=== PATIENT | female | born 1940 | race Caucasian/White ===

== ENCOUNTER → 2017-04-28 08:34 | Outpatient (CLI) | payer MEDICARE, OTHER, SELFPAY ==
[2017-04-28 10:41] LABS: Anion Gap 8 (5-15); BUN 17 mg/dL (7-18); BUN/Creat Ratio 14.7 RATIO (10-20); Calcium,Total 9.1 mg/dL (8.5-10.1); Chloride 109 mmol/L (98-107); Cholesterol 178 mg/dL (200); Creatinine, Serum 1.16 mg/dL (0.55-1.02); EST Glomerular Filtration Rate 48 mL/min (>60); Est Glom Filt Rate - Afr Amer 58 mL/min (>60); Glucose 131 mg/dL (74-106); High Density Lipoprotein 33 mg/dL; Potassium 4.3 mmol/L (3.5-5.1); Sodium Level 142 mmol/L (136-145); Triglycerides 214 mg/dL; Very Low Density Lipoprotein 43 mg/dL (5-40)
== END ==
PROVIDERS: Family Provider Family Medicine; PCP Family Medicine; Visit Provider Family Medicine
DX: I10 Essential (primary) hypertension (principal)
CPT/HCPCS: 36415; 80048; 80061

== ENCOUNTER → 2017-11-12 13:31 | Outpatient (CLI) | payer MEDICARE, OTHER, SELFPAY ==
--- NOTE | 2017-11-12 | LES_PTH ---
PATIENT: RYAN FLEMING [facility]: [facility] U#:[id number] AGE/SX: 85/F ROOM: RE11/12/[address]: Dr. Miles Mercedes MD : 1940 BED: DIS: SPEC #: [id number] RECD: 11/12/17 14:42 STATUS: ALIVIA JASON #: [id number] SHIRA: 11/12/17 00:[address]: Miles Mercedes DEPT: SURGICAL PATHOLOGY RECD BY: Antonio Larsen Tissues: A - Skin of back, NOS B - Skin of back, NOS Procedures: Surgery Specimen Level IV HEADER OPERATION: Biopsy ? mole left upper back, biopsy ? mole right back PRE-OP DIAGNOSIS: Suspicious mole TISSUE SUBMITTED: A ? Suspicious mole left upper back, B ? Mole right upper back MICROSCOPIC DIAGNOSIS A. Suspicious mole left upper back, biopsy: Seborrheic keratosis with features of actinic keratosis. B. Mole right upper back, biopsy: Seborrheic keratosis with features of actinic keratosis. KEN:susu 11/15/17 MICROSCOPIC DESCRIPTION Slides are reviewed. GROSS DESCRIPTION A - Received is one container labeled with the patient's name and not further designated. The specimen consists of a shave biopsy of summers-white skin measuring 0.7 x 0.5 x 0.1 cm. A brownish lesion is noted in the center measuring 0.5 x 0.2 cm. The specimen is inked and submitted entirely in one cassette. It will be sectioned at the time of embedding. B - Received is one container labeled with the patient's name and not further designated. The specimen consists of a piece of summers-white skin measuring 1 x 0.7 x 0.3 cm. The skin surface is rough. The specimen is inked and submitted entirely in one cassette. It will be sectioned at the time of embedding. / KEN:susu 11/12/17 TC:5 CPT: 89623
== END ==
PROVIDERS: Family Provider Family Medicine; PCP Family Medicine; Visit Provider Family Medicine
DX: L82.1 Other seborrheic keratosis (principal)
CPT/HCPCS: 88305

== ENCOUNTER → 2018-01-24 08:42 | Outpatient (CLI) | payer MEDICARE, BC, SELFPAY ==
--- NOTE | 2018-01-24 09:00 | RAD_ITS ---
STUDY: X-RAY - LEFT KNEE REASON FOR EXAM: Female, 78 years old. Pain, no known injury TECHNIQUE: 4 view(s) of the knee. COMPARISON: None. FINDINGS: Normal visualized distal femur. Normal visualized proximal tibia and fibula. Normal proximal tibiofibular articulation. There is mild degenerative arthrosis of the medial femorotibial compartment. Normal lateral femorotibial compartment. There is mild degenerative arthrosis of the patellofemoral articulation. The soft tissue structures are unremarkable. RAD/Knee 4 or More Views IMPRESSION: Degenerative arthrosis. Electronically Signed: Tim Lui MD at 17:09 EST , Service support ,
[2018-01-24 11:09] LABS: Anion Gap 11 (5-15); BUN 17 mg/dL (7-18); BUN/Creat Ratio 15.2 RATIO (10-20); Calcium,Total 9.4 mg/dL (8.5-10.1); Chloride 107 mmol/L (98-107); Cholesterol 179 mg/dL (200); Creatinine, Serum 1.12 mg/dL (0.55-1.02); EST Glomerular Filtration Rate 50 mL/min (>60); Est Glom Filt Rate - Afr Amer 61 mL/min (>60); Glucose 109 mg/dL (74-106); High Density Lipoprotein 32 mg/dL; Potassium 4.6 mmol/L (3.5-5.1); Sodium Level 144 mmol/L (136-145); Triglycerides 219 mg/dL; Very Low Density Lipoprotein 44 mg/dL (5-40)
== END ==
PROVIDERS: Family Provider Family Medicine; PCP Family Medicine; Referring Provider Family Medicine; Visit Provider Family Medicine
DX: M25.562 Pain in left knee (principal); I10 Essential (primary) hypertension
CPT/HCPCS: 36415; 73564; 80048; 80061

== ENCOUNTER → 2018-07-25 09:24 | Outpatient (CLI) | payer MEDICARE, BC, SELFPAY ==
[2018-07-25 13:18] LABS: Anion Gap 9 (5-15); BUN 24 mg/dL (7-18); BUN/Creat Ratio 21.8 RATIO (10-20); Calcium,Total 9.3 mg/dL (8.5-10.1); Chloride 113 mmol/L (98-107); EST Glomerular Filtration Rate 51 mL/min (>60); Est Glom Filt Rate - Afr Amer 62 mL/min (>60); Glucose 114 mg/dL (74-106); Potassium 4.9 mmol/L (3.5-5.1); Sodium Level 144 mmol/L (136-145)
== END ==
PROVIDERS: Family Provider Family Medicine; PCP Family Medicine; Visit Provider Family Medicine
DX: I10 Essential (primary) hypertension (principal)
CPT/HCPCS: 36415; 80048

== ENCOUNTER → 2018-08-04 07:00 | Outpatient (CLI) | payer MEDICARE, BC, SELFPAY ==
--- NOTE | 2018-08-04 06:59 | BI_ITS ---
MAMMOGRAPHY - BILATERAL SCREENING REASON FOR EXAM: Female, 78 years old. Routine annual screening examination. PERTINENT HISTORY: Aunt with breast cancer. History of bilateral excisional breast biopsies. TECHNIQUE: Digital bilateral breast neal (3D mammographic acquisition) in the CC and MLO projections. 2-D mediolateral oblique (MLO) and craniocaudad (CC) views of both breasts were obtained. CAD: Full Field Digital Mammography with Computer Added Detection was performed. COMPARISON: Comparison is made with prior study dated October 07, 2016 and April 05, 2015. FINDINGS: Breast Composition: The breasts are heterogeneously dense, which may obscure small masses. There are no dominant masses or suspicious calcifications. No other significant abnormalities are identified. There has been no significant change since the prior study. BI/SCREENING MAMM (CAD), BILAT IMPRESSION: Stable bilateral screening mammogram. Yearly follow-up mammogram recommended. (A) ASSESSMENT CATEGORY: BIRADS Category 1: Negative. A letter regarding these results will be sent to the patient by the facility within 30 days. Approximately 10% of breast cancers are not detected by mammography. A normal mammogram should not delay biopsy of a clinically suspicious abnormality. [id number] Electronically Signed: Heath Andre, at 8:31 EDT , Service support ,
== END ==
PROVIDERS: Family Provider Family Medicine; PCP Family Medicine; Referring Provider Family Medicine; Visit Provider Family Medicine
DX: Z12.31 Encounter for screening mammogram for malignant neoplasm of breast (principal)
CPT/HCPCS: 77063; 77067

== ENCOUNTER → 2018-08-08 | Outpatient (CLI) | payer MEDICARE, BC, SELFPAY ==
--- NOTE | 2018-08-08 15:10 | LES_PTH ---
PATIENT: RYAN FLEMING LOC: [facility] U#:[id number] AGE/SX: 78/F ROOM: RE08/08/[address]: Dr. Miles Mercedes MD : 1940 BED: DIS: 08/08/2018 SPEC #: [id number] RECD: 08/08/18 17:21 STATUS: ALIVIA JASON #: [id number] SHIRA: 08/08/18 15:[address]: Miles Mercedes DEPT: SURGICAL PATHOLOGY RECD BY: Kenna Calix Tissues: Skin of back, NOS Procedures: Surgery Specimen Level IV HEADER OPERATION: Skin excision PRE-OP DIAGNOSIS: Suspicious skin lesion TISSUE SUBMITTED: Right back skin lesion MICROSCOPIC DIAGNOSIS Right back skin lesion, excisional biopsy: Benign verrucous keratosis with seborrheic keratosis-like features. SJ:susu 08/10/18 MICROSCOPIC DESCRIPTION Slides are reviewed. GROSS DESCRIPTION Received in fixative is one container labeled with the patient's name and designated right back lesion. The specimen consists of a light summers shave biopsy of skin measuring 1 x 0.5 x 0.2 cm. The specimen is inked, bisected and totally submitted in one cassette. / AM:susu 08/09/18 TC:5 CPT: 64314
== END | disposition home or self-care (01) ==
PROVIDERS: PCP Family Medicine; Visit Provider Family Medicine
DX: L82.0 Inflamed seborrheic keratosis (principal)
CPT/HCPCS: 88305

== ENCOUNTER → 2019-05-18 08:20 | Outpatient (CLI) | payer MEDICARE, BC, SELFPAY ==
--- NOTE | 2019-05-18 08:39 | RAD_ITS ---
STUDY: X-RAY - LEFT KNEE REASON FOR EXAM: Female, 79 years old. LEFT KNEE PAIN FOR YEARS JUST GETTING WORSE. NO KNOWN RECENT INJURY. TECHNIQUE: 4 view(s) of the knee. COMPARISON: January 24, 2018. FINDINGS: No acute fracture, dislocation or osseous destruction. Severe medial compartment joint space narrowing. Lateral compartment preserved. Mild/moderate patellofemoral joint space narrowing. Small quadriceps enthesophyte. Chondrocalcinosis within the menisci. Trace joint effusion. No significant swelling. RAD/Knee 4 or More Views IMPRESSION: Left knee osteoarthritis predominating medially Chondrocalcinosis Trace joint effusion Electronically Signed: Osmel Rodrigez DO at 8:20 EDT Tel , Service support ,
[2019-05-18 10:16] LABS: Anion Gap 8 (5-15); BUN 18 mg/dL (7-18); BUN/Creat Ratio 17.5 RATIO (10-20); Calcium,Total 9.3 mg/dL (8.5-10.1); Chloride 109 mmol/L (98-107); Creatinine, Serum 1.03 mg/dL (0.55-1.02); EST Glomerular Filtration Rate 55 mL/min (>60); Est Glom Filt Rate - Afr Amer 67 mL/min (>60); Glucose 124 mg/dL (74-106); Potassium 4.3 mmol/L (3.5-5.1); Sodium Level 143 mmol/L (136-145)
== END ==
PROVIDERS: PCP Family Medicine; Referring Provider Family Medicine; Visit Provider Family Medicine
DX: I10 Essential (primary) hypertension (principal); M25.562 Pain in left knee
CPT/HCPCS: 36415; 73564; 80048

== ENCOUNTER → 2019-10-25 14:08 | Outpatient (CLI) | payer MEDICARE, BC, SELFPAY ==
--- NOTE | 2019-10-25 14:10 | BI_ITS ---
MAMMOGRAPHY - BILATERAL SCREENING 3-D TOMOSYNTHESIS REASON FOR EXAM: Female, 79 years old. Routine screening PERTINENT HISTORY: FM HX MAT AUNT AGE?, LOST 15#, BILAT EXC BX''S S-, LT AXILLARY SKIN TAG MARKED. TECHNIQUE: 2-D mammograms and 3-D Tomosynthesis of the breast (s) were performed. CAD was performed. COMPARISON: 08/04/2018 FINDINGS: The breast composition is heterogeneously dense that can obscure small breast masses. Scattered benign calcifications are seen. No dense spiculated masses or suspicious microcalcifications are identified. No architectural distortion is identified. There is no skin thickening or retraction. There has been no significant change since the prior study. BI/SCREEN MAMM (CAD) W/FAMILIA BILAT IMPRESSION: No mammographic signs of malignancy. Routine yearly mammograms recommended. ASSESSMENT CATEGORY: BIRADS Category 2: Benign. A letter regarding these results will be sent to the patient by the facility within 30 days. FOLLOW UP RECOMMENDATION: Yearly follow up mammogram recommended. (A) Approximately 10% of breast cancers are not detected by mammography. A normal mammogram should not delay biopsy of a clinically suspicious abnormality. Electronically Signed: Gus Garcia MD at 17:23 EDT , Service support ,
== END ==
PROVIDERS: PCP Family Medicine; Referring Provider Family Medicine; Visit Provider Family Medicine
DX: Z12.31 Encounter for screening mammogram for malignant neoplasm of breast (principal)
CPT/HCPCS: 77063; 77067

== ENCOUNTER → 2019-11-17 08:23 | Outpatient (CLI) | payer MEDICARE, BC, SELFPAY ==
[2019-11-17 10:43] LABS: Microalbumin,Random Urine 34.9 mg/L (NO RANGE EST.)
[2019-11-17 10:47] LABS: Anion Gap 6 (5-15); BUN 20 mg/dL (7-18); Calcium,Total 9.8 mg/dL (8.5-10.1); Chloride 107 mmol/L (98-107); Cholesterol 157 mg/dL (200); Creatinine, Serum 1.11 mg/dL (0.55-1.02); EST Glomerular Filtration Rate 50 mL/min (>60); Est Glom Filt Rate - Afr Amer 61 mL/min (>60); Glucose 100 mg/dL (74-106); High Density Lipoprotein 27 mg/dL; Potassium 3.8 mmol/L (3.5-5.1); Sodium Level 141 mmol/L (136-145); Triglycerides 279 mg/dL; Very Low Density Lipoprotein 56 mg/dL (5-40)
== END ==
PROVIDERS: PCP Family Medicine; Referring Provider Family Medicine; Visit Provider Family Medicine
DX: I10 Essential (primary) hypertension (principal)
CPT/HCPCS: 36415; 80048; 80061; 82043

== ENCOUNTER → 2019-11-23 16:26 | Outpatient (CLI) | payer MEDICARE, BC, SELFPAY ==
--- NOTE | 2019-11-23 16:30 | RAD_ITS ---
STUDY: X-RAY - PELVIS AND LEFT HIP REASON FOR EXAM: Female, 79 years old. Left hip pain TECHNIQUE: The views of the pelvis and hip. COMPARISON: None. FINDINGS: There is a non-specific bowel gas pattern. Normal visualized soft tissue structures. Normal bilateral iliac wings, sacroiliac joints and visualized sacrum. Normal bilateral superior and inferior pubic rami. Questionable lucency through the left pubic tubercle. Normal bilateral ischial tuberosities. Normal visualized femoral head. Normal acetabulum. Narrowed hip joint. RAD/HIP, UNI W/ Pelvis 2-3 Views IMPRESSION: Questionable lucency through the left pubic tubercle. Electronically Signed: Arian Perez DO at 23:59 EDT Tel [phone], Service support ,
== END ==
PROVIDERS: PCP Family Medicine; Referring Provider Nurse Practitioner Adult Health; Visit Provider Nurse Practitioner Adult Health
DX: M25.552 Pain in left hip (principal)
CPT/HCPCS: 73502

== ENCOUNTER → 2019-11-24 13:05 | Outpatient (CLI) | payer MEDICARE, BC, SELFPAY ==
--- NOTE | 2019-11-24 13:10 | RAD_ITS ---
STUDY: X-RAY - PELVIS REASON FOR EXAM: Female, 79 years old. Pt had a left hip and whole pelvis xray yesterday-report mentions a questionable left pubic tubercle lucency -- -- pt has left hip and groin pain TECHNIQUE: One view of the pelvis was obtained. COMPARISON: Comparison is made with prior examination of 11/23/2019. FINDINGS: There is a non-specific bowel gas pattern. Normal visualized soft tissue structures. There is narrowing with cortical sclerosis and osteophyte formation of the sacroiliac joint consistent with degenerative osteoarthritic changes. Normal visualized bilateral superior and inferior pubic rami. Normal pubic symphysis. Normal ischial tuberosities. Normal visualized right femoral head. Normal right acetabulum. Normal right hip joint. Normal visualized left femoral head. Normal left acetabulum. Normal left hip joint. RAD/Pelvis 1 or 2 Views IMPRESSION: No acute abnormality is seen. Electronically Signed: Heath Andre, at 14:55 EDT , Service support ,
== END ==
PROVIDERS: PCP Family Medicine; Referring Provider Nurse Practitioner Adult Health; Visit Provider Nurse Practitioner Adult Health
DX: R93.7 Abnormal findings on diagnostic imaging of other parts of musculoskeletal system (principal)
CPT/HCPCS: 72170

== ENCOUNTER → 2020-05-16 09:02 | Outpatient (CLI) | payer MEDICARE, BC, SELFPAY ==
[2020-05-16 10:41] LABS: ALB/GLOB Ratio 1.2 RATIO (0.9-2.4); AST(SGOT) 15 U/L (15-37); Alanine Aminotransfer ALT/SGPT 21 U/L (13-56); Albumin, Serum 3.9 g/dL (3.2-5.0); Alkaline Phosphatase 104 U/L (45-117); Anion Gap 6 (5-15); BUN 27 mg/dL (7-18); BUN/Creat Ratio 21.8 RATIO (10-20); Calcium,Total 9.3 mg/dL (8.5-10.1); Chloride 110 mmol/L (98-107); Cholesterol 174 mg/dL (200); Creatinine, Serum 1.24 mg/dL (0.55-1.02); EST Glomerular Filtration Rate 44 mL/min (>60); Est Glom Filt Rate - Afr Amer 54 mL/min (>60); Globulin 3.3 g/dL (2.2-4.2); Glucose 107 mg/dL (74-106); High Density Lipoprotein 37 mg/dL; Potassium 4.2 mmol/L (3.5-5.1); Protein, Total 7.2 g/dL (6.4-8.2); Sodium Level 142 mmol/L (136-145); Triglycerides 204 mg/dL; Very Low Density Lipoprotein 41 mg/dL (5-40)
== END ==
PROVIDERS: PCP Family Medicine; Referring Provider Family Medicine; Visit Provider Family Medicine
DX: I10 Essential (primary) hypertension (principal)
CPT/HCPCS: 36415; 80053; 80061

== ENCOUNTER → 2020-10-22 08:46 | Outpatient (CLI) | payer MEDICARE, BC, SELFPAY ==
[2020-10-22 10:20] LABS: Absolute Lymphocyte Count 1.75 X10^3/uL (0.83-4.51); Absolute Neutrophil Count 2.9 X10^3/uL (2.0-7.7); Basophil# 0.05 X10^3/uL; Basophil% 0.9 % (0-1); Eosinophil# 0.21 X10^3/uL; Eosinophils% 3.9 % (0-5); Hematocrit 35.6 % (37-47); Hemoglobin 11.9 g/dL (12.0-15.0); Lymphocyte # 1.75 X10^3/ul (0.83-4.51); Lymphocyte % 32.2 % (19-41); Mean Corp Hgb Conc 33.4 g/dL (32-36); Mean Corpuscular Hgb 29.3 pg (27.0-32.0); Mean Corpuscular Volume 87.7 fL (81-99); Mean Platelet Vol. 9.5 fl (6.2-12.0); Monocyte# 0.52 X10^3/uL; Monocyte% 9.6 % (0-10); NRBC Flagged by Analyzer 0 % (0-5); Neutrophil # 2.89 X10^3/uL (2.7-7.7); Platelet Count 176 K/mm3 (150-450); RBC Distribution Width CV 12.9 % (11.6-14.6); RBC Distribution Width SD 40.9 fl (35.1-43.9); Red Blood Count 4.06 M/mm3 (4.2-5.4); White Blood Count 5.4 K/mm3 (4.4-11.0)
[2020-10-22 10:38] LABS: ALB/GLOB Ratio 1.2 RATIO (0.9-2.4); AST(SGOT) 19 U/L (15-37); Alanine Aminotransfer ALT/SGPT 24 U/L (13-56); Albumin, Serum 3.7 g/dL (3.2-5.0); Alkaline Phosphatase 106 U/L (45-117); Anion Gap 4 (5-15); BUN 21 mg/dL (7-18); BUN/Creat Ratio 18.9 RATIO (10-20); Chloride 111 mmol/L (98-107); Cholesterol 149 mg/dL (200); Creatinine, Serum 1.11 mg/dL (0.55-1.02); EST Glomerular Filtration Rate 50 mL/min (>60); Est Glom Filt Rate - Afr Amer 61 mL/min (>60); Globulin 3.2 g/dL (2.2-4.2); Glucose 99 mg/dL (74-106); High Density Lipoprotein 29 mg/dL; Potassium 4.2 mmol/L (3.5-5.1); Protein, Total 6.9 g/dL (6.4-8.2); Sodium Level 142 mmol/L (136-145); Triglycerides 226 mg/dL; Very Low Density Lipoprotein 45 mg/dL (5-40)
== END ==
PROVIDERS: PCP Family Medicine; Referring Provider Family Medicine; Visit Provider Family Medicine
DX: Z01.818 Encounter for other preprocedural examination (principal); I10 Essential (primary) hypertension
CPT/HCPCS: 36415; 80053; 80061; 85025

== ENCOUNTER 2021-03-18 07:57 | Outpatient (CLI) | payer MEDICARE, BC, SELFPAY ==
--- NOTE | 2021-03-18 08:30 | MRI_ITS ---
EXAM: MR HEAD WITHOUT INTRAVENOUS CONTRAST CLINICAL INDICATION: RIGHT ARM PARESTHESIA TECHNIQUE: Multiplanar and multisequence MR images of the brain were obtained without intravenous contrast. This report was created using [employer] report generation technology. COMPARISON: None. FINDINGS: BRAIN AND EXTRA-AXIAL SPACES: No diffusion restriction throughout the brain parenchyma. T2 FLAIR hyperintensity foci in the white matter of both cerebral hemispheres, confluent in the forceps major. No intra- or extra-axial hemorrhage. No evidence of acute infarct. No intracranial mass or mass effect. There is preservation of the farrell/white matter interface. Posterior fossa structures are unremarkable. Ventricles are appropriate for age. No hydrocephalus. Basal cisterns are patent. SELLA: Unremarkable. Normal sella turcica, pituitary gland, infundibular stalk, optic chiasm and hypothalamus. AUDITORY SYSTEM: Unremarkable. The internal auditory canals are patent. BONES/JOINTS: Unremarkable. No discrete lytic or blastic abnormalities. SINUSES: Unremarkable as visualized. Clear. MASTOID AIR CELLS: Unremarkable as visualized. Clear. ORBITS: Unremarkable as visualized. Both globes, extraocular muscles, optic nerves and retrobulbar fat appear unremarkable. VASCULATURE: Unremarkable as visualized. Normal flow voids in the major intracranial circulation. MRI/Brain without Contrast IMPRESSION: 1. No MRI evidence of acute or subacute ischemic infarct, intracranial mass or acute intracranial abnormality. 2. Chronic white matter ischemic changes in both cerebral hemispheres, confluent in the forceps major. Electronically Signed: Heladio Hernandez MD at 9:10 EST , Service support ,
== END 2021-03-18 23:59 | disposition short-term general hospital (02) ==
PROVIDERS: PCP Family Medicine; Referring Provider Family Medicine; Visit Provider Family Medicine
DX: R20.2 Paresthesia of skin (principal)
CPT/HCPCS: 70551

== ENCOUNTER 2021-04-02 09:37 | Outpatient (CLI) | payer MEDICARE, BC, SELFPAY ==
--- NOTE | 2021-04-02 11:14 | NEURO ---
NCS and/or EMG Patient Report Ordering Doctor: Miles Mercedes DATE OF SERVICE: 04/02/21 Tracy complains of numbness and tingling in the right hand for approximately 1 month Electrodiagnostic findings: Right median motor nerve demonstrates normal distal latency, amplitude and conduction velocity. Right ulnar motor responses within normal limits, including conduction across the elbow. Normal right median and ulnar F-wave. Prolonged right median sensory latency at the wrist. Normal ulnar and radial sensory responses. On needle EMG, all muscles tested in the right upper limb showed no evidence of denervation with normal motor unit action potentials. Electrodiagnostic impression: This is an abnormal study in the right upper limb. 1. Electrodiagnostic findings demonstrate right-sided median mononeuropathy. This is consistent with a mild right carpal tunnel syndrome 2. No electrodiagnostic evidence noted for cervical radiculopathy.
== END 2021-04-02 23:59 | disposition short-term general hospital (02) ==
LOC: PSN 09:38
PROVIDERS: PCP Family Medicine; Referring Provider Family Medicine; Visit Provider Family Medicine
DX: R20.2 Paresthesia of skin (principal)
CPT/HCPCS: 95886; 95910

== ENCOUNTER 2021-05-15 09:45 | Outpatient (CLI) | payer MEDICARE, BC, SELFPAY ==
[2021-05-15 12:18] LABS: Absolute Lymphocyte Count 1.89 X10^3/uL (0.83-4.51); Absolute Neutrophil Count 2.8 X10^3/uL (2.0-7.7); Basophil# 0.06 X10^3/uL; Basophil% 1.1 % (0-1); Eosinophil# 0.24 X10^3/uL; Eosinophils% 4.4 % (0-5); Hematocrit 39.1 % (37-47); Hemoglobin 12.7 g/dL (12.0-15.0); Lymphocyte # 1.89 X10^3/ul (0.83-4.51); Lymphocyte % 34.5 % (19-41); Mean Corp Hgb Conc 32.5 g/dL (32-36); Mean Corpuscular Hgb 28.5 pg (27.0-32.0); Mean Corpuscular Volume 87.7 fL (81-99); Mean Platelet Vol. 9.6 fl (6.2-12.0); Monocyte# 0.45 X10^3/uL; Monocyte% 8.2 % (0-10); NRBC Flagged by Analyzer 0 % (0-5); Neutrophil # 2.83 X10^3/uL (2.7-7.7); Neutrophil % 51.6 % (47-70); Platelet Count 191 K/mm3 (150-450); RBC Distribution Width CV 12.7 % (11.6-14.6); RBC Distribution Width SD 41.1 fl (35.1-43.9); Red Blood Count 4.46 M/mm3 (4.2-5.4); White Blood Count 5.5 K/mm3 (4.4-11.0)
[2021-05-15 12:48] LABS: ALB/GLOB Ratio 1.1 RATIO (0.9-2.4); AST(SGOT) 17 U/L (15-37); Alanine Aminotransfer ALT/SGPT 22 U/L (13-56); Albumin, Serum 3.9 g/dL (3.2-5.0); Alkaline Phosphatase 120 U/L (45-117); Anion Gap 2 (5-15); BUN 23 mg/dL (7-18); BUN/Creat Ratio 21.5 RATIO (10-20); Calcium,Total 9.2 mg/dL (8.5-10.1); Chloride 109 mmol/L (98-107); Cholesterol 188 mg/dL (200); Creatinine, Serum 1.07 mg/dL (0.55-1.02); EST Glomerular Filtration Rate 52 mL/min (>60); Est Glom Filt Rate - Afr Amer 63 mL/min (>60); Globulin 3.5 g/dL (2.2-4.2); Glucose 104 mg/dL (74-106); High Density Lipoprotein 33 mg/dL; Potassium 4.2 mmol/L (3.5-5.1); Protein, Total 7.4 g/dL (6.4-8.2); Sodium Level 140 mmol/L (136-145); Triglycerides 240 mg/dL; Very Low Density Lipoprotein 48 mg/dL (5-40)
== END 2021-05-15 23:59 | disposition home or self-care (01) ==
PROVIDERS: PCP Family Medicine; Referring Provider Family Medicine; Visit Provider Family Medicine
DX: Z01.818 Encounter for other preprocedural examination (principal); Z01.810 Encounter for preprocedural cardiovascular examination; I10 Essential (primary) hypertension
CPT/HCPCS: 36415; 80053; 80061; 85025

== ENCOUNTER 2021-05-19 09:33 | Outpatient (CLI) | payer MEDICARE, BC, SELFPAY ==
--- NOTE | 2021-05-19 09:37 | EKG12_ITS ---
Test Reason : PREOP Blood Pressure : / mmHG Vent. Rate : 058 BPM Atrial Rate : 058 BPM P-R Int : 182 ms QRS Dur : 082 ms QT Int : 394 ms P-R-T Axes : 036 060 088 degrees QTc Int : 386 ms Sinus bradycardia Otherwise normal ECG Confirmed by RAJESH SANCHEZ, GUERDA ([id number]), city editor ELIZABETH JAIN ([id number]) on 05/20/2021 9:17:27 AM Referred By: Atilio Greer Confirmed By:GUERDA MENA MD
== END 2021-05-19 23:59 | disposition home or self-care (01) ==
LOC: PSN 09:35
PROVIDERS: PCP Family Medicine; Referring Provider Specialist; Visit Provider Specialist
DX: Z01.810 Encounter for preprocedural cardiovascular examination (principal); Z01.818 Encounter for other preprocedural examination
CPT/HCPCS: 93005

== ENCOUNTER → 2021-10-13 | Outpatient (CLI) | payer MEDICARE, BC, SELFPAY ==
--- NOTE | 2021-10-13 12:47 | BI_ITS ---
MAMMOGRAPHY - BILATERAL SCREENING REASON FOR EXAM: Female, 81 years old. Routine annual screening examination. PERTINENT HISTORY: Aunt with breast cancer. History of prior bilateral excisional breast biopsies. TECHNIQUE: Digital bilateral breast familia (3D mammographic acquisition) in the CC and MLO projections. 2-D mediolateral oblique (MLO) and craniocaudad (CC) views of both breasts were obtained. CAD: Full Field Digital Mammography with Computer Added Detection was performed. COMPARISON: Comparison is made with prior study dated 10/25/2019 and 08/04/2018. FINDINGS: Breast Composition: The breasts are heterogeneously dense, which may obscure small masses. There are no dominant masses or suspicious calcifications. Stable benign appearing bilateral axillary lymph nodes. No other significant abnormalities are identified. There has been no significant change since the prior study. BI/SCRN MAMM (CAD)W/FAMILIA BILAT IMPRESSION: Stable bilateral screening mammogram. Yearly follow-up mammogram recommended. (A) ASSESSMENT CATEGORY: BIRADS Category 2: Benign. A letter regarding these results will be sent to the patient by the facility within 30 days. Approximately 10% of breast cancers are not detected by mammography. A normal mammogram should not delay biopsy of a clinically suspicious abnormality. [id number] Electronically Signed: Heath Andre MD at 14:57 EDT ,
== END | disposition home or self-care (01) ==
LOC: OPBI 12:45
PROVIDERS: PCP Family Medicine; Referring Provider Family Medicine; Visit Provider Family Medicine
DX: Z12.31 Encounter for screening mammogram for malignant neoplasm of breast (principal)
CPT/HCPCS: 77063; 77067

== ENCOUNTER → 2021-11-14 | Outpatient (CLI) | payer MEDICARE, BC, SELFPAY ==
[2021-11-14 12:17] LABS: Anion Gap 7 (5-15); BUN 22 mg/dL (7-18); BUN/Creat Ratio 18.2 RATIO (10-20); Calcium,Total 9.3 mg/dL (8.5-10.1); Chloride 109 mmol/L (98-107); Creatinine, Serum 1.21 mg/dL (0.55-1.02); EST Glomerular Filtration Rate 45 mL/min (>60); Est Glom Filt Rate - Afr Amer 55 mL/min (>60); Glucose 97 mg/dL (74-106); Potassium 4.2 mmol/L (3.5-5.1); Sodium Level 142 mmol/L (136-145)
== END | disposition home or self-care (01) ==
LOC: MFPLAB 10:38
PROVIDERS: PCP Family Medicine; Referring Provider Family Medicine; Visit Provider Family Medicine
DX: I10 Essential (primary) hypertension (principal)
CPT/HCPCS: 36415; 80048

== ENCOUNTER → 2022-05-14 | Outpatient (CLI) | payer MEDICARE, BC, SELFPAY ==
[2022-05-14 13:09] LABS: Anion Gap 7 (5-15); BUN 18 mg/dL (7-18); BUN/Creat Ratio 16.7 RATIO (10-20); Calcium,Total 9.2 mg/dL (8.5-10.1); Chloride 108 mmol/L (98-107); Cholesterol 203 mg/dL (200); Creatinine, Serum 1.08 mg/dL (0.55-1.02); EST Glomerular Filtration Rate 52 mL/min (>60); Est Glom Filt Rate - Afr Amer 63 mL/min (>60); Glucose 105 mg/dL (74-106); High Density Lipoprotein 34 mg/dL; Potassium 4.3 mmol/L (3.5-5.1); Sodium Level 143 mmol/L (136-145); Thyroid Stim Hormone (TSH) 2.81 uIU/mL (0.358-3.74); Triglycerides 223 mg/dL; Very Low Density Lipoprotein 45 mg/dL (5-40)
== END | disposition home or self-care (01) ==
LOC: MFPLAB 09:21
PROVIDERS: PCP Family Medicine; Referring Provider Family Medicine; Visit Provider Family Medicine
DX: R63.5 Abnormal weight gain (principal); I10 Essential (primary) hypertension
CPT/HCPCS: 36415; 80048; 80061; 84443

== ENCOUNTER → 2022-06-08 | Outpatient (CLI) | payer MEDICARE, BC, SELFPAY ==
--- NOTE | 2022-06-08 08:45 | BI_ITS ---
MAMMOGRAPHY - BILATERAL DIAGNOSTIC REASON FOR EXAM: Female, 82 years old. Right nipple pain. PERTINENT HISTORY: Aunt with breast cancer. TECHNIQUE: Digital bilateral breast neal (3D mammographic acquisition) in the CC and MLO projections. 2-D mediolateral oblique (MLO) and craniocaudad (CC) views of both breasts were obtained. CAD: Full Field Digital Mammography with Computer Added Detection was performed. COMPARISON: Comparison is made with prior study dated October 13, 2021 and October 25, 2019. FINDINGS: Breast Composition: The breasts are heterogeneously dense, which may obscure small masses. There are no dominant masses or suspicious calcifications. Stable benign-appearing bilateral axillary lymph nodes. No other significant abnormalities are identified. There has been no significant change since the prior study. BI/DIAG MAMM W/CAD, BILAT IMPRESSION: Stable bilateral diagnostic mammogram. With the patient''s history of right nipple pain, targeted ultrasound correlation is recommended. ASSESSMENT CATEGORY: BIRADS Category 0: Incomplete. Need additional imaging evaluation. A letter regarding these results will be sent to the patient by the facility within 30 days. Approximately 10% of breast cancers are not detected by mammography. A normal mammogram should not delay biopsy of a clinically suspicious abnormality. Electronically Signed: Heath Andre MD at 10:05 EDT ,
--- NOTE | 2022-06-08 09:16 | US_ITS ---
STUDY: ULTRASOUND BREAST - RIGHT REASON FOR EXAM: Female, 82 years old. Right retroareolar tenderness. TECHNIQUE: Axial and longitudinal images of the RIGHT breast were performed with a high resolution ultrasound transducer. # OF IMAGES: 22 COMPARISON: Comparison is made with prior mammogram done earlier in the day. FINDINGS: RIGHT Breast: The retroareolar region of the right breast was examined with ultrasound. There is an 8 mm x 7 mm x 3 mm cyst. US/Breast Limited Unilateral IMPRESSION: 8 mm x 7 mm x 2 mm cyst is seen in the retroareolar region of the right breast. ASSESSMENT CATEGORY: BIRADS Category 2: Benign. A letter regarding these results will be sent to the patient by the facility within 30 days. Electronically Signed: Heath Andre MD at 11:01 EDT ,
== END | disposition home or self-care (01) ==
LOC: OPBI 08:40
PROVIDERS: PCP Family Medicine; Visit Provider Family Medicine
DX: N64.4 Mastodynia (principal); Z80.3 Family history of malignant neoplasm of breast
CPT/HCPCS: 76642; 77062; 77066; G0279

== ENCOUNTER 2022-07-09 09:06 | Day surgery (SDC) | payer MEDICARE, BC, SELFPAY ==
--- NOTE | 2022-07-03 08:36 | EKG12_ITS ---
Test Reason : PRE-OP Blood Pressure : / mmHG Vent. Rate : 052 BPM Atrial Rate : 052 BPM P-R Int : 182 ms QRS Dur : 078 ms QT Int : 428 ms P-R-T Axes : 051 065 088 degrees QTc Int : 398 ms Sinus bradycardia Otherwise normal ECG Confirmed by NIKITA SANCHEZ, YENI ([id number]), senior technical editor ELIZABETH JAIN ([id number]) on 07/06/2022 11:51:58 AM Referred By: Jorge Kline Confirmed By:LIAT SHELTON MD
[2022-07-03 10:02] LABS: Hematocrit 36.9 % (37-47); Hemoglobin 11.8 g/dL (12.0-15.0); Mean Corpuscular Hgb 27.9 pg (27.0-32.0); Mean Corpuscular Volume 87.2 fL (81-99); Mean Platelet Vol. 9.5 fl (6.2-12.0); Platelet Count 195 K/mm3 (150-450); RBC Distribution Width CV 13.7 % (11.6-14.6); RBC Distribution Width SD 43.8 fl (35.1-43.9); Red Blood Count 4.23 M/mm3 (4.2-5.4); White Blood Count 6.4 K/mm3 (4.4-11.0)
[2022-07-03 10:37] LABS: Anion Gap 2 (5-15); BUN 26 mg/dL (7-18); BUN/Creat Ratio 20.5 RATIO (10-20); Chloride 111 mmol/L (98-107); Creatinine, Serum 1.27 mg/dL (0.55-1.02); EST Glomerular Filtration Rate 43 mL/min (>60); Est Glom Filt Rate - Afr Amer 52 mL/min (>60); Glucose 119 mg/dL (74-106); Potassium 4.4 mmol/L (3.5-5.1); Sodium Level 140 mmol/L (136-145)
[2022-07-09] VITALS (7 sets, daily range): BP systolic 113–172; BP diastolic 54–73; PULSE 60–96; RESP 14–18; TEMP 36.2–36.6; O2SAT 94–100; BMI 30.8
[2022-07-09] MEDS: Lactated Ringers 1,000 ML 15 ML IV (09:34)
--- NOTE | 2022-07-09 10:27 | HP.PCM_ITS ---
History and Physical Date of Admission: 07/09/22 Allergies Sulfa (Sulfonamide Antibiotics) Allergy (Intermediate, Verified 06/23/22 14:26) Itching Medications aspirin 81 mg tablet,delayed release 81 mg PO DAILY 06/23/22 [History Confirmed 06/23/22] latanoprost 0.005 % eye drops 1 drp ophthalmic (eye) DAILY 06/23/22 [History Confirmed 06/23/22] losartan 50 mg tablet 50 mg PO DAILY 06/23/22 [History Confirmed 06/23/22] mecobalamin (vitamin B12) 1,000 mcg chewable tablet (B12 Active) 1,000 mcg PO DAILY 06/23/22 [History Confirmed 06/23/22] omega-3 fatty acids 1,000 mg capsule 1,000 mg PO DAILY 06/23/22 [History Confirmed 06/23/22] PFSH Medical History?(Updated 06/23/22 @ 14:19 by Heaven Wilson) History of pulmonary embolism Surgical History?(Updated 06/23/22 @ 14:19 by Heaven Wilson) History of lumpectomy of right breast Family History?(Updated 06/23/22 @ 14:20 by Heaven Wilson) Mother Diabetes Kidney diseaseFather Heart disease HPI HPI HPI: 82-year-old female is being referred by Dr. Miles Mercedes for patient concerns regarding labile pain and imaging identifying a breast cyst.? A written copy of my surgical consult recommendations will be returned to him.? The patient has been noted to have right retroareolar breast tenderness.? As noted below on June 08, 2022 the patient had diagnostic bilateral mammograms which were BI-RADS Category 0 no findings.? She then had a right breast ultrasound demonstrating an 8 x 7 x 2 mm cyst in the retroareolar area of the right breast 12 o'clock position..? BI-RADS 2 benign.? I have personally reviewed the images and concur.? On my review on ultrasound there may also be a few dilated ducts in the retroareolar right as well. The patient is very concerned because she is having medial right breast pain.? This has been ongoing for just over a month.? No nipple discharge or bleeding.? She had a previous excisional lumpectomy on the left. A0.? Menarche age 14 first child born when she was 22.? At some point she was on estrogen therapy.? Family history notable for a maternal aunt who had breast cancer. The patient does have concerns about her right breast pain.? She points to the 2 o'clock position medial aspect of the right breast. June 08, 2022 MAMMOGRAPHY - BILATERAL DIAGNOSTIC REASON FOR EXAM: ? Female, 82 years old.? Right nipple pain. PERTINENT HISTORY:? Aunt with breast cancer. TECHNIQUE: ? Digital bilateral breast neal (3D mammographic acquisition) in the CC and MLO projections. 2-D mediolateral oblique (MLO) and craniocaudad (CC) views of both breasts were obtained.? CAD: Full Field Digital Mammography with Computer Added Detection was performed. COMPARISON:? Comparison is made with prior study dated October 13, 2021 and October 25, 2019. FINDINGS: Breast Composition:? The breasts are heterogeneously dense, which may obscure small masses. There are no dominant masses or suspicious calcifications. Stable benign-appearing bilateral axillary lymph nodes. No other significant abnormalities are identified.? There has been no significant change since the prior study. BI/DIAG MAMM W/CAD, BILAT IMPRESSION: Stable bilateral diagnostic mammogram. With the patient''s history of right nipple pain, targeted ultrasound correlation is recommended. ? ? ASSESSMENT CATEGORY: BIRADS Category 0:? Incomplete.? Need additional imaging evaluation.? A letter regarding these results will be sent to the patient by the facility within 30 days. ? Approximately 10% of breast cancers are not detected by mammography.? A normal mammogram should not delay biopsy of a clinically suspicious abnormality. ? Electronically Signed: Heath Andre MD at 10:05 EDT , ?June 08, 2022 STUDY: ? ULTRASOUND BREAST - RIGHT REASON FOR EXAM: ? Female, 82 years old.? Right retroareolar tenderness. TECHNIQUE: ? Axial and longitudinal images of the RIGHT breast were performed with a high resolution ultrasound transducer. # OF IMAGES:? 22 COMPARISON: ? Comparison is made with prior mammogram done earlier in the day. FINDINGS: RIGHT Breast: The retroareolar region of the right breast was examined with ultrasound. There is an 8 mm x 7 mm x 3 mm cyst. US/Breast Limited Unilateral IMPRESSION: 8 mm x 7 mm x 2 mm cyst is seen in the retroareolar region of the right breast. ? ASSESSMENT CATEGORY: BIRADS Category 2:? Benign.? A letter regarding these results will be sent to the patient by the facility within 30 days. ? Electronically Signed: Heath Andre MD at 11:01 EDT , ROS General General: No weight change, appetite, fatigue, colon cancer, breast cancer or w eakness HEENT HEENT: Yes eye surgery; No difficulty swallowing, eye injury, swollen glands or hoarseness Endo Endocrine: No thyroid disease, diabetes mellitus, thyroid cancer, Hair loss, heat intolerance or cold intolerance Skin Skin: No rash or changing moles Breast Breast: Yes breast pain and abnormal US; No left breast lump, right breast lump, nipple discharge, abnormal mammogram or breast enlargement Musc Musculoskeletal: Yes arthritis; No back problems, rheumatoid arthritis, gout or joint pain Cardio Cardiovascular: No murmur, pacemaker, heart disease, atrial fibrillation, high blood pressure, heart attack, heart stent, palpitations, shortness of breat with exertion or chest pain Psych Psychiatric: No depression, anxiety or hearing voices Resp Respiratory: No shortness of breath, No sleep apnea, No cough, No COPD, No asthma, No emphysema and No wheezing Gastro Gastrointestinal: No abdominal pain, No nausea or vomiting, No diarrhea, No constipation, No blood in stool, No acid reflux, No hemorrhoids, No ulcers, No gallbladder problem and No black,tarry stools Zbigniew Hematologic: No blood thinners, No blood disorders, No bleeding, No anemia and No blood clots Neuro Neurologic: No system reviewed and no additional complaints, except as documented, No as per HPI, No abnormal gait, No abnormal hearing, No abnormal movements, No abnormal speech, No behavioral changes, No burning sensations, No confusion, No convulsions, No disequilibrium, No dizziness, No localized weakness, No frequent falls, No headache(s), No lack of coordination, No loss of vision, No memory loss, Yes numbness, No other visual disturbances, No radicular pain, No restless legs, No sensory deficit, No syncope, Yes tingling, No trem or(s), No weakness and No other Exam Const General: cooperative, comfortable and no acute distress Nutritional Appearance: average body habitus Orientation: alert and awake [facility] Head: normal to inspection Eyes General: appearance normal, both eyes and all related structures Neck Neck: normal visual inspection Chest Other: Right breast: Focally tender to even light palpation medial right breast 3 o'clock position.? No nipple discharge.? No axillary clavicular adenopathy.? Ultrasound inspection reveals that the right breast cyst is at 12 o'clock position and with probe compression she this is not the area of tenderness.? Tenderness noted to be medially. Resp Effort & Inspection: normal respiratory effort Auscultation: clear to auscultation bilaterally Cardio Rate: regular rate Rhythm: regular rhythm GI Palpation: soft Musc Cervical Spine: normal cervical lordosis Skin General: no rashes or lesions noted Neuro General: patient alert, patient awake and patient oriented x3 Assessment and Plan Assessment and Plan (1) Breast pain, right: ?Status:?Acute (2) Breast cyst: ?Status:?Acute ?Plan: 82-year-old female whose primary concern is right breast pain.? The right breast pain is medial at the subareolar level.? Exquisitely tender to this area with some fibrous change.? On my ultrasound inspection there appears to be some dilated ducts in this area.? It is of note that the right breast cyst is located at the 12 o'clock position and this is not the source of the patient's concern or tenderness. The source of right breast pain and 82-year-old female with some dilated ducts does cause some concern.? It is pertinent that this is not associated with the simple cyst that is identified at 12 o'clock position and the simple cyst does not require intervention. I offered the patient consideration for a medial right breast lumpectomy through curvilinear areolar incision 3 o'clock position.? She is aware that this will not be a guided technique as there is not a focal area of interest but she appears to have a conglomerate of fibrous tissue with dilated ducts in this area though no nipple discharge. She is aware of the technique, benefit, risk, alternatives.? She is aware there is no guarantees of success.? Regarding the right breast cyst at 12 o'clock position I do not believe that that requires any intervention at this setting and is an incidental finding. The patient has ongoing concern regarding the unrelenting discomfort and I have interested in the dilated ducts on ultrasound.? We will therefore schedule at her discretion. I appreciate the opportunity of assisting with her surgical care. Copy: Dr. Miles Kline M.D., F.A.C.S I have examined the patient and the H&P has been reviewed. There are no clinical changes since date of exam Jorge Kline M.D., F.A.C.S..
--- NOTE | 2022-07-09 10:39 | DCINST_ITS ---
Discharge Instructions Procedure Breast Surgery Diet Discharge Diet: No restrictions Activity Discharge Activity: May Not Drive (for 2-3 days or while taking narcotic pain meds.) May shower in (days): 1 Lifting Restrictions: 10 pounds for 1 week. Additional Activity Instructions:: You may remove the bulky tape dressing tomorrow. He may shower tomorrow. He remove any plastic dressings in an additional couple days. Leave any Steri-Strips in place for 1 week. Dressing / Incision Call your doctor if your incision/area has: Continuous Slow Oozing and Sudden Increased Bleeding Call your doctor if you observe: Fever of 101 or Higher Suture Line Care: Avoid Pulling/Pushing and Avoid Pinching/Bending Remove Dressing in: 1 day Follow Up Care When: Please call for follow-up appointment in approximately 7 to [address] Jorge Kline. [phone] Test Results: Test results from this visit will be discussed in further detail at your follow- up appointment, if applicable. Discharge Plan Admission Attending Provider: Jorge Kline Primary Care Provider: Miles Mercedes Discharge Orders/Prescriptions Prescriptions: No Action losartan 50 mg tablet 50 mg PO DAILY aspirin 81 mg tablet,delayed release (DR/EC) 81 mg PO DAILY omega-3 fatty acids 1,000 mg capsule 1,000 mg PO DAILY latanoprost 0.005 % drops 1 drp ophthalmic (eye) DAILY vitamin E 268 mg (400 unit) Capsule 268 mg PO DAILY Other Ambulatory Orders: 12 Lead EKG (Routine) Timeframe: [id number] Location: None Selected Ordered By: Dr. Jorge Kline Referrals / Follow Up: Miles Mercedes MD [Primary Care Provider] - Disposition Disposition (needs filled in before D/C Order can be placed): Home, Self Care
[2022-07-09] MEDS: Cefazolin 2 GM in 0.9% Normal Saline 100 ML IV (10:43)
--- NOTE | 2022-07-09 11:00 | BR_PTH ---
PATIENT: RYAN FLEMING LOC: [facility] [place] U#:[id number] AGE/SX: 82/F ROOM: RE07/09/[address]: Dr. Jorge Kline MD : 1940 BED: DIS: 07/09/2022 SPEC #: [id number] RECD: 07/09/22 12:36 STATUS: ALIVIA GOMEZ #: [id number] SHIRA: 07/09/22 11:[address]: Jorge Kline DEPT: SURGICAL PATHOLOGY RECD BY: Odalys Johnson ENTERED: 07/10/22 12:27 SP TYPE: MAMOPLASTY OTHR DR: Dr. Miles Mercedes MD Tissues: Right breast, NOS Procedures: Surgery Specimen Level IV HEADER OPERATION: Excisional right breast biopsy PRE-OP DIAGNOSIS: Right breast pain and cyst TISSUE SUBMITTED: Right breast biopsy MICROSCOPIC DIAGNOSIS Right breast, excisional biopsy: Fibrocystic change with associated banal microcalcifications. Focal intraductal hyperplasia without atypia. Lobular involution. Microfibroadenoma. AM:susu 07/13/2022 MICROSCOPIC DESCRIPTION Slides are reviewed. GROSS DESCRIPTION Received in fixative is one container labeled with the patient's name and designated right breast biopsy. The specimen consists of an unoriented piece of summers-yellow fibroadipose tissue measuring 6.0 x 3.5 x 3.0 cm. Sections reveal summers-yellow adipose cut surfaces mixed with summers-white fibrous areas. No obvious mass lesion is identified. Denture Laboratory Technician sections are submitted in 12 cassettes. More than 95% of the specimen is submitted. / SJ:susu 07/10/2022 TC:5 CPT: 65223
--- NOTE | 2022-07-09 11:37 | PCM.OPRPT ---
Report of Operation Date of Procedure: 07/09/22 Pre-Operative Diagnosis: Medial right breast pain with dilated ducts Post-Operative Diagnosis: Same Surgery/Procedure Performed:: Excisional medial right breast biopsy Description of Surgical Findings:: Timeout informed consent was obtained. 82-year-old female was taken to the operating room placed on the table the right breast was sterilely prepped and draped she underwent general anesthesia Ancef 2 g were given intravenously a curvilinear incision was made in the medial aspect of the right areola sharp dissection carried down subtenons tissue along the 3 o'clock position a excisional biopsy of fibrofatty tissue and breast tissue was performed as well as a degree of retroareolar dissection. There was no palpable mass to act as a guide post. The tissue at maximum tenderness for the patient was removed. Hemostasis was attained with electrocautery. The rona-incisional area had been anesthetized with 0.25% Marcaine and throughout the procedure a total of 30 cc was used. Deep tissue was approximated with interrupted 2-0 Vicryl. More subcutaneous tissues approximated up to 3-0 Vicryl. Skin edges approximated opted for Monocryl. Steri-Strips Telfa OpSite bulky dry pressure dressing was applied. Sponge and instrument and needle counts were reported to the surgeon to be correct. Specimen right breast excisional biopsy. Drains none. Blood loss minimal. The patient was taken to the recovery room in satisfactory addition without apparent complication Jorge Kline M.D., F.A.C.S. Surgeon: Jorge Kline Type of Anesthesia: General and Local Anesthesiologist: Lux Fernandes
[2022-07-09] MEDS: Bupivacaine 0.25% 30 ML Vial (11:40)
== END 2022-07-09 13:31 | disposition home or self-care (01) ==
LOC: SDC 09:07 → AC 09:08
PROVIDERS: PCP Family Medicine; Referring Provider Surgery; Visit Provider Surgery
PROC: (CPT 19101; principal; 2022-07-09 10:45)
DX: N64.4 Mastodynia (principal); N60.01 Solitary cyst of right breast; I25.10 Atherosclerotic heart disease of native coronary artery without angina pectoris; Z80.3 Family history of malignant neoplasm of breast; N64.89 Other specified disorders of breast; R92.0 Mammographic microcalcification found on diagnostic imaging of breast; N60.21 Fibroadenosis of right breast; N60.11 Diffuse cystic mastopathy of right breast; Z86.711 Personal history of pulmonary embolism
CPT/HCPCS: 19101; 00400; 36415; 80048; 85027; 88305; 93005; J7120; J2405

== ENCOUNTER → 2022-07-16 | Outpatient (CLI) | payer MEDICARE, BC, SELFPAY | END | disposition home or self-care (01) | PROVIDERS: PCP Family Medicine; Referring Provider Family Medicine; Visit Provider Family Medicine | DX: R10.9 Unspecified abdominal pain (principal) | CPT/HCPCS: 87086; 87088 ==

== ENCOUNTER 2022-07-19 05:21 | Emergency (ER) | payer MEDICARE, BC, SELFPAY ==
[2022-07-19 05:22] VITALS: BP 206/82; PULSE 67; RESP 18; TEMP 36.4; O2SAT 97; BMI 31.2
[2022-07-19 05:24] VITALS: BP 206/82; PULSE 67; RESP 18; TEMP 36.4; O2SAT 97
[2022-07-19 05:28] VITALS: BP 195/62
--- NOTE | 2022-07-19 05:35 | CT_ITS ---
EXAM: CT ABDOMEN AND PELVIS WITH INTRAVENOUS CONTRAST CLINICAL INDICATION: RLQ abd pain TECHNIQUE: Helically acquired images were obtained of the abdomen and pelvis with intravenous contrast. This CT exam was performed using one or more of the following dose reduction techniques: automated exposure control, adjustment of the mA and/or kV according to patient size, and/or use of iterative reconstruction technique. CONTRAST: IV 100mL Isovue-300 COMPARISON: No relevant prior studies available. FINDINGS: LOWER THORAX: Unremarkable. Lung bases are clear. No cardiomegaly. No significant pericardial effusion. ABDOMEN: LIVER: Unremarkable. Homogeneous. No focal mass. GALLBLADDER AND BILE DUCTS: Unremarkable. No calcified gallstones. No gallbladder distention or wall edema. No intra- or extrahepatic biliary ductal dilation. PANCREAS: Unremarkable. No focal cystic or solid mass. No inflammation around the pancreas. SPLEEN: Unremarkable. Normal size without focal cystic or solid mass. ADRENALS: Unremarkable. No nodules. 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 No hydronephrosis. 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 No stomach or bowel distention. PELVIS: APPENDIX: The appendix is normal. BLADDER: Unremarkable. REPRODUCTIVE: Unremarkable as visualized. No mass. ABDOMEN and PELVIS: INTRAPERITONEAL SPACE: Unremarkable. No ascites or other fluid collection. No free air. BONES/JOINTS: Degenerative changes of the spine. No suspicious lytic or blastic abnormality. SOFT TISSUES: Unremarkable. No discrete abdominal or pelvic wall hernia. VASCULATURE: Unremarkable. Abdominal aorta is non-dilated. LYMPH NODES: Unremarkable. No enlarged lymph nodes. CT/Abdomen/Pelvis W IV Cont ONLY IMPRESSION: 1. No acute abnormalities identified in the abdomen/pelvis. 2. Extensive areas of chronic cortical scarring in the kidneys. This may indicate chronic sequela of infection or reflux. Electronically Signed: Pietro Cope MD at 7:17 EDT ,
--- NOTE | 2022-07-19 05:36 | EDS_ITS ---
HPI HPI - GI History of Present Illness Chief Complaint: Abd Pain Detail of Chief Complaint: Right lower quadrant abdominal pain Informant: patient Abdominal Pain/Flank Pain Onset: Days Context: Gradual Onset Timing: Continuous Quality: Aching Location: RLQ Current Severity: Mild Maximum Severity: Mild Worsened by: Nothing Relieved by: Nothing Nausea/Vomiting/Emesis GI Symptom: Negative for Nausea or Vomiting Diarrhea/Melena/Hematochezia GI Symptom: Negative for Diarrhea, Melena or Hematochezia Associated Symptoms Associated Symptoms: Negative for Dysuria, Frequency, Hematuria or Urgency Narrative Narrative: 82-year-old female history of prior pulmonary emboli. That was years ago. Complaining of right lower quadrant abdominal pain beginning on . Saw her primary care physician treated as a UTI currently she is on Cipro. Not improving. She has been on antibiotics now for 2+ days. Denies any fever or chills. No dysuria. No diarrhea or constipation. No trauma. She has never had any significant abdominal surgeries. Still has her appendix. Prior similar symptoms: No Recent Illness/Hospitalization: No PFSH PFSH Medical History Arthritis Cataract (lens) fragments in eye following cataract surgery, bilateral CPAP (continuous positive airway pressure) dependence Former smoker Glaucoma Gout High cholesterol History of pulmonary embolism Hypertension Macular degeneration Pulmonary embolism Renal agenesis Sleep apnea Wears glasses Home Medications aspirin 81 mg tablet,delayed release 81 mg PO DAILY 06/23/22 [History Last Taken 07/09/22 05:00] latanoprost 0.005 % eye drops 1 drp ophthalmic (eye) DAILY 06/23/22 [History Last Taken Unknown] losartan 50 mg tablet 75 mg PO DAILY 06/23/22 [History Last Taken 07/09/22 05:00] omega-3 fatty acids 1,000 mg capsule 1,000 mg PO DAILY 06/23/22 [History Last Taken Unknown] vitamin E 268 mg (400 unit) capsule 268 mg PO DAILY 07/02/22 [History Last Taken Unknown] hydrocodone-acetaminophen 5-325mg 5mg-325mg 1 tab PO Q8H PRN pain 2 days #5 tabs 07/09/22 [Rx Last Taken Unknown] Allergy/AdvReac Type Severity Reaction Status Date / Time Sulfa (Sulfonamide Allergy Intermediate Itching Verified 07/09/22 09:29 Antibiotics) Family History Mother Diabetes Kidney disease Father Heart disease Surgical History History of carpal tunnel release History of lumpectomy of right breast Social History Smoking Status: Former smoker ROS ROS ED ROS Narrative Right lower quadrant abdominal pain. Review of Systems ROS Unobtainable: Denies due to encephalopathy Constitutional Constitutional ED: Denies chills or fever(s) ENT ENT ED: Denies ear pain Cardiovascular Cardiovascular: Denies chest pain Respiratory/Chest Respiratory/Chest: Denies cough Gastrointestinal Gastrointestinal: Reports abdominal pain; Denies constipation, diarrhea, melena, nausea, vomiting or other Genitourinary Genitourinary ED: Denies dysuria or hematuria Musculoskeletal Musculoskeletal: Denies arthralgias Integumentary Denies abscess Neurologic Neurologic: Denies headache(s) Psychiatric Psychiatric: Denies anxiety Endocrine Endocrinology: Denies polydipsia Hematologic/Lymphatic Hematologic/Lymphatic: Denies easy bleeding Allergic/Immunologic Allergic/Immunologic ED: Denies mouth swelling or tongue swelling EXAM Physical Exam Narrative Exam Narrative: 82-year-old female. Vital signs stable afebrile. She does not look septic nor toxic nor in distress. Significant other at bedside. H EENT exam unremarkable. Lungs are clear. Heart regular rhythm no murmur. Abdomen soft nondistended normal bowel sounds. She is tender in the right lower quadrant. There is no specific peritoneal signs. There is no Rocha sign in the right upper quadrant. Left-sided right is nontender. No distention. No pulsatile mass. Back nontender. Moving all 4 extremities. Neurologically she is awake and alert with no focal motor deficits. Const Vital Signs: 07/19/22 05:22 07/19/22 05:24 07/19/22 05:28 Temperature 97.6 F L 97.6 F L Temperature Source Oral Oral Pulse Rate 67 67 Respiratory Rate 18 18 Blood Pressure 206/82 H 206/82 H 195/62 H Blood Pressure Mean 123 123 106 Pulse Ox 97 97 Oxygen Delivery Method Room Air Room Air Positive well nourished and well developed; Negative for cachectic, contractures or unkempt General Appearance ED: well developed and NAD; Negative for unkempt, cachectic, contractures or pallor Nutritional Appearance: Negative for cachectic HEENT Reports moist mucous membranes normocephalic and atraumatic; Negative for trauma Eyes PERRL and EOMs intact bilaterally General Eye ED: Negative for pale conjunctiva or scleral icterus Neck no lymphadenopathy, supple and no JVD General: Negative for tenderness Carotids: Negative for other Resp normal respiratory effort and clear to auscultation bilaterally Effort and Inspection: Negative for respiratory distress Auscultation: Negative for rales or rhonchi Cardio regular rate, regular rhythm, S1 normal heart sound, S2 normal heart sound and no murmurs Rate: Negative for bradycardia or tachycardic Rhythm: Negative for abnormal rhythm GI non-distended and no masses; Negative for non-tender Inspection: Negative for abdominal distention Auscultation: normoactive bowel sounds Palpation: soft and tender; Negative for guarding, rigid, hepatomegaly, splenomegaly, hernia, mass or pulsatile mass Back/Spine no CVA tenderness General Back: Negative for CVA tenderness Cervical Spine: Negative for cervical spine tenderness Thoracic Spine / Upper Back: Negative for thoracic spinal tenderness Lumbar Spine / Lower Back: Negative for lumbar spinal tenderness Coccyx: Negative for other Extremity full ROM General Extremety ED: Negative for edema or tenderness General Extremity: Negative for edema Neuro CN's II-XII intact bilaterally and moves all extremities Sensorium / Orientation: alert, oriented to person, oriented to place and oriented to time; Negative for orientation impaired, confused, lethargic or stuporous Motor Exam: strength 5/5 throughout Psych mental status grossly normal and thought process normal Appearance: Negative for unkempt Attitude: No agitated Mood & Affect: Negative for depressed, anxious or tearful Skin no wounds General Skin Exam: Negative for jaundice or pallor Lesions: no lesions Rashes: no rashes Trauma: Negative for abrasion Nails: Negative for discolored MDM MDM MDM Narrative Medical decision making narrative: 82-year-old female right lower quadrant abdominal pain for 2 to 3 days. On Cipro for possible UTI. Symptoms worsening. CAT scan and labs are pending. She will be treated with morphine for pain and Zofran for nausea. Repeat exam patient is doing well. novelty twister tender in the right lower quadrant but no peritoneal signs. Labs are unremarkable as was her CAT scan. She will be discharged home. Follow-up with primary care physician. I do not have a specific cause for the pain. CAT scan saw her appendix and it was read as normal. She will be treated as abdominal pain of uncertain etiology. History & Record Review Discussion w/independent historian: Patient Lab Data Attestation: I reviewed the patient's lab results. Lab results narrative: CBC normal. White count 7. H&H 12 and 38. Platelets 184. CMP shows gap of 7 BUN and creatinine 26 and 1.34. Glucose 134. Liver enzymes are basically normal. UA is negative. No significant change from prior labs. Labs: Laboratory Results - last 24 hr 07/19/22 07/19/22 07/19/22 05:40 05:40 06:35 WBC 7.0 RBC 4.44 Hgb 12.4 Hct 38.6 MCV 86.9 MCH 27.9 MCHC 32.1 RDW Std Deviation 42.6 RDW Coeff of Pedro 13.5 Plt Count 184 MPV 9.1 Immature Gran % (Auto) 0.400 Neut % (Auto) 60.1 Lymph % (Auto) 26.6 [place] % (Auto) 8.6 Eos % (Auto) 3.3 Baso % (Auto) 1.0 Absolute Neuts (auto) 4.2 Absolute Lymphs (auto) 1.85 Nucleated RBC % 0 Sodium 142 Potassium 4.0 Chloride 112 H Carbon Dioxide 23.0 Anion Gap 7 BUN 26 H Creatinine 1.34 H Estim Creat Clear Calc 24.85 Est GFR (MDRD) Af Amer 49 L Est GFR (MDRD) Non-Af 40 L BUN/Creatinine Ratio 19.4 Glucose 134 H Calcium 9.1 Total Bilirubin 0.40 AST 16 ALT 21 Alkaline Phosphatase 134 H Total Protein 7.0 Albumin 3.5 Globulin 3.5 Albumin/Globulin Ratio 1.0 Urine Color Yellow Urine Clarity Clear Urine pH 6.5 Ur Specific [place] 1.005 Urine Protein 15 H Urine Glucose (UA) Normal Urine Ketones Negative Urine Occult Blood Negative Urine Nitrite Negative Urine Bilirubin Negative Urine Urobilinogen Normal Ur Leukocyte Esterase 25 H Urine RBC 0 SEEN Urine WBC 0 SEEN Ur Squamous Epith Cells 0 SEEN Ur Renal Epithelial Cell 0-5 SEEN Urine Bacteria 0 SEEN Urine Mucus 0 SEEN Radiography Diagnostic Testing: Clinical Impression(s) from Imaging Studies Abdomen/Pelvis CT 07/19/22 05:35 IMPRESSION: 1. No acute abnormalities identified in the abdomen/pelvis. 2. Extensive areas of chronic cortical scarring in the kidneys. This may indicate chronic sequela of infection or reflux. Electronically Signed: Pietro Cope MD at 7:17 EDT , Discharge Plan Triage Chief Complaint: Abd Pain ED Provider: Mingo Conner Dx/Rx/DC Orders Clinical Impression: Abdominal pain Instructions: Abdominal Pain Prescriptions: No Action losartan 50 mg tablet 75 mg PO DAILY aspirin 81 mg tablet,delayed release (DR/EC) 81 mg PO DAILY omega-3 fatty acids 1,000 mg capsule 1,000 mg PO DAILY latanoprost 0.005 % drops 1 drp ophthalmic (eye) DAILY vitamin E 268 mg (400 unit) Capsule 268 mg PO DAILY hydrocodone-acetaminophen 5-325 mg tablet 1 tab PO Q8H PRN (Reason: pain) 2 Days Qty: 5 0RF Primary Care Provider: Miles Mercedes Referrals: Miles Mercedes MD [Primary Care Provider] - 3-5 Days if not improving Activity Restrictions/Additional Instructions: Your lab and CAT scan are unremarkable. Tylenol for pain. Follow-up with your primary care physician. Disposition Disposition: Home, Self Care
[2022-07-19] MEDS: Ondansetron 4 MG/2 ML Vial IV (05:41)
[2022-07-19] MEDS: Morphine 4 MG/ML Syringe IV (05:42)
[2022-07-19 05:50] LABS: Absolute Lymphocyte Count 1.85 X10^3/uL (0.83-4.51); Absolute Neutrophil Count 4.2 X10^3/uL (2.0-7.7); Basophil# 0.07 X10^3/uL; Eosinophil# 0.23 X10^3/uL; Eosinophils% 3.3 % (0-5); Hematocrit 38.6 % (37-47); Hemoglobin 12.4 g/dL (12.0-15.0); Lymphocyte # 1.85 X10^3/ul (0.83-4.51); Lymphocyte % 26.6 % (19-41); Mean Corp Hgb Conc 32.1 g/dL (32-36); Mean Corpuscular Hgb 27.9 pg (27.0-32.0); Mean Corpuscular Volume 86.9 fL (81-99); Mean Platelet Vol. 9.1 fl (6.2-12.0); Monocyte% 8.6 % (0-10); NRBC Flagged by Analyzer 0 % (0-5); Neutrophil # 4.17 X10^3/uL (2.7-7.7); Neutrophil % 60.1 % (47-70); Platelet Count 184 K/mm3 (150-450); RBC Distribution Width CV 13.5 % (11.6-14.6); RBC Distribution Width SD 42.6 fl (35.1-43.9); Red Blood Count 4.44 M/mm3 (4.2-5.4)
[2022-07-19 06:12] LABS: AST(SGOT) 16 U/L (15-37); Alanine Aminotransfer ALT/SGPT 21 U/L (13-56); Albumin, Serum 3.5 g/dL (3.2-5.0); Alkaline Phosphatase 134 U/L (45-117); Anion Gap 7 (5-15); BUN 26 mg/dL (7-18); BUN/Creat Ratio 19.4 RATIO (10-20); Calcium,Total 9.1 mg/dL (8.5-10.1); Chloride 112 mmol/L (98-107); Creatinine, Serum 1.34 mg/dL (0.55-1.02); EST Glomerular Filtration Rate 40 mL/min (>60); Est Glom Filt Rate - Afr Amer 49 mL/min (>60); Estimated Creatinine Clearance 24.85 ml/min; Globulin 3.5 g/dL (2.2-4.2); Glucose 134 mg/dL (74-106); Sodium Level 142 mmol/L (136-145)
[2022-07-19 06:41] LABS: Bacteria 0 SEEN /hpf (None Seen); Mucous, Urine 0 SEEN /hpf (<or=2+); Red Blood Cells-Urine 0 SEEN /hpf (0-5); Squamous Epithelial Cells - UA 0 SEEN /hpf (5-10); White Blood Cells 0 SEEN /hpf (0-5)
[2022-07-19 06:42] LABS: Color, Urine Yellow (Yellow); Glucose, Dipstick Normal (Normal); Ketone-Dipstick Negative (Negative); Leukocyte Esterase-Dipstick 25 /ul (Negative); Nitrite-Dipstick Negative (Negative); Occult Blood-Urine Negative /ul (Negative); Protein-Dipstick 15 mg/dl (Negative); Specific Gravity, Urine 1.005 (1.002-1.030); Urine Bilirubin Dipstick Negative (Negative); Urine Clarity Clear (Clear); Urine Urobilinogen Normal (Normal); Urine pH 6.5 (5.0 - 8.0)
[2022-07-19 06:54] LABS: Renal Epithelial Cells 0-5 SEEN /hpf (0-5)
[2022-07-19 08:09] VITALS: BP 179/68; PULSE 58; RESP 16; O2SAT 99
== END 2022-07-19 08:10 | disposition home or self-care (01) ==
PROVIDERS: Emergency Provider Emergency Medicine; PCP Family Medicine; Visit Provider Emergency Medicine
DX: R10.9 Unspecified abdominal pain (principal); I10 Essential (primary) hypertension; Z87.891 Personal history of nicotine dependence; E78.00 Pure hypercholesterolemia, unspecified; G47.30 Sleep apnea, unspecified; Z99.89 Dependence on other enabling machines and devices; Z86.711 Personal history of pulmonary embolism
CPT/HCPCS: 74177; 80053; 81001; 85025; 99282; Q9967; A4216; J2405

== ENCOUNTER → 2022-11-12 | Outpatient (CLI) | payer MEDICARE, BC, SELFPAY ==
[2022-11-12 12:41] LABS: Anion Gap 6 (5-15); BUN 30 mg/dL (7-18); BUN/Creat Ratio 24.6 RATIO (10-20); Calcium,Total 9.1 mg/dL (8.5-10.1); Chloride 110 mmol/L (98-107); Creatinine, Serum 1.22 mg/dL (0.55-1.02); EST Glomerular Filtration Rate 45 mL/min (>60); Est Glom Filt Rate - Afr Amer 54 mL/min (>60); Glucose 111 mg/dL (74-106); Potassium 4.7 mmol/L (3.5-5.1); Sodium Level 141 mmol/L (136-145)
== END | disposition home or self-care (01) ==
LOC: MFPLAB 09:43
PROVIDERS: PCP Family Medicine; Visit Provider Family Medicine
DX: I10 Essential (primary) hypertension (principal)
CPT/HCPCS: 36415; 80048

== ENCOUNTER → 2022-11-25 | Outpatient (CLI) | payer MEDICARE, BC, SELFPAY ==
--- NOTE | 2022-11-25 12:32 | CT_ITS ---
STUDY: CT ABDOMEN AND PELVIS WITH CONTRAST REASON FOR EXAM: Female, 82 years old. 4 day history of right lower quadrant pain. RADIATION DOSAGE (If Supplied By Facility): CTDIvol = ( 14.34 ) mGy, DLP = ( 731.53 ) mGycm TECHNIQUE: Transaxial images were obtained from the dome of the diaphragm to the symphysis pubis without oral contrast. Oral and amp; IV Gastrografin and amp; 100mL Isovue-300 was administered. Sagittal and coronal images were reconstructed. Individualized dose optimization techniques were used for this CT. COMPARISON: Comparison is made with prior study dated July 19, 2022. FINDINGS: Stable mild increased markings at the lung bases suggestive of mild linear scarring and/or atelectasis The visualized portions of the heart are within normal limits. There is decreased attenuation of the liver consistent with steatosis. Normal gallbladder and extrahepatic biliary system. Normal spleen. Normal pancreas. Normal bilateral adrenal glands. Stable atrophy of the right kidney. Once again, there are bilateral cortical scars suggestive of chronic pyelonephritis. Stable 1.6 cm cyst in the posterior aspect of the left kidney. Normal left kidney. Normal visualized stomach. Normal small intestine. Normal colon. The appendix is visualized and appears normal. There is scattered atherosclerotic calcification of the abdominal aorta, without a demonstrated aneurysm. Normal inferior vena cava. Normal retroperitoneum. Normal urinary bladder. Normal abdominal wall. There are degenerative changes of the visualized lumbar spine. CT/Abdomen/Pelvis WITH Contrast IMPRESSION: Stable appearance of both kidneys with areas of scarring. Fatty infiltration of the liver. Electronically Signed: Heath Andre MD at 15:42 EDT ,
== END | disposition home or self-care (01) ==
LOC: CT 12:27
PROVIDERS: PCP Family Medicine; Referring Provider Family Medicine; Visit Provider Family Medicine
DX: R10.9 Unspecified abdominal pain (principal)
CPT/HCPCS: 74177; Q9967

== ENCOUNTER → 2022-11-25 | Outpatient (CLI) | payer MEDICARE, BC, SELFPAY ==
[2022-11-25 15:25] LABS: Absolute Lymphocyte Count 2.23 X10^3/uL (0.83-4.51); Basophil# 0.07 X10^3/uL; Basophil% 1.1 % (0-1); Eosinophil# 0.21 X10^3/uL; Eosinophils% 3.4 % (0-5); Hematocrit 39.6 % (37-47); Hemoglobin 12.3 g/dL (12.0-15.0); Lymphocyte # 2.23 X10^3/ul (0.83-4.51); Lymphocyte % 36.5 % (19-41); Mean Corp Hgb Conc 31.1 g/dL (32-36); Mean Corpuscular Hgb 28.2 pg (27.0-32.0); Mean Corpuscular Volume 90.8 fL (81-99); Mean Platelet Vol. 9.8 fl (6.2-12.0); Monocyte# 0.57 X10^3/uL; Monocyte% 9.3 % (0-10); NRBC Flagged by Analyzer 0 % (0-5); Neutrophil % 49.2 % (47-70); Platelet Count 186 K/mm3 (150-450); RBC Distribution Width SD 46.5 fl (35.1-43.9); Red Blood Count 4.36 M/mm3 (4.2-5.4); White Blood Count 6.1 K/mm3 (4.4-11.0)
[2022-11-25 15:41] LABS: ALB/GLOB Ratio 0.9 RATIO (0.9-2.4); AST(SGOT) 17 U/L (15-37); Alanine Aminotransfer ALT/SGPT 32 U/L (13-56); Albumin, Serum 3.6 g/dL (3.2-5.0); Alkaline Phosphatase 127 U/L (45-117); Anion Gap 3 (5-15); BUN 19 mg/dL (7-18); BUN/Creat Ratio 15.8 RATIO (10-20); Calcium,Total 9.5 mg/dL (8.5-10.1); Chloride 110 mmol/L (98-107); EST Glomerular Filtration Rate 46 mL/min (>60); Est Glom Filt Rate - Afr Amer 55 mL/min (>60); Globulin 3.8 g/dL (2.2-4.2); Glucose 122 mg/dL (74-106); Lipase 40 U/L (13-75); Potassium 4.4 mmol/L (3.5-5.1); Protein, Total 7.4 g/dL (6.4-8.2); Sodium Level 141 mmol/L (136-145)
== END | disposition home or self-care (01) ==
LOC: MFPLAB 12:02
PROVIDERS: PCP Family Medicine; Visit Provider Family Medicine
DX: R10.9 Unspecified abdominal pain (principal)
CPT/HCPCS: 36415; 80053; 83690; 85025

== ENCOUNTER → 2023-05-19 | Outpatient (CLI) | payer MEDICARE, SELFPAY ==
--- OUTSIDE RECORDS SUMMARY | 2023-05-19 10:04 | XMS RPT_ITS | CCD ---
Author Name Unknown Address [address] [place] [address] Organization [facility] Care Team Providers Care Forensic Document Examiner Name Role Phone Miles Celis MD Primary Care Provider MILES CELIS Primary Care Unavailable JENNY DOTY Referring Unavailable JENNY DOTY Attending Unavailable MILES CELIS Primary Care Unavailable JENNY DOTY Referring Unavailable JENNY DOTY Attending Unavailable Allergies Allergy Classification Reported Allergen(s) Allergy Type Date of Onset Reaction(s) Facility (6 sources) Sulfonamides (Antibiotic); Translations: [SULFA (SULFONAMIDE ANTIBIOTICS)] Drug Allergy Rash, Swelling [facility] Medications Current Medications Medication Drug Class(es) Dates Sig (Normalized) Sig (Original) benoxinate hydrochloride 4 mg/ml / fluorescein sodium 2.5 mg/ml ophthalmic solution (1 source) Diagnostic Dye Start: 10-31-2021 End: 11-01-2021 fluorescein-benoxin ate 0.25-0.4 % 1 Drop (FLURESS) phenylephrine hydrochloride 25 mg/ml ophthalmic solution (2 sources) alpha-1 Adrenergic Agonist Start: 09-02-2022 End: 09-03-2022 PHENYLephrine 2.5 % 1 Drop (AK-DILATE, MINNA-SYNEPHRINE) Completed/Discontinued Medications Medication Drug Class(es) Dates Sig (Normalized) Sig (Original) aspirin 81 mg delayed release oral tablet (5 sources) Platelet Aggregation Inhibitor, Nonsteroidal Anti-inflammatory Drug take 1 tablet by mouth once daily aspirin, enteric coated (ASPIRIN, ENTERIC COATED) 81 mg EC tablet Take 81 mg by mouth once daily. 0 Active Problems Active Problems Problem Classification Problem Date Documented Da te Episodic/Chronic Cataract (11 sources) Pseudophakia; Translations: [Presence of intraocular lens] Onset: 10-01-2020 Chronic Essential hypertension (9 sources) Essential hypertension; Translations: [Essential (primary) hypertension] Onset: 10-16-2020 Chronic Glaucoma (17 sources) Open-angle glaucoma of right eye; Translations: [Primary open-angle glaucoma, right eye, mild stage] Onset: 10-28-2020 Chronic Inflammation; infection of eye (except that caused by tuberculosis or sexually transmitteddisease) (5 sources) Bilateral punctate keratitis of eyes; Translations: [Punctate keratitis, bilateral] Onset: 10-01-2020 10-01-2020 Chronic Other eye disorders (2 sources) Optic cupping; Translations: [Glaucomatous optic atrophy, 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 Retinal detachments; defects; vascular occlusion; and retinopathy (9 sources) Myopic macular degeneration of bilateral eyes; Translations: [Unspecified macular degeneration] Onset: 10-16-2020 Chronic Past or Other Problems Problem Classification Problem Date Documented Da te Episodic/Chronic Pulmonary heart disease (5 sources) H/O: pulmonary embolus; Translations: [Personal history of pulmonary embolism] Onset: 10-01-2020 10-01-2020 Episodic Results Test Name Value Interpretation Reference Range Facil ity Encounters Encounter Date Encounter Type Care Provider Facility Start: 03-30-2023 End: 03-30-2023 ambulatory [facility] Facility:[place] Start: 09-02-2022 End: 09-02-2022 ambulatory [facility] Facility:[place] Start: 09-02-2022 End: 09-02-2022 Patient encounter procedure Jenny Doty MD Work Phone: Ophthalmology Procedures Date Procedure Procedure Detail Performing Clinician Start: 09-02-2022 Fundus photography w/interpretation & report Jenny Doty MD Work Phone: Start: 09-02-2022 Visual field xm uni/ bi w/interp extended exam Jenny Doty MD Work Phone: Start: 03-04-2022 End: 03-04-2022 Fundus photography w/interpretation & report Jenny Doty MD Work Phone: Start: 03-04-2022 Visual field xm uni/ bi w/interp extended exam Jenny Doty MD Work Phone: Start: 06-17-2021 End: 06-17-2021 Visual field xm uni/bi w/interp extended exam Jenny Doty MD Work Phone: Start: 11-30-2020 H/O: surgery S/P eye surgery Artemio Doty MD Work Phone: Plan of Treatment Date Care Activity Detail Author Start: 07-09-2022 COVID-19 VACCINE (5 - Booster for Moderna series) COVID-19 VACCINE (5 - Booster for Moderna series) [facility] Start: 03-08-2022 ADVANCE DIRECTIVE DISCUSSION ADVANCE DIRECTIVE DISCUSSION [facility] Start: 03-08-2022 DEPRESSION ASSESSMENT DEPRESSION ASS ESSMENT [facility] Start: 11-06-2021 Influenza vaccination INFLUENZA (#1) [facility] Start: 06-10-2021 COVID-19 VACCINE (3 - Booster for Moderna series) COVID-19 VACCINE (3 - Booster for Moderna series) [facility] Start: 05-10-2021 COVID-19 VACCINE (4 - Booster for Moderna series) COVID-19 VACCINE (4 - Booster for Moderna series) [facility] Start: 03-08-2021 ADVANCE DIRECTIVE DISCUSSION ADVANCE DIRECTIVE DISCUSSION [facility] Start: 03-07-2021 COVID-19 VACCINE (4 - Booster for Moderna series) COVID-19 VACCINE (4 - Booster for Moderna series) [facility] Start: 2006 BONE DENSITY BONE DENSITY [facility] Start: 2006 PNEUMOCOCCAL: 65+ (1 - PCV) PNEUMOCOCCAL: 65+ (1 - PCV) [facility] Start: 2006 PNEUMOVAX AGE 65 AND OVER WITH 5YR LOOKBACK (#1) PNEUMOVAX AGE 65 AND OVER WITH 5YR LOOKBACK (#1) [facility] Start: 1991 SHINGRIX VACCINE (1 of 2) YIN GRIX VACCINE (1 of 2) [facility] Start: 1986 DIABETES SCREEN DIABETES SCREEN [facility] Start: 01-05-1960 Urine microalbumin profile DTAP,TDAP ,TD (1 - Tdap) [facility] Start: 1959 ANNUAL PCP TEAM GROUND MIXER RICCO DISEASE VISIT ANNUAL PCP TEAM CHRONIC DISEASE VISIT [facility] Start: 1959 BP CONTROLLED (<130/80) BP CONTROLLE D (<130/80) [facility] Start: 1953 Adult depression [facility] c Payers Date Payer Category Payer Unknown CELE BCBS EMPI RE PLAN HB ONLY [id number] 2020-Present [address] [place] [address] PPO [id number] 2020 Unknown ANTHEM BCBS EMPI RE PLAN HB ONLY [id number] 2020-Present [address] [place] [address] PPO [id number] 2020 Unknown [id number] 2005 Medicare MEDICARE MEDICAR E A AND B [id number] 2005-Present [phone] [place] [address] Medicare [id number] 2005 Medicare MEDICARE MEDICAR E A AND B [id number] 2005-Present [phone] [place] [address] Medicare [id number] 2005 Medicare [id number] Social History Date Type Detail Facility Start: 10-01-2020 End: 09-02-2022 Tobacco smoking status NHIS Never smoked tobacco [facility] Start: 10-01-2020 End: 09-02-2022 Tobacco use and exposure Smokeless tobacco non-user [facility] Start: 1940 Sex Assigned At Female [facility] Start: 06-07-2021 End: 10-31-2021 Exposure to SARS-CoV-2 (event) Not sure [facility] Medical Equipment Procedure Code Equipment Code Equipment Origin al Text Equipment Identifier Dates Lens Acrysof Iq +16 Diopter 0 D Biconvex Acrylic 13mm Iol 1 Piece Foldable - [id number] Start: 11-22-2020 Lens Acrysof Iq +18 Diopter Natural 0 D Biconvex Acrylic Methacrylate - [id number] Start: 12-11-2020 Stnt 8mm Ntnl Hy drus Microstnt - [id number] Start: 12-11-2020 Clinical Notes 12-12-2020 to 03-30-2023 Patient InstructionsMoemmanuel Doty MD - 09/02/2022 3:18 PM EDTPatient InstructionsJenny Doty MD - 03/04/2022 1:19 PM ESTPatient InstructionsJenny Doty MD - 10/31/2021 2:08 PM EDT Note Date & Type Note Facility 03-30-2023 Note HNO ID: [id number] Author: JENNY DOTY MD Service: ? Author Type: Physician Type: Progress Notes Filed: 03/30/2023 15:59 Note Text: ASSESSMENT/PLAN: 1. Primary open angle glaucoma (POAG) of both eyes, mild stage - ICD9: 365.11, 365.71, ICD10: H40.1131 (primary diagnosis) The nature of glaucoma was discussed, with emphasis on the non-reversible damage to the optic nerve. Treatment options and the importance of regular examinations and testing were covered in detail, as well as the consequences of non-compliance. The patient was given the opportunity to ask questions. Continue: Systane Complete solution instill 1 drop 3 times daily Both Eyes. -Monitor for any changes in vision 2. Nonexudative age-related macular degeneration, bilateral, early dry stage - ICD9: 362.51, ICD10: H35.3131 Please monitor each eye daily with Amsler Grid. AREDS 2 Vitamins are available over the counter at any drug store. Patient was given both written and verbal information on flashes and floaters. Patient was instructed to call the office ([phone]) immediately upon noticing flashes of light, increase in floaters, or changes in vision. -Monitor for any changes in vision. 3. Myopic macular degeneration of both eyes - ICD9: 362.50, ICD10: H35.30 -Monitor 4. Pseudophakia - ICD9: V43.1, ICD10: Z96.1 -Intraocular lens in good position, both eyes 5. Essential hypertension - ICD9: 401.9, ICD10: I10 6. History of pulmonary embolism - ICD9: V12.55, ICD10: Z86.711 Continue to monitor with primary care physician. I have confirmed and edited as necessary the relevant ophthalmic history, review of systems, surgical history, and ophthalmological examination findings as obtained by the ophthalmic technical staff. I have seen and examined Tracy Fleming. I have discussed the examination findings, diagnosis, and treatment options with Tracy Fleming and/or her family. I have also reviewed and agree with the assessment and plan as stated above and agree with all its relevant components. I gave the patient the opportunity to ask questions about the findings, diagnosis, and treatment options. Jenny Doty MD [facility] 09-02-2022 Note HNO ID: [id number] Author: Jenny Doty MD Service: ? Author Type: Physician Type: Progress Notes Filed: 09/02/2022 3:20 PM Note Text: ASSESSMENT/PLAN: 1. Nonexudative age-related macular degeneration, bilateral, early dry stage - ICD9: 362.51, ICD10: H35.3131 (primary diagnosis) Please monitor each eye daily with Amsler Grid. AREDS 2 Vitamins are available over the counter at any drug store. 2. Primary open angle glaucoma (POAG) of both eyes, mild stage - ICD9: 365.11, 365.71, ICD10: H40.1131 3. Optic cupping of both eyes - ICD9: 377.14, ICD10: H47.233 Canaloplasty/Trabeculotomy with the Omni Surgical System Right Eye (11/22/2020) Status Post Canaloplasty / Trabeculotoly with the Omni Surgical System Left Eye (12/11/2020) The nature of glaucoma was discussed, with emphasis on the non-reversible damage to the optic nerve. Treatment options and the importance of regular examinations and testing were covered in detail, as well as the consequences of non-compliance. The patient was given the opportunity to ask questions. 4. Essential hypertension - ICD9: 401.9, ICD10: I10 -continue care with PCP I have confirmed and edited as necessary the relevant ophthalmic history, review of systems, surgical history, and ophthalmological examination findings as obtained by the ophthalmic technical staff. I have seen and examined Tracy Fleming. I have discussed the examination findings, diagnosis, and treatment options with Tracy Fleming and/or her family. I have also reviewed and agree with the assessment and plan as stated above and agree with all its relevant components. I gave the patient the opportunity to ask questions about the findings, diagnosis, and treatment options.' Jenny Doty MD [facility] 09-02-2022 Instructions Jenny Doty MD - 09/02/2022 3:20 PM EDT Please monitor each eye daily with Amsler Grid. AREDS 2 Vitamins are available over the counter at any drug store. The nature of glaucoma was discussed, with emphasis on the non-reversible damage to the optic nerve. Treatment options and the importance of regular examinations and testing were covered in detail, as well as the consequences of non-compliance. The patient was given the opportunity to ask questions. Continue; Systane Complete Artificial Tears - Use 1 Drop into both eyes three times a day. If you have any questions please contact our office at [phone]. After office hours or on the weekend, please call Dr. Doty on his cell phone at [phone]. documented in this encounter [facility] 09-02-2022 History of Presen t illness Narrative ASSESSMENT/PLAN: 1. Nonexudative age-related macular degeneration, bilateral, early dry stage - ICD9: 362.51, ICD10: H35.3131 (primary diagnosis) Please monitor each eye daily with Amsler Grid. AREDS 2 Vitamins are available over the counter at any drug store. 2. Primary open angle glaucoma (POAG) of both eyes, mild stage - ICD9: 365.11, 365.71, ICD10: H40.1131 3. Optic cupping of both eyes - ICD9: 377.14, ICD10: H47.233 Canaloplasty/Trabeculotomy with the Omni Surgical System Right Eye (11/22/2020) Status Post Canaloplasty / Trabeculotoly with the Omni Surgical System Left Eye (12/11/2020) The nature of glaucoma was discussed, with emphasis on the non-reversible damage to the optic nerve. Treatment options and the importance of regular examinations and testing were covered in detail, as well as the consequences of non-compliance. The patient was given the opportunity to ask questions. 4. Essential hypertension - ICD9: 401.9, ICD10: I10 -continue care with PCP I have confirmed and edited as necessary the relevant ophthalmic history, review of systems, surgical history, and ophthalmological examination findings as obtained by the ophthalmic technical staff. I have seen and examined Tracy Fleming. I have discussed the examination findings, diagnosis, and treatment options with Tracy Fleming and/or her family. I have also reviewed and agree with the assessment and plan as stated above and agree with all its relevant components. I gave the patient the opportunity to ask questions about the findings, diagnosis, and treatment options.' Jenny Doty MD documented in this encounter [facility] 03-04-2022 Instructions Jenny Doty MD - 03/04/2022 1:20 PM EST Continue: Systane Complete solution instill 1 drop 3 times daily Both Eyes. If you have any questions please contact our office at [phone]. After office hours or on the weekend, please call Dr. Doty on his cell phone at [phone]. documented in this encounter [facility] 03-04-2022 History of Presen t illness Narrative ASSESSMENT/PLAN: 1. Primary open angle glaucoma (POAG) of both eyes, mild stage - ICD9: 365.11, 365.71, ICD10: H40.1131 (primary diagnosis) Canaloplasty/Trabeculotomy with the Omni Surgical System Right Eye (11/22/2020) Status Post Canaloplasty / Trabeculotoly with the Omni Surgical System Left Eye (12/11/2020) Continue care with Dr. Valera as scheduled in April/2022 Follow up in 6 months 2. Nonexudative age-related macular degeneration, bilateral, early dry stage - ICD9: 362.51, ICD10: H35.3131 Stable Monitor with Amsler grid 3. Pseudophakia - ICD9: V43.1, ICD10: Z96.1 Lens position well centered 4. Essential hypertension - ICD9: 401.9, ICD10: I10 Continue care with primary care physician Jenny Doty MD I have confirmed and edited as necessary the relevant ophthalmic history, review of systems, surgical history, and ophthalmological examination findings as obtained by the ophthalmic technical staff. I have seen and examined Tracy Fleming. I have discussed the examination findings, diagnosis, and treatment options with Tracy Fleming and/or her family. I have also reviewed and agree with the assessment and plan as stated above and agree with all its relevant components. I gave the patient the opportunity to ask questions about the findings, diagnosis, and treatment options. I have confirmed and edited as necessary the relevant ophthalmic history, review of systems, surgical history, and ophthalmological examination findings as obtained by the ophthalmic technical staff. I have seen and examined Tracy Fleming. I have discussed the examination findings, diagnosis, and treatment options with Tracy Fleming and/or her family. I have also reviewed and agree with the assessment and plan as stated above and agree with all its relevant components. I gave the patient the opportunity to ask questions about the findings, diagnosis, and treatment options. Jenny Doty MD documented in this encounter [facility] 10-31-2021 Instructions Jenny Doty MD - 10/31/2021 2:14 PM EDT Continue: Current Ophthalmic Meds latanoprost (XALATAN) 0.005 % ophthalmic solution Use 1 Drop in both eyes daily at bedtime. Systane Complete Artificial Tears - Use 1 Drop into both eyes three times a day. If you have any questions please contact our office at [phone]. After office hours or on the weekend, please call Dr. Doty on his cell phone at [phone]. documented in this encounter [facility] 10-31-2021 History of Presen t illness Narrative ASSESSMENT/PLAN: 1. Primary open angle glaucoma (POAG) of both eyes, mild stage - ICD9: 365.11, 365.71, ICD10: H40.1131 (primary diagnosis) - The nature of glaucoma was discussed, with emphasis on the non-reversible damage to the optic nerve. Treatment options and the importance of regular examinations and testing were covered in detail, as well as the consequences of non-compliance. The patient was given the opportunity to ask questions. Continue: Current Ophthalmic Meds latanoprost (XALATAN) 0.005 % ophthalmic solution Use 1 Drop in both eyes daily at bedtime. Systane Complete Artificial Tears - Use 1 Drop into both eyes three times a day. Status Post Canaloplasty/Trabeculotomy with the Omni Surgical System Right Eye (11/22/2020) Status Post Canaloplasty / Trabeculotoly with the Omni Surgical System Left Eye (12/11/2020) Patient to see Dr. Valera in 3-4 weeks for Intraocular pressure check Return to clinic in 4-5 months for Dilated fundus exam / Visual field 24-2 and Fundus photos 2. Myopic macular degeneration of both eyes - ICD9: 362.50, ICD10: H35.30 - Monitor with Amsler Grid 3. Pseudophakia of both eyes - ICD9: V43.1, ICD10: Z96.1 - Intraocular lens in good position, Both eyes 4. Essential hypertension - ICD9: 401.9, ICD10: I10 - Manage care with primary care physician I have confirmed and edited as necessary the relevant ophthalmic history, review of systems, surgical history, and ophthalmological examination findings as obtained by the ophthalmic technical staff. I have seen and examined Tracy Fleming. I have discussed the examination findings, diagnosis, and treatment options with Tracy Fleming and/or her family. I have also reviewed and agree with the assessment and plan as stated above and agree with all its relevant components. I gave the patient the opportunity to ask questions about the findings, diagnosis, and treatment options. Jenny Doty MD documented in this encounter [facility] 09-16-2021 Miscellaneous Notes Patient has been identified by name and date of : Yes No medications selected for refill. RX INSTRUCTIONS: Patient aware RX will be sent to pharmacy. No need to notify patient. Heaven Cain documented in this encounter [facility] 06-17-2021 Instructions Jenny Doty MD - 06/17/2021 2:40 PM EDT Current Ophthalmic Meds latanoprost (XALATAN) 0.005 % ophthalmic solution Use 1 Drop in both eyes daily at bedtime. Patient to see Dr. Manan Valera for Intraocular pressure check and visual field Return for Intraocular pressure check, 24-2 field and fundus photos. If you have any questions please contact our office at [phone]. After office hours or on the weekend, please call Dr. Doty on his cell phone at [phone]. documented in this encounter [facility] 06-17-2021 History of Presen t illness Narrative ASSESSMENT/PLAN: 1. Primary open angle glaucoma (POAG) of right eye, mild stage - ICD9: 365.11, 365.71, ICD10: H40.1111 (primary diagnosis) 2. Primary open angle glaucoma (POAG) of left eye, mild stage - ICD9: 365.11, 365.71, ICD10: H40.1121 The nature of glaucoma was discussed, with emphasis on the non-reversible damage to the optic nerve. Treatment options and the importance of regular examinations and testing were covered in detail, as well as the consequences of non-compliance. The patient was given the opportunity to ask questions. Selected laser trabeculoplasty right eye 10/16/2020 Selected laser trabeculoplasty left eye 10/28/2020 Status Post Cataract Surgery with Intraocular Lens Implant and Canaloplasty/Trabeculotomy with the Omni Surgical System Right Eye (11/22/2020) Status Post Cataract Surgery with Intraocular Lens Implant and Goniotomy Left Eye (12/11/2020) Current Ophthalmic Meds latanoprost (XALATAN) 0.005 % ophthalmic solution Use 1 Drop in both eyes daily at bedtime. Patient to see Dr. Manan Valera for Intraocular pressure check 3. Myopic macular degeneration of both eyes - ICD9: 362.50, ICD10: H35.30 -monitor. 4. Pseudophakia - ICD9: V43.1, ICD10: Z96.1 -Intraocular lens well centered both eyes 5. Essential hypertension - ICD9: 401.9, ICD10: I10 Continue care with primary care physician Jenny Doty MD I have confirmed and edited as necessary the relevant ophthalmic history, review of systems, surgical history, and ophthalmological examination findings as obtained by the ophthalmic technical staff. I have seen and examined Tracy Fleming. I have discussed the examination findings, diagnosis, and treatment options with Tracy Fleming and/or her family. I have also reviewed and agree with the assessment and plan as stated above and agree with all its relevant components. I gave the patient the opportunity to ask questions about the findings, diagnosis, and treatment options. documented in this encounter [facility] documented as of this encounter (statuses as of 06/17/2021) [facility]10-[facility]21 History of Past illness Narrative* Problem Noted Date Resolved Date Status post cataract extract ion and insertion of intraocular lens, left 12/12/2020 06/17/2021 Status post cataract extract ion and insertion of intraocular lens, right 12/12/2020 06/17/2021 Combined forms of age-related cataract of right eye 10/01/2020 11/22/2020 Combined forms of age-related cataract of left e ye 10/01/2020 12/11/2020 documented as of this encounter (statuses as of 09/16/2021) [facility] History of Past illness Narrative* Problem Noted Date Resolved Date Status post cataract extract ion and insertion of intraocular lens, left 12/12/2020 06/17/2021 Status post cataract extract ion and insertion of intraocular lens, right 12/12/2020 06/17/2021 Combined forms of age-related cataract of right eye 10/01/2020 11/22/2020 Combined forms of age-related cataract of left e ye 10/01/2020 12/11/2020 documented as of this encounter (statuses as of 10/31/2021) [facility] History of Past illness Narrative* Problem Noted Date Resolved Date Status post cataract extract ion and insertion of intraocular lens, left 12/12/2020 06/17/2021 Status post cataract extract ion and insertion of intraocular lens, right 12/12/2020 06/17/2021 Combined forms of age-related cataract of right eye 10/01/2020 11/22/2020 Combined forms of age-related cataract of left e ye 10/01/2020 12/11/2020 documented as of this encounter (statuses as of 03/10/2022) [facility] History of Past illness Narrative* Problem Noted Date Resolved Date Status post cataract extract ion and insertion of intraocular lens, left 12/12/2020 06/17/2021 Status post cataract extract ion and insertion of intraocular lens, right 12/12/2020 06/17/2021 Combined forms of age-related cataract of right eye 10/01/2020 11/22/2020 Combined forms of age-related cataract of left e ye 10/01/2020 12/11/2020 documented as of this encounter (statuses as of 09/03/2022) [facility] Primary open angle glaucoma (POAG) of right eye, mild stage- Primary Primary open angle glaucoma (POAG) of left eye, mild stage Myopic macular degeneration of both eyes Pseudophakia Lens replaced by other means Essential hypertension Unspecified essential [facility] Primary open angle glaucoma (POAG) of both eyes, mild stage- Primary Myopic macular degeneration of both eyes Pseudophakia of both eyes Lens replaced by other means Essential hypertension Unspecified essential hypertension [facility] Diagnosis Primary open angle glaucoma (POAG) of both eyes, mild stage- Primary Nonexudative age-related macular degeneration, bilateral, early dry stage Essential hypertension Unspecified essential hypertension Pseudophakia Lens replaced by other means Optic cupping of both eyes [facility] Diagnosis Nonexudative age-related macular degeneration, bilateral, early dry stage- Primary Primary open angle glaucoma (POAG) of both eyes, mild stage Optic cupping of both eyes Essential hypertension Unspecified essential hypertension documented in this encounter [facility] Advance Directives No Advanced Directives Records FoundDocuments on File Type Date Recorded 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 In the event of a Fluress shortage, administer Udall-Fluor 1 drop into both eyes as directed for applanation tonometry Given 10/31/2021 2:09 PM EDT 1 Drop proparacaine 0.5 % 1 Drop (ALCAINE) 1 Drop, BOTH EYES, DIRECTED, Starting on Wed10/31/21 at 1430, Until 11/01/21 at 0229, Administer for pneumo tonometry, tonopen tonometry, or pachymetry. In the event of a proparacaine shortage, administer tetracaine 0.5% ophthalmic drops 1 drop in the left eye as directed for pneumo tonometry, tonopen tonometry, or pachymetry Given 10/31/2021 2:09 PM EDT 1 Drop Inactive Administered Medications - up to 3 most recent administrations Medication Order MAR Action Action Date Dose Rate Site PHENYLephrine 2.5 % 1 Drop (AK-DILATE, MINNA-SYNEPHRINE) 1 Drop, BOTH EYES, DIRECTED, Starting on 03/04/22 at 1400, Until [place] 03/05/22 at 0159, Administer for dilation PROTECT FROM LIGHT Given 03/04/2022 2:00 PM EST 1 Drop proparacaine 0.5 % 1 Drop (ALCAINE) 1 Drop, BOTH EYES, DIRECTED, Starting on Wed03/04/22 at 1400, Until [place] 03/05/22 at 0159, Administer for pneumo tonometry, tonopen tonometry, or pachymetry. In the event of a proparacaine shortage, administer tetracaine 0.5% ophthalmic drops 1 drop in the left eye as directed for pneumo tonometry, tonopen tonometry, or pachymetry Given 03/04/2022 2:00 PM EST 1 Drop tropicamide 1 % 1 Drop (MYDRIACYL) 1 Drop, BOTH EYES, DIRECTED, Starting on Wed03/04/22 at 1400, Until [place] 03/05/22 at 0159, Administer for dilation Given 03/04/2022 2:00 PM EST 1 Drop Active Administered Medications - up to 3 most recent administrations Medication Order MAR Action Action Date Dose Rate Site PHENYLephrine 2.5 % 1 Drop (AK-DILATE, MINNA-SYNEPHRINE) 1 Drop, BOTH EYES, DIRECTED, Starting on Wed09/02/22 at 1400, Until [place] 09/03/22 at 0159, Administer for dilation PROTECT FROM LIGHT Given 09/02/2022 2:16 PM EDT 1 Drop proparacaine 0.5 % 1 Drop (ALCAINE) 1 Drop, BOTH EYES, DIRECTED, Starting on Wed09/02/22 at 1400, Until [place] 09/03/22 at 0159, Administer for pneumo tonometry, tonopen tonometry, or pachymetry. In the event of a proparacaine shortage, administer tetracaine 0.5% ophthalmic drops 1 drop in the left eye as directed for pneumo tonometry, tonopen tonometry, or pachymetry Given 09/02/2022 2:16 PM EDT 1 Drop tropicamide 1 % 1 Drop (MYDRIACYL) 1 Drop, BOTH EYES, DIRECTED, Starting on Wed09/02/22 at 1400, Until [place] 09/03/22 at 0159, Administer for dilation Given 09/02/2022 2:16 PM EDT 1 Drop Summary Purpose Family History No Family History Records Found Additional Source Comments Source Comments (unrecognize d section and content) In the event this informatio n is protected by the Federal Confidentiality of Alcohol and Drug Abuse Patient Records regulations: The Federal rules restrict any use of the information to criminally investigate or prosecute any alcohol or drug abuse patient.[facility] event this information is protected by the Federal Confidentiality of Alcohol and Drug Abuse Patient Records regulations: The Federal rules restrict any use of the information to criminally investigate or prosecute any alcohol or drug abuse patient.[facility] the event this information is protected by the Federal Confidentiality of Alcohol and Drug Abuse Patient Records regulations: The Federal rules restrict any use of the information to criminally investigate or prosecute any alcohol or drug abuse patient.[facility] the event this information is protected by the Federal Confidentiality of Alcohol and Drug Abuse Patient Records regulations: The Federal rules restrict any use of the information to criminally investigate or prosecute any alcohol or drug abuse patient.[facility] the event this information is protected by the Federal Confidentiality of Alcohol and Drug Abuse Patient Records regulations: The Federal rules restrict any use of the information to criminally investigate or prosecute any alcohol or drug abuse patient.[facility] Reason for Visit (unrecogniz ed section and content) Reason Comments Refill Request Reason Comments POAG Bilateral, Mild Stag e Myopic Macular Degeneration Bilateral Reason Comments Primary Open Angle Glaucoma Follow Up Blurred Vision Left Eye Reason Comments Primary Open Angle Glaucoma Follow Up Tahir th eyes mild stage Care Teams (unrecognized sec tion and content) Forensic Document Examiner Relationship Specialty Start Date End Date Miles Celis MD [address] [facility] [address] [place] [address] PCP - General Family Practice 08/30/20 Forensic Document Examiner Relationship Specialty Start Date End Date Miles Celis MD [address] [facility] [address] [place] [address] PCP - General Family Practice 08/30/20 Forensic Document Examiner Relationship Specialty Start Date End Date Miles Celis MD [address] [facility] [address] [place] [address] PCP - General Family Medicine 08/30/20 Forensic Document Examiner Relationship Specialty Start Date End Date Miles Celis MD [address] [facility] [address] [place] [address] PCP - General Family Medicine 08/30/20 INFORMATION SOURCE (unrecogn ized section and content) FOR RECORDS PERTAINING TO PATIENTS WHO ARE OR HAVE BEEN ENROLLED IN A CHEMICAL DEPENDENCY/SUBSTANCEABUSE PROGRAM, SOME INFORMATION MAY BE OMITTED. This clinical summary was aggregated from multiple sources. Caution should be exercised in using it in the provision of clinical care. This summary normalizes information from multiple sources, and as a consequence, information in this document may materially change the coding, format and clinical context of patient data. In addition, data may be omitted in some cases. CLINICAL DECISIONS SHOULD BE BASED ON THE PRIMARY CLINICAL RECORDS. [facility] [employer] [facility]. provides no warranty or guarantee of the accuracy or completeness of information in this document.
[2023-05-19 10:42] LABS: Anion Gap 9 (5-15); BUN 28 mg/dL (7-18); Calcium,Total 9.5 mg/dL (8.5-10.1); Chloride 108 mmol/L (98-107); Cholesterol 206 mg/dL (200); Creatinine, Serum 1.27 mg/dL (0.55-1.02); EST Glomerular Filtration Rate 43 mL/min (>60); Est Glom Filt Rate - Afr Amer 52 mL/min (>60); Glucose 105 mg/dL (74-106); High Density Lipoprotein 38 mg/dL; Potassium 4.3 mmol/L (3.5-5.1); Sodium Level 143 mmol/L (136-145); Triglycerides 194 mg/dL; Very Low Density Lipoprotein 39 mg/dL (5-40)
== END | disposition home or self-care (01) ==
LOC: MFPLAB 09:07
PROVIDERS: PCP Family Medicine; Visit Provider Family Medicine
DX: I10 Essential (primary) hypertension (principal)
CPT/HCPCS: 36415; 80048; 80061

== ENCOUNTER → 2023-11-18 | Outpatient (CLI) | payer MEDICARE, OTHER, SELFPAY ==
[2023-11-18 10:39] LABS: Hemoglobin A1c 5.9 % (3.8-5.6)
[2023-11-18 12:37] LABS: AST(SGOT) 22 U/L (15-37); Alanine Aminotransfer ALT/SGPT 22 U/L (13-56); Albumin, Serum 3.5 g/dL (3.2-5.0); Alkaline Phosphatase 101 U/L (45-117); Anion Gap 5 (5-15); BUN 34 mg/dL (7-18); BUN/Creat Ratio 24.6 RATIO (10-20); Calcium,Total 10.1 mg/dL (8.5-10.1); Chloride 112 mmol/L (98-107); Cholesterol 216 mg/dL (200); Creatinine, Serum 1.38 mg/dL (0.55-1.02); EST Glomerular Filtration Rate 39 mL/min (>60); Est Glom Filt Rate - Afr Amer 47 mL/min (>60); Globulin 3.6 g/dL (2.2-4.2); Glucose 109 mg/dL (74-106); High Density Lipoprotein 33 mg/dL; Potassium 4.6 mmol/L (3.5-5.1); Protein, Total 7.1 g/dL (6.4-8.2); Sodium Level 142 mmol/L (136-145); Triglycerides 222 mg/dL; Very Low Density Lipoprotein 44 mg/dL (5-40)
== END | disposition home or self-care (01) ==
LOC: MFPLAB 09:17
PROVIDERS: PCP Family Medicine; Visit Provider Family Medicine
DX: I10 Essential (primary) hypertension (principal); R73.9 Hyperglycemia, unspecified
CPT/HCPCS: 36415; 80053; 80061; 83036

== ENCOUNTER 2024-03-14 18:39 | Inpatient (IN) | payer MEDICARE, BC, SELFPAY ==
[2024-03-14] VITALS (16 sets, daily range): BP systolic 120–141; BP diastolic 47–99; PULSE 80–102; RESP 16–29; TEMP 36.4–37; O2SAT 93–97; BMI 28.2
--- NOTE | 2024-03-14 19:58 | EDS_ITS ---
HPI History of Present Illness Chief Complaint: Cold Sx Detail of Chief Complaint: Feel terrible, nausea vomiting, weakness and cough Informant: patient Onset/Context/Timing Onset: Yesterday Context: Sudden Onset Timing: Continuous Quality: Respiratory and GI Location: Exposed to COVID with complaints of mild arthralgias Current Severity: Moderate Maximum Severity: Moderate Worsened by: Has not had anything to drink since this morning Relieved by: Nothing Associated Symptoms Associated Symptoms: Per HPI narrative Narrative Narrative: Patient is a 84-year-old female with history of upper respiratory infection, hypertension who presents with not feeling well. She complains of mild headache. Denies double vision blurred vision loss of vision. Eyes ringers decreased hearing. She reports mild congestion. She denies sore throat. She has slight cough at best. The cough is nonproductive. Plus minus shortness of breath. She denies abdominal pain. She does endorse nausea and vomiting. She denies diarrhea. She denies dysuria, frequency, urgency or hematuria. She reports decreased urine output. She endorses thirst, dry mouth and orthostatic symptoms. She informing that her is admitted with COVID infection. Prior similar symptoms: No Recent [facility]: [facility] Medical History Cataract (lens) fragments in eye following cataract surgery, bilateral Macular degeneration Glaucoma Wears glasses Gout Arthritis Renal agenesis Pulmonary embolism High cholesterol CPAP (continuous positive airway pressure) dependence Former smoker Sleep apnea Hypertension History of pulmonary embolism Home Medications ?Medication ?Instructions ?Recorded ?Last Taken ?Type losartan 50 mg tablet 75 mg PO DAILY 06/23/22 07/09/22 05:00 History vitamin E 268 mg (400 unit) capsule 268 mg PO DAILY 07/02/22 Unknown History vitamins A,C,W-rpmz-nwarxz 4,296 1 cap PO BID 03/14/24 Unknown History [id number] mg-90 mg capsule ([employer] [employer]) Allergy/AdvReac Type Severity Reaction Status Date / Time Sulfa (Sulfonamide Allergy Intermediate Itching Verified 03/14/24 18:43 Antibiotics) Family History Mother Diabetes Kidney disease Father Heart disease Surgical History History of carpal tunnel release History of lumpectomy of right breast Social History Smoking Status: Former smoker ROS ROS ED Constitutional Constitutional ED: Reports chills, fever(s) and subjective; Denies sweats or weight loss Eyes Eyes: Denies blurry vision, change in vision or diplopia ENT ENT ED: Denies ear pain, rhinorrhea or sore throat Cardiovascular Cardiovascular: Denies chest pain, orthopnea, palpitations, paroxysmal nocturnal dyspnea or racing heartbeat Respiratory/Chest Respiratory/Chest: Reports cough and dyspnea; Denies dyspnea on exertion, orthopnea, paroxysmal nocturnal dyspnea or sputum Gastrointestinal Gastrointestinal: Reports nausea and vomiting; Denies abdominal pain or diarrhea Genitourinary Genitourinary ED: Reports other Details: Decreased urine output ; Denies dysuria, hematuria or urinary frequency Musculoskeletal Musculoskeletal: Reports back pain and myalgias; Denies arthralgias or neck pain Integumentary Reports rash Neurologic Neurologic: Reports headache(s) and weakness; Denies paresthesias Endocrine Endocrinology: Denies cold intolerance or heat intolerance Hematologic/Lymphatic Hematologic/Lymphatic: Reports systems reviewed and no addt'l complaints, except as documented EXAM Physical Exam Const Vital Signs: 03/14/24 18:43 03/14/24 18:46 03/14/24 20:11 Temperature 97.5 F L 97.5 F L Temperature Source Oral Oral Pulse Rate 85 85 80 Respiratory Rate 20 H 20 H 23 H Respiratory Effort Respiratory Pattern Blood Pressure 141/47 H 141/47 H Blood Pressure Mean 78 78 Pulse Ox 97 97 94 Oxygen Delivery Method Room Air Room Air 03/14/24 20:12 03/14/24 20:15 03/14/24 20:30 Temperature 98.4 F Temperature Source Oral Pulse Rate 81 80 Respiratory Rate 28 H 16 Respiratory Effort Normal Non-Labored Respiratory Pattern Normal Blood Pressure 133/53 H 126/54 H Blood Pressure Mean 75 74 Pulse Ox 97 Oxygen Delivery Method 03/14/24 21:33 03/14/24 21:56 Temperature 98.6 F Temperature Source Pulse Rate 87 88 Respiratory Rate 20 H 21 H Respiratory Effort Respiratory Pattern Blood Pressure 125/76 H 120/54 L Blood Pressure Mean 92 76 Pulse Ox 95 95 Oxygen Delivery Method Room Air Positive well nourished and well developed Constitutional Narrative: Patient appears ill. She is not febrile or hypoxic. General Appearance ED: well developed; Negative for pallor HEENT Reports dry mucous membranes HEENT Narrative: Ears normal. Nares patent. Posterior pharynx is normal. Mouth ED: Yes dry mucous membranes Mouth: dry mucous membranes Eyes PERRL and EOMs intact bilaterally Eyes Narrative: Patient has periorbital redness due to rubbing of her eyes. General Eye ED: Negative for pale conjunctiva or scleral icterus Neck no lymphadenopathy, supple and no JVD Resp normal respiratory effort and clear to auscultation bilaterally Cardio regular rate, regular rhythm, S1 normal heart sound, S2 normal heart sound and no murmurs GI normal to inspection, nondistended, normoactive bowel sounds, non-tender and non-distended; Negative for hepatosplenomegaly or no masses Palpation: soft Back/Spine no CVA tenderness Extremity normal to inspection General Extremety ED: Negative for tenderness Neuro oriented x3 and CN's II-XII intact bilaterally Sensorium / Orientation: alert Psych mental status grossly normal Skin no rashes or lesions noted, no wounds and No skin turgor normal General Skin Exam: Negative for elasticity normal, jaundice or pallor MDM MDM MDM Narrative Medical decision making narrative: Patient with systemic viral symptoms. With her having both respiratory and GI and the fact that her was diagnosed yesterday with COVID-19 suspect patient has COVID-19 infection versus other viral illnesses. Will obtain chest x-ray to evaluate for pneumonia. BMP to assess renal function since she reports thirst, dry mouth and decreased urine output and unable to eat or drink anything since having karly jazzmine this morning. This was to assess also her electrolytes as well as glucose anion gap. 1 L of normal saline was ordered for her dehydration and Zofran for nausea and vomiting. History & Record Review Additional record(s) reviewed:: Prior outpatient record (Urgent care visit December 2022 for upper respiratory infection was reviewed. Seen by Dr. Jorge Kline July 09, 2022 for mastodynia.), Prior ED visit (July 19, 2022 for abdominal pain.) and Prior labs Lab Data Attestation: I reviewed the patient's lab results. Lab results narrative: White count is elevated at 13.2 thousand with slight shift. Patient has mild anemia with normal indices. Glucose elevated 132 with a normal CO2 anion gap. BUN and creatinine are significantly elevated from baseline at 61 and 3.83. This indicates acute kidney injury. Liver enzymes are normal. Labs: Laboratory Results - last 24 hr 03/14/24 20:10 WBC 13.2 H RBC 4.10 L Hgb 11.8 L Hct 34.9 L MCV 85.1 MCH 28.8 MCHC 33.8 RDW Std Deviation 42.6 RDW Coeff of Pedro 13.7 Plt Count 145 L MPV 10.3 Immature Gran % (Auto) 0.800 Neut % (Auto) 82.7 H Lymph % (Auto) 5.8 L [place] % (Auto) 9.9 Eos % (Auto) 0.2 Baso % (Auto) 0.6 Absolute Neuts (auto) 10.9 H Absolute Lymphs (auto) 0.77 L Nucleated RBC % 0 Sodium 132 L Potassium 4.0 Chloride 100 Carbon Dioxide 21.0 Anion Gap 11 BUN 61 H Creatinine 3.83 H Est GFR (MDRD) Af Amer 15 L Est GFR (MDRD) Non-Af 12 L BUN/Creatinine Ratio 15.9 Glucose 132 H Lactic Acid 1.3 Calcium 9.3 Total Bilirubin 0.80 AST 35 ALT 24 Alkaline Phosphatase 111 Total Protein 7.4 Albumin 3.2 Globulin 4.2 Albumin/Globulin Ratio 0.8 L Radiography Chest X-Ray - ED: 2 View and Read by ED Physician (2 view chest x-ray is normal cardiac silhouette and size. Lung parenchyma is normal. Hilum is normal. [place] structures also mild degenerative changes. There is no acute process noted per my interpretation.) Diagnostic Testing: Clinical Impression(s) from Imaging Studies Chest X-Ray 03/14/24 20:22 IMPRESSION: No acute radiographic abnormalities. Electronically Signed: Hans Devlin MD at 21:03 EST , Management Discussion w/another healthcare provider: Hospitalist (Spoke with Dr. Heladio Reardon who accepted patient full admit to [facility] Treatment and Re-Evaluation :: Patient has acute JUDD due to nausea vomiting unable to eat or drink anything. Hospitalist has been paged for admission. Will discuss case with Dr. Reardon. Patient's illness is due to COVID-19 infection. Discharge Plan Dx/Rx/DC Orders Clinical Impression: COVID-19, Acute kidney injury, Intractable nausea and vomiting, Elevated blood pressure reading with diagnosis of hypertension Disposition Disposition: Acute Care Hospital [facility]
[2024-03-14 20:19] LABS: Absolute Lymphocyte Count 0.77 X10^3/uL (0.83-4.51); Absolute Neutrophil Count 10.9 X10^3/uL (2.0-7.7); Basophil# 0.08 X10^3/uL; Basophil% 0.6 % (0-1); Eosinophil# 0.02 X10^3/uL; Eosinophils% 0.2 % (0-5); Hematocrit 34.9 % (37-47); Hemoglobin 11.8 g/dL (12.0-15.0); Lymphocyte # 0.77 X10^3/ul (0.83-4.51); Lymphocyte % 5.8 % (19-41); Mean Corp Hgb Conc 33.8 g/dL (32-36); Mean Corpuscular Hgb 28.8 pg (27.0-32.0); Mean Corpuscular Volume 85.1 fL (81-99); Mean Platelet Vol. 10.3 fl (6.2-12.0); Monocyte% 9.9 % (0-10); NRBC Flagged by Analyzer 0 % (0-5); Neutrophil % 82.7 % (47-70); Platelet Count 145 K/mm3 (150-450); RBC Distribution Width CV 13.7 % (11.6-14.6); RBC Distribution Width SD 42.6 fl (35.1-43.9); White Blood Count 13.2 K/mm3 (4.4-11.0)
[2024-03-14] MEDS: 0.9% Normal Saline (1000mL) 1,000 ML 1000 ML IV (20:19)
[2024-03-14] MEDS: Ondansetron 4 MG/2 ML Vial IV (20:19)
--- NOTE | 2024-03-14 20:22 | RAD_ITS ---
INDICATION: Dyspnea, exposed to COVID EXAMINATION/TECHNIQUE: X-RAY - XR Chest 2 Views COMPARISON: None. FINDINGS: The lungs are clear. Tortuous and calcified thoracic aorta. The heart is not enlarged. No pleural effusion or pneumothorax. Degenerative changes of the thoracic spine. RAD/Chest PA and Lateral IMPRESSION: No acute radiographic abnormalities. Electronically Signed: Hans Devlin MD at 21:03 EST ,
[2024-03-14 20:41] LABS: ALB/GLOB Ratio 0.8 RATIO (0.9-2.4); AST(SGOT) 35 U/L (15-37); Alanine Aminotransfer ALT/SGPT 24 U/L (13-56); Albumin, Serum 3.2 g/dL (3.2-5.0); Alkaline Phosphatase 111 U/L (45-117); Anion Gap 11 (5-15); BUN 61 mg/dL (7-18); BUN/Creat Ratio 15.9 RATIO (10-20); Calcium,Total 9.3 mg/dL (8.5-10.1); Chloride 100 mmol/L (98-107); Creatinine, Serum 3.83 mg/dL (0.55-1.02); EST Glomerular Filtration Rate 12 mL/min (>60); Est Glom Filt Rate - Afr Amer 15 mL/min (>60); Globulin 4.2 g/dL (2.2-4.2); Glucose 132 mg/dL (74-106); Protein, Total 7.4 g/dL (6.4-8.2); Sodium Level 132 mmol/L (136-145)
[2024-03-14 20:44] LABS: Lactic Acid 1.3 mmol/L (0.4-1.9)
--- NOTE | 2024-03-14 22:04 | PCM.HP.STD ---
HPI - General General Date of Admission: 03/14/24 Date of Service: 03/14/24 Chief Complaint: Worsening weakness with URI symptoms and nausea with vomiting HPI Narrative RYAN FLEMING, is a 84 F who presented to [facility] ED on 03/14/2024 with worsening weakness with URI symptoms and nausea with vomiting. Patient's was admitted yesterday with COVID and failure to thrive. Patient tested positive for COVID in the ED today. She began having URI symptoms and nausea with vomiting about 3 to 4 days ago. She has not been able to keep much down over the past few days now and has been getting weaker. She lives at home alone with her . On arrival to the ED she was breathing comfortably on room air and hemodynamically stable. Labs notable for WBC count 13, platelets 145, sodium 132, creatinine 3.83 (baseline around 1.3), BUN 61. Chest x-ray was unremarkable. CT abdomen pelvis without contrast showed nonspecific perinephric fat stranding on the right but was otherwise unremarkable. Patient does note poor urine output over the past few days. Given her JUDD with dehydration and intractable nausea/vomiting with weakness, hospitalist was contacted for admission. I saw the patient at bedside in the ED. Patient had a vomitus bag in hand and reports continued nausea despite being given dose of IV Zofran. Notes that the nausea comes in waves and she has not had any vomiting since arrival to the ED. She does report subjective fevers and chills over the past few days. Also reports nonproductive cough with congestion. Notes she has been taking her home medications as normal. No other acute concerns at this time. [facility] Medical History Cataract (lens) fragments in eye following cataract surgery, bilateral Macular degeneration Glaucoma Wears glasses Gout Arthritis Renal agenesis Pulmonary embolism High cholesterol CPAP (continuous positive airway pressure) dependence Former smoker Sleep apnea Hypertension History of pulmonary embolism Home Medications ?Medication ?Instructions ?Recorded ?Last Taken ?Type losartan 50 mg tablet 50 mg PO DAILY Blood pressure 06/23/22 03/14/24 History vitamin E 268 mg (400 unit) capsule 268 mg PO DAILY Supplement 07/02/22 03/14/24 History vitamins A,C,W-bbzf-yvhvtd 4,296 1 cap PO BID Healthy eyes 03/14/24 03/14/24 History mcg-226 mg-90 mg capsule (Healthy Eyes SuperVision) Allergy/AdvReac Type Severity Reaction Status Date / Time Sulfa (Sulfonamide Allergy Intermediate Itching Verified 03/15/24 00:11 Antibiotics) Family History Mother Diabetes Kidney disease Father Heart disease Surgical History History of carpal tunnel release History of lumpectomy of right breast Social History Smoking Status: Former smoker ROS Constitutional Constitutional: Reports chills, fatigue, fever(s) and weakness Eyes Eyes: Denies change in vision Cardiovascular Cardiovascular: Denies chest pain, edema, lightheadedness or palpitations Respiratory/Chest Respiratory/Chest: Reports cough and shortness of breath with exertion; Denies productive cough, shortness of breath at rest or wheezing Gastrointestinal Gastrointestinal: Denies abdominal pain Genitourinary Genitourinary: Denies dysuria Musculoskeletal Musculoskeletal: Denies arthralgias or myalgias Neurologic Neurologic: Denies dizziness, focal weakness or headache(s) Vital Signs Vital Signs Vital Signs: 03/14/24 18:43 03/14/24 18:46 03/14/24 20:11 Temperature 97.5 F L 97.5 F L Temperature Source Oral Oral Pulse Rate 85 85 80 Respiratory Rate 20 H 20 H 23 H Respiratory Effort Respiratory Pattern Blood Pressure 141/47 H 141/47 H Blood Pressure Mean 78 78 Pulse Ox 97 97 94 Oxygen Delivery Method Room Air Room Air 03/14/24 20:12 03/14/24 20:15 03/14/24 20:30 Temperature 98.4 F Temperature Source Oral Pulse Rate 81 80 Respiratory Rate 28 H 16 Respiratory Effort Normal Non-Labored Respiratory Pattern Normal Blood Pressure 133/53 H 126/54 H Blood Pressure Mean 75 74 Pulse Ox 97 Oxygen Delivery Method 03/14/24 21:33 03/14/24 21:56 Temperature 98.6 F Temperature Source Pulse Rate 87 88 Respiratory Rate 20 H 21 H Respiratory Effort Respiratory Pattern Blood Pressure 125/76 H 120/54 L Blood Pressure Mean 92 76 Pulse Ox 95 95 Oxygen Delivery Method Room Air Weight Weight: 72.2 kg Body Mass Index (BMI) 30.0 Physical Exam Const alert, oriented x3, no apparent distress and average body habitus Constitutional Narrative: Elderly female, fatigued appearing, mildly uncomfortable due to ongoing nausea but otherwise sitting up in bed and answering questions appropriately. General Appearance: cooperative HEENT normocephalic, head/scalp atraumatic, hearing grossly normal bilaterally and nasal mucous membranes and turbinates normal HEENT Narrative: Dry mucous membranes. Eyes PERRL, EOMs intact bilaterally and conjunctivae normal Neck full ROM Chest inspection of chest normal Resp normal respiratory effort, normal air movement, no use of accessory muscles and clear to auscultation bilaterally Cardio regular rate, regular rhythm, no murmurs and peripheral pulses 2+ throughout GI normal to inspection, nondistended, normoactive bowel sounds, soft to palpation, non-tender and non-distended Back/Spine normal ROM Extremity normal to inspection, full ROM and no pedal edema Skin no rashes or lesions noted Neuro moves all extremities and no focal motor deficits Psych mental status grossly normal Results Lab / Micro Data 03/15/24 03:59 03/14/24 20:10 Labs: Laboratory Results - last 24 hr 03/14/24 20:10: WBC 13.2 H, RBC 4.10 L, Hgb 11.8 L, Hct 34.9 L, MCV 85.1, MCH 28.8, MCHC 33.8, RDW Std Deviation 42.6, RDW Coeff of Pedro 13.7, Plt Count 145 L, MPV 10.3, Immature Gran % (Auto) 0.800, Neut % (Auto) 82.7 H, Lymph % (Auto) 5.8 L, [place] % (Auto) 9.9, Eos % (Auto) 0.2, Baso % (Auto) 0.6, Absolute Neuts (auto) 10.9 H, Absolute Lymphs (auto) 0.77 L, Nucleated RBC % 0, Sodium 132 L, Potassium 4.0, Chloride 100, Carbon Dioxide 21.0, Anion Gap 11, BUN 61 H, Creatinine 3.83 H, Est GFR (MDRD) Af Amer 15 L, Est GFR (MDRD) Non-Af 12 L, BUN/Creatinine Ratio 15.9, Glucose 132 H, Lactic Acid 1.3, Calcium 9.3, Total Bilirubin 0.80, AST 35, ALT 24, Alkaline Phosphatase 111, Total Protein 7.4, Albumin 3.2, Globulin 4.2, Albumin/Globulin Ratio 0.8 L Micro: Microbiology 03/14/24 20:04 Mucosa - Nose SARS-CoV-2, Influenza & RSV (PCR) - Final SARS-CoV-2 (COVID 19) Imaging Radiology Impression Chest X-Ray 03/14/24 20:22 IMPRESSION: No acute radiographic abnormalities. Electronically Signed: Hans Devlin MD at 21:03 EST , Assessment & Plan Assessment/Plan (1) Acute kidney injury: (2) COVID-19: (3) Intractable nausea and vomiting: (4) Weakness: PLAN: Plan Patient is an 84-year-old female who presented [facility] ED on 03/14/2024 with worsening weakness, URI symptoms and nausea with vomiting. 1. JUDD on CKD stage III with dehydration ? Admit under inpatient status to [facility]. Creatinine 3.83, BUN 61 on admit. Baseline creatinine around 1.3. Suspect prerenal JUDD secondary to dehydration from nausea/vomiting and poor p.o. intake. CT abdomen pelvis showed no hydronephrosis but did show right-sided perinephric fat stranding concerning for possible infection as noted below. Given 1 L IV fluids in the ED, follow-up a.m. BMP and monitor urine output. 2. Acute debility ? PT/OT/case management consulted. Patient lives at home with her and is primary drawing tracer for her , though they also have aides coming in to help with her currently. Acute weakness presumed secondary to COVID-19 infection with possible pyelonephritis. Appreciate therapy recommendations. 3. COVID-19 positive ? COVID-19 positive in the ED. Chest x-ray unremarkable patient stable on room air. Will hold on treating with steroids or remdesivir at this time. Symptomatic management. 4. Concern for pyelonephritis ? CT abdomen pelvis on admit showed right-sided perinephric fat stranding. Patient unable to produce UA to this point given poor urine output with JUDD, will obtain when able. Will empirically treat with IV ceftriaxone for now. 5. Intractable nausea with vomiting ? Suspected secondary to COVID-19 infection with possible pyelonephritis as noted above. CT abdomen pelvis with no concerning findings. Treat symptomatically. 6. Mild acute on chronic anemia ? Hemoglobin 11.8 on admit, dropped to 9.6 with IV fluid resuscitation. Baseline hemoglobin appears to be around 11-12. No active signs of bleeding. Suspect in part due to anemia of renal disease. Iron studies with ferritin ordered for further evaluation. 7. Hypertension ? Holding home losartan in setting of JUDD. DVT prophylaxis: Heparin subcu CODE STATUS: DNR CCA, DNI Expected disposition: TBD Total clinical time spent by myself addressing the patient's medical issues, reviewing all the data, and collaborating with patient's care team: 55 minutes. Charges/Coding Visit Charges Inpatient E&M: 32813 Init Hosp L2
--- NOTE | 2024-03-14 23:09 | CT_ITS ---
INDICATION: N/V w/ abd pain and severe JUDD EXAMINATION: CT Abdomen And Pelvis W/O Contrast Injection TECHNIQUE: Helically acquired images were obtained of the abdomen and pelvis without the use of IV contrast. A radiation dose optimization technique was used for this scan. Oral contrast: None. COMPARISON: 11/25/2022 FINDINGS: Evaluation of the solid organs and vascular structures is limited without intravenous contrast. Visualized lung bases: Unremarkable Liver: Diffusely hypodense consistent with fatty liver. Gallbladder: Unremarkable Spleen: Unremarkable Pancreas: Unremarkable Adrenal Glands: Unremarkable Kidneys: Bilateral atrophy with scarring. Perinephric fat stranding on the right. Vasculature: Mild scattered aortoiliac atherosclerotic calcifications. GI Tract: Hiatal hernia. Scattered colonic diverticula. Lymphadenopathy: None Peritoneum: No ascites. Bladder: Unremarkable Reproductive organs: Unremarkable Bones/Soft tissues: Mild scattered degenerative changes of the visualized spine. Grade 1 retrolisthesis L2 on L3. CT/Abdomen/Pelvis without Cont IMPRESSION: Nonspecific perinephric fat stranding on the right. Hiatal hernia. Fatty liver. Electronically Signed: Hans Devlin MD at 0:01 EST ,
[2024-03-15] VITALS (11 sets, daily range): BP systolic 107–146; BP diastolic 37–77; PULSE 76–95; RESP 18–39; TEMP 36.7–38.9; O2SAT 85–97
[2024-03-15] MEDS: Acetaminophen 325 MG Tablet 650 MG PO ×2 (00:25→20:21)
[2024-03-15] MEDS: Cefazolin 1 GM/50 ML BAG IV (01:25)
[2024-03-15] MEDS: 0.9% Saline Lock 10 ML Syringe IV (01:25)
[2024-03-15 04:44] LABS: Hematocrit 28.9 % (37-47); Hemoglobin 9.6 g/dL (12.0-15.0); Mean Corp Hgb Conc 33.2 g/dL (32-36); Mean Corpuscular Hgb 28.7 pg (27.0-32.0); Mean Corpuscular Volume 86.3 fL (81-99); Mean Platelet Vol. 10.4 fl (6.2-12.0); Platelet Count 127 K/mm3 (150-450); RBC Distribution Width CV 13.7 % (11.6-14.6); RBC Distribution Width SD 43.6 fl (35.1-43.9); Red Blood Count 3.35 M/mm3 (4.2-5.4); White Blood Count 11.2 K/mm3 (4.4-11.0)
[2024-03-15 05:02] LABS: Anion Gap 10 (5-15); BUN 64 mg/dL (7-18); BUN/Creat Ratio 18.2 RATIO (10-20); Calcium,Total 8.4 mg/dL (8.5-10.1); Chloride 107 mmol/L (98-107); Creatinine, Serum 3.51 mg/dL (0.55-1.02); EST Glomerular Filtration Rate 13 mL/min (>60); Est Glom Filt Rate - Afr Amer 16 mL/min (>60); Estimated Creatinine Clearance 10.69 ml/min; Glucose 96 mg/dL (74-106); Potassium 4.2 mmol/L (3.5-5.1); Sodium Level 135 mmol/L (136-145)
[2024-03-15 05:31] LABS: Procalcitonin > 50.00 ng/mL (0.00-0.09)
[2024-03-15] MEDS: Heparin Injection (Vial) 5,000 UNIT/ML VIAL 5000 UNIT SC (06:30)
--- NOTE | 2024-03-15 07:47 | PN.HOSP_ITS ---
Reason for Visit Reason for Visit: Diagnoses Acute kidney failure, unspecified (03/14/24) Nausea with vomiting, unspecified (03/14/24) Weakness (03/14/24) COVID-19 (03/14/24) Subjective Subjective Patient is an 84-year-old lady who presented with intractable nausea and vomiting with upper respiratory tract symptoms chest x-ray obtained was unremarkable CT of the abdomen and pelvis did reveal nonspecific right perinephric stranding. Patient was found to have acute kidney injury. Patient also tested positive for COVID-19. Admitted to regular nursing floor for further management Objective Data Objective Data Vital Signs: Vital Signs Temp Pulse Resp BP Pulse Ox O2 Del Method 99.3 F H 81 18 107/44 L 95 Room Air 03/15/24 05:11 03/15/24 05:11 03/15/24 05:11 03/15/24 05:11 03/15/24 05:11 03/15/24 05:11 Oxygen Delivery Method Room Air Weight: 67.7 kg Body Mass Index (BMI) 28.2 Intake & Output: Intake and Output for Last 24 Hours 03/13/24 03/14/24 03/15/24 23:59 23:59 23:59 Intake Total 1000 / 1000 50 / 50 Output Total 0 / 0 Balance 1000 / 1000 50 / 50 Lab / Micro Data 03/15/24 03:59 03/15/24 03:59 Labs: Laboratory Results - last 24 hr 03/14/24 20:10: WBC 13.2 H, RBC 4.10 L, Hgb 11.8 L, Hct 34.9 L, MCV 85.1, MCH 28.8, MCHC 33.8, RDW Std Deviation 42.6, RDW Coeff of Pedro 13.7, Plt Count 145 L, MPV 10.3, Immature Gran % (Auto) 0.800, Neut % (Auto) 82.7 H, Lymph % (Auto) 5.8 L, [place] % (Auto) 9.9, Eos % (Auto) 0.2, Baso % (Auto) 0.6, Absolute Neuts (auto) 10.9 H, Absolute Lymphs (auto) 0.77 L, Nucleated RBC % 0, Sodium 132 L, Potassium 4.0, Chloride 100, Carbon Dioxide 21.0, Anion Gap 11, BUN 61 H, C reatinine 3.83 H, Est GFR (MDRD) Af Amer 15 L, Est GFR (MDRD) Non-Af 12 L, BUN/Creatinine Ratio 15.9, Glucose 132 H, Lactic Acid 1.3, Calcium 9.3, Total Bilirubin 0.80, AST 35, ALT 24, Alkaline Phosphatase 111, Total Protein 7.4, Albumin 3.2, Globulin 4.2, Albumin/Globulin Ratio 0.8 L 03/15/24 03:59: WBC 11.2 H, RBC 3.35 L, Hgb 9.6 L, Hct 28.9 L, MCV 86.3, MCH 28.7, MCHC 33.2, RDW Std Deviation 43.6, RDW Coeff of Pedro 13.7, Plt Count 127 L, MPV 10.4, Sodium 135 L, Potassium 4.2, Chloride 107, Carbon Dioxide 18.0 L, Anion Gap 10, BUN 64 H, Creatinine 3.51 H, Estim Creat Clear Calc 10.69, Est GFR (MDRD) Af Amer 16 L, Est GFR (MDRD) Non-Af 13 L, BUN/Creatinine Ratio 18.2, Glucose 96, Calcium 8.4 L, Procalcitonin > 50.00 H Micro: Microbiology 03/14/24 20:04 Mucosa - Nose SARS-CoV-2, Influenza & RSV (PCR) - Final SARS-CoV-2 (COVID 19) Radiography Diagnostic Testing: Radiology Impression Chest X-Ray 03/14/24 20:22 IMPRESSION: No acute radiographic abnormalities. Electronically Signed: Hans Devlin MD at 21:03 EST , Abdomen/Pelvis CT 03/14/24 23:09 IMPRESSION: Nonspecific perinephric fat stranding on the right. Hiatal hernia. Fatty liver. Electronically Signed: Hans Devlin MD at 0:01 EST , Physical Exam Narrative GENERAL: cooperative HEENT: Atraumatic; normocephalic EYES; Anicteric, Normal Conjunctiva NECK; supple, normal thyroid, RESPIRATORY: Diminished to auscultation CARDIOVASCULAR: Regular S1 S2, GI: soft, normoactive bowel sounds, : No Renal angle tenderness; EXTREMITIES: No edema, no clubbing, MUSCULOSKELETAL: no muscle wasting NEURO: Awake; no lateralizing signs. SKIN: No Rash PSYCH; Flat affect Assessment & Plan Assessment/Plan (1) Acute kidney injury: (2) COVID-19: (3) Intractable nausea and vomiting: (4) Weakness: PLAN: Plan Patient is an 84-year-old lady who presented with intractable nausea and vomiting with upper respiratory tract symptoms chest x-ray obtained was unremarkable CT of the abdomen and pelvis did reveal nonspecific right perinephric stranding. Patient was found to have acute kidney injury. Patient also tested positive for COVID-19. Admitted to regular nursing floor for further management 1. Acute kidney injury ? Superimposed on chronic kidney disease stage III. Baseline creatinine 1.3, creatinine on admission was 3.83 started on IV hydration with subsequent monitoring of electrolytes ordered. CT of the abdomen and pelvis obtained demonstrated no hydronephrosis but nonspecific right sided perinephric stranding. Ordered urinalysis to rule out UTI patient started on ceftriaxone pending results of urinalysis 2. Acute COVID-19 infection ? Plan is to continue with symptom management patient is currently not a candidate for Decadron or remdesivir 3. Anemia ? Secondary to chronic disorder monitoring H&H and transfuse if patient becomes symptomatic or hemoglobin falls below 7 4. Essential hypertension ? Patient is on losartan held given worsening kidney function 5. Physical deconditioning ? Requested for PT OT eval and older adult social work specialist to assist with discharge planning 6. DVT prophylaxis ? Subcu heparin Time spent in the patient's overall evaluation,decision-making process, review of diagnostic data, adjustment of management, discussion with other providers, nursing nursing and ancillary staff involved in patient's care documentation, 50 minutes Charges/Coding Visit Charges Inpatient E&M: 13175 [facility] Hosp L3
[2024-03-15 09:16] LABS: Ferritin 260 ng/mL (8-252); Iron 29 ug/dL (50-170); Iron Binding Capacity,Total 357 ug/dL (250-450); PERCENT IRON SATURATION 8.1 % (15.0-55.0)
[2024-03-15] MEDS: Ceftriaxone 1 GM/50 ML BAG IV (11:13)
--- NOTE | 2024-03-15 14:55 | CHAPLAIN ---
Type of Pastoral Visit _x__ Initial Visit ___ Follow-up Visit ___ On-call Visit ___ General Patient Visit ___ Spiritual Assessment ___ Family Conference ___ Bereavement ___ Rapid Response ___ Code Blue _x__ Other (describe below) Pastoral Care Referral From _x__ Patient _x__ Family ___ Nurse ___ Physician ___ Bobbin Painter ___ Subcontract Administrator ___ Other (describe below) Sacrament/Intervention ___ Active listening ___ Anointing ___ Gnosticist ___ Bereavement ___ Communion ___ Zandra exploration ___ ___ Life review _x__ Prayer ___ Reconciliation ___ Sacrament of Sick ___ Supportive presence ___ Wedding _x__ Other (describe below) Pastoral Comments phone call was made into this Covid isolation room; daughter answers the phone and is given offer of spiritual care and support; daughter puts the patient on the phone who admits that she is lousy and has some difficulty speaking; this is a brief call with assurances of good care, opportunity to express support and offer a prayer as she desires; pt welcomes a prayer over the phone; no other needs indicated at this time
--- NOTE | 2024-03-15 15:25 | CASEMGMT ---
RN CAIN FIELD CAPTAIN CAIN?to room to meet with patient for initial transition planning/care coordination assessment. RN CAIN?introduced self and role at [facility]. Pt voices understanding and consents to assessment?at this time. Pt resting in bed in no distress at this time. Daughter, Annette, @ bedside. Pt is A/O at this time and answers all questions appropriately. Care providers, pharmacy, and demographics verified/updated at this time. Strata:?1 PCP: Dr Mercedes Preferred Pharmacy: [facility] Insurance: [facility], [facility] Prescription Benefit: none Living Will/HPOA: Pt's has dementia. She thinks her son, Rubens, is listed as 1st alternative and her daughter, Annette, as 2nd, but she is not certain. Annette states she will try to find the document this evening and if so, will bring it in to the hospital tomorrow to be placed on pt's chart. LNOK: , Luis Alberto (has dementia and is currently also in the hospital). Son, Rubens. Daughter, Annette. Pt's is Rubens's and Annette's step-dad. Living Arrangements: Lives w/her in 2-story home w/basement (where laundry is), ramp entrance into the home. FFSU. Pt is independent and is primary caregiver of her . Transportation:Pt states drives self and states no transportation concerns at this time. DME: States has a pulse ox. No home O2. Currently on RA. States if would need O2 @ discharge, prefers [employer]. There is a shower chair in the home she can use, if needed. Pt denies need for walker or other DME at this time. HHC/SNF: No hx Discussed discharge plan. Pt denies need of SNF and wishes to return home and states has no concerns with going home at time of discharge. She would like [facility] and declines wanting list of other HHC options. Her daughter, Annette, is planning on staying w/pt 24/ for at least a week and pt's sister also comes to her home often and can assist, if needed. Call placed to Alisson @ [facility] and referral made. She was made aware to f/u with [employer]OR[employer] CUSTODIAN CAIN, Ila, re: response. CM?to follow for home oxygen needs and any further discharge planning/needs. Pt voices no further concerns/needs at this time. Advised pt to ask for CM?if any further questions/concerns/needs arise. Voices understanding. PLAN: Home w/HHC and family support. Follow for possible home O2. Pt does not have Rx benefits. Follow for cost of meds @ dc. Basia ALMEIDA RN CM
[2024-03-16] VITALS (11 sets, daily range): BP systolic 103–164; BP diastolic 44–89; PULSE 74–96; RESP 20–32; TEMP 36.8–38.5; O2SAT 93–99
[2024-03-16 03:29] LABS: Mucous, Urine 0 SEEN /hpf (<or=2+); Squamous Epithelial Cells - UA 0 SEEN /hpf (5-10)
[2024-03-16 03:34] LABS: Color, Urine Yellow (Yellow); Glucose, Dipstick Normal (Normal); Ketone-Dipstick 15 mg/dl (Negative); Leukocyte Esterase-Dipstick 500 /ul (Negative); Nitrite-Dipstick Negative (Negative); Occult Blood-Urine 250 /ul (Negative); Protein-Dipstick 100 mg/dl (Negative); Specific Gravity, Urine 1.015 (1.002-1.030); Urine Bilirubin Dipstick Negative (Negative); Urine Clarity Sl. Cloudy (Clear); Urine Urobilinogen Normal (Normal)
[2024-03-16 05:10] LABS: Bacteria 3+ /hpf (None Seen); Red Blood Cells-Urine 0-5 SEEN /hpf (0-5); White Blood Cells >100 SEEN /hpf (0-5)
[2024-03-16] MEDS: Acetaminophen 325 MG Tablet 650 MG PO ×3 (05:23→21:31)
[2024-03-16 07:25] LABS: Absolute Lymphocyte Count 0.45 X10^3/uL (0.83-4.51); Basophil# 0.04 X10^3/uL; Basophil% 0.4 % (0-1); Eosinophil# 0.12 X10^3/uL; Eosinophils% 1.3 % (0-5); Hemoglobin 9.6 g/dL (12.0-15.0); Lymphocyte # 0.45 X10^3/ul (0.83-4.51); Lymphocyte % 4.7 % (19-41); Mean Corp Hgb Conc 33.1 g/dL (32-36); Mean Corpuscular Hgb 28.7 pg (27.0-32.0); Mean Corpuscular Volume 86.8 fL (81-99); Mean Platelet Vol. 10.6 fl (6.2-12.0); Monocyte# 0.88 X10^3/uL; Monocyte% 9.2 % (0-10); NRBC Flagged by Analyzer 0 % (0-5); Neutrophil # 7.95 X10^3/uL (2.7-7.7); Neutrophil % 83.6 % (47-70); POSITIVE DIFFERENTIAL YES; Platelet Count 129 K/mm3 (150-450); RBC Distribution Width SD 44.4 fl (35.1-43.9); Red Blood Count 3.34 M/mm3 (4.2-5.4); White Blood Count 9.5 K/mm3 (4.4-11.0)
[2024-03-16 07:53] LABS: Anion Gap 10 (5-15); BUN 70 mg/dL (7-18); Calcium,Total 8.5 mg/dL (8.5-10.1); Chloride 106 mmol/L (98-107); Creatinine, Serum 3.18 mg/dL (0.55-1.02); EST Glomerular Filtration Rate 15 mL/min (>60); Est Glom Filt Rate - Afr Amer 18 mL/min (>60); Glucose 108 mg/dL (74-106); Magnesium 2.2 mg/dL (1.6-2.6); Phosphorus 2.6 mg/dL (2.5-4.9); Sodium Level 134 mmol/L (136-145)
[2024-03-16] MEDS: Ceftriaxone 1 GM/50 ML BAG IV (08:20)
[2024-03-16] MEDS: 0.9% Saline Lock 10 ML Syringe IV ×2 (08:20→20:55)
--- NOTE | 2024-03-16 08:31 | PN.HOSP_ITS ---
Reason for Visit Reason for Visit: Diagnoses Acute kidney failure, unspecified (03/14/24) Nausea with vomiting, unspecified (03/14/24) Weakness (03/14/24) COVID-19 (03/14/24) Subjective Subjective Patient seen remains profoundly weak however currently not on oxygen we will continue with current treatment Objective Data Objective Data Vital Signs: Vital Signs Temp Pulse Resp BP Pulse Ox O2 Del Method 98.2 F 77 30 H 116/48 L 97 Room Air 03/16/24 08:18 03/16/24 08:18 03/16/24 08:18 03/16/24 08:18 03/16/24 08:18 03/16/24 08:18 Oxygen Delivery Method Room Air Weight: 67.7 kg Body Mass Index (BMI) 28.2 Intake & Output: Intake and Output for Last 24 Hours 03/14/24 03/15/24 03/16/24 23:59 23:59 23:59 Intake Total 1000 / 1000 700 / 700 Output Total 200 / 400 450 / 450 Balance 1000 / 1000 500 / 300 -450 / -450 Lab / Micro Data 03/16/24 06:05 03/16/24 06:05 Labs: Laboratory Results - last 24 hr 03/15/24 03:59: Iron 29 L, TIBC 357, Iron Saturation 8.1 L, Ferritin 260 H 03/16/24 03:20: Urine Color Yellow, Urine Clarity Sl. Cloudy, Urine pH 6.0, Ur Specific [place] 1.015, Urine Protein 100 H, Urine Glucose (UA) Normal, Urine Ketones 15 H, Urine Occult Blood 250 H, Urine Nitrite Negative, Urine Bilirubin Negative, Urine Urobilinogen Normal, Ur Leukocyte Esterase 500 H, Urine RBC 0-5 SEEN, Urine WBC >100 SEEN, Ur Squamous Epith Cells 0 SEEN, Urine Bacteria 3+, Urine Mucus 0 SEEN 03/16/24 06:05: WBC 9.5, RBC 3.34 L, Hgb 9.6 L, Hct 29.0 L, MCV 86.8, MCH 28.7, MCHC 33.1, RDW Std Deviation 44.4 H, RDW Coeff of Pedro 14.0, Plt Count 129 L, MPV 10.6, Immature Gran % (Auto) 0.800, Neut % (Auto) 83.6 H, Lymph % (Auto) 4.7 L, [place] % (Auto) 9.2, Eos % (Auto) 1.3, Baso % (Auto) 0.4, Absolute Neuts (auto) 8.0 H, Absolute Lymphs (auto) 0.45 L, Nucleated RBC % 0, Sodium 134 L, Potassium 4.0, Chloride 106, Carbon Dioxide 18.0 L, Anion Gap 10, BUN 70 H, Creatinine 3.18 H, Estim Creat Clear Calc 11.80, Est GFR (MDRD) Af Amer 18 L, Est GFR (MDRD) Non-Af 15 L, BUN/Creatinine Ratio 22.0 H, Glucose 108 H, Calcium 8.5, Phosphorus 2.6, Magnesium 2.2 Micro: Microbiology 03/14/24 20:04 Mucosa - Nose SARS-CoV-2, Influenza & RSV (PCR) - Final SARS-CoV-2 (COVID 19) Physical Exam Narrative GENERAL: cooperative but frail looking HEENT: Atraumatic; normocephalic EYES; Anicteric, Normal Conjunctiva NECK; supple, normal thyroid, RESPIRATORY: Diminished to auscultation CARDIOVASCULAR: Regular S1 S2, GI: soft, normoactive bowel sounds, : No Renal angle tenderness; EXTREMITIES: No edema, no clubbing, MUSCULOSKELETAL: no muscle wasting NEURO: Awake; no lateralizing signs. SKIN: No Rash PSYCH; Flat affect Assessment & Plan Assessment/Plan (1) Acute kidney injury: (2) COVID-19: (3) Intractable nausea and vomiting: (4) Weakness: PLAN: Plan Patient is an 84-year-old lady who presented with intractable nausea and vomiting with upper respiratory tract symptoms chest x-ray obtained was unremarkable CT of the abdomen and pelvis did reveal nonspecific right perinephric stranding. Patient was found to have acute kidney injury. Patient also tested positive for COVID-19. Admitted to regular nursing floor for further management 1. Acute kidney injury ? Superimposed on chronic kidney disease stage III. Baseline creatinine 1.3, creatinine on admission was 3.83 started on IV hydration with subsequent monitoring of electrolytes ordered. CT of the abdomen and pelvis obtained demonstrated no hydronephrosis but nonspecific right sided perinephric stranding. Ordered urinalysis to rule out UTI patient started on ceftriaxone pending results of urinalysis ? 03/16/2024; slight improvement in patient kidney function we will continue monitoring with repeat BMP in a 2. Acute COVID-19 infection ? Plan is to continue with symptom management patient is currently not a candidate for Decadron or remdesivir 3. Acute cystitis ? Started on ceftriaxone pending culture result 4. Anemia ? Secondary to chronic disorder monitoring H&H and transfuse if patient becomes symptomatic or hemoglobin falls below 7 ? 03/16/2024; hemoglobin did remain stable at 9.6, currently no indication for blood transfusion repeat H&H ordered in a.m. 5. Essential hypertension ? Patient is on losartan held given worsening kidney function 6. Physical deconditioning ? Requested for PT OT eval and web content & social media manager to assist with discharge planning 7. DVT prophylaxis ? Subcu heparin 8. Physical deconditioning ? Requested for PT OT eval and web content & social media manager to assist with discharge planning Time spent in the patient's overall evaluation,decision-making process, review of diagnostic data, adjustment of management, discussion with other providers, nursing nursing and ancillary staff involved in patient's care documentation, 50 minutes Charges/Coding Visit Charges Inpatient E&M: 61762 Subs Hosp L3
[2024-03-16] MEDS: Ondansetron 4 MG/2 ML Vial IV ×2 (13:39→21:36)
--- NOTE | 2024-03-16 14:25 | RAD_ITS ---
EXAM: XR CHEST, 1 VIEW CLINICAL INDICATION: possible aspiration TECHNIQUE: Frontal view of the chest. COMPARISON: 03/14/2024. FINDINGS: LUNGS AND PLEURAL SPACES: Unremarkable. No consolidation or edema. No pneumothorax. No effusion. HEART: Unremarkable. Cardiac silhouette not enlarged. MEDIASTINUM: Central airways and mediastinal contour are unremarkable. BONES/JOINTS: Unremarkable. No acute fracture. SOFT TISSUES: Unremarkable. RAD/Chest 1 View (Portable) IMPRESSION: No radiographic evidence of acute cardiopulmonary disease and unchanged. Electronically Signed: Heladio Hernandez MD at 15:29 EST ,
[2024-03-16] MEDS: Heparin Injection (Vial) 5,000 UNIT/ML VIAL 5000 UNIT SC ×2 (15:10→20:54)
[2024-03-17 02:20] VITALS: BP 141/118; PULSE 77; RESP 24; TEMP 36.9; O2SAT 96
[2024-03-17 06:45] VITALS: BP 163/56; PULSE 91; RESP 24; TEMP 37.7; O2SAT 96
[2024-03-17 07:50] VITALS: O2SAT 96
--- NOTE | 2024-03-17 07:55 | PN.HOSP_ITS ---
Reason for Visit Reason for Visit: Diagnoses Acute kidney failure, unspecified (03/14/24) Nausea with vomiting, unspecified (03/14/24) Weakness (03/14/24) COVID-19 (03/14/24) Subjective Subjective Patient seen overall clinical condition continues to improve do expect discharge in 1 to 2 days Objective Data Objective Data Vital Signs: Vital Signs Temp Pulse Resp BP Pulse Ox O2 Del Method 99.8 F H 91 24 H 163/56 H 96 Room Air 03/17/24 06:45 03/17/24 06:45 03/17/24 06:45 03/17/24 06:45 03/17/24 06:45 03/17/24 06:45 Oxygen Delivery Method Room Air Weight: 67.7 kg Body Mass Index (BMI) 28.2 Intake & Output: Intake and Output for Last 24 Hours 03/15/24 03/16/24 03/17/24 23:59 23:59 23:59 Intake Total 700 / 700 750 / 750 480 / 480 Output Total 200 / 400 750 / 750 300 / 300 Balance 500 / 300 0 / 0 180 / 180 Lab / Micro Data 03/17/24 07:56 03/17/24 07:56 Micro: Microbiology 03/14/24 20:04 Mucosa - Nose SARS-CoV-2, Influenza & RSV (PCR) - Final SARS-CoV-2 (COVID 19) Radiography Diagnostic Testing: Radiology Impression Chest X-Ray 03/16/24 14:25 IMPRESSION: No radiographic evidence of acute cardiopulmonary disease and unchanged. Electronically Signed: Heladio Hernandez MD at 15:29 EST , Physical Exam Narrative GENERAL: cooperative but frail looking HEENT: Atraumatic; normocephalic EYES; Anicteric, Normal Conjunctiva NECK; supple, normal thyroid, RESPIRATORY: Diminished to auscultation CARDIOVASCULAR: Regular S1 S2, GI: soft, normoactive bowel sounds, : No Renal angle tenderness; EXTREMITIES: No edema, no clubbing, MUSCULOSKELETAL: no muscle wasting NEURO: Awake; no lateralizing signs. SKIN: No Rash PSYCH; Flat affect Assessment & Plan Assessment/Plan (1) Acute kidney injury: (2) COVID-19: (3) Intractable nausea and vomiting: (4) Weakness: PLAN: Plan Patient is an 84-year-old lady who presented with intractable nausea and vomiting with upper respiratory tract symptoms chest x-ray obtained was unremarkable CT of the abdomen and pelvis did reveal nonspecific right perinephric stranding. Patient was found to have acute kidney injury. Patient also tested positive for COVID-19. Admitted to regular nursing floor for further management 1. Acute kidney injury ? Superimposed on chronic kidney disease stage III. Baseline creatinine 1.3, creatinine on admission was 3.83 started on IV hydration with subsequent monitoring of electrolytes ordered. CT of the abdomen and pelvis obtained demonstrated no hydronephrosis but nonspecific right sided perinephric stranding. Ordered urinalysis to rule out UTI patient started on ceftriaxone pending results of urinalysis ? 03/16/2024; slight improvement in patient kidney function we will continue monitoring with repeat BMP in am ? 03/17/2024; patient creatinine down to 2.7 2. Acute COVID-19 infection ? Plan is to continue with symptom management patient is currently not a candidate for Decadron or remdesivir 3. Acute cystitis ? Started on ceftriaxone pending culture result 4. Anemia ? Secondary to chronic disorder monitoring H&H and transfuse if patient becomes symptomatic or hemoglobin falls below 7 ? 03/16/2024; hemoglobin did remain stable at 9.6, currently no indication for blood transfusion repeat H&H ordered in a.m. 5. Essential hypertension ? Patient is on losartan held given worsening kidney function 6. Physical deconditioning ? Requested for PT OT eval and social media director to assist with discharge planning 7. DVT prophylaxis ? Subcu heparin 8. Physical deconditioning ? Requested for PT OT eval and social media director to assist with discharge planning Time spent in the patient's overall evaluation,decision-making process, review of diagnostic data, adjustment of management, discussion with other providers, nursing nursing and ancillary staff involved in patient's care documentation, 38 minutes Charges/Coding Visit Charges Inpatient E&M: 63738 Subs Hosp L2
[2024-03-17 08:36] LABS: Absolute Lymphocyte Count 0.58 X10^3/uL (0.83-4.51); Absolute Neutrophil Count 6.5 X10^3/uL (2.0-7.7); Basophil# 0.03 X10^3/uL; Basophil% 0.4 % (0-1); Eosinophil# 0.02 X10^3/uL; Eosinophils% 0.2 % (0-5); Hematocrit 29.4 % (37-47); Hemoglobin 9.6 g/dL (12.0-15.0); Lymphocyte # 0.58 X10^3/ul (0.83-4.51); Lymphocyte % 7.1 % (19-41); Mean Corp Hgb Conc 32.7 g/dL (32-36); Mean Corpuscular Hgb 27.9 pg (27.0-32.0); Mean Corpuscular Volume 85.5 fL (81-99); Mean Platelet Vol. 10.9 fl (6.2-12.0); Monocyte# 0.89 X10^3/uL; Monocyte% 10.9 % (0-10); NRBC Flagged by Analyzer 0 % (0-5); Neutrophil # 6.52 X10^3/uL (2.7-7.7); Neutrophil % 79.4 % (47-70); POSITIVE DIFFERENTIAL YES; Platelet Count 134 K/mm3 (150-450); RBC Distribution Width CV 14.3 % (11.6-14.6); Red Blood Count 3.44 M/mm3 (4.2-5.4); White Blood Count 8.2 K/mm3 (4.4-11.0)
[2024-03-17 09:04] LABS: Anion Gap 10 (5-15); BUN 75 mg/dL (7-18); BUN/Creat Ratio 27.7 RATIO (10-20); Calcium,Total 8.9 mg/dL (8.5-10.1); Chloride 106 mmol/L (98-107); Creatinine, Serum 2.71 mg/dL (0.55-1.02); EST Glomerular Filtration Rate 18 mL/min (>60); Est Glom Filt Rate - Afr Amer 22 mL/min (>60); Estimated Creatinine Clearance 13.85 ml/min; Glucose 103 mg/dL (74-106); Potassium 3.8 mmol/L (3.5-5.1); Sodium Level 133 mmol/L (136-145)
--- NOTE | 2024-03-17 10:00 | CASEMGMT ---
RN CM updated that patient will discharge over the weekend. RN CM updated [facility], start of care planned for Wednesday. RN CM updated patient. Patient had no further questions or concerns. Green sheet placed on chart.
[2024-03-17] MEDS: Heparin Injection (Vial) 5,000 UNIT/ML VIAL 5000 UNIT SC (10:21)
[2024-03-17] MEDS: Acetaminophen 325 MG Tablet 650 MG PO (10:21)
[2024-03-17] MEDS: 0.9% Saline Lock 10 ML Syringe IV (10:26)
[2024-03-17] MEDS: Ceftriaxone 1 GM/50 ML BAG IV (10:27)
[2024-03-17 10:32] VITALS: BP 134/56; PULSE 76; RESP 24; TEMP 36.7; O2SAT 94
[2024-03-17 10:45] VITALS: RESP 24
[2024-03-17 15:00] VITALS: BP 116/51; PULSE 61; RESP 22; TEMP 36.4; O2SAT 97
[2024-03-18] VITALS (7 sets, daily range): BP systolic 137–145; BP diastolic 53–73; PULSE 64–88; RESP 18–22; TEMP 36.6–38.3; O2SAT 93–98
[2024-03-18] MEDS: Heparin Injection (Vial) 5,000 UNIT/ML VIAL 5000 UNIT SC ×3 (00:08→22:11)
[2024-03-18] MEDS: 0.9% Saline Lock 10 ML Syringe IV ×3 (00:08→13:10)
[2024-03-18] MEDS: Acetaminophen 325 MG Tablet 650 MG PO (00:18)
[2024-03-18 06:29] LABS: Absolute Lymphocyte Count 0.91 X10^3/uL (0.83-4.51); Absolute Neutrophil Count 6.6 X10^3/uL (2.0-7.7); Basophil# 0.03 X10^3/uL; Basophil% 0.3 % (0-1); Eosinophil# 0.06 X10^3/uL; Eosinophils% 0.7 % (0-5); Hematocrit 28.6 % (37-47); Hemoglobin 9.5 g/dL (12.0-15.0); Lymphocyte # 0.91 X10^3/ul (0.83-4.51); Lymphocyte % 10.2 % (19-41); Mean Corp Hgb Conc 33.2 g/dL (32-36); Mean Corpuscular Hgb 28.4 pg (27.0-32.0); Mean Corpuscular Volume 85.4 fL (81-99); Mean Platelet Vol. 10.8 fl (6.2-12.0); Monocyte# 0.93 X10^3/uL; Monocyte% 10.5 % (0-10); NRBC Flagged by Analyzer 0 % (0-5); Neutrophil # 6.59 X10^3/uL (2.7-7.7); Neutrophil % 74.1 % (47-70); Platelet Count 135 K/mm3 (150-450); RBC Distribution Width CV 14.3 % (11.6-14.6); RBC Distribution Width SD 44.9 fl (35.1-43.9); Red Blood Count 3.35 M/mm3 (4.2-5.4); White Blood Count 8.9 K/mm3 (4.4-11.0)
[2024-03-18 07:06] LABS: Anion Gap 6 (5-15); BUN 75 mg/dL (7-18); BUN/Creat Ratio 31.1 RATIO (10-20); Chloride 107 mmol/L (98-107); Creatinine, Serum 2.41 mg/dL (0.55-1.02); EST Glomerular Filtration Rate 20 mL/min (>60); Est Glom Filt Rate - Afr Amer 25 mL/min (>60); Estimated Creatinine Clearance 15.57 ml/min; Glucose 107 mg/dL (74-106); Potassium 3.9 mmol/L (3.5-5.1); Sodium Level 134 mmol/L (136-145)
[2024-03-18] MEDS: Ceftriaxone 1 GM/50 ML BAG IV (09:36)
--- NOTE | 2024-03-18 10:28 | PCM.PN.HOSP ---
Reason for Visit Reason for Visit: Diagnoses Acute kidney failure, unspecified (03/14/24) Nausea with vomiting, unspecified (03/14/24) Weakness (03/14/24) COVID-19 (03/14/24) Subjective Subjective Patient seen overall clinical condition continues to improve. Urine cultures came back positive for ESBL Objective Data Objective Data Vital Signs: Vital Signs Temp Pulse Resp BP Pulse Ox O2 Del Method 98.5 F 73 20 H 145/56 H 93 Room Air 03/18/24 08:07 03/18/24 08:07 03/18/24 08:07 03/18/24 08:07 03/18/24 08:07 03/18/24 09:52 Oxygen Delivery Method Room Air Weight: 67.7 kg Body Mass Index (BMI) 28.2 Intake & Output: Intake and Output for Last 24 Hours 03/16/24 03/17/24 03/18/24 23:59 23:59 23:59 Intake Total 750 / 750 1010 / 1010 240 / 240 Output Total 750 / 750 450 / 450 0 / 0 Balance 0 / 0 560 / 560 240 / 240 Lab / Micro Data 03/18/24 05:37 03/18/24 05:37 Labs: Laboratory Results - last 24 hr 03/18/24 05:37: WBC 8.9, RBC 3.35 L, Hgb 9.5 L, Hct 28.6 L, MCV 85.4, MCH 28.4, MCHC 33.2, RDW Std Deviation 44.9 H, RDW Coeff of Pedro 14.3, Plt Count 135 L, MPV 10.8, Immature Gran % (Auto) 4.200 H, Neut % (Auto) 74.1 H, Lymph % (Auto) 10.2 L, [place] % (Auto) 10.5 H, Eos % (Auto) 0.7, Baso % (Auto) 0.3, Absolute Neuts (auto) 6.6, Absolute Lymphs (auto) 0.91, Nucleated RBC % 0, Sodium 134 L, Potassium 3.9, Chloride 107, Carbon Dioxide 21.0, Anion Gap 6, BUN 75 H, Creatinine 2.41 H, Estim Creat Clear Calc 15.57, Est GFR (MDRD) Af Amer 25 L, Est GFR (MDRD) Non-Af 20 L, BUN/Creatinine Ratio 31.1 H, Glucose 107 H, Calcium 9.0 Micro: Microbiology 03/16/24 03:20 Urine, Clean Catch Urine Culture - Preliminary ESBL Escherichia coli 03/14/24 20:04 Mucosa - Nose SARS-CoV-2, Influenza & RSV (PCR) - Final SARS-CoV-2 (COVID 19) Physical Exam Narrative GENERAL: cooperative but frail looking HEENT: Atraumatic; normocephalic EYES; Anicteric, Normal Conjunctiva NECK; supple, normal thyroid, RESPIRATORY: Diminished to auscultation CARDIOVASCULAR: Regular S1 S2, GI: soft, normoactive bowel sounds, : No Renal angle tenderness; EXTREMITIES: No edema, no clubbing, MUSCULOSKELETAL: no muscle wasting NEURO: Awake; no lateralizing signs. SKIN: No Rash PSYCH; Flat affect Assessment & Plan Assessment/Plan (1) Acute kidney injury: (2) COVID-19: (3) Intractable nausea and vomiting: (4) Weakness: PLAN: Plan Patient is an 84-year-old lady who presented with intractable nausea and vomiting with upper respiratory tract symptoms chest x-ray obtained was unremarkable CT of the abdomen and pelvis did reveal nonspecific right perinephric stranding. Patient was found to have acute kidney injury. Patient also tested positive for COVID-19. Admitted to regular nursing floor for further management 1. Acute kidney injury ? Superimposed on chronic kidney disease stage III. Baseline creatinine 1.3, creatinine on admission was 3.83 started on IV hydration with subsequent monitoring of electrolytes ordered. CT of the abdomen and pelvis obtained demonstrated no hydronephrosis but nonspecific right sided perinephric stranding. Ordered urinalysis to rule out UTI patient started on ceftriaxone pending results of urinalysis ? 03/16/2024; slight improvement in patient kidney function we will continue monitoring with repeat BMP in am ? 03/17/2024; patient creatinine down to 2.7 ? 03/18/2024; creatinine down to 2.4. 2. Acute COVID-19 infection ? Plan is to continue with symptom management patient is currently not a candidate for Decadron or remdesivir 3. Acute cystitis ? Started on ceftriaxone pending culture result ? Urine cultures came back positive for ESBL E. coli, patient started on meropenem 4. Anemia ? Secondary to chronic disorder monitoring H&H and transfuse if patient becomes symptomatic or hemoglobin falls below 7 ? 03/16/2024; hemoglobin did remain stable at 9.6, currently no indication for blood transfusion repeat H&H ordered in a.m. 5. Essential hypertension ? Patient is on losartan held given worsening kidney function 6. Physical deconditioning ? Requested for PT OT eval and social professionals to assist with discharge planning 7. DVT prophylaxis ? Subcu heparin 8. Physical deconditioning ? Requested for PT OT eval and social professionals to assist with discharge planning Time spent in the patient's overall evaluation,decision-making process, review of diagnostic data, adjustment of management, discussion with other providers, nursing nursing and ancillary staff involved in patient's care documentation, 38 minutes Charges/Coding Visit Charges Inpatient E&M: 17664 Subs Hosp L2
[2024-03-18] MEDS: Meropenem 500 MG in 0.9% Normal Saline (50mL MB+) 50 ML 100 MG IV ×2 (11:43→22:12)
[2024-03-19 03:00] VITALS: BP 156/52; PULSE 77; RESP 18; TEMP 36.4; O2SAT 93
--- NOTE | 2024-03-19 07:25 | PCM.PN.HOSP ---
Reason for Visit Reason for Visit: Diagnoses Acute kidney failure, unspecified (03/14/24) Nausea with vomiting, unspecified (03/14/24) Weakness (03/14/24) COVID-19 (03/14/24) Subjective Subjective Patient seen kidney function continues to improve. Patient be assessed for discharge Objective Data Objective Data Vital Signs: Vital Signs Temp Pulse Resp BP Pulse Ox O2 Del Method 97.5 F L 77 18 156/52 H 93 Room Air 03/19/24 03:00 03/19/24 03:00 03/19/24 03:00 03/19/24 03:00 03/19/24 03:00 03/19/24 03:00 Oxygen Delivery Method Room Air Weight: 67.7 kg Body Mass Index (BMI) 28.2 Intake & Output: Intake and Output for Last 24 Hours 03/17/24 03/18/24 03/19/24 23:59 23:59 23:59 Intake Total 1010 / 1010 890 / 1190 300 / 300 Output Total 450 / 450 0 / 100 125 / 125 Balance 560 / 560 890 / 1090 175 / 175 Lab / Micro Data 03/19/24 08:25 03/19/24 08:25 Micro: Microbiology 03/16/24 03:20 Urine, Clean Catch Urine Culture - Preliminary ESBL Escherichia coli 03/14/24 20:04 Mucosa - Nose SARS-CoV-2, Influenza & RSV (PCR) - Final SARS-CoV-2 (COVID 19) Physical Exam Narrative GENERAL: cooperative but frail looking HEENT: Atraumatic; normocephalic EYES; Anicteric, Normal Conjunctiva NECK; supple, normal thyroid, RESPIRATORY: Diminished to auscultation CARDIOVASCULAR: Regular S1 S2, GI: soft, normoactive bowel sounds, : No Renal angle tenderness; EXTREMITIES: No edema, no clubbing, MUSCULOSKELETAL: no muscle wasting NEURO: Awake; no lateralizing signs. SKIN: No Rash PSYCH; Flat affect Assessment & Plan Assessment/Plan (1) Acute kidney injury: (2) COVID-19: (3) Intractable nausea and vomiting: (4) Weakness: PLAN: Plan Patient is an 84-year-old lady who presented with intractable nausea and vomiting with upper respiratory tract symptoms chest x-ray obtained was unremarkable CT of the abdomen and pelvis did reveal nonspecific right perinephric stranding. Patient was found to have acute kidney injury. Patient also tested positive for COVID-19. Admitted to regular nursing floor for further management 1. Acute kidney injury ? Superimposed on chronic kidney disease stage III. Baseline creatinine 1.3, creatinine on admission was 3.83 started on IV hydration with subsequent monitoring of electrolytes ordered. CT of the abdomen and pelvis obtained demonstrated no hydronephrosis but nonspecific right sided perinephric stranding. Ordered urinalysis to rule out UTI patient started on ceftriaxone pending results of urinalysis ? 03/16/2024; slight improvement in patient kidney function we will continue monitoring with repeat BMP in am ? 03/17/2024; patient creatinine down to 2.7 ? 03/18/2024; creatinine down to 2.4. ? 03/19/2024 kidney function down to 2.4 patient to be assessed for discharge 2. Acute COVID-19 infection ? Plan is to continue with symptom management patient is currently not a candidate for Decadron or remdesivir 3. Acute cystitis ? Started on ceftriaxone pending culture result ? Urine cultures came back positive for ESBL E. coli, patient started on meropenem 4. Anemia ? Secondary to chronic disorder monitoring H&H and transfuse if patient becomes symptomatic or hemoglobin falls below 7 ? 03/16/2024; hemoglobin did remain stable at 9.6, currently no indication for blood transfusion repeat H&H ordered in a.m. 5. Essential hypertension ? Patient is on losartan held given worsening kidney function 6. Physical deconditioning ? Requested for PT OT eval and social and political studies professor to assist with discharge planning 7. DVT prophylaxis ? Subcu heparin 8. Physical deconditioning ? Requested for PT OT eval and social and political studies professor to assist with discharge planning Time spent in the patient's overall evaluation,decision-making process, review of diagnostic data, adjustment of management, discussion with other providers, nursing nursing and ancillary staff involved in patient's care documentation, 38 minutes
[2024-03-19 08:32] LABS: Absolute Lymphocyte Count 1.14 X10^3/uL (0.83-4.51); Absolute Neutrophil Count 9.1 X10^3/uL (2.0-7.7); Basophil# 0.06 X10^3/uL; Basophil% 0.5 % (0-1); Eosinophil# 0.06 X10^3/uL; Eosinophils% 0.5 % (0-5); Hematocrit 29.4 % (37-47); Lymphocyte # 1.14 X10^3/ul (0.83-4.51); Lymphocyte % 9.6 % (19-41); Mean Corpuscular Hgb 28.7 pg (27.0-32.0); Mean Corpuscular Volume 84.5 fL (81-99); Mean Platelet Vol. 10.4 fl (6.2-12.0); Monocyte# 0.89 X10^3/uL; Monocyte% 7.5 % (0-10); NRBC Flagged by Analyzer 0 % (0-5); Neutrophil # 9.12 X10^3/uL (2.7-7.7); Platelet Count 163 K/mm3 (150-450); RBC Distribution Width CV 14.3 % (11.6-14.6); RBC Distribution Width SD 44.3 fl (35.1-43.9); Red Blood Count 3.48 M/mm3 (4.2-5.4); White Blood Count 11.9 K/mm3 (4.4-11.0)
[2024-03-19 08:40] VITALS: O2SAT 95; O2SAT 97
[2024-03-19 08:52] LABS: Anion Gap 7 (5-15); BUN 64 mg/dL (7-18); Calcium,Total 8.7 mg/dL (8.5-10.1); Chloride 108 mmol/L (98-107); EST Glomerular Filtration Rate 25 mL/min (>60); Est Glom Filt Rate - Afr Amer 31 mL/min (>60); Estimated Creatinine Clearance 18.76 ml/min; Glucose 105 mg/dL (74-106); Magnesium 2.2 mg/dL (1.6-2.6); Potassium 4.2 mmol/L (3.5-5.1); Sodium Level 135 mmol/L (136-145)
[2024-03-19 08:57] LABS: Phosphorus 2.7 mg/dL (2.5-4.9)
[2024-03-19 09:00] VITALS: BP 163/62; PULSE 72; RESP 20; TEMP 36.1; O2SAT 93
[2024-03-19] MEDS: Heparin Injection (Vial) 5,000 UNIT/ML VIAL 5000 UNIT SC (09:18)
--- NOTE | 2024-03-19 09:25 | DS.PCM_ITS ---
Providers Date of Admission: 03/14/24 Date of Discharge: 03/19/24 Primary Care Physician: Dr. Miles Mercedes MD Reason For Visit: COVID PNEUMONIA W/GABRIEL ON CKD3 Diagnosis Discharge Diagnosis (1) Acute kidney injury: Status: Acute Code(s): N17.9 - Acute kidney failure, unspecified (2) COVID-19: Status: Acute Code(s): U07.1 - COVID-19 (3) Intractable nausea and vomiting: Status: Acute Code(s): R11.2 - Nausea with vomiting, unspecified (4) Weakness: Status: Acute Code(s): R53.1 - Weakness Plan Patient is an 84-year-old lady who presented with intractable nausea and vomiting with upper respiratory tract symptoms chest x-ray obtained was unremarkable CT of the abdomen and pelvis did reveal nonspecific right perinephric stranding. Patient was found to have acute kidney injury. Patient also tested positive for COVID-19. Admitted to regular nursing floor for further management 1. Acute kidney injury ? Superimposed on chronic kidney disease stage III. Baseline creatinine 1.3, creatinine on admission was 3.83 started on IV hydration with subsequent monitoring of electrolytes ordered. CT of the abdomen and pelvis obtained demonstrated no hydronephrosis but nonspecific right sided perinephric stranding. Ordered urinalysis to rule out UTI patient started on ceftriaxone pending results of urinalysis ? 03/16/2024; slight improvement in patient kidney function we will continue monitoring with repeat BMP in am ? 03/17/2024; patient creatinine down to 2.7 ? 03/18/2024; creatinine down to 2.4. ? 03/19/2024 kidney function down to 2.4 patient to be assessed for discharge 2. Acute COVID-19 infection ? Plan is to continue with symptom management patient is currently not a candidate for Decadron or remdesivir 3. Acute cystitis ? Started on ceftriaxone pending culture result ? Urine cultures came back positive for ESBL E. coli, patient started on meropenem ? 03/19/2024; antibiotics discontinued since patient colony count was not 4. Anemia ? Secondary to chronic disorder monitoring H&H and transfuse if patient becomes symptomatic or hemoglobin falls below 7 ? 03/16/2024; hemoglobin did remain stable at 9.6, currently no indication for blood transfusion repeat H&H ordered in a.m. 5. Essential hypertension ? Patient is on losartan held given worsening kidney function ? 03/19/2024; losartan discontinued on discharge prescription written for amlodipine 6. Physical deconditioning ? Requested for PT OT eval and social work supervisor to assist with discharge planning 7. DVT prophylaxis ? Subcu heparin 8. Physical deconditioning ? Requested for PT OT eval and social work supervisor to assist with discharge planning Time spent in the patient's overall evaluation,decision-making process, review of diagnostic data, adjustment of management, discussion with other providers, nursing nursing and ancillary staff involved in patient's care documentation, 38 minutes Medications at Discharge Home Medications vitamin E 268 mg (400 unit) capsule 268 mg PO DAILY Supplement 07/02/22 vitamins A,C,M-jmmq-nnpvnq 4,296 mcg-226 mg-90 mg capsule (Healthy Eyes SuperVision) 1 cap PO BID Healthy eyes 03/14/24 acetaminophen 325 mg tablet 650 mg (2 x 325 mg) PO Q6H PRN PRN Pain 1-10 Or Fever>100.7 #0 tabs 03/19/24 amlodipine 10 mg tablet 10 mg PO DAILY #60 tabs 03/19/24 Physical Exam Narrative GENERAL: cooperative but frail looking HEENT: Atraumatic; normocephalic EYES; Anicteric, Normal Conjunctiva NECK; supple, normal thyroid, RESPIRATORY: Diminished to auscultation CARDIOVASCULAR: Regular S1 S2, GI: soft, normoactive bowel sounds, : No Renal angle tenderness; EXTREMITIES: No edema, no clubbing, MUSCULOSKELETAL: no muscle wasting NEURO: Awake; no lateralizing signs. SKIN: No Rash PSYCH; Flat affect Weight / BMI Weight Weight: 67.7 kg Body Mass Index (BMI) 28.2 ABG / Lab / Microbiology Data 03/19/24 08:25 03/19/24 08:25 Laboratory: Laboratory Results - last 24 hr 03/19/24 08:09: Phosphorus 2.7 03/19/24 08:25: WBC 11.9 H, RBC 3.48 L, Hgb 10.0 L, Hct 29.4 L, MCV 84.5, MCH 28.7, MCHC 34.0, RDW Std Deviation 44.3 H, RDW Coeff of Pedro 14.3, Plt Count 163, MPV 10.4, Immature Gran % (Auto) 4.900 H, Neut % (Auto) 77.0 H, Lymph % (Auto) 9.6 L, [place] % (Auto) 7.5, Eos % (Auto) 0.5, Baso % (Auto) 0.5, Absolute Neuts (auto) 9.1 H, Absolute Lymphs (auto) 1.14, Nucleated RBC % 0, Sodium 135 L, Potassium 4.2, Chloride 108 H, Carbon Dioxide 20.0 L, Anion Gap 7, BUN 64 H, C reatinine 2.00 H, Estim Creat Clear Calc 18.76, Est GFR (MDRD) Af Amer 31 L, Est GFR (MDRD) Non-Af 25 L, BUN/Creatinine Ratio 32.0 H, Glucose 105, Calcium 8.7, Magnesium 2.2 Microbiology: Microbiology 03/16/24 03:20 Urine, Clean Catch Urine Culture - Preliminary ESBL Escherichia coli 03/14/24 20:04 Mucosa - Nose SARS-CoV-2, Influenza & RSV (PCR) - Final SARS-CoV-2 (COVID 19) D/C Instructions Discharge Diet: No restrictions Discharge Activity: Return to Normal Activity Call your doctor if you observe: Fever of 101 or Higher, Shortness of breath, Fainting spells and Chest pain DC O2, CPAP, BIPAP Needs Home O2 Discharge instructions: No Meaningful Use Info Meaningful Use Meaningful Use Diagnoses (Choose all that apply): None applicable Ischemic Stroke Statin Dosing Therapy Reference: STATIN DOSE THERAPY REFERENCE: * Patients > 75 years receive moderate or high dose statin therapy. * Patients 75 years or YOUNGER should receive HIGH intensity statin dose unless contraindicated. You will be required to document reason for non-treatment if statin daily dose does not meet guidelines. HIGH DOSE STATIN THERAPY DAILY Atorvastatin > than or = to 40 mg Rosuvastatin > than or = to 20 mg Amlodipine + Atorvastatin > than or = to 2.5/40 mg Ezetimibe + Simvastatin 10/80 mg Simvastatin 80mg Discharge Plan Admission Admit Date/Time: 03/14/24 22:11 Attending Provider: Donald Spaulding Primary Care Provider: Miles Mercedes Consulting Providers: Jos Reardon Instructions Patient Instructions: Coronavirus Disease 2019 (COVID-19): Caring for Yourself or Others Discharge Orders/Prescriptions Prescriptions: New acetaminophen 325 mg Tablet 650 mg PO Q6H PRN PRN (Reason: Pain 1-10 Or Fever>100.7) Qty: 0 0RF amlodipine 10 mg tablet 10 mg PO DAILY Qty: 60 0RF Continued vitamin E 268 mg (400 unit) Capsule 268 mg PO DAILY Healthy Eyes SuperVision 4,296 mcg-226 mg-90 mg capsule 1 cap PO BID Discontinued losartan 50 mg tablet 50 mg PO DAILY Referrals / Follow Up: Miles Mercedes MD [Primary Care Provider] - Within 1 Week Disposition Disposition (needs filled in before D/C Order can be placed): Home, Self Care Charges/Coding Visit Charges Inpatient E&M: 59694 Disch Hosp >30min
[2024-03-19] MEDS: Meropenem 500 MG in 0.9% Normal Saline (50mL MB+) 50 ML 100 MG IV (09:39)
== END 2024-03-19 13:00 | disposition home or self-care (01) | DRG 871 ==
LOC: ED 22:02 → PCU 03-15 07:08
PROVIDERS: Admitting Provider Hospitalist; Emergency Provider Emergency Medicine; PCP Family Medicine; Visit Provider Internal Medicine
DX: A41.51 Sepsis due to Escherichia coli [E. coli] (principal); U07.1 COVID-19; N17.9 Acute kidney failure, unspecified; N39.0 Urinary tract infection, site not specified; D63.1 Anemia in chronic kidney disease; Z66 Do not resuscitate; N18.30 Chronic kidney disease, stage 3 unspecified; I12.9 Hypertensive chronic kidney disease with stage 1 through stage 4 chronic kidney disease, or unspecified chronic kidney disease; E86.0 Dehydration; E78.00 Pure hypercholesterolemia, unspecified; Z87.891 Personal history of nicotine dependence; R53.1 Weakness; Z99.89 Dependence on other enabling machines and devices; Z86.711 Personal history of pulmonary embolism
CPT/HCPCS: 36415; 71045; 71046; 74176; 80048; 80053; 81001; 82728; 83540; 83550; 83605; 83735; 84100; 84145; 85025; 85027; 87086; 87088; 87186; 87631; 97110; 97116; 97162; 97166; 97530; 97535; 99285; J2185; A4216; J2405

== ENCOUNTER → 2024-04-05 | Outpatient (CLI) | payer MEDICARE, BC, SELFPAY ==
[2024-04-05 10:18] LABS: Absolute Lymphocyte Count 1.32 X10^3/uL (0.83-4.51); Absolute Neutrophil Count 3.4 X10^3/uL (2.0-7.7); Basophil# 0.04 X10^3/uL; Basophil% 0.7 % (0-1); Eosinophils% 5.1 % (0-5); Hematocrit 28.2 % (37-47); Hemoglobin 9.1 g/dL (12.0-15.0); Lymphocyte # 1.32 X10^3/ul (0.83-4.51); Lymphocyte % 22.3 % (19-41); Mean Corp Hgb Conc 32.3 g/dL (32-36); Mean Corpuscular Volume 86.8 fL (81-99); Mean Platelet Vol. 9.1 fl (6.2-12.0); Monocyte# 0.77 X10^3/uL; NRBC Flagged by Analyzer 0 % (0-5); Neutrophil # 3.44 X10^3/uL (2.7-7.7); Neutrophil % 58.2 % (47-70); Platelet Count 294 K/mm3 (150-450); RBC Distribution Width CV 13.6 % (11.6-14.6); RBC Distribution Width SD 42.7 fl (35.1-43.9); Red Blood Count 3.25 M/mm3 (4.2-5.4); White Blood Count 5.9 K/mm3 (4.4-11.0)
[2024-04-05 10:37] LABS: Anion Gap 9 (5-15); BUN 33 mg/dL (7-18); BUN/Creat Ratio 19.3 RATIO (10-20); Calcium,Total 9.4 mg/dL (8.5-10.1); Chloride 106 mmol/L (98-107); Creatinine, Serum 1.71 mg/dL (0.55-1.02); EST Glomerular Filtration Rate 30 mL/min (>60); Est Glom Filt Rate - Afr Amer 37 mL/min (>60); Glucose 110 mg/dL (74-106); Potassium 4.5 mmol/L (3.5-5.1); Sodium Level 137 mmol/L (136-145)
== END | disposition home or self-care (01) ==
LOC: MFPLAB 08:35
PROVIDERS: PCP Family Medicine; Referring Provider Family Medicine; Visit Provider Family Medicine
DX: D64.9 Anemia, unspecified (principal); N19 Unspecified kidney failure
CPT/HCPCS: 36415; 80048; 85025

== ENCOUNTER → 2024-04-19 | Outpatient (CLI) | payer MEDICARE, BC, SELFPAY ==
[2024-04-19 18:02] LABS: Absolute Lymphocyte Count 1.44 X10^3/uL (0.83-4.51); Absolute Neutrophil Count 3.9 X10^3/uL (2.0-7.7); Basophil# 0.06 X10^3/uL; Basophil% 0.9 % (0-1); Eosinophil# 0.18 X10^3/uL; Eosinophils% 2.8 % (0-5); Hematocrit 27.5 % (37-47); Hemoglobin 8.7 g/dL (12.0-15.0); Lymphocyte # 1.44 X10^3/ul (0.83-4.51); Lymphocyte % 22.4 % (19-41); Mean Corp Hgb Conc 31.6 g/dL (32-36); Mean Corpuscular Hgb 27.3 pg (27.0-32.0); Mean Corpuscular Volume 86.2 fL (81-99); Mean Platelet Vol. 8.8 fl (6.2-12.0); Monocyte# 0.84 X10^3/uL; Monocyte% 13.1 % (0-10); NRBC Flagged by Analyzer 0 % (0-5); Neutrophil # 3.87 X10^3/uL (2.7-7.7); Neutrophil % 60.3 % (47-70); Platelet Count 280 K/mm3 (150-450); RBC Distribution Width CV 13.9 % (11.6-14.6); RBC Distribution Width SD 43.5 fl (35.1-43.9); Red Blood Count 3.19 M/mm3 (4.2-5.4); White Blood Count 6.4 K/mm3 (4.4-11.0)
[2024-04-19 18:30] LABS: Anion Gap 9 (5-15); BUN 40 mg/dL (7-18); BUN/Creat Ratio 14.8 RATIO (10-20); Calcium,Total 9.2 mg/dL (8.5-10.1); Chloride 104 mmol/L (98-107); EST Glomerular Filtration Rate 18 mL/min (>60); Est Glom Filt Rate - Afr Amer 22 mL/min (>60); Glucose 139 mg/dL (74-106); Potassium 4.5 mmol/L (3.5-5.1); Sodium Level 135 mmol/L (136-145)
== END | disposition home or self-care (01) ==
LOC: MTLAB 13:56
PROVIDERS: PCP Family Medicine; Referring Provider Family Medicine; Visit Provider Family Medicine
DX: D64.9 Anemia, unspecified (principal); N19 Unspecified kidney failure; F32.A Depression, unspecified
CPT/HCPCS: 36415; 80048; 84443; 85025

== ENCOUNTER 2024-04-28 22:34 | Inpatient (IN) | payer MEDICARE, BC, SELFPAY ==
[2024-04-28 22:35] VITALS: BP 120/43; PULSE 56; RESP 18; TEMP 36.6; O2SAT 91
[2024-04-28 22:39] VITALS: BP 157/52; PULSE 60; RESP 25; TEMP 36.6; O2SAT 93; BMI 30.8
--- NOTE | 2024-04-28 22:45 | EKG12_ITS ---
Test Reason : DYSRHYTHMIA Blood Pressure : */* mmHG Vent. Rate : 51 BPM Atrial Rate : * BPM P-R Int : * ms QRS Dur : 70 ms QT Int : 418 ms P-R-T Axes : * 95 91 degrees QTcB Int : 385 ms Junctional rhythm Rightward axis Abnormal ECG Confirmed by Devon Nino ([id number]), editor farm journal TAYLER HARRINGTON ([id number]) on 05/01/2024 9:57:07 AM Referred By: Confirmed By: Devon Nino
[2024-04-28 22:54] LABS: Absolute Neutrophil Count 6.2 X10^3/uL (2.0-7.7); Basophil# 0.05 X10^3/uL; Basophil% 0.6 % (0-1); Eosinophil# 0.37 X10^3/uL; Eosinophils% 4.2 % (0-5); Hemoglobin 7.8 g/dL (12.0-15.0); Lymphocyte % 12.5 % (19-41); Mean Corp Hgb Conc 32.5 g/dL (32-36); Mean Corpuscular Hgb 27.2 pg (27.0-32.0); Mean Corpuscular Volume 83.6 fL (81-99); Mean Platelet Vol. 9.3 fl (6.2-12.0); Monocyte# 1.01 X10^3/uL; Monocyte% 11.5 % (0-10); NRBC Flagged by Analyzer 0 % (0-5); Neutrophil # 6.23 X10^3/uL (2.7-7.7); Neutrophil % 70.6 % (47-70); Platelet Count 326 K/mm3 (150-450); RBC Distribution Width SD 42.8 fl (35.1-43.9); Red Blood Count 2.87 M/mm3 (4.2-5.4); White Blood Count 8.8 K/mm3 (4.4-11.0)
[2024-04-28 22:56] VITALS: O2SAT 92
--- NOTE | 2024-04-28 22:57 | EDS_ITS ---
HPI History of Present Illness Chief Complaint: Shortness of Breath Detail of Chief Complaint: Shortness of breath that started couple days ago ago and got worse tonight. Informant: patient and EMS (Pulse ox on room air was 88%. Patient is presently on 6 L of oxygen at 92 to 93%) Onset/Context/Timing Onset: Today (Worse today) and Days Context: sudden Timing: Continuous and Waxes and wanes Quality: Positive for Dyspnea on exertion; Negative for Orthopnea, PND or Wheezing Current Severity: Moderate Maximum Severity: Severe Worsened by: Exertion Relieved by: Nothing Associated Symptoms cough; Negative for rhinorrhea, post nasal drip, ear pain, fever, sore throat, subjective, chills or sweats Chest Pain: Positive for Pleuritic Narrative Narrative: Patient is an 84-year-old woman. She has history of pulmonary embolus remote past, recently admitted for COVID-pneumonia on March 14 and discharged March 19. Patient presents because of suddenly worsening shortness of breath today. She denies fever or chills. She states she has had congestion since diagnosed with COVID. She does complain of pain with breathing. She denies wheezing. She denies orthopnea. She was unaware that she had swelling of her ankles. PE Risk Factors: Positive for Prior DVT or PE and Recent immobilization; Negative for Cancer, OCP + Smoking + > 35, Recent surgery or Recent travel Prior similar symptoms: Yes Recent Illness/Hospitalization: Yes (COVID-pneumonia) [facility] Medical History Cataract (lens) fragments in eye following cataract surgery, bilateral Macular degeneration Glaucoma Wears glasses Gout Arthritis Renal agenesis Pulmonary embolism High cholesterol CPAP (continuous positive airway pressure) dependence Former smoker Sleep apnea Hypertension History of pulmonary embolism Home Medications ?Medication ?Instructions ?Recorded ?Last Taken ?Type vitamin E 268 mg (400 unit) capsule 268 mg PO DAILY Palma pplement 07/02/22 03/14/24 History vitamins A,C,E-xkro-dxxetc 4,296 1 cap PO BID Healthy eyes 03/14/24 03/14/24 History mcg-226 mg-90 mg capsule (Healthy Eyes SuperVision) acetaminophen 325 mg tablet 650 mg (2 x 325 mg) PO Q6H PRN PRN 03/19/24 Unknown Rx Pain 1-10 Or Fever>100.7 #0 tabs amlodipine 10 mg tablet 10 mg PO DAILY #60 tabs 03/08 05/02 Unknown Rx Allergy/AdvReac Type Severity Reaction Status Date / Time Sulfa (Sulfonamide Allergy Intermediate Itching Verified 03/15/24 00:11 Antibiotics) Family History Mother Diabetes Kidney disease Father Heart disease Surgical History History of carpal tunnel release History of lumpectomy of right breast Social History (Updated 04/28/24 @ 23:[address] Radha Elkins MD) household members: spouse Smoking Status: Former smoker alcohol intake: never substance use type: does not use ROS ROS ED Constitutional Constitutional ED: Denies chills, fever(s) or sweats Eyes Eyes: Denies blurry vision or change in vision ENT ENT ED: Denies ear pain, rhinorrhea or sore throat Cardiovascular Cardiovascular: Reports chest pain; Denies orthopnea, palpitations, paroxysmal nocturnal dyspnea or racing heartbeat Respiratory/Chest Respiratory/Chest: Reports cough, dyspnea and dyspnea on exertion; Denies orthopnea, paroxysmal nocturnal dyspnea or sputum Gastrointestinal Gastrointestinal: Denies abdominal pain, nausea or vomiting Genitourinary Genitourinary ED: Denies dysuria, hematuria or urinary frequency Musculoskeletal Musculoskeletal: Denies arthralgias or myalgias Integumentary Denies rash Neurologic Neurologic: Reports weakness; Denies headache(s) EXAM Physical Exam Const Vital Signs: 04/28/24 22:35 04/28/24 22:39 04/28/24 22:56 Temperature 97.9 F 97.9 F Temperature Source Oral Oral Pulse Rate 56 L 60 Respiratory Rate 18 25 H Respiratory Effort Short of Breath Respiratory Pattern Tachypnea Blood Pressure 120/43 L 157/52 H Blood Pressure Mean 68 87 Pulse Ox 91 93 Oxygen Delivery Method Nasal Cannula Nasal Cannula Nasal Cannula Oxygen Flow Rate (L/min) 6 6 Positive well nourished and well developed General Appearance ED: well developed and pallor; Negative for NAD HEENT Reports moist mucous membranes atraumatic; Negative for trauma Eyes PERRL and EOMs intact bilaterally General Eye ED: Yes pale conjunctiva; Negative for scleral icterus Neck no lymphadenopathy, supple, no meningeal signs and no JVD Resp No normal respiratory effort and clear to auscultation bilaterally Cardio regular rhythm, S1 normal heart sound, S2 normal heart sound and no murmurs Rate: bradycardia GI non-tender, non-distended and no masses Auscultation: normoactive bowel sounds Back/Spine no CVA tenderness; Negative for normal to inspection Back/Spine Narrative: Mild edema. Extremity General Extremety ED: Yes edema General Extremity: edema Neuro oriented x3 and CN's II-XII intact bilaterally [place] Coma Scale: document GCS findings Spontaneous Obeys Commands Oriented 15 Sensorium / Orientation: alert Speech: speech normal Psych mental status grossly normal Skin no wounds and skin turgor normal General Skin Exam: pallor MDM MDM MDM Narrative Medical decision making narrative: With recent hospitalization clear lungs need to obtain D-dimer to evaluate for PE. Differential diagnosis is pneumonia, pneumothorax, pulmonary embolus, clinically she appears dry. She also looks anemic. Prior records were reviewed. Discharge summary that was authored by Dr. Donald cavanaugh was reviewed. She was admitted March 14 and discharged March 19. She was admitted for COVID-pneumonia with hypoxia. History & Record Review Additional record(s) reviewed:: Prior inpatient record, Prior ED visit and Prior labs Lab Data Attestation: I reviewed the patient's lab results. Lab results narrative: White count is 8.8. H&H is 7.8 and 24.0. Indices are normal. D-dimer is elevated 1.81. CO2 is 16 with an anion gap of 13. Glucose is 168. BUN and creatinine are 66 and 4.5. Patient has had a steadily decline in her H&H. Patient's creatinine at the beginning of March was 2.71 with a low of 1.71 on April 05. Today it is 4.5 which is significant increase. In light of this I will not be able to do a CTA. Labs: Laboratory Results - last 24 hr 04/28/24 22:21 WBC 8.8 RBC 2.87 L Hgb 7.8 L Hct 24.0 L MCV 83.6 MCH 27.2 MCHC 32.5 RDW Std Deviation 42.8 RDW Coeff of Pedro 14.0 Plt Count 326 MPV 9.3 Immature Gran % (Auto) 0.600 Neut % (Auto) 70.6 H Lymph % (Auto) 12.5 L [place] % (Auto) 11.5 H Eos % (Auto) 4.2 Baso % (Auto) 0.6 Absolute Neuts (auto) 6.2 Absolute Lymphs (auto) 1.10 Nucleated RBC % 0 D-Dimer Quant (PE/DVT) 1.81 H* Sodium 132 L Potassium 5.3 H Chloride 104 Carbon Dioxide 16.0 L Anion Gap 13 BUN 66 H Creatinine 4.50 H Estim Creat Clear Calc 8.72 Est GFR (MDRD) Af Amer 12 L Est GFR (MDRD) Non-Af 10 L BUN/Creatinine Ratio 14.7 Glucose 168 H Calcium 9.2 Total Bilirubin 0.40 Direct Bilirubin 0.15 AST 25 ALT 24 Alkaline Phosphatase 126 H Troponin I High Sens 16 Total Protein 7.7 Albumin 2.8 L Globulin 4.9 H Radiography Chest X-Ray - ED: 1 View and Read by ED Physician (Patient has bilateral interstitial pneumonia. This is much worse than x-ray obtained on March 16.) EKG Initial EKG: Attestation: I personally reviewed and interpreted this EKG as follows: Interpretation: Sinus Bradycardia (Rate is 51. Patient has a junctional rhythm. QRS duration 70 ms. QT duration 418 ms. Sherwood is to the right.) Management Discussion w/another healthcare provider: Hospitalist (Hospitalist was paged for admission for hypoxia, acute kidney injury, junctional bradycardia bilateral interstitial infiltrates) Critical Care Time Critical Care Time: Yes Critical care time (excluding procedures): 30-74 minutes (32), Including time spent:, Discussing w/Patient &/or Family/Mis Specialist, Discussing w/Consultants, Arranging Admission or Transfer and - (After lengthy discussion with hospitalist will anticoagulate with heparin because PE cannot be ruled out. She also requested rapid antigen for influenza and RSV.) Discharge Plan Dx/Rx/DC Orders Clinical Impression: Acute hypoxemic respiratory failure, Bilateral pulmonary infiltrates, Acute kidney injury, Acute on chronic anemia, AV junctional rhythm, Bradycardia, Elevated d-dimer, Acidosis, metabolic Disposition Disposition: [facility] No Action vitamin E 268 mg (400 unit) Capsule 268 mg PO DAILY Healthy Eyes SuperVision 4,296 mcg-226 mg-90 mg capsule 1 cap PO BID acetaminophen 325 mg Tablet 650 mg PO Q6H PRN PRN (Reason: Pain 1-10 Or Fever>100.7) Qty: 0 0RF amlodipine 10 mg tablet 10 mg PO DAILY Qty: 60 0RF Primary Care Provider: Miles Mercedes Referrals: Miles Mercedes MD [Primary Care Provider] - Print Language: Persian Disposition Disposition: Acute Care Hospital [facility]
--- NOTE | 2024-04-28 23:10 | RAD_ITS ---
PROCEDURE: Chest radiographs REASON FOR EXAM: Hypoxia TECHNIQUE: Two views of the chest COMPARISON: 03/14/2024 FINDINGS: Cardiomediastinal silhouette is within normal limits. Mild patchy bibasilar airspace opacities. Suspected trace bilateral pleural effusions. No sizable pneumothorax. RAD/Chest PA and Lateral IMPRESSION: Bibasilar pulmonary infiltrates and trace bilateral pleural effusions. Reading Location: [facility]
[2024-04-28 23:13] LABS: D-Dimer Quantitative (DVT/PE) 1.81 FEU/ug/m (0.27-0.49)
[2024-04-28 23:14] LABS: AST(SGOT) 25 U/L (15-37); Alanine Aminotransfer ALT/SGPT 24 U/L (13-56); Albumin, Serum 2.8 g/dL (3.2-5.0); Alkaline Phosphatase 126 U/L (45-117); Anion Gap 13 (5-15); BUN 66 mg/dL (7-18); BUN/Creat Ratio 14.7 RATIO (10-20); Bilirubin, Direct 0.15 mg/dL (0.00-0.30); Calcium,Total 9.2 mg/dL (8.5-10.1); Chloride 104 mmol/L (98-107); EST Glomerular Filtration Rate 10 mL/min (>60); Est Glom Filt Rate - Afr Amer 12 mL/min (>60); Estimated Creatinine Clearance 8.72 ml/min; Globulin 4.9 g/dL (2.2-4.2); Glucose 168 mg/dL (74-106); Potassium 5.3 mmol/L (3.5-5.1); Protein, Total 7.7 g/dL (6.4-8.2); Sodium Level 132 mmol/L (136-145); Troponin-I HS 16 pg/mL (3.0-54.0)
--- NOTE | 2024-04-28 23:29 | PCM.HP.STD ---
HPI - General General Date of Admission: 04/28/24 Date of Service: 04/28/24 Chief Complaint: Dyspnea, chest pain HPI Narrative The patient is an 84-year-old female with past medical history hypertension, chronic normocytic anemia, CKD stage III unclear subtype noted on previous charting, GINO on CPAP, former tobacco use, history of VTE (DVT, PE), macular degeneration, recent discharge 03/19/2024 following evaluation and treatment of COVID-pneumonia with acute kidney injury on CKD stage III with intractable nausea and emesis who now re-presents to the [facility] ED on 04/28/2024 with dyspnea which worsened 2 to 3 days previous but more severe on the evening of ED day of presentation noting to have a continuous component but waxing and waning in severity however she notes worse with exertion with persistent cough but no recent history of congestion/rhinorrhea/fever/sore throat however she does report associated pleuritic chest discomfort worse with coughing with recent COVID related pneumonia diagnosis 03/14/24 eventually discharged 03/19/2024 prompting eventual ED evaluation be cautious. Workup in the ED included T97.9, heart rate 56, BP 03/31/1941, respiratory rate 18, 91% on 6 L noted to have been 88% on room air per EMS eventually requiring placement on BiPAP in the ED, CBC with WC 8.8, hemoglobin 7.8, MCV 83.6, platelets 326 without marked shift, D-dimer 1.81, CMP with sodium 132, potassium 5.3, lactate 16, anion gap 13, BUN/creatinine 66/4.50, GFR 10, glucose 168, hepatic profile not marked appearing aside from alk phos 126, lactic acid pending upon requested evaluation of patient, chest x-ray with BL interstitial infiltrates but formal read pending, EKG with junctional rhythm with bradycardia. Heparin drip/bolus, NS 1L x 1 in addition to following CT abdomen and pelvis administration of IV vancomycin and Zosyn. In the ED upon evaluation patient with reported poor appetite in the evenings x 3 days with bouts of emesis and upon Hospitalist evaluation notable epigastric and RUQ abdominal pain with ED physician re-evaluation with CT A/P without contrast obtained to be cautious. CT abdomen and pelvis with bilateral pleural effusions as well as a mild pericardial effusion, hepatomegaly, colonic diverticulosis with no evidence of diverticulitis. [facility] Medical History Cataract (lens) fragments in eye following cataract surgery, bilateral Macular degeneration Glaucoma Wears glasses Gout Arthritis Renal agenesis Pulmonary embolism High cholesterol CPAP (continuous positive airway pressure) dependence Former smoker Sleep apnea Hypertension History of pulmonary embolism Home Medications ?Medication ?Instructions ?Recorded ?Last Taken ?Type vitamin E 268 mg (400 unit) capsule 268 mg PO DAILY Supplement 07/02/22 03/14/24 History vitamins A,C,F-vqob-ruinkf 4,296 1 cap PO BID Healthy eyes 03/14/24 03/14/24 History mcg-226 mg-90 mg capsule (Healthy Eyes SuperVision) acetaminophen 325 mg tablet 650 mg (2 x 325 mg) PO Q6H PRN PRN 03/19/24 Unknown Rx Pain 1-10 Or Fever>100.7 #0 tabs amlodipine 10 mg tablet 10 mg PO DAILY HEART #60 tabs 03/19/24 Unknown Rx fluoxetine 20 mg tablet 20 mg PO DAILY DEPRESSION 04/28/24 Unknown History losartan 100 mg tablet 100 mg PO DAILY CHOLESTEROL 04/28/24 Unknown History Allergy/AdvReac Type Severity Reaction Status Date / Time Sulfa (Sulfonamide Allergy Intermediate Itching Verified 03/15/24 00:11 Antibiotics) Family History Mother Diabetes Kidney disease Father Heart disease Surgical History History of carpal tunnel release History of lumpectomy of right breast Social History household members: spouse Smoking Status: Former smoker alcohol intake: never substance use type: does not use ROS ROS Narrative Admission Review of Systems: CONSTITUTIONAL: No weight loss, fever, chills, + weakness or fatigue. HEENT: + Sore throat. Eyes: No visual loss, blurred vision, double vision or yellow sclerae. Ears, Nose, Throat: No hearing loss, sneezing, congestion, runny nose. SKIN: No rash or itching, lesions, wounds. CARDIOVASCULAR: + Chest pain, pleuritic, distal lower extremity edema which patient reports is chronic. No palpitations, edema, orthopnea, syncopal events. RESPIRATORY: + Dyspnea, worse with exertion. No marked cough, productive sputum, wheezing, hemoptysis. GASTROINTESTINAL: + Poor appetite/anorexia, nausea, vomiting. No diarrhea, abdominal pain, melena, BRBPR. GENITOURINARY: No dysuria, frequency, urgency or retention. NEUROLOGICAL: No headache, dizziness, syncope, paralysis, ataxia, numbness or tingling in the extremities, focal weakness, change in bowel or bladder control, seizure. MUSCULOSKELETAL: + muscle, back pain, joint pain or stiffness. HEMATOLOGIC: + Chronic anemia, easy bleeding/bruising LYMPHATICS: No enlarged nodes. No history of splenectomy. PSYCHIATRIC: No history of depression or anxiety. ENDOCRINOLOGIC: No reports of sweating, cold or heat intolerance. No polyuria or polydipsia. ALLERGIES: No history of asthma, hives, eczema or rhinitis. Vital Signs Vital Signs Vital Signs: 04/28/24 22:35 04/28/24 22:39 04/28/24 22:56 Temperature 97.9 F 97.9 F Temperature Source Oral Oral Pulse Rate 56 L 60 Respiratory Rate 18 25 H Respiratory Effort Short of Breath Respiratory Pattern Tachypnea Blood Pressure 120/43 L 157/52 H Blood Pressure Mean 68 87 Pulse Ox 91 93 Oxygen Delivery Method Nasal Cannula Nasal Cannula Nasal Cannula Oxygen Flow Rate (L/min) 6 6 Weight Weight: 163 lb 2.273 oz Body Mass Index (BMI) 30.8 Physical Exam Narrative Physical Examination: General: Awake, alert, oriented to self, place and recent events, significantly fatigued and ill-appearing, increased respiratory rate with some accessory muscle usage, evidence of distress and fatigue, seated upright in the ED bed. Skin: Normal color, normal turgor, no icterus, no cyanosis except occasional stage ecchymoses, abrasions. HEENT: AT/NC, EOMI, PERRLA, dry MM, no carotid bruits or JVD noted. Lungs: Significantly diminished, greater bases, increased respiratory rate with some accessory muscle usage, mild distress noted, despite CT findings no appreciated rales, ronchi or wheezing. Heart: Bradycardic with regular rhythm; no gallop, rub audible. Abdomen: Soft, severe right upper quadrant and epigastric pain with palpation with significant rebound tenderness, hyperactive bowel sound, difficult to discern distention HSM given pain with evaluation. Extremities: No cyanosis, no clubbing, pedal to mid seay 1+ pitting edema which patient reports is chronic. Neurological: Patient awake, alert, oriented as noted, cognitive function intact although patient is very fatigued; pupils equally reactive to light and accommodation, cranial nerves grossly normal, moving all 4 extremities, no focal deficits, strength severely globally decreased secondary to acute presentation. Psychiatric: Affect appears flat, fatigued, ill-appearing, evidence of some respiratory distress component, no acute evidence of depressive or anxiety feelings. Results Lab / Micro Data 04/28/24 22:21 04/28/24 22:21 Labs: Laboratory Results - last 24 hr 04/28/24 22:21: WBC 8.8, RBC 2.87 L, Hgb 7.8 L, Hct 24.0 L, MCV 83.6, MCH 27.2, MCHC 32.5, RDW Std Deviation 42.8, RDW Coeff of Pedro 14.0, Plt Count 326, MPV 9.3, Immature Gran % (Auto) 0.600, Neut % (Auto) 70.6 H, Lymph % (Auto) 12.5 L, [place] % (Auto) 11.5 H, Eos % (Auto) 4.2, Baso % (Auto) 0.6, Absolute Neuts (auto) 6.2, Absolute Lymphs (auto) 1.10, Nucleated RBC % 0, D-Dimer Quant (PE/DVT) 1.81 H*, Sodium 132 L, Potassium 5.3 H, Chloride 104, Carbon Dioxide 16.0 L, Anion Gap 13, BUN 66 H, Creatinine 4.50 H, Estim Creat Clear Calc 8.72, Est GFR (MDRD) Af Amer 12 L, Est GFR (MDRD) Non-Af 10 L, BUN/Creatinine Ratio 14.7, Glucose 168 H, Calcium 9.2, Total Bilirubin 0.40, Direct Bilirubin 0.15, AST 25, ALT 24, Alkaline Phosphatase 126 H, Troponin I High Sens 16, Total Protein 7.7, Albumin 2.8 L, Globulin 4.9 H Assessment & Plan Assessment/Plan (1) Acute hypoxemic respiratory failure: PLAN: Plan The patient is an 84-year-old female with past medical history hypertension, chronic normocytic anemia, CKD stage III unclear subtype noted on previous charting, GINO on CPAP, former tobacco use, history of VTE (DVT, PE), macular degeneration, recent discharge 03/19/2024 following evaluation and treatment of COVID-pneumonia with acute kidney injury on CKD stage III with intractable nausea and emesis who now re-presents to the [facility] ED on 04/28/2024 with dyspnea which worsened 2 to 3 days previous but more severe on the evening of ED day of presentation noting to have a continuous component but waxing and waning in severity however she notes worse with exertion with persistent cough but no recent history of congestion/rhinorrhea/fever/sore throat however she does report associated pleuritic chest discomfort worse with coughing with recent COVID related pneumonia diagnosis 03/14/24 eventually discharged 03/19/2024 prompting eventual ED evaluation be cautious. #1. Acute hypoxic respiratory failure secondary to bilateral pleural effusions and possible underlying bilateral pneumonia, gram-negative/gram-positive organism potential given recent prolonged admission complicated by recent COVID pneumonia illness in addition to incidentally noted elevated D-dimer with inability to obtain CTPA thus certainly could also have a pulmonary embolism contributing also but uncertain in addition to incidentally noted mild pericardial effusion: Given patient deterioration the ED eventually on BiPAP will admit to the ICU, consult stunt double per protocol, will continue broad-spectrum antibiotic therapy with IV Zosyn and IV vancomycin with MRSA screen requested, continue ATC duonebs, PRN albuterol, maintain HOB, IS parameters w/ pending sputum cultures, full respiratory and urine antigens, unfortunately given pleural effusions with also concurrent acute kidney injury difficult situation thus we will plan to continue very judicious hydration for renal function but may require thoracentesis, echocardiogram requested to further evaluate pericardial effusion, will continue heparin drip with at least initially requested bilateral lower extremity duplex ultrasound but may require if negative follow-up VQ scan to rule out, BNP requested. #2. Acute kidney injury on CKD stage IV per recent GFR trending, notably worsened renal function following COVID illness which persisted with nonanion gap acidosis suspected related: Unclear etiology for acute kidney injury but has had GI losses, admission BUN/Cr 66/4.50, GFR 10, prior baseline creatinine noted to be most recently 04/19/2024 creatinine 2.70 as patient's renal function has remained elevated since COVID admission, will very judiciously hydrate hydrate given concerns for possible overload concurrently and effusions as noted, hold nephrotoxic medications and repeat chemistry in AM. Will obtain FeNa and renal ultrasound assessment in addition to urinalysis. If worsening low threshold to involve nephrology #3. Acute on chronic normocytic anemia: Admission hemoglobin 7.8, previous baseline primarily 8-9 since March 2024, will obtain iron panel, ferritin, guaiac to be cautious especially given current anticoagulation. #4. Significant bradycardia with junctional rhythm: Possibly electrolyte disturbance related and secondary to acute illness, acute kidney injury, will maintain on telemetry monitoring, magnesium and phosphorus levels requested, initial troponin in the ED normal 16, continue to monitor. May need to consider cardiology involvement if not clinically improving or further arrhythmia. #5. Hyperkalemia, mild: Admission potassium 5.3, judiciously hydrating, will repeat CMP to ensure not worsening. #6. History of previous VTE: Patient with history of previous DVT, PE, as noted at this time unable to obtain CTA given renal function, will request as noted bilateral lower extremity duplex ultrasound but may require follow-up VQ scan, placed on heparin temporarily as noted. #7. Hypertension: Initially in ED patient with lower blood pressure/normal range, will hold hypertensive regimen, add back once appropriate, as needed IV hydralazine in the interim in case elevates. #8. GINO: Given worsened status in the ED patient has been placed on BiPAP which will be continued. #9. Former tobacco use: Encourage continued tobacco cessation. #10. DVT prophylaxis: Continued on heparin drip. #11. CODE status: Patient YAKOV is her daughter who is present and living will is currently in place. Discussed CODE status at length including difference between FULL code, DNR-CCA and DNR-CC status. Following discussions about the differences in these status, requested DNR-CCA, no intubation status. Advanced Care Planning Face to Face Time: 16 minutes. Charges/Coding Visit Charges Inpatient E&M: 76978 Init Hosp L3 Procedures Hospitalists Procedures: 45851 Advncd Care Plan 30 Min
[2024-04-28 23:34] VITALS: BP 150/46; PULSE 76; RESP 27; O2SAT 92
--- NOTE | 2024-04-28 23:38 | ED.RN ---
Critical Lactic Acid 2.0. Dr. Azevedo notified
[2024-04-28 23:39] VITALS: BP 150/46; PULSE 75; RESP 25; TEMP 36.5; O2SAT 92
[2024-04-28] MEDS: HEPARIN/D5w 25,000 UNITS 25,000 UNITS/250 ML IV.SOLN. 11 UNITS CONT INF (23:49)
[2024-04-28] MEDS: Heparin Injection (Vial) 5,000 UNIT/ML VIAL 5000 UNIT IV (23:49)
[2024-04-28 23:56] VITALS: BP 150/46; PULSE 46; RESP 26; TEMP 36.4; O2SAT 91
[2024-04-29] VITALS (46 sets, daily range): BP systolic 100–145; BP diastolic 33–109; PULSE 36–72; RESP 12–29; TEMP 36.3–36.8; O2SAT 88–100; BMI 29.4
[2024-04-29 00:14] LABS: Partial Thromboplast Time 25.7 Seconds (24.1-36.2)
[2024-04-29 00:40] LABS: International Normalized Ratio 1.5; Prothrombin Time (Protime)PT. 18.2 SECONDS (11.7-14.9)
[2024-04-29] MEDS: Ondansetron 4 MG/2 ML Vial IV (01:00)
[2024-04-29 01:04] LABS: Allen Test Positive; Base Excess -8 mmol/L (-2 to +2); Blood Gas Specimen Type ART; Comment 12/6 12 40%; Mode Not entered; O2 Delivery Device BiPAP; PO2 73 mmHG (75-100); SITE L Radial; SO2 95 % (95-99); Total Carbon Dioxide 17 mmol/L; pH 7.43 (7.35-7.45)
[2024-04-29] MEDS: Piperacil/Tazobactam 4.5 GM in 0.9% Normal Saline (100mL MB+) 100 ML IV (01:14)
--- NOTE | 2024-04-29 01:28 | ED.RN ---
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
--- NOTE | 2024-04-29 01:31 | PN.HOSP_ITS ---
Hospitalist Note Called back to the ED as patient noted intention to change her CODE STATUS. During the previous admission in early March and this admission initially she had mentioned DNR CCA, no intubation status. Return to the ED and discussed with her and her daughter CODE STATUS at length again including difference between FULL code, DNR-CCA and DNR-CC status. Following discussions about the differences in these status at this time she is deciding to transition to full CODE STATUS. She does seem reticent and is anxious often looking to her izabela jones for input on this. Discussed with her given the transition to BiPAP that this is scary and if she prefers to be full code we can change her for now but if at a later date she wants to change it again she just needs to let us know.
--- NOTE | 2024-04-29 02:11 | ECHOD_ITS ---
Reason For Study Reason For Study: Pericardial Effusion / Heart Failure Procedure This was a 2D Doppler, Color Flow transthoracic echocardiogram. Exam performed portable in ICU/CCU. Left Ventricle Normal left ventricle. The estimated ejection fraction is 55-60 %. Right Ventricle Mildly dilated right ventricle. Mild segmental dysfunction of right ventricle. Mitral Valve The mitral valve is structurally normal. No prolapse or stenosis seen. Mild (1+) mitral valve insufficiency. Tricuspid Valve Normal tricuspid valve. Mild tricuspid valve insufficiency. Aortic Valve Trisinus/trileaflet aortic valve. Trivial aortic valve insufficiency. Pulmonic Valve The pulmonic valve is not well visualized. Pericardium/Pleural No pericardial effusion. MMode/2D Measurements & Calculations LVIDd: 4.4 cm IVSd: 1.00 cm Ao root diam: 2.9 cm LVIDs: 2.4 cm LVPWd: 0.92 cm RVDd: 4.0 cm FS: 44.8 % LAV(MOD-bp): 48.4 ml SV(MOD-sp4): 40.9 ml LVAd ap4: 22.6 cm2 LAV(MOD-bp) Indexed: 28.5 ml/m2 LVLd ap4: 6.9 cm SI(MOD-sp4): 24.1 ml/m2 LAV(MOD-sp2): 49.6 ml EDV(MOD-sp4): 61.8 ml LAV(MOD-sp4): 43.8 ml EDV(sp4-el): 62.8 ml LVAs ap4: 11.4 cm2 LVLs ap4: 5.3 cm ESV(MOD-sp4): 20.9 ml ESV(sp4-el): 20.7 ml EF(MOD-sp4): 66.2 % EF(sp4-el): 67.0 % SV(sp4-el): 42.1 ml LA dimension(2D): 4.2 cm LA A4 area: 17.1 cm2 TAPSE: 1.7 cm RA A4 area: 14.0 cm2 Time Measurements MV dec time: 0.20 sec Doppler Measurements & Calculations MV E max pravin: 129.8 cm/sec Lat Peak E' Pravin: 7.2 cm/sec Med Peak E' Pravin: 5.7 cm/sec MV A max pravin: 87.5 cm/sec E/E' lat: 18.0 E/E' med: 22.8 MV E/A: 1.5 MV V2 max: 169.1 cm/sec MV P1/2t max pravin: 170.8 cm/sec Ao V2 max: 249.1 cm/sec MV max P.4 mmHg MV P1/2t: 78.6 msec Ao max P.8 mmHg MV V2 mean: 74.2 cm/sec Ao V2 mean: 170.9 cm/sec MV mean P.9 mmHg MV dec slope: 636.5 cm/sec2 Ao mean P.5 mmHg MV V2 VTI: 50.8 cm MVA(P1/2t): 2.8 cm2 Ao V2 VTI: 55.2 cm AV (velocity ratio): 0.59 AI max pravin: 315.8 cm/sec LV V1 max: 136.4 cm/sec MR max pravin: 539.4 cm/sec AI max P.9 mmHg LV V1 max P.4 mmHg MR max P.4 mmHg AI dec slope: 148.5 cm/sec2 LV V1 mean P.7 mmHg MR mean pravin: 397.5 cm/sec AI P1/2t: 622.9 msec LV V1 mean: 101.6 cm/sec MR mean P.2 mmHg LV V1 VTI: 32.6 cm MR VTI: 167.5 cm PA V2 max: 115.8 cm/sec TR max pravin: 280.4 cm/sec TR max P.4 mmHg ECHO/Echo Complete Interpretation Summary The estimated ejection fraction is 55-60 %. Normal LV systolic function Mild RV dilatation No previous study to compare Ordering Physician: Radha Elkins Performed By: Homer Sarmiento RCS
[2024-04-29] MEDS: HEPARIN/D5w 25,000 UNITS 25,000 UNITS/250 ML IV.SOLN. 11 UNITS CONT INF (02:26)
[2024-04-29] MEDS: Vancomycin HCl 1,750 MG in 0.9% Normal Saline (500mL Bag) 500 ML 250 MG IV (02:28)
[2024-04-29] MEDS: 0.9% Normal Saline (1000mL) 1,000 ML 75 ML IV (02:35)
[2024-04-29 02:38] LABS: Ferritin 607 ng/mL (8-252); Iron 26 ug/dL (50-170); Iron Binding Capacity,Total 193 ug/dL (250-450); Magnesium 2.5 mg/dL (1.6-2.6); PERCENT IRON SATURATION 13.5 % (15.0-55.0); Phosphorus 5.3 mg/dL (2.5-4.9)
[2024-04-29 03:02] LABS: Reflex Lactate? Y
--- NOTE | 2024-04-29 03:10 | PCM.RX.CS ---
Consult Antibiotic Management Pharmacy has been consulted to manage selected antibiotic: Vancomycin Type of Intervention Type of Consult: New start Labs Labs: Sodium 132 mmol/L (136-145) L 04/28/24 22:21 Potassium 5.3 mmol/L (3.5-5.1) H 04/28/24 22:21 Chloride 104 mmol/L (98-107) 04/28/24 22:21 Carbon Dioxide 16.0 mmol/L (21.0-32.0) L 04/28/24 22:21 Anion Gap 13 (5-15) 04/28/24 22:21 BUN 66 mg/dL (7-18) H 04/28/24 22:21 Creatinine 4.50 mg/dL (0.55-1.02) H 04/28/24 22:21 Est GFR (MDRD) Af Amer 12 mL/min (>60) L 04/28/24 22:21 Est GFR (MDRD) Non-Af 10 mL/min (>60) L 04/28/24 22:21 BUN/Creatinine Ratio 14.7 RATIO (10-20) 04/28/24 22:21 Glucose 168 mg/dL (74-106) H 04/28/24 22:21 Microbiology Microbiology: Microbiology 04/28/24 23:50 Mucosa - Nose SARS-CoV-2, Influenza & RSV (PCR) - Final Dosing Weight Weight used for dosin.6 kg Estimated Creatinine Clearance Estimated Creatinine Clearance: 8.72 Goal Trough Goal Trough: 15-20 mcg/mL Pharmacy Plan for Drug Dosing Pharmacy Plan for Drug Dosing: Pharmacy Service will continue to monitor and adjust dosing as required. ER DOSE 1750MG GIVEN 04/29 @ 8. CrCl < 20 AND NOT ON HD, DRAW RANDOM LEVEL 05/01 @ 0600 Follow-Up Labs Follow-Up Labs: Trough: Vancomycin Date/Time Labs Ordered Labs to be done on [date and time ordered]: 05/01 @ 0600
[2024-04-29 03:58] LABS: Absolute Lymphocyte Count 1.14 X10^3/uL (0.83-4.51); Absolute Neutrophil Count 5.2 X10^3/uL (2.0-7.7); Basophil# 0.04 X10^3/uL; Basophil% 0.6 % (0-1); Eosinophil# 0.08 X10^3/uL; Eosinophils% 1.1 % (0-5); Hematocrit 21.7 % (37-47); Hemoglobin 6.9 g/dL (12.0-15.0); Lymphocyte # 1.14 X10^3/ul (0.83-4.51); Lymphocyte % 15.9 % (19-41); Mean Corp Hgb Conc 31.8 g/dL (32-36); Mean Corpuscular Hgb 27.1 pg (27.0-32.0); Mean Corpuscular Volume 85.1 fL (81-99); Mean Platelet Vol. 9.2 fl (6.2-12.0); Monocyte# 0.72 X10^3/uL; NRBC Flagged by Analyzer 0 % (0-5); Neutrophil # 5.16 X10^3/uL (2.7-7.7); Neutrophil % 71.8 % (47-70); Platelet Count 265 K/mm3 (150-450); RBC Distribution Width CV 14.1 % (11.6-14.6); RBC Distribution Width SD 43.8 fl (35.1-43.9); Red Blood Count 2.55 M/mm3 (4.2-5.4); White Blood Count 7.2 K/mm3 (4.4-11.0)
[2024-04-29 04:19] LABS: Lactic Acid 1.3 mmol/L (0.4-1.9)
[2024-04-29 04:23] LABS: ALB/GLOB Ratio 0.6 RATIO (0.9-2.4); AST(SGOT) 23 U/L (15-37); Alanine Aminotransfer ALT/SGPT 23 U/L (13-56); Albumin, Serum 2.4 g/dL (3.2-5.0); Alkaline Phosphatase 103 U/L (45-117); Anion Gap 10 (5-15); BUN 69 mg/dL (7-18); BUN/Creat Ratio 14.9 RATIO (10-20); Calcium,Total 8.7 mg/dL (8.5-10.1); Chloride 106 mmol/L (98-107); Creatinine, Serum 4.63 mg/dL (0.55-1.02); EST Glomerular Filtration Rate 10 mL/min (>60); Est Glom Filt Rate - Afr Amer 12 mL/min (>60); Estimated Creatinine Clearance 8.27 ml/min; Globulin 4.3 g/dL (2.2-4.2); Glucose 188 mg/dL (74-106); Protein, Total 6.7 g/dL (6.4-8.2); Sodium Level 133 mmol/L (136-145)
[2024-04-29 04:27] LABS: BNP,B-Type NATRIURETIC PEPTIDE 413.4 pg/mL (0-100)
--- NOTE | 2024-04-29 04:34 | PCM.HOSP.N ---
Hospitalist Note Repeat labs with hemoglobin decreased to 6.9, will discontinue heparin drip at this time given this drop, iron panel, ferritin, guaiac requested already. Will administer 1 unit PRBC with repeat hemoglobin 1 hour following completion. In addition, patient potassium 6.0 not noted to be hemolyzed, will administer hyperkalemic protocol and repeat potassium in approximately 2 hours from administration. Given patient current renal function similar to previous, will change fluids to bicarb pending nephrology evaluation.
[2024-04-29 04:42] LABS: Procalcitonin 0.26 ng/mL (0.00-0.09)
[2024-04-29] MEDS: 0.9% Saline Lock 10 ML Syringe IV ×7 (05:04→22:11)
[2024-04-29] MEDS: Insulin Lispro 5 UNIT in Syringe 0 ML 6 UNIT IV (05:27)
[2024-04-29] MEDS: Calcium Gluconate 1 GM/10 ML Vial 0.5 GM IVP (05:28)
[2024-04-29] MEDS: Sodium Bicarbonate 100 MEQ in Dextrose 5%-Water (1000mL Bag) 1,000 ML 75 MEQ IV (05:29)
[2024-04-29] MEDS: Dextrose 10%-Water 250 ML 999 ML IV (05:29)
[2024-04-29] MEDS: Albuterol *CONC* 2.5mg/0.5mL VIAL.NEB. 10 MG INHALATION (05:32)
--- NOTE | 2024-04-29 05:55 | US_ITS ---
PROCEDURE: KIDNEY AND BLADDER REASON FOR EXAM: Acute kidney infection. Chronic kidney disease. TECHNIQUE: Real-time grayscale and color flow imaging was performed along with routine image documentation. COMPARISON: CT abdomen and pelvis dated 03/14/2024 FINDINGS: Normal renal sizes, parenchymal thicknesses, and echotextures. No hydronephrosis. No masses or calcifications. RIGHT Kidney Size: 8.4 x 4.0 x 4.0 cm. Volume: 71 mL Cortical Thickness : 1.6 cm. (>6mm is normal) LEFT Kidney Size: 8.9 x 4.0 x 4.6 cm. Volume: 84 mL Cortical Thickness: 0.9 cm. (>6 mm is normal) BLADDER: Prevoid volume: N/A Postvoid volume: N/A Bladder contour. Unremarkable. URETERAL JETS: Right: Nonvisualized. Left: Nonvisualized. US/Kidney and Bladder IMPRESSION: Unremarkable renal ultrasound of the kidneys. Bladder was not distended therefore limited evaluation. Reading Location: [facility]
[2024-04-29] MEDS: Sodium Polystyrene Sulfonate 15 GM/60 ML UDC PO (05:58)
--- NOTE | 2024-04-29 09:35 | VDLE_ITS ---
Reason For Study Reason For Study: Elevsted D-dimer RIGHT LEFT GSV is normal. GSV is normal. CFV is compressible, spontaneous, competent and CFV is compressible, spontaneous, competent, and demonstrates pulsatile venous flow. demonstrates pulsatile venous flow. FV is compressible, spontaneous, competent and FV is compressible, spontaneous, competent and demonstrates pulsatile venous flow. demonstrates pulsatile venous flow. POP V is compressible, spontaneous, competent and POP V is compressible, spontaneous, competent and demonstrates pulsatile venous flow. demonstrates pulsatile venous flow. T/P Trunk is compressible. T/P Trunk is compressible. PTV is compressible. PTV is compressible. RT PerV is compressible. LT PerV is compressible. Procedure This is a venous duplex using B-mode, color flow and spectral Doppler. Exam performed portable in patient room. A preliminary report was called and/or faxed to [facility]. VL/Venous Duplex US - Zach Extrem Interpretation Summary Deep veins of the lower extremities are bilaterally patent and compressible seg mentally. There is no evidence of deep vein thrombosis on either side. Valvular competence appears intact within the p roximal deep venous systems bilaterally. The great saphenous veins appear bilaterally patent and compressible segmentall y. Pulsatile flow is noted in the deep venous system bilaterally, which may be indicative of elevated central venous p ressure (i.e. congestive heart failure, pulmonary hypertension, etc.). Clinical correlation is advised. Ordering Physician: Ida Valdivia Referring Physician: Miles Mercedes Performed By: Ila Maldonado RVT
[2024-04-29] MEDS: Piperacil/Tazobactam 3.375 GM in 0.9% Normal Saline (50mL MB+) 50 ML IV ×2 (10:42→22:10)
[2024-04-29] MEDS: Lactated Ringers 1,000 ML 75 ML IV (10:43)
[2024-04-29 10:49] LABS: Absolute Neutrophil Count 3.7 X10^3/uL (2.0-7.7); Basophil# 0.05 X10^3/uL; Basophil% 0.8 % (0-1); Eosinophil# 0.06 X10^3/uL; Lymphocyte % 20.4 % (19-41); Mean Corpuscular Hgb 27.1 pg (27.0-32.0); Mean Corpuscular Volume 84.7 fL (81-99); Monocyte# 0.84 X10^3/uL; Monocyte% 14.3 % (0-10); NRBC Flagged by Analyzer 0 % (0-5); Neutrophil # 3.71 X10^3/uL (2.7-7.7); Platelet Count 247 K/mm3 (150-450); RBC Distribution Width CV 14.4 % (11.6-14.6); RBC Distribution Width SD 44.5 fl (35.1-43.9); Red Blood Count 2.95 M/mm3 (4.2-5.4); White Blood Count 5.9 K/mm3 (4.4-11.0)
[2024-04-29] MEDS: Ipratropium/Albuterol Sulfate 3 ML AMPUL.NEB INHALATION ×3 (10:51→19:21)
--- NOTE | 2024-04-29 10:51 | PN.HOSP_ITS ---
Reason for Visit Reason for Visit: Diagnoses Acute respiratory failure with hypoxia (04/29/24) Subjective Subjective Saw patient at bedside this morning, daughter present. Patient was moderately fatigued appearing but otherwise laying back comfortably in bed and in no acute distress. She was making appropriate eye contact and answering questions appropriately for me. She denied any acute pain or discomfort at rest. Stated that over the past several days she has had significant shortness of breath with limited activity. Per daughter, patient passed out yesterday with only limited activity. Patient has been trying to stay as active as she can after COVID diagnosis in early March and has had home health care coming out to the house frequently. Denies any other new concerns this morning. Objective Data Objective Data Vital Signs: Vital Signs Temp Pulse Resp BP Pulse Ox O2 Del Method O2 Flow Rate 97.7 F L 64 23 H 106/49 L 95 Nasal Cannula 4 04/29/24 09:00 04/29/24 09:30 04/29/24 09:30 04/29/24 09:30 04/29/24 09:30 04/29/24 09:30 04/29/24 09:30 FiO2 50 04/29/24 08:00 Oxygen Flow Rate (L/min) 4 Oxygen Delivery Method Nasal Cannula Weight: 70.6 kg Body Mass Index (BMI) 29.4 Intake & Output: Intake and Output for Last 24 Hours 04/27/24 04/28/24 04/29/24 23:59 23:59 23:59 Intake Total 0 / 0 1600.58 / 1600.58 Output Total 0 / 0 Balance 0 / 0 1600.58 / 1600.58 Lab / Micro Data 04/29/24 10:30 04/29/24 10:30 Labs: Laboratory Results - last 24 hr 04/28/24 22:21: WBC 8.8, RBC 2.87 L, Hgb 7.8 L, Hct 24.0 L, MCV 83.6, MCH 27.2, MCHC 32.5, RDW Std Deviation 42.8, RDW Coeff of Pedro 14.0, Plt Count 326, MPV 9.3, Immature Gran % (Auto) 0.600, Neut % (Auto) 70.6 H, Lymph % (Auto) 12.5 L, [place] % (Auto) 11.5 H, Eos % (Auto) 4.2, Baso % (Auto) 0.6, Absolute Neuts (auto) 6.2, Absolute Lymphs (auto) 1.10, Nucleated RBC % 0, D-Dimer Quant (PE/DVT) 1.81 H*, Sodium 132 L, Potassium 5.3 H, Chloride 104, Carbon Dioxide 16.0 L, Anion Gap 13, BUN 66 H, Creatinine 4.50 H, Estim Creat Clear Calc 8.72, Est GFR (MDRD) Af Amer 12 L, Est GFR (MDRD) Non-Af 10 L, BUN/Creatinine Ratio 14.7, Glucose 168 H, Calcium 9.2, Total Bilirubin 0.40, Direct Bilirubin 0.15, AST 25, ALT 24, A lkaline Phosphatase 126 H, Troponin I High Sens 16, Total Protein 7.7, Albumin 2.8 L, Globulin 4.9 H 04/28/24 22:25: Lactic Acid 2.0 04/28/24 22:27: Phosphorus 5.3 H, Magnesium 2.5, Iron 26 L, TIBC 193 L, Iron Saturation 13.5 L, Ferritin 607 H 04/29/24 00:25: PT 18.2 H, INR 1.5, APTT 25.7 04/29/24 03:40: WBC 7.2, RBC 2.55 L, Hgb 6.9 L, Hct 21.7 L, MCV 85.1, MCH 27.1, MCHC 31.8 L, RDW Std Deviation 43.8, RDW Coeff of Pedro 14.1, Plt Count 265, MPV 9.2, Immature Gran % (Auto) 0.600, Neut % (Auto) 71.8 H, Lymph % (Auto) 15.9 L, [place] % (Auto) 10.0, Eos % (Auto) 1.1, Baso % (Auto) 0.6, Absolute Neuts (auto) 5.2, Absolute Lymphs (auto) 1.14, Nucleated RBC % 0, Sodium 133 L, Potassium 6.0 H*, Chloride 106, Carbon Dioxide 17.0 L, Anion Gap 10, BUN 69 H, Creatinine 4.63 H, Estim Creat Clear Calc 8.27, Est GFR (MDRD) Af Amer 12 L, Est GFR (MDRD) Non- Af 10 L, BUN/Creatinine Ratio 14.9, Glucose 188 H, Lactic Acid 1.3, Calcium 8.7, Total Bilirubin 0.50, AST 23, ALT 23, Alkaline Phosphatase 103, B-Natriuretic Peptide 413.4 H, Total Protein 6.7, Albumin 2.4 L, Globulin 4.3 H, A lbumin/Globulin Ratio 0.6 L, Procalcitonin 0.26 H 04/29/24 04:55: Blood Type O POSITIVE, Antibody Screen NEGATIVE, Crossmatch See Detail 04/29/24 10:30: WBC 5.9, RBC 2.95 L, Hgb 8.0 L, Hct 25.0 L, MCV 84.7, MCH 27.1, MCHC 32.0, RDW Std Deviation 44.5 H, RDW Coeff of Pedro 14.4, Plt Count 247, MPV 9.0, Immature Gran % (Auto) 0.500, Neut % (Auto) 63.0, Lymph % (Auto) 20.4, [place] % (Auto) 14.3 H, Eos % (Auto) 1.0, Baso % (Auto) 0.8, Absolute Neuts (auto) 3.7, Absolute Lymphs (auto) 1.20, Nucleated RBC % 0 Micro: Microbiology 04/29/24 04:20 Mucosa - Nasopharyngeal Respiratory Panel (PCR) - Final 04/29/24 04:20 Nasal Secretion MRSA (PCR) - Final 04/28/24 23:50 Mucosa - Nose SARS-CoV-2, Influenza & RSV (PCR) - Final ABG Data ABG results: ABG 04/29/24 01:00 Specimen Type ART Sample Site L Radial pH 7.43 Bicarbonate Actual 16.0 L Total CO2 17 Base Excess -8 L O2 Saturation 95 O2 % 40.0 ABG pCO2 24.0 L ABG pO2 73 L Mikey Test Positive O2 Delivery Device BiPAP Vent Mode Not entered Clinical Comments 02/10 12 40% Radiography Diagnostic Testing: Radiology Impression Chest X-Ray 04/28/24 23:10 IMPRESSION: Bibasilar pulmonary infiltrates and trace bilateral pleural effusions. Reading Location: [facility] Abdomen/Pelvis CT 04/29/24 23:56 IMPRESSION: 1. Bilateral pleural effusions 2. Hepatomegaly 3. Colonic diverticulosis with no evidence of diverticulitis 4. Mild pericardial effusion One or more dose reduction techniques were used (e.g., Automated exposure control, adjustment of the mA and/or kV according to patient size, use of iterative reconstruction technique). Reading Location: [facility] Physical Exam Const alert, oriented x3 and average body habitus Constitutional Narrative: Elderly female, moderately fatigued appearing, somewhat chronically ill- appearing, otherwise laying back comfortably in bed, answering questions appropriately, in no acute distress. General Appearance: cooperative and comfortable HEENT normocephalic, head/scalp atraumatic, hearing grossly normal bilaterally and nasal mucous membranes and turbinates normal Eyes PERRL, EOMs intact bilaterally and conjunctivae normal Neck full ROM Chest inspection of chest normal Resp normal respiratory effort and no use of accessory muscles Resp Narrative: Breathing comfortably on 4 L nasal cannula at rest. Moderately decreased breath sounds with crackles noted in bilateral lung bases, otherwise good air movement in upper lung zones with no wheezing noted. Cardio regular rate, regular rhythm, no murmurs and peripheral pulses 2+ throughout GI normal to inspection, nondistended, normoactive bowel sounds, soft to palpation, non-tender and non-distended Back/Spine normal ROM Extremity Extremity Narrative: +1 chronic lower extremity pitting edema noted. Skin no rashes or lesions noted Neuro moves all extremities and no focal motor deficits Speech: speech normal Psych mental status grossly normal Psych Narrative: Flat affect. Assessment & Plan Assessment/Plan (1) Acute hypoxemic respiratory failure: (2) Acute kidney injury: (3) Acute on chronic anemia: PLAN: Plan Patient is an 84-year-old female who presented [facility] ED on 04/28/2024 with worsening shortness of breath with exertion. 1. Acute hypoxic respiratory failure suspected secondary to PE with small bilateral pleural effusions ? Automated Teller Manager following. Not on home oxygen. Presented with significant hypoxia requiring BiPAP on admit to maintain appropriate oxygen saturations. Chest x-ray showed bibasilar pulmonary infiltrates with trace bilateral pleural effusions. CT abdomen pelvis showed small bilateral pleural effusions at lung bases. D-dimer elevated. Initial ABG on BiPAP with pH 7.43, pO2 73, pCO2 24. Respiratory status improved with BiPAP, weaned to 4 L nasal cannula on 04/29. Echo on 04/29 showed EF 55 to 60%, mildly dilated RV, mild segmental dysfunction of RV. Lower extremity duplex ultrasound was negative for DVT. Respiratory failure could be secondary to volume overload from JUDD with atelectasis but cannot rule out PE. VQ scan ordered. Discussed with cardiology and exterior designer and will empirically start on heparin drip for now. Wean supplemental oxygen as able. 2. 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 Nephrology consulted. Creatinine 4.50 on admit, most recent baseline creatinine appears to be around 1.7-2.0. Initial potassium 5.3, bicarb 16, BUN 66. No overt obstructive pathology noted on CT abdomen pelvis. Renal/bladder ultrasound completed, read pending. Given 2 L of IV fluids on admit but creatinine has remained steady at 4.5-4.7. Bicarbonate improved with bicarb drip, discontinued on 04/29. Suspect prerenal JUDD with likely progression to some degree of ATN at this time. Monitor daily BMP and urine output. Garcia catheter in place for accurate I's and O's. Appreciate nephrology recommendations. 3. Acute on chronic normocytic anemia ? Hemoglobin 7.8 on admit, dropped to 6.9 on hospital day 2 with IV fluid resuscitation. Most recent hemoglobin 8.7 on 04/19. No overt signs of blood loss. Given 1 unit of blood on 04/29 with repeat hemoglobin 8.0. Iron studies consistent with anemia of chronic disease. Suspect patient has some degree of anemia of renal disease as well. Given that patient is on heparin drip, will repeat CBC tonight and again tomorrow morning. 4. Significant bradycardia with junctional rhythm ? Cardiology following. Was noted on admission but per cardiology on 04/29, telemetry since arrival to the ICU shows normal sinus rhythm with no ectopy noted. Continue cardiac monitoring for now. 5. Hyperkalemia, improving ? Potassium peaked at 6.0 on 04/29. Presume secondary to JUDD. Improved with medical treatment, most recent potassium 5.0. Continue to monitor BMP daily. 6. Concern for acute pyelonephritis ? CT abdomen pelvis on admit showed lobulated contour of kidneys with nonspecific perinephric fat stranding right greater than left. UA showed 500 leukocyte esterase, negative nitrites, 0 bacteria. Treating empirically with IV Zosyn for now, follow-up urine culture. 7. Acute on chronic debility ? PT/OT/case management following. Patient hospitalized here in early March for weakness secondary to COVID infection. Has been following with home health care since then. Suspect patient will need either SNF or home with resumption of home health care on discharge. Appreciate therapy recommendations. 8. Hypertension ? Holding home losartan and amlodipine. 9. Depression ? Continue home fluoxetine. 10. Recent COVID infection ? Had COVID infection in early March with significant weakness secondary to that. 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 DVT prophylaxis: Not indicated, on heparin drip CODE STATUS: Full code, verified Expected disposition: TBD Total clinical time spent by myself addressing the patient's medical issues, reviewing all the data, and collaborating with patient's care team: 50 minutes. Charges/Coding Visit Charges Inpatient E&M: 26738 [facility] Hosp L3
--- NOTE | 2024-04-29 10:57 | CASEMGMT ---
Addendum entered by Mitzy Alejandra 04/29/24 11:03: OPAL BARLOW discussed possible O2 needs at DC, provided verbal list of DME providers. Pt chose [facility] as DME provider of choice. Original Note: OPAL BARLOW Assessment: Face to Face with pt for initial transition planning/care coordination assessment. OPAL BARLOW introduced self and role at [facility], pt voices understanding and consents to assessment. Pt is A&O x4 and answers all questions appropriately at this time. Pt lying in bed, difficulty waking up. Able to answer questions appropriately. Care providers, pharmacy, and demographics verified/updated. Strata: 2 Admitting Dx: Hypoxia, PE, JUDD on CKD. PCP: Daren Specialists: Denies Preferred Pharmacy: [facility] Insurance: [facility] [employer] Prescription Benefit: yes LNOK: Son, Rubens; Daughter, Annette Living Arrangements: Pt lives alone in an apartment with ramp to enter. Pt daughter has been staying with her. ADLs: Pt I at baseline. Transportation: Pt drives self and denies concerns with transportation. DME: W/C, walker, grab bars, power chair, shower bench. HHC/SNF: Previously had [facility] Pt states no concerns with going home at time of dc. Pt states no further concerns/needs. CM to follow. Advised pt to ask CM if any further question/concerns/needs arise, voices understanding. Pt Goal: TBD Plan: TBD, follow therapy. Tl JOSEPH CM
[2024-04-29 11:11] LABS: BNP,B-Type NATRIURETIC PEPTIDE 712.1 pg/mL (0-100)
[2024-04-29 11:13] LABS: Anion Gap 8 (5-15); BUN 70 mg/dL (7-18); BUN/Creat Ratio 14.7 RATIO (10-20); Calcium,Total 8.6 mg/dL (8.5-10.1); Chloride 104 mmol/L (98-107); Creatinine, Serum 4.76 mg/dL (0.55-1.02); EST Glomerular Filtration Rate 9 mL/min (>60); Est Glom Filt Rate - Afr Amer 11 mL/min (>60); Estimated Creatinine Clearance 8.05 ml/min; Glucose 144 mg/dL (74-106); Sodium Level 133 mmol/L (136-145)
[2024-04-29 12:06] LABS: Bacteria 0 SEEN /hpf (None Seen); Mucous, Urine 0 SEEN /hpf (<or=2+); Squamous Epithelial Cells - UA 0 SEEN /hpf (5-10)
[2024-04-29 12:12] LABS: Color, Urine Yellow (Yellow); Glucose, Dipstick Normal (Normal); Ketone-Dipstick Negative (Negative); Leukocyte Esterase-Dipstick 500 /ul (Negative); Nitrite-Dipstick Negative (Negative); Occult Blood-Urine 150 /ul (Negative); Protein-Dipstick 100 mg/dl (Negative); Urine Bilirubin Dipstick Negative (Negative); Urine Urobilinogen Normal (Normal)
[2024-04-29 12:19] LABS: Urine Sodium 48 mmol/L (Not Establ.)
[2024-04-29 12:23] LABS: White Blood Cells >100 SEEN /hpf (0-5)
[2024-04-29 12:24] LABS: Urine Clarity Turbid (Clear)
[2024-04-29] MEDS: Furosemide 100 MG/10 ML Vial 60 MG IV (12:55)
[2024-04-29 13:11] LABS: Partial Thromboplast Time 21.2 Seconds (24.1-36.2)
--- NOTE | 2024-04-29 14:19 | PCMCONS.TICU ---
HPI Consult Data Date of Consult: 04/29/24 HPI Narrative Reason for Consultation: Hypoxemic and hypercapnic respiratory failure HPI Narrative: RYAN FLEMING, is a 84 F who presents with acute on chronic SOB complaints after diagnosis of COVID in March. She states she has had persistent SOB since then but in the last week has really noticed severe and profound exhaustion and SOB. She denies productive cough, chest pain or hemoptysis. However, upon triage in ED, she was noted to be hypoxemic and was placed on NIPPV for rescue. She has since been weaned off and is on 4LNC and comfortable. She does state her breathing is better. Notably, she has a history of renal agenesis and unilateral kidney. No stones, no UTI symptoms, but she has been admittedly not drinking enough fluids lately and has not made much urine. In ICU/ED placement of Lazcano resulted in ivan pus. UA showing strongly (+) LE. CT Ab/pelv suggestive of perinephric fat stranding c/w pyelo. Not on pressors, but did already receive 2L IVF bolus in ED. Imaging also showed incidental bilateral pleural effusion. [facility] Medical History Cataract (lens) fragments in eye following cataract surgery, bilateral Macular degeneration Glaucoma Wears glasses Gout Arthritis Renal agenesis Pulmonary embolism High cholesterol CPAP (continuous positive airway pressure) dependence Former smoker Sleep apnea Hypertension History of pulmonary embolism Home Medications ?Medication ?Instructions ?Recorded ?Last Taken ?Type vitamin E 268 mg (400 unit) capsule 268 mg PO DAILY Supplement 07/02/22 03/14/24 History vitamins A,C,I-nkqb-nhpkkq 4,296 1 cap PO BID Healthy eyes 03/14/24 03/14/24 History mcg-226 mg-90 mg capsule (Healthy Eyes SuperVision) acetaminophen 325 mg tablet 650 mg (2 x 325 mg) PO Q6H PRN PRN 03/19/24 Unknown Rx Pain 1-10 Or Fever>100.7 #0 tabs amlodipine 10 mg tablet 10 mg PO DAILY HEART #60 tabs 03/19/24 Unknown Rx fluoxetine 20 mg tablet 20 mg PO DAILY DEPRESSION 04/28/24 Unknown History losartan 100 mg tablet 100 mg PO DAILY CHOLESTEROL 04/28/24 Unknown History Allergy/AdvReac Type Severity Reaction Status Date / Time Sulfa (Sulfonamide Allergy Intermediate Itching Verified 03/15/24 00:11 Antibiotics) Family History Mother Diabetes Kidney disease Father Heart disease Surgical History History of carpal tunnel release History of lumpectomy of right breast Social History household members: spouse Smoking Status: Former smoker alcohol intake: never substance use type: does not use ROS Constitutional Constitutional: Reports fatigue; Denies body ache(s), chills, fever(s), headache(s), malaise, night sweats or weakness Eyes Eyes: Denies blurry vision, change in vision or loss of vision ENT HEENT: Denies dizziness, dysphagia, epistaxis, headache(s), hoarseness, loss taste/smell, nasal congestion, nasal discharge or sore throat Cardiovascular Cardiovascular: Denies chest pain, claudication, dizziness, dyspnea, edema, irregular heart rhythm or lightheadedness Respiratory/Chest Respiratory/Chest: Reports dyspnea and shortness of breath with exertion; Denies chest tightness, cough, hemoptysis, pain on inspiration or wheezing Gastrointestinal Gastrointestinal: Denies abdominal pain, diarrhea, dyspepsia, dysphagia, heartburn, hematochezia, melena, nausea or vomiting Genitourinary Genitourinary: Denies difficulty urinating, dysuria, flank pain, hematuria, polyuria or urinary frequency Musculoskeletal Musculoskeletal: Denies arthralgias, back pain or joint pain Integumentary Integumentary: Denies lesions, rash, skin ulcer or wounds Neurologic Neurologic: Denies abnormal gait, abnormal speech, confusion, focal weakness, loss of vision, seizure-like activity or syncope Psychiatric Psychiatric: Denies anxiety, depression, hallucinations, homicidal ideation, panic attacks or suicidal thoughts Endocrine Endocrinology: Denies fatigue, polydipsia or polyuria Hematologic/Lymphatic Hematologic/Lymphatic: Denies easy bleeding or easy bruising Allergic/Immunologic Allergic/Immunologic: Denies systems reviewed and no addt'l complaints, except as documented, as per HPI, none, GI upset w/certain foods, itchy eyes, lip swelling, seasonal rhinorrhea, rhinitis, throat swelling, tongue swelling, hives, urticaria, eczemia, wheezing, asthma or other Objective Data Objective Data Vital Signs: Vital Signs Last response Temperature 36.6 C 04/29/24 13:00 Temperature Source Core 04/29/24 13:00 Pulse Rate 72 04/29/24 14:15 Respiratory Rate 20 H 04/29/24 14:15 Respiratory Effort Normal 04/29/24 12:00 Respiratory Depth Shallow 04/29/24 12:00 Respiratory Pattern Tachypnea 04/29/24 14:15 Blood Pressure 123/48 H 04/29/24 13:00 Blood Pressure Mean 73 04/29/24 13:00 Blood Pressure Source Monitor 04/29/24 13:00 Blood Pressure Position Semi-Fowlers 04/29/24 13:00 Blood Pressure Location Right Arm 04/29/24 13:00 Pulse Ox 97 04/29/24 14:12 Oxygen Delivery Method Bi-pap 04/29/24 13:00 Oxygen Flow Rate (L/min) 4 04/29/24 11:00 Fraction of Inspired Oxygen (FIO2) 30 04/29/24 14:12 I&O: I&O Last 24 Hours 04/28/24 04/29/24 04/29/24 23:59 11:59 23:59 Intake Total 0 / 0 1600.58 / 1771.83 171.25 / 1771.83 Output Total 0 / 110 110 / 110 Balance 0 / 0 1600.58 / 1661.83 61.25 / 1661.83 I&O: Total Stay 04/28/24 22:34 thru 04/29/24 13:00 Intake Total 1771.83 Output Total 110 Balance 1661.83 Current Meds Ordered / Administered: Current meds ordered / Administered Generic Name Dose Route Start Last Admin Trade Name Freq PRN Reason Stop Dose Admin Acetaminophen 650 mg 04/29/24 02:11 Acetaminophen 325 Mg Tablet PO Q4H PRN PRN Fever, pain 1-10/10 Al Hydroxide/Mg Hydroxide 30 ml 04/29/24 02:11 Mag Hydrox/Al Hydrox/Simeth 30 Ml Udc PO Q6H PRN PRN Gastric Burning Albuterol Sulfate 2.5 mg 04/29/24 02:11 Albuterol 2.5 Mg/3 Ml Vial.Neb. INHALATION Q2H PRN PRN Dyspnea, wheezing Albuterol/Ipratropium 3 ml 04/29/24 02:11 04/29/24 14:15 Ipratropium/Albuterol Sulfate 3 Ml Ampul.Neb INHALATION 3 ml Q4HWA.RT MEGHAN Administration Calamine/Phenol 1 applic 04/29/24 10:00 04/29/24 12:56 Menthol/Lanolin/Calamine/Znox 113 Gm Tube TOPICAL Not Given 4X/DAY [facility] Protocol Fluoxetine HCl 20 mg 04/29/24 10:00 Fluoxetine 20 Mg Capsule PO DAILY [facility] Guaifenesin 10 ml 04/29/24 02:11 Guaifenesin 10 Ml Udc (200mg/10ml) PO Q4H PRN PRN COUGH Heparin Sodium (Porcine) 0 unit 04/29/24 11:25 Heparin Injection (Vial) 5,000 Unit/Ml Vial IV UD PRN dose adjustment Protocol Hydralazine HCl 10 mg 04/29/24 02:11 Hydralazine 20 Mg/Ml Vial IV Q4H PRN PRN SBP > 160 Protocol Piperacillin Sod/Tazobactam 50 mls @ 12.5 mls/hr 04/29/24 10:00 04/29/24 10:42 Sod 3.375 gm/ Sodium Chloride IV 12.5 mls/hr Q12 MEGHAN Administration Vancomycin IV-PHARMACY TO DOSE 500 mls @ 250 mls/hr 04/29/24 02:11 1 each/ Sodium Chloride IV X1 PRN Rx to Dose Protocol Heparin Sodium/Dextrose 25,000 units in 250 mls @ 10 mls/hr 04/29/24 11:35 CONT INF .Q25H [facility] Protocol As Directed Lactated Ringer's 500 mls @ 250 mls/hr 04/29/24 13:47 IV 04/29/24 15:46 .Q2H [facility] Protocol Melatonin 3 mg 04/29/24 02:11 Melatonin 3 Mg Tablet PO QHS PRN PRN INSOMNIA Ondansetron HCl 4 mg 04/29/24 02:11 Ondansetron 4 Mg/2 Ml Vial IV Q8H PRN PRN NAUSEA/VOMITING Prochlorperazine Edisylate 5 mg 04/29/24 02:11 Prochlorperazine 10 Mg/2 Ml Vial IV Q4H PRN PRN Breakthrough Nausea/Vomiting Senna/Docusate Sodium 2 tablet 04/29/24 02:11 Senna/Docusate Sodium 1 Tablet PO BID PRN PRN Constipation Sodium Chloride 10 - 40 ml 04/29/24 02:54 04/29/24 12:55 0.9% Saline Lock 10 Ml Syringe IV 10 ml UD PRN Administration SALINE FLUSH Vancomycin Protocol 1 lab 05/01/24 04:00 Vancomycin Trough/Random Due 05/01/24 08:00 DAILY MEGHAN Imaging reviewed independently and personally--> moderate bilateral pleural effusion Physical Exam Const alert, oriented x3 and no apparent distress General Appearance: cooperative, ill appearing and frail HEENT normocephalic Eyes PERRL and EOMs intact bilaterally Neck full ROM and no JVD Chest inspection of chest normal Resp normal respiratory effort and no use of accessory muscles Auscultation: diminished lung sounds bilateral lower Cardio Cardio Narrative: TRICIA loudest over tricuspid area GI normal to inspection, nondistended, normoactive bowel sounds Auscultation: normoactive bowel sounds Extremity no clubbing, cyanosis or edema Skin no rashes or lesions noted Neuro oriented x3, CN's II-XII intact bilaterally, moves all extremities and no focal motor deficits Psych cooperative Lab / Micro Data 04/29/24 10:30 04/29/24 10:30 Labs: Laboratory Results - last 24 hr 04/28/24 22:21: WBC 8.8, RBC 2.87 L, Hgb 7.8 L, Hct 24.0 L, MCV 83.6, MCH 27.2, MCHC 32.5, RDW Std Deviation 42.8, RDW Coeff of Pedro 14.0, Plt Count 326, MPV 9.3, Immature Gran % (Auto) 0.600, Neut % (Auto) 70.6 H, Lymph % (Auto) 12.5 L, [place] % (Auto) 11.5 H, Eos % (Auto) 4.2, Baso % (Auto) 0.6, Absolute Neuts (auto) 6.2, Absolute Lymphs (auto) 1.10, Nucleated RBC % 0, D-Dimer Quant (PE/DVT) 1.81 H*, Sodium 132 L, Potassium 5.3 H, Chloride 104, Carbon Dioxide 16.0 L, Anion Gap 13, BUN 66 H, Creatinine 4.50 H, Estim Creat Clear Calc 8.72, Est GFR (MDRD) Af Amer 12 L, Est GFR (MDRD) Non-Af 10 L, BUN/Creatinine Ratio 14.7, Glucose 168 H, Calcium 9.2, Total Bilirubin 0.40, Direct Bilirubin 0.15, AST 25, ALT 24, Alkaline Phosphatase 126 H, Troponin I High Sens 16, Total Protein 7.7, Albumin 2.8 L, Globulin 4.9 H 04/28/24 22:25: Lactic Acid 2.0 04/28/24 22:27: Phosphorus 5.3 H, Magnesium 2.5, Iron 26 L, TIBC 193 L, Iron Saturation 13.5 L, Ferritin 607 H 04/29/24 00:25: PT 18.2 H, INR 1.5, APTT 25.7 04/29/24 03:40: WBC 7.2, RBC 2.55 L, Hgb 6.9 L, Hct 21.7 L, MCV 85.1, MCH 27.1, MCHC 31.8 L, RDW Std Deviation 43.8, RDW Coeff of Pedro 14.1, Plt Count 265, MPV 9.2, Immature Gran % (Auto) 0.600, Neut % (Auto) 71.8 H, Lymph % (Auto) 15.9 L, [place] % (Auto) 10.0, Eos % (Auto) 1.1, Baso % (Auto) 0.6, Absolute Neuts (auto) 5.2, Absolute Lymphs (auto) 1.14, Nucleated RBC % 0, Sodium 133 L, Potassium 6.0 H*, Chloride 106, Carbon Dioxide 17.0 L, Anion Gap 10, BUN 69 H, Creatinine 4.63 H, Estim Creat Clear Calc 8.27, Est GFR (MDRD) Af Amer 12 L, Est GFR (MDRD) Non-Af 10 L, BUN/Creatinine Ratio 14.9, Glucose 188 H, Lactic Acid 1.3, Calcium 8.7, Total Bilirubin 0.50, AST 23, ALT 23, Alkaline Phosphatase 103, B-Natriuretic Peptide 413.4 H, Total Protein 6.7, Albumin 2.4 L, Globulin 4.3 H, Albumin/Globulin Ratio 0.6 L, Procalcitonin 0.26 H 04/29/24 04:55: Blood Type O POSITIVE, Antibody Screen NEGATIVE, Crossmatch See Detail 04/29/24 10:30: WBC 5.9, RBC 2.95 L, Hgb 8.0 L, Hct 25.0 L, MCV 84.7, MCH 27.1, MCHC 32.0, RDW Std Deviation 44.5 H, RDW Coeff of Pedro 14.4, Plt Count 247, MPV 9.0, Immature Gran % (Auto) 0.500, Neut % (Auto) 63.0, Lymph % (Auto) 20.4, [place] % (Auto) 14.3 H, Eos % (Auto) 1.0, Baso % (Auto) 0.8, Absolute Neuts (auto) 3.7, Absolute Lymphs (auto) 1.20, Nucleated RBC % 0, Sodium 133 L, Potassium 5.0, Chloride 104, Carbon Dioxide 21.0, Anion Gap 8, BUN 70 H, Creatinine 4.76 H, Estim Creat Clear Calc 8.05, Est GFR (MDRD) Af Amer 11 L, Est GFR (MDRD) Non-Af 9 L, BUN/Creatinine Ratio 14.7, Glucose 144 H, Calcium 8.6, B-Natriuretic Peptide 712.1 H 04/29/24 11:40: Urine Color Yellow, Urine Clarity Turbid, Urine pH 6.0, Ur Specific Mims 1.020, Urine Protein 100 H, Urine Glucose (UA) Normal, Urine Ketones Negative, Urine Occult Blood 150 H, Urine Nitrite Negative, Urine Bilirubin Negative, Urine Urobilinogen Normal, Ur Leukocyte Esterase 500 H, Urine RBC Not Reportable, Urine WBC >100 SEEN, Ur Squamous Epith Cells 0 SEEN, Urine Bacteria 0 SEEN, Urine Mucus 0 SEEN, Ur Random Sodium 48, Urine Creatinine 103.00 04/29/24 12:45: APTT 21.2 L Micro: Microbiology 04/29/24 11:40 Urine, Clean Catch Legionella Antigen - Final 04/29/24 11:40 Urine, Clean Catch Streptococcus pneumoniae Antigen (M - Final 04/29/24 04:20 Mucosa - Nasopharyngeal Respiratory Panel (PCR) - Final 04/29/24 04:20 Nasal Secretion MRSA (PCR) - Final 04/28/24 23:50 Mucosa - Nose SARS-CoV-2, Influenza & RSV (PCR) - Final ABG Data ABG results: ABG 04/29/24 01:00 Specimen Type ART Sample Site L Radial pH 7.43 Bicarbonate Actual 16.0 L Total CO2 17 Base Excess -8 L O2 Saturation 95 O2 % 40.0 ABG pCO2 24.0 L ABG pO2 73 L Mikey Test Positive O2 Delivery Device BiPAP Vent Mode Not entered Clinical Comments 02/10 12 40% Imaging Radiology Impression Chest X-Ray 04/28/24 23:10 IMPRESSION: Bibasilar pulmonary infiltrates and trace bilateral pleural effusions. Reading Location: [facility] Echocardiogram 04/29/24 02:11 Interpretation Summary The estimated ejection fraction is 55-60 %. Normal LV systolic function Mild RV dilatation No previous study to compare Ordering Physician: Radha Elkins Performed By: Homer Sarmiento RCS Abdomen/Pelvis CT 04/29/24 23:56 IMPRESSION: 1. Bilateral pleural effusions 2. Hepatomegaly 3. Colonic diverticulosis with no evidence of diverticulitis 4. Mild pericardial effusion One or more dose reduction techniques were used (e.g., Automated exposure control, adjustment of the mA and/or kV according to patient size, use of iterative reconstruction technique). Reading Location: [facility] Reviewed personally - moderate b/l pleural effusions, simple Assessment and Plan . Assessment and plan: ICU Problem List: acute hypoxemic respiratory failure atelectasis bilateral pleural effusion sepsis without organ failure JUDD and oliguria, pseudoobstructive hypovolemia Dimer elevation (possible false positive) Plan: 500mL additional fluid challenge for UOP, but I expect post obstructive diuresis now that Lazcano in place Zosyn ok, but cefepime may be better 1st line for UTI/pyelo heparin drip d/w Hospitalist, low pretest for PE/VTE seems to be an JUDD with anasarca and effusion and thoracentesis and BIPAP 12/8cwp should be enough to maintain alveolar ventilation and oxygenation while asleep inctenive beatriz and chest PT Jaydon Wakefield MD [facility] Critical Care Time: 60 minutes The entirety of this encounter was done via Telemedicine
--- NOTE | 2024-04-29 14:40 | CON.PCM.CA_ITS ---
<Statement entered by Candelario Roldan MD - 04/29/24 15:30> Pt seen & evaluated w/[facility]. I personally interviewed & exam the pt. I was involved in all aspects of pt's orders, interpretation of results & treatment Assessment & Plan Assessment/Plan (1) Acute hypoxemic respiratory failure: (2) Acute kidney injury: (3) Acute on chronic anemia: (4) AV junctional rhythm: (5) Elevated d-dimer: PLAN: Cardiac care plan recommendation 84-year-old female with multiple medical comorbidities Including history of hypertension, chronic normocytic anemia Patient had CKD stage III GINO/former smoker has been on CPAP. patient recently discharged from the hospital here at [facility] in March 19, 2024 following recent evaluation and treatment for COVID-pneumonia with acute kidney injury on CKD. No known prior cardiac history patient noted to have a junctional rhythm with bradycardia on this admission through the ER. I reviewed the laboratory monitor in ICU which showed normal sinus rhythm and patient has been stable hemodynamically. monitor electrolytes including potassium, magnesium. Review of the echocardiogram showed LV function is preserved with normal ejection fraction Mild MR with mild TR No pericardial effusion noted on the echo Mild RV dilatation with mild RV systolic dysfunction Patient has elevated D-dimer. And chronic normocytic anemia From cardiac standpoint recommendation will be conservative treatment. I will defer to the medical team for management of current problems. Once completed her treatment with recommend to follow-up with the cardiology team As an outpatient to evaluate further with the possible Lexiscan sestamibi to assess for myocardial ischemia and event monitor. Candelario Roldan MD,[facility] slag motor operator HPI Consult Data Date of Consult: 04/29/24 HPI Narrative Reason for Consultation: Patient had significant bradycardia with junctional rhythm HPI Narrative: RYAN FLEMING, is a 84 F who presents [facility] Medical History Cataract (lens) fragments in eye following cataract surgery, bilateral Macular degeneration Glaucoma Wears glasses Gout Arthritis Renal agenesis Pulmonary embolism High cholesterol CPAP (continuous positive airway pressure) dependence Former smoker Sleep apnea Hypertension History of pulmonary embolism Home Medications ?Medication ?Instructions ?Recorded ?Last Taken ?Type vitamin E 268 mg (400 unit) capsule 268 mg PO DAILY [place] pplement 07/02/22 03/14/24 History vitamins A,C,P-qlqy-oimzxv 4,296 1 cap PO BID Healthy eyes 03/14/24 03/14/24 History mcg-226 mg-90 mg capsule (Healthy Eyes SuperVision) acetaminophen 325 mg tablet 650 mg (2 x 325 mg) PO Q6H PRN PRN 03/19/24 Unknown Rx Pain 1-10 Or Fever>100.7 #0 tabs amlodipine 10 mg tablet 10 mg PO DAILY HEART #60 ta bs 03/19/24 Unknown Rx fluoxetine 20 mg tablet 20 mg PO DAILY DEPRESSION Unknown History losartan 100 mg tablet 100 mg PO DAILY CHOLESTEROL 04/28/24 Unknown History Allergy/AdvReac Type Severity Reaction Status Date / Time Sulfa (Sulfonamide Allergy Intermediate Itching Verified 03/15/24 00:11 Antibiotics) Family History Mother Diabetes Kidney disease Father Heart disease Surgical History History of carpal tunnel release History of lumpectomy of right breast Social History household members: spouse Smoking Status: Former smoker alcohol intake: never substance use type: does not use Physical Exam Cardio Cardio Narrative: Patient seen and evaluated in the ICU and discussed with the nursing staff Review of the laboratory monitor showed normal sinus. No further episode of junctional rhythm or bradycardia noted Cardiovascular evaluation S1-S2 is regular, no gallop, no pericardial rub Chest examination diminished air entry bilateral no inspiratory rales noted Risk Stratification Risk Stratification Applicable: No Objective Data Vital Signs: Vital Signs Temp Pulse Resp BP Pulse Ox O2 Del Method O2 Flow Rate 97.8 F 72 20 H 123/48 H 97 Bi-pap 4 04/29/24 13:00 04/29/24 14:15 04/29/24 14:15 04/29/24 13:00 04/29/24 14:12 04/29/24 13:00 04/29/24 11:00 FiO2 30 04/29/24 14:12 Oxygen Flow Rate (L/min) 4 Oxygen Delivery Method Bi-pap Weight: 155 lb 10.342 oz Body Mass Index (BMI) 29.4 Intake & Output: Intake and Output for Last 24 Hours 04/27/24 04/28/24 04/29/24 23:59 23:59 23:59 Intake Total 0 / 0 1771.83 / 1771.83 Output Total 110 / 110 Balance 0 / 0 1661.83 / 1661.83 Lab / Micro Data 04/29/24 10:30 04/29/24 10:30 Labs: Laboratory Results - last 24 hr 04/28/24 22:21: WBC 8.8, RBC 2.87 L, Hgb 7.8 L, Hct 24.0 L, MCV 83.6, MCH 27.2, MCHC 32.5, RDW Std Deviation 42.8, RDW Coeff of Pedro 14.0, Plt Count 326, MPV 9.3, Immature Gran % (Auto) 0.600, Neut % (Auto) 70.6 H, Lymph % (Auto) 12.5 L, [place] % (Auto) 11.5 H, Eos % (Auto) 4.2, Baso % (Auto) 0.6, Absolute Neuts (auto) 6.2, Absolute Lymphs (auto) 1.10, Nucleated RBC % 0, D-Dimer Quant (PE/DVT) 1.81 H*, Sodium 132 L, Potassium 5.3 H, Chloride 104, Carbon Dioxide 16.0 L, Anion Gap 13, BUN 66 H, Creatinine 4.50 H, Estim Creat Clear Calc 8.72, Est GFR (MDRD) Af Amer 12 L, Est GFR (MDRD) Non-Af 10 L, BUN/Creatinine Ratio 14.7, Glucose 168 H, Calcium 9.2, Total Bilirubin 0.40, Direct Bilirubin 0.15, AST 25, ALT 24, A lkaline Phosphatase 126 H, Troponin I High Sens 16, Total Protein 7.7, Albumin 2.8 L, Globulin 4.9 H 04/28/24 22:25: Lactic Acid 2.0 04/28/24 22:27: Phosphorus 5.3 H, Magnesium 2.5, Iron 26 L, TIBC 193 L, Iron Saturation 13.5 L, Ferritin 607 H 04/29/24 00:25: PT 18.2 H, INR 1.5, APTT 25.7 04/29/24 03:40: WBC 7.2, RBC 2.55 L, Hgb 6.9 L, Hct 21.7 L, MCV 85.1, MCH 27.1, MCHC 31.8 L, RDW Std Deviation 43.8, RDW Coeff of Pedro 14.1, Plt Count 265, MPV 9.2, Immature Gran % (Auto) 0.600, Neut % (Auto) 71.8 H, Lymph % (Auto) 15.9 L, [place] % (Auto) 10.0, Eos % (Auto) 1.1, Baso % (Auto) 0.6, Absolute Neuts (auto) 5.2, Absolute Lymphs (auto) 1.14, Nucleated RBC % 0, Sodium 133 L, Potassium 6.0 H*, Chloride 106, Carbon Dioxide 17.0 L, Anion Gap 10, BUN 69 H, Creatinine 4.63 H, Estim Creat Clear Calc 8.27, Est GFR (MDRD) Af Amer 12 L, Est GFR (MDRD) Non- Af 10 L, BUN/Creatinine Ratio 14.9, Glucose 188 H, Lactic Acid 1.3, Calcium 8.7, Total Bilirubin 0.50, AST 23, ALT 23, Alkaline Phosphatase 103, B-Natriuretic Peptide 413.4 H, Total Protein 6.7, Albumin 2.4 L, Globulin 4.3 H, A lbumin/Globulin Ratio 0.6 L, Procalcitonin 0.26 H 04/29/24 04:55: Blood Type O POSITIVE, Antibody Screen NEGATIVE, Crossmatch See Detail 04/29/24 10:30: WBC 5.9, RBC 2.95 L, Hgb 8.0 L, Hct 25.0 L, MCV 84.7, MCH 27.1, MCHC 32.0, RDW Std Deviation 44.5 H, RDW Coeff of Pedro 14.4, Plt Count 247, MPV 9.0, Immature Gran % (Auto) 0.500, Neut % (Auto) 63.0, Lymph % (Auto) 20.4, [place] % (Auto) 14.3 H, Eos % (Auto) 1.0, Baso % (Auto) 0.8, Absolute Neuts (auto) 3.7, Absolute Lymphs (auto) 1.20, Nucleated RBC % 0, Sodium 133 L, Potassium 5.0, Chloride 104, Carbon Dioxide 21.0, Anion Gap 8, BUN 70 H, Creatinine 4.76 H, Estim Creat Clear Calc 8.05, Est GFR (MDRD) Af Amer 11 L, Est GFR (MDRD) Non-Af 9 L, BUN/Creatinine Ratio 14.7, Glucose 144 H, Calcium 8.6, B-Natriuretic Peptide 712.1 H 04/29/24 11:40: Urine Color Yellow, Urine Clarity Turbid, Urine pH 6.0, Ur Specific [place] 1.020, Urine Protein 100 H, Urine Glucose (UA) Normal, Urine Ketones Negative, Urine Occult Blood 150 H, Urine Nitrite Negative, Urine Bilirubin Negative, Urine Urobilinogen Normal, Ur Leukocyte Esterase 500 H, Urine RBC Not Reportable, Urine WBC >100 SEEN, Ur Squamous Epith Cells 0 SEEN, Urine Bacteria 0 SEEN, Urine Mucus 0 SEEN, Ur Random Sodium 48, Urine Creatinine 103.00 04/29/24 12:45: APTT 21.2 L Micro: Microbiology 04/29/24 11:40 Urine, Clean Catch Legionella Antigen - Final 04/29/24 11:40 Urine, Clean Catch Streptococcus pneumoniae Antigen (M - Final 04/29/24 04:20 Mucosa - Nasopharyngeal Respiratory Panel (PCR) - Final 04/29/24 04:20 Nasal Secretion MRSA (PCR) - Final 04/28/24 23:50 Mucosa - Nose SARS-CoV-2, Influenza & RSV (PCR) - Final ABG Data ABG results: ABG 04/29/24 01:00 Specimen Type ART Sample Site L Radial pH 7.43 Bicarbonate Actual 16.0 L Total CO2 17 Base Excess -8 L O2 Saturation 95 O2 % 40.0 ABG pCO2 24.0 L ABG pO2 73 L Mikey Test Positive O2 Delivery Device BiPAP Vent Mode Not entered Clinical Comments 02/10 12 40% Cardiology Labs/Tests 04/28/24 22:21: WBC 8.8, RBC 2.87 L, Hgb 7.8 L, Hct 24.0 L, MCV 83.6, MCH 27.2, MCHC 32.5, Plt Count 326, MPV 9.3, Immature Gran % (Auto) 0.600, Neut % (Auto) 70.6 H, Lymph % (Auto) 12.5 L, [place] % (Auto) 11.5 H, Eos % (Auto) 4.2, Baso % (Auto) 0.6, Absolute Neuts (auto) 6.2, Nucleated RBC % 0, D-Dimer Quant (PE/DVT) 1.81 H*, Sodium 132 L, Potassium 5.3 H, Chloride 104, Carbon Dioxide 16.0 L, Anion Gap 13, BUN 66 H, Creatinine 4.50 H, Est GFR (MDRD) Af Amer 12 L, Est GFR (MDRD) Non-Af 10 L, BUN/Creatinine Ratio 14.7, Glucose 168 H, Calcium 9.2, Total Bilirubin 0.40, Direct Bilirubin 0.15 04/28/24 22:25: Lactic Acid 2.0 04/28/24 22:27: Phosphorus 5.3 H, Magnesium 2.5, Iron 26 L, TIBC 193 L, Iron Saturation 13.5 L, Ferritin 607 H 04/29/24 00:25: PT 18.2 H, INR 1.5, APTT 25.7 04/29/24 01:00: pH 7.43, Bicarbonate Actual 16.0 L, Base Excess -8 L, O2 Saturation 95, ABG pCO2 24.0 L, ABG pO2 73 L, Mikey Test Positive 04/29/24 03:40: WBC 7.2, RBC 2.55 L, Hgb 6.9 L, Hct 21.7 L, MCV 85.1, MCH 27.1, MCHC 31.8 L, Plt Count 265, MPV 9.2, Immature Gran % (Auto) 0.600, Neut % (Auto) 71.8 H, Lymph % (Auto) 15.9 L, [place] % (Auto) 10.0, Eos % (Auto) 1.1, Baso % (Auto) 0.6, Absolute Neuts (auto) 5.2, Nucleated RBC % 0, Sodium 133 L, P otassium 6.0 H*, Chloride 106, Carbon Dioxide 17.0 L, Anion Gap 10, BUN 69 H, C reatinine 4.63 H, Est GFR (MDRD) Af Amer 12 L, Est GFR (MDRD) Non-Af 10 L, BUN/Creatinine Ratio 14.9, Glucose 188 H, Lactic Acid 1.3, Calcium 8.7, Total Bilirubin 0.50, B-Natriuretic Peptide 413.4 H 04/29/24 10:30: WBC 5.9, RBC 2.95 L, Hgb 8.0 L, Hct 25.0 L, MCV 84.7, MCH 27.1, MCHC 32.0, Plt Count 247, MPV 9.0, Immature Gran % (Auto) 0.500, Neut % (Auto) 63.0, Lymph % (Auto) 20.4, [place] % (Auto) 14.3 H, Eos % (Auto) 1.0, Baso % (Auto) 0.8, Absolute Neuts (auto) 3.7, Nucleated RBC % 0, Sodium 133 L, Potassium 5.0, Chloride 104, Carbon Dioxide 21.0, Anion Gap 8, BUN 70 H, Creatinine 4.76 H, Est GFR (MDRD) Af Amer 11 L, Est GFR (MDRD) Non-Af 9 L, BUN/Creatinine Ratio 14.7, G lucose 144 H, Calcium 8.6, B-Natriuretic Peptide 712.1 H 04/29/24 11:40: Urine Color Yellow, Urine Clarity Turbid, Urine pH 6.0, Ur Specific [place] 1.020, Urine Protein 100 H, Urine Glucose (UA) Normal, Urine Ketones Negative, Urine Occult Blood 150 H, Urine Nitrite Negative, Urine Bilirubin Negative, Urine Urobilinogen Normal, Ur Leukocyte Esterase 500 H, Urine RBC Not Reportable, Urine WBC >100 SEEN 04/29/24 12:45: APTT 21.2 L Rhythm: EKG: ECHO: Stress Test: Cardiac Cath: PCI: CT Surgery: Holter monitor: EPS: PPM: CXR: Chest CT Scan: Radiography Diagnostic Testing: Radiology Impression Chest X-Ray 04/28/24 23:10 IMPRESSION: Bibasilar pulmonary infiltrates and trace bilateral pleural effusions. Reading Location: [facility] Echocardiogram 04/29/24 02:11 Interpretation Summary The estimated ejection fraction is 55-60 %. Normal LV systolic function Mild RV dilatation No previous study to compare Ordering Physician: Radha Elkins Performed By: Homer Sarmiento RCS Abdomen/Pelvis CT 04/29/24 23:56 IMPRESSION: 1. Bilateral pleural effusions 2. Hepatomegaly 3. Colonic diverticulosis with no evidence of diverticulitis 4. Mild pericardial effusion One or more dose reduction techniques were used (e.g., Automated exposure control, adjustment of the mA and/or kV according to patient size, use of iterative reconstruction technique). Reading Location: [facility]
[2024-04-29 14:51] LABS: International Normalized Ratio 1.2; Prothrombin Time (Protime)PT. 15.2 SECONDS (11.7-14.9)
[2024-04-29] MEDS: Lactated Ringers 500 ML 250 ML IV (15:05)
[2024-04-29] MEDS: Heparin Injection (Vial) 5,000 UNIT/ML VIAL 4500 UNIT IV (15:41)
[2024-04-29] MEDS: HEPARIN/D5w 25,000 UNITS 25,000 UNITS/250 ML IV.SOLN. 10 UNITS CONT INF (15:44)
[2024-04-29 18:02] LABS: Hematocrit 23.8 % (37-47); Hemoglobin 7.7 g/dL (12.0-15.0); Mean Corp Hgb Conc 32.4 g/dL (32-36); Mean Corpuscular Hgb 27.1 pg (27.0-32.0); Mean Corpuscular Volume 83.8 fL (81-99); Mean Platelet Vol. 9.1 fl (6.2-12.0); Platelet Count 228 K/mm3 (150-450); RBC Distribution Width CV 14.6 % (11.6-14.6); RBC Distribution Width SD 44.4 fl (35.1-43.9); Red Blood Count 2.84 M/mm3 (4.2-5.4)
[2024-04-29 18:18] LABS: Anion Gap 10 (5-15); BUN 68 mg/dL (7-18); BUN/Creat Ratio 14.1 RATIO (10-20); Calcium,Total 8.8 mg/dL (8.5-10.1); Chloride 105 mmol/L (98-107); Creatinine, Serum 4.81 mg/dL (0.55-1.02); EST Glomerular Filtration Rate 9 mL/min (>60); Est Glom Filt Rate - Afr Amer 11 mL/min (>60); Estimated Creatinine Clearance 7.96 ml/min; Glucose 111 mg/dL (74-106); Potassium 4.4 mmol/L (3.5-5.1); Sodium Level 136 mmol/L (136-145)
[2024-04-29] MEDS: guaiFENesin 10 ML UDC (200MG/10ML) PO (18:28)
[2024-04-29] MEDS: Acetaminophen 325 MG Tablet 650 MG PO (18:28)
[2024-04-29 22:37] LABS: Partial Thromboplast Time 181.5 Seconds (24.1-36.2)
--- NOTE | 2024-04-29 23:56 | CT_ITS ---
PROCEDURE: ABDOMEN/PELVIS WITHOUT CONT REASON FOR EXAM: Right upper quadrant abdominal pain and epigastric pain TECHNIQUE: Abdomen and pelvis CT without intravenous contrast. COMPARISON: 03/14/2024 FINDINGS: Lung bases: Bilateral pleural effusions. Mild pericardial effusion Liver: Enlarged Gallbladder: Unremarkable. Spleen: Unremarkable. Pancreas: Diffuse fatty atrophy. Adrenals: Unremarkable. Kidneys: Lobulated contour with nonspecific perinephric fat stranding, [id number]-left Bladder: Unremarkable. Reproductive Organs: Unremarkable. Bowel: Colonic diverticulosis without diverticulitis. Appendix: Normal. Lymph nodes: No suspicious lymph node enlargement. Vasculature: Mild diffuse atherosclerotic calcifications are noted. Peritoneum / Retroperitoneum: No ascites. No free air. Bones: Unremarkable. CT/Abdomen/Pelvis without Cont IMPRESSION: 1. Bilateral pleural effusions 2. Hepatomegaly 3. Colonic diverticulosis with no evidence of diverticulitis 4. Mild pericardial effusion One or more dose reduction techniques were used (e.g., Automated exposure contr ol, adjustment of the mA and/or kV according to patient size, use of iterative reconstruction technique). Reading Location: [facility]
[2024-04-30] VITALS (26 sets, daily range): BP systolic 107–136; BP diastolic 44–59; PULSE 62–73; RESP 12–26; TEMP 36.3–36.9; O2SAT 93–99; BMI 30.8
[2024-04-30 05:48] LABS: Hematocrit 23.3 % (37-47); Hemoglobin 7.5 g/dL (12.0-15.0); Mean Corp Hgb Conc 32.2 g/dL (32-36); Mean Corpuscular Hgb 27.2 pg (27.0-32.0); Mean Corpuscular Volume 84.4 fL (81-99); Platelet Count 232 K/mm3 (150-450); RBC Distribution Width CV 14.8 % (11.6-14.6); RBC Distribution Width SD 45.5 fl (35.1-43.9); Red Blood Count 2.76 M/mm3 (4.2-5.4); White Blood Count 5.6 K/mm3 (4.4-11.0)
[2024-04-30] MEDS: guaiFENesin 10 ML UDC (200MG/10ML) PO ×3 (06:06→21:21)
[2024-04-30] MEDS: 0.9% Saline Lock 10 ML Syringe IV ×4 (06:06→17:21)
[2024-04-30 06:07] LABS: Albumin, Serum 2.2 g/dL (3.2-5.0); BUN 66 mg/dL (7-18); BUN/Creat Ratio 13.3 RATIO (10-20); Calcium,Total 8.8 mg/dL (8.5-10.1); Chloride 105 mmol/L (98-107); Creatinine, Serum 4.96 mg/dL (0.55-1.02); EST Glomerular Filtration Rate 9 mL/min (>60); Est Glom Filt Rate - Afr Amer 11 mL/min (>60); Estimated Creatinine Clearance 7.91 ml/min; Glucose 83 mg/dL (74-106); Phosphorus 7.5 mg/dL (2.5-4.9); Potassium 4.8 mmol/L (3.5-5.1); Sodium Level 136 mmol/L (136-145)
[2024-04-30] MEDS: Ipratropium/Albuterol Sulfate 3 ML AMPUL.NEB INHALATION ×4 (06:57→18:50)
[2024-04-30] MEDS: Furosemide 100 MG/10 ML Vial IV (07:54)
[2024-04-30] MEDS: FLUoxetine 20 MG Capsule PO (08:13)
[2024-04-30] MEDS: Pantoprazole Sodium 40 MG in 0.9% Normal Saline (100mL MB+) 100 ML 330 MG IV (08:14)
[2024-04-30 08:30] LABS: International Normalized Ratio 1.2; Prothrombin Time (Protime)PT. 15.8 SECONDS (11.7-14.9)
[2024-04-30 08:31] LABS: Partial Thromboplast Time 54.3 Seconds (24.1-36.2)
[2024-04-30] MEDS: Piperacil/Tazobactam 3.375 GM in 0.9% Normal Saline (50mL MB+) 50 ML IV ×2 (09:40→21:11)
--- NOTE | 2024-04-30 09:41 | PN.HOSP_ITS ---
Reason for Visit Reason for Visit: Diagnoses Anemia, unspecified (04/28/24) Other specified cardiac arrhythmias (04/28/24) Acute respiratory failure with hypoxia (04/28/24) Acute kidney failure, unspecified (04/28/24) Other specified abnormal findings of blood chemistry (04/28/24) Subjective Subjective Saw patient at bedside this morning. Patient appeared similar to yesterday, was fatigued appearing but otherwise laying back comfortably in bed and in no acute distress. She is breathing comfortably on 4 L nasal cannula at rest. She did report feeling mildly short of breath this morning at rest and felt like it was difficult for her to take deep breaths. She otherwise felt similar to yesterday. Denied any fevers or chills. Denied any abdominal pain or discomfort. No other new concerns this morning. Objective Data Objective Data Vital Signs: Vital Signs Temp Pulse Resp BP Pulse Ox O2 Del Method O2 Flow Rate 97.9 F 64 23 H 131/53 H 93 Nasal Cannula 4 04/30/24 07:00 04/30/24 07:00 04/30/24 07:00 04/30/24 07:00 04/30/24 06:57 04/30/24 08:00 04/30/24 08:00 FiO2 30 04/30/24 04:00 Oxygen Flow Rate (L/min) 4 Oxygen Delivery Method Nasal Cannula Weight: 74 kg Body Mass Index (BMI) 30.8 Intake & Output: Intake and Output for Last 24 Hours 04/28/24 04/29/24 04/30/24 23:59 23:59 23:59 Intake Total 0 / 0 2697.08 / 2747.08 270.40 / 270.40 Output Total 710 / 710 275 / 275 Balance 0 / 0 1987.08 / 2037.08 -4.60 / -4.60 Lab / Micro Data 04/30/24 05:20 04/30/24 05:20 Labs: Laboratory Results - last 24 hr 04/29/24 10:30: WBC 5.9, RBC 2.95 L, Hgb 8.0 L, Hct 25.0 L, MCV 84.7, MCH 27.1, MCHC 32.0, RDW Std Deviation 44.5 H, RDW Coeff of Pedro 14.4, Plt Count 247, MPV 9.0, Immature Gran % (Auto) 0.500, Neut % (Auto) 63.0, Lymph % (Auto) 20.4, Hartley % (Auto) 14.3 H, Eos % (Auto) 1.0, Baso % (Auto) 0.8, Absolute Neuts (auto) 3.7, Absolute Lymphs (auto) 1.20, Nucleated RBC % 0, Sodium 133 L, Potassium 5.0, Chloride 104, Carbon Dioxide 21.0, Anion Gap 8, BUN 70 H, Creatinine 4.76 H, Estim Creat Clear Calc 8.05, Est GFR (MDRD) Af Amer 11 L, Est GFR (MDRD) Non-Af 9 L, BUN/Creatinine Ratio 14.7, Glucose 144 H, Calcium 8.6, B-Natriuretic Peptide 712.1 H 04/29/24 11:40: Urine Color Yellow, Urine Clarity Turbid, Urine pH 6.0, Ur Specific [place] 1.020, Urine Protein 100 H, Urine Glucose (UA) Normal, Urine Ketones Negative, Urine Occult Blood 150 H, Urine Nitrite Negative, Urine Bilirubin Negative, Urine Urobilinogen Normal, Ur Leukocyte Esterase 500 H, Urine RBC Not Reportable, Urine WBC >100 SEEN, Ur Squamous Epith Cells 0 SEEN, Urine Bacteria 0 SEEN, Urine Mucus 0 SEEN, Ur Random Sodium 48, Urine Creatinine 103.00 04/29/24 12:45: PT 15.2 H, INR 1.2, APTT 21.2 L 04/29/24 17:45: WBC 6.0, RBC 2.84 L, Hgb 7.7 L, Hct 23.8 L, MCV 83.8, MCH 27.1, MCHC 32.4, RDW Std Deviation 44.4 H, RDW Coeff of Pedro 14.6, Plt Count 228, MPV 9.1, Sodium 136, Potassium 4.4, Chloride 105, Carbon Dioxide 21.0, Anion Gap 10, BUN 68 H, Creatinine 4.81 H, Estim Creat Clear Calc 7.96, Est GFR (MDRD) Af Amer 11 L, Est GFR (MDRD) Non-Af 9 L, BUN/Creatinine Ratio 14.1, Glucose 111 H, Calcium 8.8 04/29/24 22:10: APTT 181.5 H* 04/30/24 05:20: WBC 5.6, RBC 2.76 L, Hgb 7.5 L, Hct 23.3 L, MCV 84.4, MCH 27.2, MCHC 32.2, RDW Std Deviation 45.5 H, RDW Coeff of Pedro 14.8 H, Plt Count 232, MPV 9.0, Sodium 136, Potassium 4.8, Chloride 105, Carbon Dioxide 19.0 L, BUN 66 H, C reatinine 4.96 H, Estim Creat Clear Calc 7.91, Est GFR (MDRD) Af Amer 11 L, Est GFR (MDRD) Non-Af 9 L, BUN/Creatinine Ratio 13.3, Glucose 83, Calcium 8.8, P hosphorus 7.5 H, Albumin 2.2 L 04/30/24 08:00: PT 15.8 H, INR 1.2, APTT 54.3 H Micro: Microbiology 04/29/24 11:40 Urine, Clean Catch Urine Culture - Preliminary Presumptive E. coli 04/29/24 11:40 Urine, Clean Catch Legionella Antigen - Final 04/29/24 11:40 Urine, Clean Catch Streptococcus pneumoniae Antigen (M - Final 04/29/24 04:20 Mucosa - Nasopharyngeal Respiratory Panel (PCR) - Final 04/29/24 04:20 Nasal Secretion MRSA (PCR) - Final 04/28/24 23:50 Mucosa - Nose SARS-CoV-2, Influenza & RSV (PCR) - Final Radiography Diagnostic Testing: Radiology Impression Echocardiogram 04/29/24 02:11 Interpretation Summary The estimated ejection fraction is 55-60 %. Normal LV systolic function Mild RV dilatation No previous study to compare Ordering Physician: Radha Elkins Performed By: Homer Sarmiento RCS Renal Ultrasound 04/29/24 05:55 IMPRESSION: Unremarkable renal ultrasound of the kidneys. Bladder was not distended therefore limited evaluation. [facility] Venous Doppler Study 04/29/24 09:35 Interpretation Summary Deep veins of the lower extremities are bilaterally patent and compressible segmentally. There is no evidence of deep vein thrombosis on either side. Valvular competence appears intact within the proximal deep venous systems bilaterally. The great saphenous veins appear bilaterally patent and compressible segmentally. Pulsatile flow is noted in the deep venous system bilaterally, which may be indicative of elevated central venous pressure (i.e. congestive heart failure, pulmonary hypertension, etc.). Clinical correlation is advised. Ordering Physician: Ida Valdivia Referring Physician: Miles Mercedes Performed By: Ila Maldonado RVT Physical Exam Const alert, oriented x3 and average body habitus Constitutional Narrative: Elderly female, moderately fatigued appearing, somewhat chronically ill- appearing, otherwise laying back comfortably in bed, answering questions appropriately, in no acute distress. Stable. General Appearance: cooperative and comfortable HEENT normocephalic, head/scalp atraumatic, hearing grossly normal bilaterally and nasal mucous membranes and turbinates normal Eyes PERRL, EOMs intact bilaterally and conjunctivae normal Neck full ROM Chest inspection of chest normal Resp normal respiratory effort and no use of accessory muscles Resp Narrative: Breathing comfortably on 4 L nasal cannula at rest. Moderately decreased breath sounds with crackles noted in bilateral lung bases, otherwise good air movement in upper lung zones with no wheezing noted. Stable. Cardio regular rate, regular rhythm, no murmurs and peripheral pulses 2+ throughout GI normal to inspection, nondistended, normoactive bowel sounds, soft to palpation, non-tender and non-distended Back/Spine normal ROM Extremity Extremity Narrative: +1 chronic lower extremity pitting edema noted. Skin no rashes or lesions noted Neuro moves all extremities and no focal motor deficits Speech: speech normal Psych mental status grossly normal Psych Narrative: Flat affect. Assessment & Plan Assessment/Plan (1) Acute hypoxemic respiratory failure: (2) Acute kidney injury: (3) Acute on chronic anemia: PLAN: Plan Patient is an 84-year-old female who presented [facility] ED on 04/28/2024 with worsening shortness of breath with exertion. 1. Acute hypoxic respiratory failure suspected secondary to PE with small bilateral pleural effusions ? [facility] following. Not on home oxygen. Presented with significant hypoxia requiring BiPAP on admit to maintain appropriate oxygen saturations. Chest x-ray showed bibasilar pulmonary infiltrates with trace bilateral pleural effusions. CT abdomen pelvis showed small bilateral pleural effusions at lung bases. D-dimer elevated. Initial ABG on BiPAP with pH 7.43, pO2 73, pCO2 24. Respiratory status improved with BiPAP, weaned to 4 L nasal cannula on 04/29. Echo on 04/29 showed EF 55 to 60%, mildly dilated RV, mild segmental dysfunction of RV. Lower extremity duplex ultrasound was negative for DVT. Respiratory failure could be secondary to volume overload from JUDD with atelectasis but cannot rule out PE. VQ scan ordered and will be done tomorrow. Discussed with cardiology and front end drupal developer and will empirically continue heparin drip for now. Treating with IV Lasix to aid with volume removal as noted below. Wean supplemental oxygen as able. 2. 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 Nephrology following. Creatinine 4.50 on admit, most recent baseline creatinine appears to be around 1.7-2.0. Initial potassium 5.3, bicarb 16, BUN 66. No overt obstructive pathology noted on CT abdomen pelvis. Renal/bladder ultrasound unremarkable. Received 2.5 L of IV fluids total through 04/29 without improvement in creatinine. Creatinine remaining fairly stable to slightly worsening in the 4.5-4.9 range. Suspect prerenal JUDD with likely progression to some degree of ATN at this time. Per nephrology, given high doses of IV Lasix and chlorthalidone on 04/30 and will closely follow urine output. If good urine output and some improvement in creatinine tomorrow may be able to continue with IV diuresis. If not, will need to discuss temporary dialysis. Patient currently okay for temporary dialysis but likely would not want long-term dialysis; discussions ongoing with patient and family. 3. Acute on chronic normocytic anemia ? Hemoglobin 7.8 on admit, dropped to 6.9 on hospital day 2 with IV fluid resuscitation. Given 1 unit of blood on 04/29 with repeat hemoglobin 8.0. Iron studies consistent with anemia of chronic disease. Suspect patient has some degree of anemia of renal disease as well. Hemoglobin very slowly downtrending, most recent hemoglobin 7.5 on 04/30 will continue heparin drip for now but if hemoglobin worsens significantly, will plan to hold and can transfuse for hemoglobin less than 7. 4. Significant bradycardia with junctional rhythm ? Cardiology following. Was noted on admission but per cardiology on 04/29, telemetry since arrival to the ICU shows normal sinus rhythm with no ectopy noted. Continue cardiac monitoring for now. 5. Hyperkalemia, improving ? Potassium peaked at 6.0 on 04/29. Presume secondary to UJDD. Improved with medical treatment, most recent potassium 4.8. Continue to monitor BMP daily. 6. Concern for acute pyelonephritis ? CT abdomen pelvis on admit showed lobulated contour of kidneys with nonspecific perinephric fat stranding right greater than left. UA showed 500 leukocyte esterase, negative nitrites, 0 bacteria. Treating empirically with IV Zosyn for now, follow-up urine culture. 7. Acute on chronic debility ? PT/OT/case management following. Patient hospitalized here in early March for weakness secondary to COVID infection. Has been following with home health care since then. Suspect patient will need either SNF or home with resumption of home health care on discharge. Appreciate therapy recommendations. 8. Hypertension ? Holding home losartan and amlodipine. 9. Depression ? Continue home fluoxetine. 10. Recent COVID infection ? Had COVID infection in early March with significant weakness secondary to that. 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 DVT prophylaxis: Not indicated, on heparin drip CODE STATUS: Full code, verified Expected disposition: TBD Total clinical time spent by myself addressing the patient's medical issues, reviewing all the data, and collaborating with patient's care team: 35 minutes. Charges/Coding Visit Charges Inpatient E&M: 54233 Subs Hosp L2
--- NOTE | 2024-04-30 12:54 | PCM.PN.TICU ---
Objective Data Objective Data Vital Signs: Vital Signs Last response Temperature 36.8 C 04/30/24 12:00 Temperature Source Core 04/30/24 12:00 Pulse Rate 73 04/30/24 12:00 Pulse Strength Weak (1+) 04/29/24 22:00 Respiratory Rate 22 H 04/30/24 12:00 Respiratory Effort Normal 04/30/24 12:00 Respiratory Depth Normal 04/30/24 12:00 Respiratory Pattern Tachypnea 04/30/24 12:00 Blood Pressure 135/47 H 04/30/24 12:00 Blood Pressure Mean 76 04/30/24 12:00 Blood Pressure Source Monitor 04/30/24 12:00 Blood Pressure Position Sitting 04/30/24 12:00 Blood Pressure Location Right Arm 04/30/24 12:00 Pulse Ox 98 04/30/24 12:00 Oxygen Delivery Method Nasal Cannula 04/30/24 12:00 Oxygen Flow Rate (L/min) 4 04/30/24 12:00 Fraction of Inspired Oxygen (FIO2) 30 04/30/24 04:00 I&O: I&O Last 24 Hours 04/29/24 04/30/24 04/30/24 23:59 11:59 23:59 Intake Total 1096.50 / 2747.08 590.40 / 590.40 Output Total 710 / 710 675 / 675 Balance 386.50 / 2037.08 -84.60 / -84.60 I&O: Total Stay 04/28/24 22:34 thru 04/30/24 11:40 Intake Total 3287.48 Output Total 1385 Balance 1902.48 Current Meds Ordered / Administered: Current meds ordered / Administered Generic Name Dose Route Start Last Admin Trade Name Freq PRN Reason Stop Dose Admin Acetaminophen 650 mg 04/29/24 02:11 04/29/24 18:28 Acetaminophen 325 Mg Tablet PO 650 mg Q4H PRN PRN Administration Fever, pain 1-10/10 Al Hydroxide/Mg Hydroxide 30 ml 04/29/24 02:11 Mag Hydrox/Al Hydrox/Simeth 30 Ml Udc PO Q6H PRN PRN Gastric Burning Albuterol Sulfate 2.5 mg 04/29/24 02:11 Albuterol 2.5 Mg/3 Ml Vial.Neb. INHALATION Q2H PRN PRN Dyspnea, wheezing Albuterol/Ipratropium 3 ml 04/29/24 02:11 04/30/24 10:43 Ipratropium/Albuterol Sulfate 3 Ml Ampul.Neb INHALATION 3 ml Q4HWA.RT MEGHAN Administration Calamine/Phenol 1 applic 04/29/24 10:00 04/30/24 08:14 Menthol/Lanolin/Calamine/Znox 113 Gm Tube TOPICAL Not Given 4X/DAY MEGHAN Protocol Fluoxetine HCl 20 mg 04/29/24 10:00 04/30/24 08:13 Fluoxetine 20 Mg Capsule PO 20 mg DAILY MEGHAN Administration Guaifenesin 10 ml 04/29/24 02:11 04/30/24 06:06 Guaifenesin 10 Ml Udc (200mg/10ml) PO 10 ml Q4H PRN PRN Administration COUGH Heparin Sodium (Porcine) 0 unit 04/29/24 11:25 Heparin Injection (Vial) 5,000 Unit/Ml Vial IV UD PRN dose adjustment Protocol Hydralazine HCl 10 mg 04/29/24 02:11 Hydralazine 20 Mg/Ml Vial IV Q4H PRN PRN SBP > 160 Protocol Piperacillin Sod/Tazobactam 50 mls @ 12.5 mls/hr 04/29/24 10:00 04/30/24 09:40 Sod 3.375 gm/ Sodium Chloride IV 12.5 mls/hr Q12 MEGHAN Administration Vancomycin IV-PHARMACY TO DOSE 500 mls @ 250 mls/hr 04/29/24 02:11 1 each/ Sodium Chloride IV X1 PRN Rx to Dose Protocol Heparin Sodium/Dextrose 25,000 units in 250 mls @ 10 mls/hr 04/29/24 11:35 04/30/24 09:02 CONT INF 800 units/hr .Q25H MEGHAN 8 mls/hr Titration Protocol As Directed Pantoprazole Sodium 40 mg/ 110 mls @ 330 mls/hr 04/30/24 10:00 04/30/24 08:14 Sodium Chloride IV 330 mls/hr Q24 MEGHAN Administration Melatonin 3 mg 04/29/24 02:11 Melatonin 3 Mg Tablet PO QHS PRN PRN INSOMNIA Ondansetron HCl 4 mg 04/29/24 02:11 Ondansetron 4 Mg/2 Ml Vial IV Q8H PRN PRN NAUSEA/VOMITING Oxycodone HCl 5 mg 04/29/24 18:10 Oxycodone 5 Mg Tablet PO Q4H PRN PRN Pain Score 6-10 or Pre PT/OT Prochlorperazine Edisylate 5 mg 04/29/24 02:11 Prochlorperazine 10 Mg/2 Ml Vial IV Q4H PRN PRN Breakthrough Nausea/Vomiting Senna/Docusate Sodium 2 tablet 04/29/24 02:11 Senna/Docusate Sodium 1 Tablet PO BID PRN PRN Constipation Sodium Chloride 10 - 40 ml 04/29/24 02:54 04/30/24 09:45 0.9% Saline Lock 10 Ml Syringe IV 10 ml UD PRN Administration SALINE FLUSH Vancomycin Protocol 1 lab 05/01/24 04:00 Vancomycin Trough/Random Due [facility] 05/01/24 08:00 DAILY [facility] Lab / Micro Data 04/30/24 05:20 04/30/24 05:20 Labs: Laboratory Results - last 24 hr 04/29/24 12:45: PT 15.2 H, INR 1.2, APTT 21.2 L 04/29/24 17:45: WBC 6.0, RBC 2.84 L, Hgb 7.7 L, Hct 23.8 L, MCV 83.8, MCH 27.1, MCHC 32.4, RDW Std Deviation 44.4 H, RDW Coeff of Pedro 14.6, Plt Count 228, MPV 9.1, Sodium 136, Potassium 4.4, Chloride 105, Carbon Dioxide 21.0, Anion Gap 10, BUN 68 H, Creatinine 4.81 H, Estim Creat Clear Calc 7.96, Est GFR (MDRD) Af Amer 11 L, Est GFR (MDRD) Non-Af 9 L, BUN/Creatinine Ratio 14.1, Glucose 111 H, Calcium 8.8 04/29/24 22:10: APTT 181.5 H* 04/30/24 05:20: WBC 5.6, RBC 2.76 L, Hgb 7.5 L, Hct 23.3 L, MCV 84.4, MCH 27.2, MCHC 32.2, RDW Std Deviation 45.5 H, RDW Coeff of Pedro 14.8 H, Plt Count 232, MPV 9.0, Sodium 136, Potassium 4.8, Chloride 105, Carbon Dioxide 19.0 L, BUN 66 H, Creatinine 4.96 H, Estim Creat Clear Calc 7.91, Est GFR (MDRD) Af Amer 11 L, Est GFR (MDRD) Non-Af 9 L, BUN/Creatinine Ratio 13.3, Glucose 83, Calcium 8.8, Phosphorus 7.5 H, Albumin 2.2 L 04/30/24 08:00: PT 15.8 H, INR 1.2, APTT 54.3 H Micro: Microbiology 04/29/24 11:40 Urine, Clean Catch Urine Culture - Preliminary Presumptive E. coli 04/29/24 11:40 Urine, Clean Catch Legionella Antigen - Final 04/29/24 11:40 Urine, Clean Catch Streptococcus pneumoniae Antigen (M - Final 04/29/24 04:20 Mucosa - Nasopharyngeal Respiratory Panel (PCR) - Final Imaging Radiology Impression Echocardiogram 04/29/24 02:11 Interpretation Summary The estimated ejection fraction is 55-60 %. Normal LV systolic function Mild RV dilatation No previous study to compare Ordering Physician: Radha Elkins Performed By: Homre Sarmiento RCS Renal Ultrasound 04/29/24 05:55 IMPRESSION: Unremarkable renal ultrasound of the kidneys. Bladder was not distended therefore limited evaluation. Reading Location: [facility] Venous Doppler Study 04/29/24 09:35 Interpretation Summary Deep veins of the lower extremities are bilaterally patent and compressible segmentally. There is no evidence of deep vein thrombosis on either side. Valvular competence appears intact within the proximal deep venous systems bilaterally. The great saphenous veins appear bilaterally patent and compressible segmentally. Pulsatile flow is noted in the deep venous system bilaterally, which may be indicative of elevated central venous pressure (i.e. congestive heart failure, pulmonary hypertension, etc.). Clinical correlation is advised. Ordering Physician: Ida Valdivia Referring Physician: Miles Mercedes Performed By: Ila Maldonado RVT Assessment and Plan . Assessment and plan: ICU Problem List: acute hypoxemic respiratory failure atelectasis bilateral pleural effusion sepsis without organ failure JUDD and oliguria, pseudoobstructive hypovolemia Dimer elevation (possible false positive) Plan: defer to Nephrology regarding elytes, fluid I/O and HD decision zosyn coverage of E Coli can downgrade from ICU with good chest PT and incentive spirometry Elective thoracentesis by IR may help libterate from O2 Signing off Jaydon Wakefield MD [facility] Access TeleCare Critical Care Time: 55 minutes The entirety of this encounter was done via Telemedicine Physical Exam Const alert, oriented x3 and average body habitus Constitutional Narrative: Elderly female, moderately fatigued appearing, somewhat chronically ill-appearing, otherwise laying back comfortably in bed, answering questions appropriately, in no acute distress. Stable. General Appearance: cooperative and comfortable HEENT normocephalic, head/scalp atraumatic, hearing grossly normal bilaterally and nasal mucous membranes and turbinates normal Eyes PERRL, EOMs intact bilaterally and conjunctivae normal Neck full ROM Chest inspection of chest normal Resp normal respiratory effort and no use of accessory muscles Resp Narrative: Breathing comfortably on 4 L nasal cannula at rest. Moderately decreased breath sounds with crackles noted in bilateral lung bases, otherwise good air movement in upper lung zones with no wheezing noted. Stable. Cardio regular rate, regular rhythm, no murmurs and peripheral pulses 2+ throughout GI normal to inspection, nondistended, normoactive bowel sounds, soft to palpation, non-tender and non-distended Back/Spine normal ROM Extremity Extremity Narrative: +1 chronic lower extremity pitting edema noted. Skin no rashes or lesions noted Neuro moves all extremities and no focal motor deficits Speech: speech normal Psych mental status grossly normal Psych Narrative: Flat affect. Subjective Subjective CC: renal failure HPI: Renal agenesis with CKD 3, p/w SIRS and sepsis and JUDD with anuria 04/30 - anuric still, E Coli (+) culture; 4LNC; Renal indices static
[2024-04-30] MEDS: Acetaminophen 325 MG Tablet 650 MG PO (13:54)
[2024-04-30 14:12] LABS: Albumin, Serum 2.4 g/dL (3.2-5.0); BUN 73 mg/dL (7-18); BUN/Creat Ratio 13.9 RATIO (10-20); Calcium,Total 8.7 mg/dL (8.5-10.1); Chloride 103 mmol/L (98-107); Creatinine, Serum 5.27 mg/dL (0.55-1.02); EST Glomerular Filtration Rate 8 mL/min (>60); Est Glom Filt Rate - Afr Amer 10 mL/min (>60); Estimated Creatinine Clearance 7.44 ml/min; Glucose 194 mg/dL (74-106); Phosphorus 6.6 mg/dL (2.5-4.9); Potassium 4.5 mmol/L (3.5-5.1); Sodium Level 134 mmol/L (136-145)
[2024-04-30 14:37] LABS: Partial Thromboplast Time 65.2 Seconds (24.1-36.2)
[2024-04-30 21:43] LABS: Partial Thromboplast Time 65.6 Seconds (24.1-36.2)
[2024-04-30] MEDS: HEPARIN/D5w 25,000 UNITS 25,000 UNITS/250 ML IV.SOLN. 8 UNITS CONT INF (22:52)
[2024-05-01] VITALS (20 sets, daily range): BP systolic 121–216; BP diastolic 47–73; PULSE 67–87; RESP 15–26; TEMP 36.5–36.8; O2SAT 93–98; BMI 30.7; BMI 29.6
[2024-05-01 06:00] LABS: Mean Corpuscular Hgb 27.1 pg (27.0-32.0); Mean Corpuscular Volume 84.7 fL (81-99); Mean Platelet Vol. 9.2 fl (6.2-12.0); Platelet Count 265 K/mm3 (150-450); RBC Distribution Width CV 14.6 % (11.6-14.6); Red Blood Count 2.95 M/mm3 (4.2-5.4); White Blood Count 7.8 K/mm3 (4.4-11.0)
[2024-05-01 06:10] LABS: Albumin, Serum 2.3 g/dL (3.2-5.0); BUN 72 mg/dL (7-18); BUN/Creat Ratio 13.3 RATIO (10-20); Chloride 101 mmol/L (98-107); Creatinine, Serum 5.43 mg/dL (0.55-1.02); EST Glomerular Filtration Rate 8 mL/min (>60); Est Glom Filt Rate - Afr Amer 10 mL/min (>60); Estimated Creatinine Clearance 7.22 ml/min; Glucose 95 mg/dL (74-106); Phosphorus 7.9 mg/dL (2.5-4.9); Potassium 4.9 mmol/L (3.5-5.1); Sodium Level 132 mmol/L (136-145)
[2024-05-01 06:19] LABS: Partial Thromboplast Time 132.7 Seconds (24.1-36.2)
[2024-05-01 06:38] LABS: Vancomycin, Random Level 17.8 ug/mL (0.0-15.0)
--- NOTE | 2024-05-01 06:50 | PCM.RX.CS ---
Consult Antibiotic Management Pharmacy has been consulted to manage selected antibiotic: Vancomycin Type of Intervention Type of Consult: Follow-up Suspected Infection Suspected Infection: Pneumonia and Other (PYELO) Prior Doses of Antibiotics Prior Doses of Antibiotics Received/Current Regimen: Vancomycin 1750 mg IV x 1 given 04/29/24 @ 0228 Labs Labs: Sodium 132 mmol/L (136-145) L 05/01/24 05:40 Potassium 4.9 mmol/L (3.5-5.1) 05/01/24 05:40 Chloride 101 mmol/L (98-107) 05/01/24 05:40 Carbon Dioxide 18.0 mmol/L (21.0-32.0) L 05/01/24 05:40 Anion Gap 10 (5-15) 04/29/24 17:45 BUN 72 mg/dL (7-18) H 05/01/24 05:40 Creatinine 5.43 mg/dL (0.55-1.02) H 05/01/24 05:40 Est GFR (MDRD) Af Amer 10 mL/min (>60) L 05/01/24 05:40 Est GFR (MDRD) Non-Af 8 mL/min (>60) L 05/01/24 05:40 BUN/Creatinine Ratio 13.3 RATIO (10-20) 05/01/24 05:40 Glucose 95 mg/dL (74-106) 05/01/24 05:40 Random Vancomycin 17.8 ug/mL (0.0-15.0) H 05/01/24 05:40 Microbiology Microbiology: Microbiology 04/29/24 11:40 Urine, Clean Catch Urine Culture - Preliminary Presumptive E. coli 04/29/24 11:40 Urine, Clean Catch Legionella Antigen - Final 04/29/24 11:40 Urine, Clean Catch Streptococcus pneumoniae Antigen (M - Final 04/29/24 04:20 Mucosa - Nasopharyngeal Respiratory Panel (PCR) - Final 04/29/24 04:20 Nasal Secretion MRSA (PCR) - Final 04/28/24 23:50 Mucosa - Nose SARS-CoV-2, Influenza & RSV (PCR) - Final Dosing Weight Weight used for dosin.9 kg Estimated Creatinine Clearance Estimated Creatinine Clearance: ~ 7 Goal Trough Goal Trough: 15-20 mcg/mL Pharmacy Plan for Drug Dosing Pharmacy Plan for Drug Dosing: Vancomycin random this AM = 0540, give 500 mg IV x 1, random in 2 days. Pharmacy Service will continue to monitor and adjust dosing as required. Follow-Up Labs Follow-Up Labs: Trough: Vancomycin Date/Time Labs Ordered Labs to be done on [date and time ordered]: 05/03/24 @ 0600
[2024-05-01] MEDS: Ipratropium/Albuterol Sulfate 3 ML AMPUL.NEB INHALATION ×4 (06:59→23:17)
[2024-05-01] MEDS: Vancomycin IV 500 MG/100 ML BAG 100 MG IV (08:07)
--- NOTE | 2024-05-01 09:53 | PCM.PN.HOSP ---
Subjective Subjective Doing well, no issues overnight Objective Data Objective Data Vital Signs: Vital Signs Temp Pulse Resp BP Pulse Ox O2 Del Method O2 Flow Rate 98.2 F 74 19 H 143/48 H 93 Nasal Cannula 3 05/01/24 08:00 05/01/24 08:00 05/01/24 08:00 05/01/24 08:00 05/01/24 08:00 05/01/24 08:00 05/01/24 08:00 FiO2 30 04/30/24 22:37 Oxygen Flow Rate (L/min) 3 Oxygen Delivery Method Nasal Cannula Weight: 162 lb 14.746 oz Body Mass Index (BMI) 30.7 Intake & Output: Intake and Output for Last 24 Hours 04/30/24 05/01/24 05/02/24 03:59 03:59 03:59 Intake Total 2716.10 / 2716.10 961.00 / 961.00 161.07 / 161.07 Output Total 710 / 760 1525 / 1525 300 / 300 Balance 2005. / 195.10 -564.00 / -564.00 -138.93 / -138.93 Lab / Micro Data 05/01/24 05:40 05/01/24 05:40 Labs: Laboratory Results - last 24 hr 04/30/24 13:50: Sodium 134 L, Potassium 4.5, Chloride 103, Carbon Dioxide 19.0 L, BUN 73 H, Creatinine 5.27 H, Estim Creat Clear Calc 7.44, Est GFR (MDRD) Af Amer 10 L, Est GFR (MDRD) Non-Af 8 L, BUN/Creatinine Ratio 13.9, Glucose 194 H, Calcium 8.7, Phosphorus 6.6 H, Albumin 2.4 L 04/30/24 14:00: APTT 65.2 H 04/30/24 21:15: APTT 65.6 H 05/01/24 05:40: WBC 7.8, RBC 2.95 L, Hgb 8.0 L, Hct 25.0 L, MCV 84.7, MCH 27.1, MCHC 32.0, RDW Std Deviation 45.0 H, RDW Coeff of Pedro 14.6, Plt Count 265, MPV 9.2, APTT 132.7 H*, Sodium 132 L, Potassium 4.9, Chloride 101, Carbon Dioxide 18.0 L, BUN 72 H, Creatinine 5.43 H, Estim Creat Clear Calc 7.22, Est GFR (MDRD) Af Amer 10 L, Est GFR (MDRD) Non-Af 8 L, BUN/Creatinine Ratio 13.3, Glucose 95, Calcium 9.0, Phosphorus 7.9 H, Albumin 2.3 L, Random Vancomycin 17.8 H Micro: Microbiology 04/29/24 11:40 Urine, Clean Catch Urine Culture - Preliminary ESBL Escherichia coli 04/29/24 01:04 Blood Culture (Wb) - Line Draw Blood Culture - Preliminary No growth in 48 hours. 04/29/24 01:00 Blood Culture (Wb) - Line Draw Blood Culture - Preliminary No growth in 48 hours. 04/29/24 11:40 Urine, Clean Catch Legionella Antigen - Final 04/29/24 11:40 Urine, Clean Catch Streptococcus pneumoniae Antigen (M - Final 04/29/24 04:20 Mucosa - Nasopharyngeal Respiratory Panel (PCR) - Final 04/29/24 04:20 Nasal Secretion MRSA (PCR) - Final 04/28/24 23:50 Mucosa - Nose SARS-CoV-2, Influenza & RSV (PCR) - Final Physical Exam Narrative General: Alert, Oriented x3, Cooperative, No apparent distress HEENT: Atraumatic, PERRLA, EOMI, Normocephalic Oral: Moist Mucosa Neck: Supple, No JVD Lungs: Diminished, Normal air movement, No rhonchi, No wheeze, No rales Cardiovascular: Regular rate, Regular Rhythm, Normal S1, Normal S2, No murmurs Abdomen: Soft, Non Tender, Non-Distended, No Hepato-splenomegaly Extremities: Edema, Capillary Refill Less than 3 Seconds Skin: No rashes, No breakdown Musculoskeletal: No Tenderness to Palpation of Joints or Extremities Neurological: No focal neurological deficits, moves all extremities Psych/Mental Status: Normal Affect, Appropriate Assessment & Plan Assessment/Plan (1) Acute hypoxemic respiratory failure: (2) Acute kidney injury: (3) Acute on chronic anemia: PLAN: Plan 1. Acute hypoxic respiratory failure suspected secondary to PE with small bilateral pleural effusions ? Early Intervention School Psychologist following. Not on home oxygen. Presented with significant hypoxia requiring BiPAP on admit to maintain appropriate oxygen saturations. Chest x-ray showed bibasilar pulmonary infiltrates with trace bilateral pleural effusions. CT abdomen pelvis showed small bilateral pleural effusions at lung bases. D-dimer elevated. Initial ABG on BiPAP with pH 7.43, pO2 73, pCO2 24. Respiratory status improved with BiPAP, weaned to 4 L nasal cannula on 04/29. Echo on 04/29 showed EF 55 to 60%, mildly dilated RV, mild segmental dysfunction of RV. Lower extremity duplex ultrasound was negative for DVT. Respiratory failure could be secondary to volume overload from JUDD with atelectasis but cannot rule out PE. VQ scan ordered and will be done tomorrow. Discussed with cardiology and health editor and will empirically continue heparin drip for now. Treating with IV Lasix to aid with volume removal as noted below. Wean supplemental oxygen as able. 05/01/2024: Canceled VQ scan as her chest x-ray was abnormal therefore you could not trust the VQ scan. Continue with the heparin drip 2. 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 Nephrology following. Creatinine 4.50 on admit, most recent baseline creatinine appears to be around 1.7-2.0. Initial potassium 5.3, bicarb 16, BUN 66. No overt obstructive pathology noted on CT abdomen pelvis. Renal/bladder ultrasound unremarkable. Received 2.5 L of IV fluids total through 04/29 without improvement in creatinine. Creatinine remaining fairly stable to slightly worsening in the 4.5-4.9 range. Suspect prerenal JUDD with likely progression to some degree of ATN at this time. Per nephrology, given high doses of IV Lasix and chlorthalidone on 04/30 and will closely follow urine output. If good urine output and some improvement in creatinine tomorrow may be able to continue with IV diuresis. If not, will need to discuss temporary dialysis. Patient currently okay for temporary dialysis but likely would not want long-term dialysis; discussions ongoing with patient and family. 05/01/2024: Creatinine continues to rise, may need temporary dialysis if that is the case and can also pursue a CTA of the chest to definitively determine PE status 3. Acute on chronic normocytic anemia ? Hemoglobin 7.8 on admit, dropped to 6.9 on hospital day 2 with IV fluid resuscitation. Given 1 unit of blood on 04/29 with repeat hemoglobin 8.0. Iron studies consistent with anemia of chronic disease. Suspect patient has some degree of anemia of renal disease as well. Hemoglobin very slowly downtrending, most recent hemoglobin 7.5 on 04/30 will continue heparin drip for now but if hemoglobin worsens significantly, will plan to hold and can transfuse for hemoglobin less than 7. 4. Significant bradycardia with junctional rhythm ? Cardiology following. Was noted on admission but per cardiology on 04/29, telemetry since arrival to the ICU shows normal sinus rhythm with no ectopy noted. Continue cardiac monitoring for now. 5. Hyperkalemia, improving ? Potassium peaked at 6.0 on 04/29. Presume secondary to JUDD. Improved with medical treatment, most recent potassium 4.8. Continue to monitor BMP daily. 6. Concern for acute pyelonephritis ? CT abdomen pelvis on admit showed lobulated contour of kidneys with nonspecific perinephric fat stranding right greater than left. UA showed 500 leukocyte esterase, negative nitrites, 0 bacteria. Treating empirically with IV Zosyn for now, follow-up urine culture. 7. Acute on chronic debility ? PT/OT/case management following. Patient hospitalized here in early March for weakness secondary to COVID infection. Has been following with home health care since then. Suspect patient will need either SNF or home with resumption of home health care on discharge. Appreciate therapy recommendations. 8. Hypertension ? Holding home losartan and amlodipine. 9. Depression ? Continue home fluoxetine. 10. Recent COVID infection ? Had COVID infection in early March with significant weakness secondary to that. 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 DVT: Heparin drip Charges/Coding Visit Charges Inpatient E&M: 68785 Subs Hosp L2
[2024-05-01] MEDS: Piperacil/Tazobactam 3.375 GM in 0.9% Normal Saline (50mL MB+) 50 ML IV (10:07)
[2024-05-01] MEDS: FLUoxetine 20 MG Capsule PO (10:20)
[2024-05-01] MEDS: Pantoprazole Sodium 40 MG Tablet PO (10:20)
--- NOTE | 2024-05-01 11:22 | RAD_ITS ---
EXAM: XR Chest, 1 View CLINICAL INDICATION: TECHNIQUE: Frontal view of the chest. COMPARISON: No relevant prior studies available. FINDINGS: LUNGS AND PLEURAL SPACES: See below. HEART: Cardiomegaly with pulmonary congestion and edema. Superimposed pneumonia cannot be excluded. MEDIASTINUM: Unremarkable. Normal mediastinal contour. BONES/JOINTS: Unremarkable. No acute fracture. TUBES, LINES AND DEVICES: Right internal jugular central venous catheter tip in the superior vena cava. RAD/Chest 1 View (Portable) IMPRESSION: Cardiomegaly with pulmonary congestion and edema. Superimposed pneumonia cannot be excluded. Reading Location: [facility]
[2024-05-01] MEDS: fentaNYL 100 MCG/2 ML Ampul 50 MCG IV (11:25)
--- NOTE | 2024-05-01 12:03 | CT_ITS ---
EXAM: CT Angiography Chest Without and With Intravenous Contrast CLINICAL INDICATION: TECHNIQUE: Axial computed tomographic angiography images of the chest without and with intravenous contrast. This CT exam was performed using one or more of the following dose reduction techniques: automated exposure control, adjustment of the mA and/or kV according to patient size, and/or use of iterative reconstruction technique. MIP reconstructed images were created and reviewed. COMPARISON: No relevant prior studies available. FINDINGS: LIMITATIONS: Suboptimal opacification of the pulmonary arteries. PULMONARY ARTERIES: No pulmonary embolism is identified. Some of the distal pulmonary arteries cannot be evaluated due to suboptimal opacification. AORTA: No acute findings. No thoracic aortic aneurysm. LUNGS AND PLEURAL SPACES: Bilateral pleural effusions with compressive atelectasis and scattered ground-glass attenuation of both lungs, likely multifocal pneumonia. No mass. HEART: Unremarkable. No cardiomegaly. No significant pericardial effusion. No evidence of RV dysfunction. BONES/JOINTS: No acute fracture. No dislocation. SOFT TISSUES: Unremarkable. LYMPH NODES: Unremarkable. No enlarged lymph nodes. CT/CTA Chest W/WO Contrast IMPRESSION: 1. No pulmonary embolism is identified. Some of the distal pulmonary arteries cannot be evaluated due to suboptimal opacification. 2. Bilateral pleural effusions with compressive atelectasis and scattered grou nd-glass attenuation of both lungs, likely multifocal pneumonia. Reading Location: [facility]
--- NOTE | 2024-05-01 12:48 | CHAPLAIN ---
Type of Pastoral Visit _x__ Initial Visit ___ Follow-up Visit ___ On-call Visit ___ General Patient Visit ___ Spiritual Assessment ___ Family Conference ___ Bereavement ___ Rapid Response ___ Code Blue ___ Other (describe below) Pastoral Care Referral From ___ Patient ___ Family _x__ Nurse ___ Physician ___ Material Handler 1St Shift ___ Pipeliner ___ Other (describe below) Sacrament/Intervention _x__ Active listening ___ Anointing ___ Gnosticism ___ Bereavement ___ Communion ___ Zandra exploration ___ ___ Life review _x__ Prayer ___ Reconciliation ___ Sacrament of Sick _x__ Supportive presence ___ Wedding ___ Other (describe below) Pastoral Comments RN recommended a visit from this flyer repairer to this patient; pt welcomes the visit and states that this flyer repairer had seen her in his previous admissions; pt acknowledges that her health has declined since she had been caring for her but that now he is in ECF; pt can now focus more on herself; daughter from out of state is coming for a brief stay to help; pt had procedure done this morning and has some discouragement over how her health status is but is grateful for great care at this hospital and that her zandra gives her good resource for coping; pt welcomes prayer and presence
--- NOTE | 2024-05-01 12:55 | PCM.CONS.R ---
Assessment & Plan Assessment/Plan (1) Acute kidney injury: PLAN: Prior to last admission in March, baseline creatinine seems to be around 1.2. Sustained acute renal failure, recovered renal function with a discharge creatinine of 1.7 in March. This admission she came with a creatinine of 3.8, worsening since admission. CT abdomen with bilateral perinephric stranding. Urine analysis with leukocytes. Urine culture showing ESBL. Discussed with primary. She will be started on meropenem. Chest x-ray bilateral edema, effusions. Not much response to diuretics. Of note, BNP is about 400/700. Echocardiogram with good ejection fraction. Will need dialysis in view of acute renal failure, volume overload, oliguria. She is agreeable for temporary dialysis. dw primary and ICU HPI Consult Data Date of Consult: 05/01/24 HPI Narrative Reason for Consultation: JUDD HPI Narrative: RYAN FLEMING, is a 84 F who presents To the hospital with shortness of breath. Nephrology on consultation in view of acute renal failure. She was admitted here in March with shortness of breath, was diagnosed with COVID-pneumonia. Sustained acute renal failure during that admission with a peak creatinine of 2.6 or so. Discharge creatinine was around 1.7. Baseline creatinine seems to be around 1.2. Presented with worsening shortness of breath for the last several days. Was on BiPAP initially, currently weaned down to nasal cannula. Diagnosed with worsening renal failure with no response to diuretics since yesterday. Currently she is alert, awake. Denies any hemoptysis, hematuria. Denies any urinary complaints prior to coming in. She has been oliguric despite receiving Lasix. [facility] Medical History Cataract (lens) fragments in eye following cataract surgery, bilateral Macular degeneration Glaucoma Wears glasses Gout Arthritis Renal agenesis Pulmonary embolism High cholesterol CPAP (continuous positive airway pressure) dependence Former smoker Sleep apnea Hypertension History of pulmonary embolism Home Medications ?Medication ?Instructions ?Recorded ?Last Taken ?Type vitamin E 268 mg (400 unit) capsule 268 mg PO DAILY Supplement 07/02/22 03/14/24 History vitamins A,C,H-qorp-dnegqo 4,296 1 cap PO BID Healthy eyes 03/14/24 03/14/24 History mcg-226 mg-90 mg capsule (Healthy Eyes SuperVision) acetaminophen 325 mg tablet 650 mg (2 x 325 mg) PO Q6H PRN PRN 03/19/24 Unknown Rx Pain 1-10 Or Fever>100.7 #0 tabs amlodipine 10 mg tablet 10 mg PO DAILY HEART #60 tabs 03/19/24 Unknown Rx fluoxetine 20 mg tablet 20 mg PO DAILY DEPRESSION 04/28/24 Unknown History losartan 100 mg tablet 100 mg PO DAILY CHOLESTEROL 04/28/24 Unknown History Allergy/AdvReac Type Severity Reaction Status Date / Time Sulfa (Sulfonamide Allergy Intermediate Itching Verified 03/15/24 00:11 Antibiotics) Family History Mother Diabetes Kidney disease Father Heart disease Surgical History History of carpal tunnel release History of lumpectomy of right breast Social History household members: spouse Smoking Status: Former smoker alcohol intake: never substance use type: does not use ROS ROS Narrative Negative except above Physical Exam Narrative Alert awake oriented x 3 no obvious distress no pallor no icterus no JVD s1s2 no murmurs lungs rales abdomen soft no organomegaly no edema no cyanosis daly + Lab / Micro Data 05/01/24 05:40 05/01/24 05:40 Labs: Laboratory Results - last 24 hr 04/30/24 13:50: Sodium 134 L, Potassium 4.5, Chloride 103, Carbon Dioxide 19.0 L, BUN 73 H, Creatinine 5.27 H, Estim Creat Clear Calc 7.44, Est GFR (MDRD) Af Amer 10 L, Est GFR (MDRD) Non-Af 8 L, BUN/Creatinine Ratio 13.9, Glucose 194 H, Calcium 8.7, Phosphorus 6.6 H, Albumin 2.4 L 04/30/24 14:00: APTT 65.2 H 04/30/24 21:15: APTT 65.6 H 05/01/24 05:40: WBC 7.8, RBC 2.95 L, Hgb 8.0 L, Hct 25.0 L, MCV 84.7, MCH 27.1, MCHC 32.0, RDW Std Deviation 45.0 H, RDW Coeff of Pedro 14.6, Plt Count 265, MPV 9.2, APTT 132.7 H*, Sodium 132 L, Potassium 4.9, Chloride 101, Carbon Dioxide 18.0 L, BUN 72 H, Creatinine 5.43 H, Estim Creat Clear Calc 7.22, Est GFR (MDRD) Af Amer 10 L, Est GFR (MDRD) Non-Af 8 L, BUN/Creatinine Ratio 13.3, Glucose 95, Calcium 9.0, Phosphorus 7.9 H, Albumin 2.3 L, Random Vancomycin 17.8 H Micro: Microbiology 04/29/24 11:40 Urine, Clean Catch Urine Culture - Preliminary ESBL Escherichia coli 04/29/24 01:04 Blood Culture (Wb) - Line Draw Blood Culture - Preliminary No growth in 48 hours. 04/29/24 01:00 Blood Culture (Wb) - Line Draw Blood Culture - Preliminary No growth in 48 hours. Imaging Radiology Impression Chest X-Ray 05/01/24 11:22 IMPRESSION: Cardiomegaly with pulmonary congestion and edema. Superimposed pneumonia cannot be excluded. Reading Location: [facility] Chest CTA 05/01/24 12:03 IMPRESSION: 1. No pulmonary embolism is identified. Some of the distal pulmonary arteries cannot be evaluated due to suboptimal opacification. 2. Bilateral pleural effusions with compressive atelectasis and scattered ground-glass attenuation of both lungs, likely multifocal pneumonia. Reading Location: [facility]
--- NOTE | 2024-05-01 13:02 | PCM.PN.BLA ---
Progress Note This is a procedure note for right IJ dialysis catheter. Patient has consented after risks and benefits were explained. Preprocedure, right IJ visualized under ultrasound guidance. It was somewhat dilated despite being up by 45 degrees. Procedure field prepared with chlorhexidine. Sterile drapes applied. Local anesthesia was obtained with 1% lidocaine. Under ultrasound guidance, right IJ cannulated. Wire threaded over, wire position inside right IJ confirmed by ultrasound. Tract was dilated with serial dilators, hemostasis obtained. It 16 cm, 12 [place] dual-lumen dialysis catheter placed without any resistance. Wire was withdrawn intact. Sutures applied. No immediate postprocedure complications. Postprocedure x-ray with catheter in appropriate position. Will plan for dialysis today.
[2024-05-01] MEDS: oxyCODONE 5 MG Tablet PO (13:25)
[2024-05-01] MEDS: PureFlow B 2K Dialysis Soln 1 BAG 6 BAG PF (14:12)
[2024-05-01] MEDS: 0.9% Normal Saline 1,000 ML IV.SOLN. 1000 ML OPERA.SITE (14:12)
[2024-05-01] MEDS: 0.9% Saline Lock 10 ML Syringe IV ×2 (14:13→16:14)
--- NOTE | 2024-05-01 14:57 | CASEMGMT ---
Social Work- SW notified pt would like TCU referral; SW completed referral to TCU admissions. JOCELYN remains available to follow. KRISTI Sutton
[2024-05-01] MEDS: Heparin 10,000 UNITS/10 ML Vial IV (16:14)
--- NOTE | 2024-05-01 21:32 | CPS ---
PATIENT REFUSED PAP THERAPY FOR NIGHT TIME USE.
[2024-05-02] VITALS (25 sets, daily range): BP systolic 110–203; BP diastolic 44–81; PULSE 76–95; RESP 16–32; TEMP 36.4–37.5; O2SAT 94–98; BMI 25.8; BMI 25.0
[2024-05-02] MEDS: Ipratropium/Albuterol Sulfate 3 ML AMPUL.NEB INHALATION ×5 (02:40→19:50)
[2024-05-02 03:13] LABS: Absolute Neutrophil Count 5.1 X10^3/uL (2.0-7.7); Basophil# 0.05 X10^3/uL; Basophil% 0.6 % (0-1); Eosinophil# 0.49 X10^3/uL; Eosinophils% 6.2 % (0-5); Hematocrit 25.8 % (37-47); Hemoglobin 8.3 g/dL (12.0-15.0); Lymphocyte % 16.6 % (19-41); Mean Corp Hgb Conc 32.2 g/dL (32-36); Mean Platelet Vol. 9.3 fl (6.2-12.0); Monocyte# 0.89 X10^3/uL; Monocyte% 11.3 % (0-10); NRBC Flagged by Analyzer 0 % (0-5); Neutrophil # 5.09 X10^3/uL (2.7-7.7); Neutrophil % 64.9 % (47-70); Platelet Count 275 K/mm3 (150-450); RBC Distribution Width CV 14.6 % (11.6-14.6); RBC Distribution Width SD 44.5 fl (35.1-43.9); Red Blood Count 3.07 M/mm3 (4.2-5.4); White Blood Count 7.9 K/mm3 (4.4-11.0)
[2024-05-02 03:26] LABS: Anion Gap 11 (5-15); BUN 41 mg/dL (7-18); BUN/Creat Ratio 11.3 RATIO (10-20); Calcium,Total 9.1 mg/dL (8.5-10.1); Chloride 100 mmol/L (98-107); Creatinine, Serum 3.64 mg/dL (0.55-1.02); EST Glomerular Filtration Rate 13 mL/min (>60); Est Glom Filt Rate - Afr Amer 15 mL/min (>60); Estimated Creatinine Clearance 9.89 ml/min; Glucose 85 mg/dL (74-106); Potassium 4.6 mmol/L (3.5-5.1); Sodium Level 133 mmol/L (136-145)
[2024-05-02] MEDS: Meropenem 1 GM in 0.9% Normal Saline (100mL MB+) 100 ML IV (08:55)
[2024-05-02] MEDS: FLUoxetine 20 MG Capsule PO (08:55)
[2024-05-02] MEDS: Pantoprazole Sodium 40 MG Tablet PO (08:55)
--- NOTE | 2024-05-02 10:01 | CASEMGMT ---
Social Work SW did create in [facility] a list of halfway facilities in network w/pt's insurance, in pt's preferred geographic area and complete w/quality and resource use data, should it be needed. A referral was made to TCU yesterday, however if pt needs dialysis at discharge, TCU will not be an option. SW will continue to follow. LIS Carballo
--- NOTE | 2024-05-02 11:50 | PCM.PN.HOSP ---
Subjective Subjective Doing well, no issues overnight. Breathing will be better today after dialysis yesterday Objective Data Objective Data Vital Signs: Vital Signs Temp Pulse Resp BP Pulse Ox O2 Del Method O2 Flow Rate 98.1 F 80 32 H 152/49 H 95 Nasal Cannula 2 05/02/24 08:50 05/02/24 08:50 05/02/24 08:50 05/02/24 08:50 05/02/24 08:50 05/02/24 10:00 05/02/24 10:00 FiO2 30 04/30/24 22:37 Oxygen Flow Rate (L/min) 2 Oxygen Delivery Method Nasal Cannula Weight: 136 lb 10.986 oz Body Mass Index (BMI) 25.8 Intake & Output: Intake and Output for Last 24 Hours 05/01/24 05/02/24 05/03/24 03:59 03:59 03:59 Intake Total 961.00 / 961.00 226.74 / 226.74 Output Total 1525 / 1525 4050 / 4050 200 / 200 Balance -564.00 / -564.00 -3823.26 / -3823.26 -200 / -200 Lab / Micro Data 05/02/24 03:00 05/02/24 03:00 Labs: Laboratory Results - last 24 hr 05/02/24 03:00: WBC 7.9, RBC 3.07 L, Hgb 8.3 L, Hct 25.8 L, MCV 84.0, MCH 27.0, MCHC 32.2, RDW Std Deviation 44.5 H, RDW Coeff of Pedro 14.6, Plt Count 275, MPV 9.3, Immature Gran % (Auto) 0.400, Neut % (Auto) 64.9, Lymph % (Auto) 16.6 L, [place] % (Auto) 11.3 H, Eos % (Auto) 6.2 H, Baso % (Auto) 0.6, Absolute Neuts (auto) 5.1, Absolute Lymphs (auto) 1.30, Nucleated RBC % 0, Sodium 133 L, Potassium 4.6, Chloride 100, Carbon Dioxide 22.0, Anion Gap 11, BUN 41 H, Creatinine 3.64 H, Estim Creat Clear Calc 9.89, Est GFR (MDRD) Af Amer 15 L, Est GFR (MDRD) Non-Af 13 L, BUN/Creatinine Ratio 11.3, Glucose 85, Calcium 9.1 Micro: Microbiology 04/29/24 11:40 Urine, Clean Catch Urine Culture - Final ESBL Escherichia coli 05/02/24 03:00 Stool Stool Occult Blood (JESSICA) - Final 04/29/24 01:04 Blood Culture (Wb) - Line Draw Blood Culture - Preliminary No growth in 48 hours. 04/29/24 01:00 Blood Culture (Wb) - Line Draw Blood Culture - Preliminary No growth in 48 hours. 04/29/24 11:40 Urine, Clean Catch Legionella Antigen - Final 04/29/24 11:40 Urine, Clean Catch Streptococcus pneumoniae Antigen (M - Final 04/29/24 04:20 Mucosa - Nasopharyngeal Respiratory Panel (PCR) - Final 04/29/24 04:20 Nasal Secretion MRSA (PCR) - Final 04/28/24 23:50 Mucosa - Nose SARS-CoV-2, Influenza & RSV (PCR) - Final Radiography Diagnostic Testing: Radiology Impression Chest X-Ray 05/01/24 11:22 IMPRESSION: Cardiomegaly with pulmonary congestion and edema. Superimposed pneumonia cannot be excluded. Reading Location: [facility], [facility] Chest CTA 05/01/24 12:03 IMPRESSION: 1. No pulmonary embolism is identified. Some of the distal pulmonary arteries cannot be evaluated due to suboptimal opacification. 2. Bilateral pleural effusions with compressive atelectasis and scattered ground-glass attenuation of both lungs, likely multifocal pneumonia. Reading Location: [facility], [facility] Physical Exam Narrative General: Alert, Oriented x3, Cooperative, No apparent distress HEENT: Atraumatic, PERRLA, EOMI, Normocephalic Oral: Moist Mucosa Neck: Supple, No JVD Lungs: Diminished, Normal air movement, No rhonchi, No wheeze, No rales Cardiovascular: Regular rate, Regular Rhythm, Normal S1, Normal S2, No murmurs Abdomen: Soft, Non Tender, Non-Distended, No Hepato-splenomegaly Extremities: Edema, Capillary Refill Less than 3 Seconds Skin: No rashes, No breakdown Musculoskeletal: No Tenderness to Palpation of Joints or Extremities Neurological: No focal neurological deficits, moves all extremities Psych/Mental Status: Normal Affect, Appropriate Assessment & Plan Assessment/Plan (1) Acute hypoxemic respiratory failure: (2) Acute kidney injury: (3) Acute on chronic anemia: PLAN: Plan 1. Acute hypoxic respiratory failure suspected secondary to PE with small bilateral pleural effusions ? Crude Unit Operator following. Not on home oxygen. Presented with significant hypoxia requiring BiPAP on admit to maintain appropriate oxygen saturations. Chest x-ray showed bibasilar pulmonary infiltrates with trace bilateral pleural effusions. CT abdomen pelvis showed small bilateral pleural effusions at lung bases. D-dimer elevated. Initial ABG on BiPAP with pH 7.43, pO2 73, pCO2 24. Respiratory status improved with BiPAP, weaned to 4 L nasal cannula on 04/29. Echo on 04/29 showed EF 55 to 60%, mildly dilated RV, mild segmental dysfunction of RV. Lower extremity duplex ultrasound was negative for DVT. Respiratory failure could be secondary to volume overload from JUDD with atelectasis but cannot rule out PE. VQ scan ordered and will be done tomorrow. 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 Treating with IV Lasix to aid with volume removal as noted below. Wean supplemental oxygen as able. 05/01/2024: Canceled VQ scan as her chest x-ray was abnormal therefore you could not trust the VQ scan. Continue with the heparin drip 05/02/2024: CTA of the chest was negative for PE, heparin drip was discontinued. Her respiratory failure is due to volume overload continue with dialysis 2. 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 Nephrology following. Creatinine 4.50 on admit, most recent baseline creatinine appears to be around 1.7-2.0. Initial potassium 5.3, bicarb 16, BUN 66. No overt obstructive pathology noted on CT abdomen pelvis. Renal/bladder ultrasound unremarkable. Received 2.5 L of IV fluids total through 04/29 without improvement in creatinine. Creatinine remaining fairly stable to slightly worsening in the 4.5-4.9 range. Suspect prerenal JUDD with likely progression to some degree of ATN at this time. Per nephrology, given high doses of IV Lasix and chlorthalidone on 04/30 and will closely follow urine output. If good urine output and some improvement in creatinine tomorrow may be able to continue with IV diuresis. If not, will need to discuss temporary dialysis. Patient currently okay for temporary dialysis but likely would not want long-term dialysis; discussions ongoing with patient and family. 05/01/2024: Creatinine continues to rise, may need temporary dialysis if that is the case and can also pursue a CTA of the chest to definitively determine PE status 05/02/2024: Renal functions improving with dialysis 3. Acute on chronic normocytic anemia ? Hemoglobin 7.8 on admit, dropped to 6.9 on hospital day 2 with IV fluid resuscitation. Given 1 unit of blood on 04/29 with repeat hemoglobin 8.0. Iron studies consistent with anemia of chronic disease. Suspect patient has some degree of anemia of renal disease as well. Hemoglobin very slowly downtrending, most recent hemoglobin 7.5 on 04/30 will continue heparin drip for now but if hemoglobin worsens significantly, will plan to hold and can transfuse for hemoglobin less than 7. 4. Significant bradycardia with junctional rhythm ? Cardiology following. Was noted on admission but per cardiology on 04/29, telemetry since arrival to the ICU shows normal sinus rhythm with no ectopy noted. Continue cardiac monitoring for now. 5. Hyperkalemia, improving ? Potassium peaked at 6.0 on 04/29. Presume secondary to JUDD. Improved with medical treatment, most recent potassium 4.8. Continue to monitor BMP daily. 6. Concern for acute pyelonephritis ? CT abdomen pelvis on admit showed lobulated contour of kidneys with nonspecific perinephric fat stranding right greater than left. UA showed 500 leukocyte esterase, negative nitrites, 0 bacteria. Treating empirically with IV Zosyn for now, follow-up urine culture. 7. Acute on chronic debility ? PT/OT/case management following. Patient hospitalized here in early March for weakness secondary to COVID infection. Has been following with home health care since then. Suspect patient will need either SNF or home with resumption of home health care on discharge. Appreciate therapy recommendations. 8. Hypertension ? Holding home losartan and amlodipine. 9. Depression ? Continue home fluoxetine. 10. Recent COVID infection ? Had COVID infection in early March with significant weakness secondary to that. 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 DVT: Heparin drip Charges/Coding Visit Charges Inpatient E&M: 35276 Subs Hosp L2
[2024-05-02] MEDS: 0.9% Normal Saline 1,000 ML IV.SOLN. 1000 ML OPERA.SITE (12:20)
[2024-05-02] MEDS: PureFlow B 2K Dialysis Soln 1 BAG 6 BAG PF (12:20)
--- NOTE | 2024-05-02 12:54 | PN.RENAL_ITS ---
Subjective Subjective No new complaints today. Breathing is better. Remains oliguric. Objective Data Objective Data Vital Signs: Vital Signs Temp Pulse Resp BP Pulse Ox O2 Del Method O2 Flow Rate 98.2 F 76 26 H 149/51 H 97 Nasal Cannula 2 05/02/24 12:40 05/02/24 12:40 05/02/24 12:40 05/02/24 12:40 05/02/24 12:40 05/02/24 12:40 05/02/24 12:40 FiO2 30 04/30/24 22:37 Oxygen Flow Rate (L/min) 2 Oxygen Delivery Method Nasal Cannula Weight: 62 kg Body Mass Index (BMI) 25.8 Intake & Output: Intake and Output for Last 24 Hours 04/30/24 05/01/24 05/02/24 23:59 23:59 23:59 Intake Total 1061.00 / 1061.00 276.74 / 276.74 320 / 320 Output Total 1125 / 1525 4300 / 4450 600 / 600 Balance -64.00 / -464.00 -4023.26 / -4173.26 -280 / -280 Lab / Micro Data 05/02/24 03:00 05/02/24 03:00 Labs: Laboratory Results - last 24 hr 05/02/24 03:00: WBC 7.9, RBC 3.07 L, Hgb 8.3 L, Hct 25.8 L, MCV 84.0, MCH 27.0, MCHC 32.2, RDW Std Deviation 44.5 H, RDW Coeff of Pedro 14.6, Plt Count 275, MPV 9.3, Immature Gran % (Auto) 0.400, Neut % (Auto) 64.9, Lymph % (Auto) 16.6 L, M silv[place] % (Auto) 11.3 H, Eos % (Auto) 6.2 H, Baso % (Auto) 0.6, Absolute Neuts (auto) 5.1, Absolute Lymphs (auto) 1.30, Nucleated RBC % 0, Sodium 133 L, Potassium 4.6, Chloride 100, Carbon Dioxide 22.0, Anion Gap 11, BUN 41 H, C reatinine 3.64 H, Estim Creat Clear Calc 9.89, Est GFR (MDRD) Af Amer 15 L, Est GFR (MDRD) Non-Af 13 L, BUN/Creatinine Ratio 11.3, Glucose 85, Calcium 9.1 Micro: Microbiology 04/29/24 11:40 Urine, Clean Catch Urine Culture - Final ESBL Escherichia coli 05/02/24 03:00 Stool Stool Occult Blood (JESSICA) - Final 04/29/24 01:04 Blood Culture (Wb) - Line Draw Blood Culture - Preliminary No growth in 48 hours. 04/29/24 01:00 Blood Culture (Wb) - Line Draw Blood Culture - Preliminary No growth in 48 hours. 04/29/24 11:40 Urine, Clean Catch Legionella Antigen - Final 04/29/24 11:40 Urine, Clean Catch Streptococcus pneumoniae Antigen (M - Final 04/29/24 04:20 Mucosa - Nasopharyngeal Respiratory Panel (PCR) - Final 04/29/24 04:20 Nasal Secretion MRSA (PCR) - Final 04/28/24 23:50 Mucosa - Nose SARS-CoV-2, Influenza & RSV (PCR) - Final Physical Exam Narrative Alert awake oriented x 3 no obvious distress no pallor no icterus no JVD s1s2 no murmurs lungs rales abdomen soft no organomegaly no edema no cyanosis daly + Assessment & Plan Assessment/Plan (1) Acute kidney injury: PLAN: Prior to last admission in March, baseline creatinine seems to be around 1.2. Sustained acute renal failure, recovered renal function with a discharge creatinine of 1.7 in March. This admission she came with a creatinine of 3.8, worsening since admission. CT abdomen with bilateral perinephric stranding. Urine analysis with leukocytes. Urine culture showing ESBL ecoli. Discussed with primary. She will be started on meropenem. Chest x-ray bilateral edema, effusions. Not much response to diuretics. Of note, BNP is about 400/700. Echocardiogram with good ejection fraction. Blood cultures negative. WBC count normal. Since urine culture is positive for ESBL E. coli with perinephric stranding, there is possible some pyelonephritis. No plans for kidney biopsy. Dialysis today. Volume removal as tolerated. Remove Daly catheter since her urine culture is positive. Can check daily bladder scan Serologies pending. No plans for kidney biopsy for now unless one of the serologies comes back positive.
[2024-05-02] MEDS: Heparin 10,000 UNITS/10 ML Vial IV (15:47)
[2024-05-02] MEDS: 0.9% Saline Lock 10 ML Syringe IV ×2 (16:01→17:05)
[2024-05-02] MEDS: hydrALAZINE 20 MG/ML Vial 10 MG IV (17:04)
[2024-05-02] MEDS: Acetaminophen 325 MG Tablet 650 MG PO (18:01)
[2024-05-03] VITALS (26 sets, daily range): BP systolic 127–219; BP diastolic 44–87; PULSE 77–94; RESP 12–20; TEMP 36.5–36.9; O2SAT 94–96; BMI 26.2; BMI 25.1
[2024-05-03 05:07] LABS: Complement C3 126 mg/dL (82-167)
[2024-05-03 06:55] LABS: Absolute Lymphocyte Count 1.32 X10^3/uL (0.83-4.51); Absolute Neutrophil Count 4.2 X10^3/uL (2.0-7.7); Basophil# 0.06 X10^3/uL; Basophil% 0.9 % (0-1); Eosinophils% 7.2 % (0-5); Hematocrit 26.7 % (37-47); Hemoglobin 8.5 g/dL (12.0-15.0); Lymphocyte # 1.32 X10^3/ul (0.83-4.51); Lymphocyte % 19.1 % (19-41); Mean Corp Hgb Conc 31.8 g/dL (32-36); Mean Corpuscular Hgb 26.8 pg (27.0-32.0); Mean Corpuscular Volume 84.2 fL (81-99); Mean Platelet Vol. 8.4 fl (6.2-12.0); Monocyte# 0.84 X10^3/uL; Monocyte% 12.2 % (0-10); NRBC Flagged by Analyzer 0 % (0-5); Neutrophil # 4.15 X10^3/uL (2.7-7.7); Platelet Count 231 K/mm3 (150-450); RBC Distribution Width CV 14.7 % (11.6-14.6); RBC Distribution Width SD 45.4 fl (35.1-43.9); Red Blood Count 3.17 M/mm3 (4.2-5.4); White Blood Count 6.9 K/mm3 (4.4-11.0)
[2024-05-03] MEDS: Ipratropium/Albuterol Sulfate 3 ML AMPUL.NEB INHALATION ×4 (07:38→19:00)
[2024-05-03] MEDS: FLUoxetine 20 MG Capsule PO (07:59)
[2024-05-03] MEDS: Pantoprazole Sodium 40 MG Tablet PO (07:59)
[2024-05-03 08:32] LABS: EST Glomerular Filtration Rate 18 (>60)
[2024-05-03] MEDS: Meropenem 1 GM in 0.9% Normal Saline (100mL MB+) 100 ML IV (09:30)
--- NOTE | 2024-05-03 10:01 | PCM.PN.HOSP ---
Subjective Subjective Doing well, no issues overnight breathing better. Objective Data Objective Data Vital Signs: Vital Signs Temp Pulse Resp BP Pulse Ox O2 Del Method O2 Flow Rate 98.4 F 85 18 156/52 H 94 Nasal Cannula 2 05/03/24 07:56 05/03/24 07:56 05/03/24 07:56 05/03/24 07:56 05/03/24 07:56 05/03/24 07:56 05/03/24 07:56 FiO2 30 04/30/24 22:37 Oxygen Flow Rate (L/min) 2 Oxygen Delivery Method Nasal Cannula Weight: 138 lb 10.732 oz Body Mass Index (BMI) 26.2 Intake & Output: Intake and Output for Last 24 Hours 05/02/24 05/03/24 05/04/24 03:59 03:59 03:59 Intake Total 226.74 / 226.74 320 / 320 Output Total 4050 / 4050 2930 / 2930 300 / 300 Balance -3823.26 / -3823.26 -2610 / -2610 -300 / -300 Lab / Micro Data 05/03/24 06:44 05/03/24 06:44 Labs: Laboratory Results - last 24 hr 05/01/24 : Complement C3 126, Complement C4 20 05/03/24 06:44: WBC 6.9, RBC 3.17 L, Hgb 8.5 L, Hct 26.7 L, MCV 84.2, MCH 26.8 L, MCHC 31.8 L, RDW Std Deviation 45.4 H, RDW Coeff of Pedro 14.7 H, Plt Count 231, MPV 8.4, Immature Gran % (Auto) 0.600, Neut % (Auto) 60.0, Lymph % (Auto) 19.1, [place] % (Auto) 12.2 H, Eos % (Auto) 7.2 H, Baso % (Auto) 0.9, Absolute Neuts (auto) 4.2, Absolute Lymphs (auto) 1.32, Nucleated RBC % 0, BUN 22 H, Creatinine 2.6 H, Estim Creat Clear Calc 13.93, Est GFR (MDRD) Non-Af 18 L, BUN/Creatinine Ratio 8.6 L, Glucose 82 Micro: Microbiology 04/29/24 11:40 Urine, Clean Catch Urine Culture - Final ESBL Escherichia coli 05/02/24 03:00 Stool Stool Occult Blood (JESSICA) - Final 04/29/24 01:04 Blood Culture (Wb) - Line Draw Blood Culture - Preliminary No growth in 48 hours. 04/29/24 01:00 Blood Culture (Wb) - Line Draw Blood Culture - Preliminary No growth in 48 hours. 04/29/24 11:40 Urine, Clean Catch Legionella Antigen - Final 04/29/24 11:40 Urine, Clean Catch Streptococcus pneumoniae Antigen (M - Final 04/29/24 04:20 Mucosa - Nasopharyngeal Respiratory Panel (PCR) - Final 04/29/24 04:20 Nasal Secretion MRSA (PCR) - Final 04/28/24 23:50 Mucosa - Nose SARS-CoV-2, Influenza & RSV (PCR) - Final Physical Exam Narrative General: Alert, Oriented x3, Cooperative, No apparent distress HEENT: Atraumatic, PERRLA, EOMI, Normocephalic Oral: Moist Mucosa Neck: Supple, No JVD Lungs: Diminished, Normal air movement, No rhonchi, No wheeze, No rales Cardiovascular: Regular rate, Regular Rhythm, Normal S1, Normal S2, No murmurs Abdomen: Soft, Non Tender, Non-Distended, No Hepato-splenomegaly Extremities: Trace edema, Capillary Refill Less than 3 Seconds Skin: No rashes, No breakdown Musculoskeletal: No Tenderness to Palpation of Joints or Extremities Neurological: No focal neurological deficits, moves all extremities Psych/Mental Status: Normal Affect, Appropriate Assessment & Plan Assessment/Plan (1) Acute hypoxemic respiratory failure: (2) Acute kidney injury: (3) Acute on chronic anemia: PLAN: Plan 1. Acute hypoxic respiratory failure suspected secondary to PE with small bilateral pleural effusions ? 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 Not on home oxygen. Presented with significant hypoxia requiring BiPAP on admit to maintain appropriate oxygen saturations. Chest x-ray showed bibasilar pulmonary infiltrates with trace bilateral pleural effusions. CT abdomen pelvis showed small bilateral pleural effusions at lung bases. D-dimer elevated. Initial ABG on BiPAP with pH 7.43, pO2 73, pCO2 24. Respiratory status improved with BiPAP, weaned to 4 L nasal cannula on 04/29. Echo on 04/29 showed EF 55 to 60%, mildly dilated RV, mild segmental dysfunction of RV. Lower extremity duplex ultrasound was negative for DVT. Respiratory failure could be secondary to volume overload from JUDD with atelectasis but cannot rule out PE. VQ scan ordered and will be done tomorrow. Discussed with cardiology and strawberry grower and will empirically continue heparin drip for now. Treating with IV Lasix to aid with volume removal as noted below. Wean supplemental oxygen as able. 05/01/2024: Canceled VQ scan as her chest x-ray was abnormal therefore you could not trust the VQ scan. Continue with the heparin drip 05/02/2024: CTA of the chest was negative for PE, heparin drip was discontinued. Her respiratory failure is due to volume overload continue with dialysis 05/03/2024: Creatinine continues to improve with dialysis. Respiratory status is improving with fluid removal. Will continue to monitor. PT/OT and will have case management look into possible placement 2. 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 Nephrology following. Creatinine 4.50 on admit, most recent baseline creatinine appears to be around 1.7-2.0. Initial potassium 5.3, bicarb 16, BUN 66. No overt obstructive pathology noted on CT abdomen pelvis. Renal/bladder ultrasound unremarkable. Received 2.5 L of IV fluids total through 04/29 without improvement in creatinine. Creatinine remaining fairly stable to slightly worsening in the 4.5-4.9 range. Suspect prerenal JUDD with likely progression to some degree of ATN at this time. Per nephrology, given high doses of IV Lasix and chlorthalidone on 04/30 and will closely follow urine output. If good urine output and some improvement in creatinine tomorrow may be able to continue with IV diuresis. If not, will need to discuss temporary dialysis. Patient currently okay for temporary dialysis but likely would not want long-term dialysis; discussions ongoing with patient and family. 05/01/2024: Creatinine continues to rise, may need temporary dialysis if that is the case and can also pursue a CTA of the chest to definitively determine PE status 05/02/2024: Renal functions improving with dialysis 3. Acute on chronic normocytic anemia ? Hemoglobin 7.8 on admit, dropped to 6.9 on hospital day 2 with IV fluid resuscitation. Given 1 unit of blood on 04/29 with repeat hemoglobin 8.0. Iron studies consistent with anemia of chronic disease. Suspect patient has some degree of anemia of renal disease as well. Hemoglobin very slowly downtrending, most recent hemoglobin 7.5 on 04/30 will continue heparin drip for now but if hemoglobin worsens significantly, will plan to hold and can transfuse for hemoglobin less than 7. 4. Significant bradycardia with junctional rhythm ? Cardiology following. Was noted on admission but per cardiology on 04/29, telemetry since arrival to the ICU shows normal sinus rhythm with no ectopy noted. Continue cardiac monitoring for now. 5. Hyperkalemia, improving ? Potassium peaked at 6.0 on 04/29. Presume secondary to JUDD. Improved with medical treatment, most recent potassium 4.8. Continue to monitor BMP daily. 6. Concern for acute pyelonephritis ? CT abdomen pelvis on admit showed lobulated contour of kidneys with nonspecific perinephric fat stranding right greater than left. UA showed 500 leukocyte esterase, negative nitrites, 0 bacteria. Treating empirically with IV Zosyn for now, follow-up urine culture. 05/03/2024: Urine culture with less than 100,000 CFU's of ESBL, continue with meropenem daily per renal function 7. Acute on chronic debility ? PT/OT/case management following. Patient hospitalized here in early March for weakness secondary to COVID infection. Has been following with home health care since then. Suspect patient will need either SNF or home with resumption of home health care on discharge. Appreciate therapy recommendations. 8. Hypertension ? Holding home losartan and amlodipine. 9. Depression ? Continue home fluoxetine. 10. Recent COVID infection ? Had COVID infection in early March with significant weakness secondary to that. 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 DVT: Heparin drip Charges/Coding Visit Charges Inpatient E&M: 86520 Subs Hosp L2
--- NOTE | 2024-05-03 12:06 | CASEMGMT ---
Social Work SW attended rounds. Pt upset and tearful at the idea of possible need for SNF. After rounds SW met with pt and dgt Annette. Discussed discharge options including home with home health, TCU and SNF. At this time, pt is receiving dialysis. Pt made aware that if dialysis is needed at dc, TCU will be unable to accept. Pt has not been able to participate in therapy since Wednesday. Support and education provided to pt and pt is understanding of possible dc needs. DC plan is pending based on decision for ongoing dialysis and how pt does with therapy. A list of SNF providers including quality and resource use data and consistent with the patient?s preferred geographic region, medical needs, and insurance network were provided from the [employer] Guide. SW will continue to follow for dc planning. KRISTI Peters
--- NOTE | 2024-05-03 12:57 | PCM.PN.REN ---
Subjective Subjective No new complaints today. Breathing is better. Urine output has improved, she has already voided twice. Objective Data Objective Data Vital Signs: Vital Signs Temp Pulse Resp BP Pulse Ox O2 Del Method O2 Flow Rate 98.0 F 82 20 H 165/50 H 95 Nasal Cannula 2 05/03/24 12:32 05/03/24 12:32 05/03/24 12:32 05/03/24 12:32 05/03/24 12:32 05/03/24 12:32 05/03/24 12:32 FiO2 30 04/30/24 22:37 Oxygen Flow Rate (L/min) 2 Oxygen Delivery Method Nasal Cannula Weight: 62.9 kg Body Mass Index (BMI) 26.2 Intake & Output: Intake and Output for Last 24 Hours 05/01/24 05/02/24 05/03/24 23:59 23:59 23:59 Intake Total 276.74 / 276.74 320 / 320 Output Total 4300 / 4450 3080 / 3080 300 / 300 Balance -4023.26 / -4173.26 -2760 / -2760 -300 / -300 Lab / Micro Data 05/03/24 06:44 05/03/24 06:44 Labs: Laboratory Results - last 24 hr 05/01/24 : Complement C3 126, Complement C4 20 05/03/24 06:44: WBC 6.9, RBC 3.17 L, Hgb 8.5 L, Hct 26.7 L, MCV 84.2, MCH 26.8 L, MCHC 31.8 L, RDW Std Deviation 45.4 H, RDW Coeff of Pedro 14.7 H, Plt Count 231, MPV 8.4, Immature Gran % (Auto) 0.600, Neut % (Auto) 60.0, Lymph % (Auto) 19.1, [place] % (Auto) 12.2 H, Eos % (Auto) 7.2 H, Baso % (Auto) 0.9, Absolute Neuts (auto) 4.2, Absolute Lymphs (auto) 1.32, Nucleated RBC % 0, BUN 22 H, Creatinine 2.6 H, Estim Creat Clear Calc 13.93, Est GFR (MDRD) Non-Af 18 L, BUN/Creatinine Ratio 8.6 L, Glucose 82 Micro: Microbiology 04/29/24 11:40 Urine, Clean Catch Urine Culture - Final ESBL Escherichia coli 05/02/24 03:00 Stool Stool Occult Blood (JESSICA) - Final 04/29/24 01:04 Blood Culture (Wb) - Line Draw Blood Culture - Preliminary No growth in 48 hours. 04/29/24 01:00 Blood Culture (Wb) - Line Draw Blood Culture - Preliminary No growth in 48 hours. 04/29/24 11:40 Urine, Clean Catch Legionella Antigen - Final 04/29/24 11:40 Urine, Clean Catch Streptococcus pneumoniae Antigen (M - Final 04/29/24 04:20 Mucosa - Nasopharyngeal Respiratory Panel (PCR) - Final 04/29/24 04:20 Nasal Secretion MRSA (PCR) - Final 04/28/24 23:50 Mucosa - Nose SARS-CoV-2, Influenza & RSV (PCR) - Final Physical Exam Narrative Alert awake oriented x 3 no obvious distress no pallor no icterus no JVD s1s2 no murmurs lungs rales abdomen soft no organomegaly no edema no cyanosis Assessment & Plan Assessment/Plan (1) Acute kidney injury: PLAN: Prior to last admission in March, baseline creatinine seems to be around 1.2. Sustained acute renal failure, recovered renal function with a discharge creatinine of 1.7 in March. This admission she came with a creatinine of 3.8, worsening since admission. CT abdomen with bilateral perinephric stranding. Urine analysis with leukocytes. Urine culture showing ESBL ecoli. on meropenem Chest x-ray bilateral edema, effusions. Not much response to diuretics. Of note, BNP is about 400/700. Echocardiogram with good ejection fraction. Blood cultures negative. WBC count normal. Since urine culture is positive for ESBL E. coli with perinephric stranding, there is possible some pyelonephritis. No plans for kidney biopsy. Received dialysis 05/01 and 05/02. Clinically better. Breathing has improved. Oxygen requirements have improved, down to 2 L. Will plan for another session of dialysis today. Volume removal as tolerated. Garcia catheter out, urine output has been decent. Serologies pending. No plans for kidney biopsy for now unless one of the serologies comes back positive. So far C3, C4 normal.
[2024-05-03] MEDS: 0.9% Normal Saline 1,000 ML IV.SOLN. 1000 ML OPERA.SITE (12:59)
[2024-05-03] MEDS: Heparin 10,000 UNITS/10 ML Vial IV (13:00)
[2024-05-03] MEDS: PureFlow B 2K Dialysis Soln 1 BAG 6 BAG PF (13:00)
[2024-05-03] MEDS: 0.9% Saline Lock 10 ML Syringe IV ×2 (13:00→17:09)
[2024-05-03] MEDS: hydrALAZINE 20 MG/ML Vial 10 MG IV (17:08)
[2024-05-03] MEDS: Acetaminophen 325 MG Tablet 650 MG PO (21:06)
[2024-05-03] MEDS: MELATONIN 3 MG TABLET PO (21:07)
--- NOTE | 2024-05-03 21:16 | CPS ---
Patient refuses to wear BIPAP
[2024-05-04] VITALS (11 sets, daily range): BP systolic 155–169; BP diastolic 51–61; PULSE 77–90; RESP 14–24; TEMP 36.6–37; O2SAT 92–99; BMI 27.0
[2024-05-04] MEDS: Ipratropium/Albuterol Sulfate 3 ML AMPUL.NEB INHALATION ×4 (07:22→19:10)
[2024-05-04 08:44] LABS: Absolute Lymphocyte Count 1.25 X10^3/uL (0.83-4.51); Absolute Neutrophil Count 3.7 X10^3/uL (2.0-7.7); Basophil# 0.07 X10^3/uL; Basophil% 1.1 % (0-1); Eosinophil# 0.53 X10^3/uL; Eosinophils% 8.5 % (0-5); Hematocrit 27.4 % (37-47); Hemoglobin 8.7 g/dL (12.0-15.0); Lymphocyte # 1.25 X10^3/ul (0.83-4.51); Mean Corp Hgb Conc 31.8 g/dL (32-36); Mean Corpuscular Volume 85.1 fL (81-99); Mean Platelet Vol. 8.8 fl (6.2-12.0); Monocyte# 0.68 X10^3/uL; Monocyte% 10.9 % (0-10); NRBC Flagged by Analyzer 0 % (0-5); Neutrophil # 3.67 X10^3/uL (2.7-7.7); Neutrophil % 58.7 % (47-70); Platelet Count 246 K/mm3 (150-450); RBC Distribution Width CV 14.6 % (11.6-14.6); RBC Distribution Width SD 45.1 fl (35.1-43.9); Red Blood Count 3.22 M/mm3 (4.2-5.4); White Blood Count 6.3 K/mm3 (4.4-11.0)
--- NOTE | 2024-05-04 10:05 | CASEMGMT ---
Discharge Planning If snf is needed, [facility] states that they could accommodate dialysis. SW updated. Vanesa Vasquez DC Planning Asst
--- NOTE | 2024-05-04 10:09 | PCM.PN.HOSP ---
Subjective Subjective Doing well, breathing better at dialysis, she is down 14 L Objective Data Objective Data Vital Signs: Vital Signs Temp Pulse Resp BP Pulse Ox O2 Del Method O2 Flow Rate 97.8 F 90 20 H 158/53 H 96 Nasal Cannula 2 05/04/24 03:28 05/04/24 07:51 05/04/24 07:23 05/04/24 03:28 05/04/24 07:23 05/04/24 07:51 05/04/24 07:51 FiO2 30 04/30/24 22:37 Oxygen Flow Rate (L/min) 2 Oxygen Delivery Method Nasal Cannula Weight: 143 lb 4.807 oz Body Mass Index (BMI) 27.0 Intake & Output: Intake and Output for Last 24 Hours 05/03/24 05/04/24 05/05/24 03:59 03:59 03:59 Intake Total 320 / 320 920 / 920 Output Total 2930 / 2930 06495 / 58760 Balance -2610 / -2610 -9980 / -9980 Lab / Micro Data 05/04/24 07:25 05/03/24 06:44 Labs: Laboratory Results - last 24 hr 04/29/24 04:55: Crossmatch See Detail 05/04/24 07:25: WBC 6.3, RBC 3.22 L, Hgb 8.7 L, Hct 27.4 L, MCV 85.1, MCH 27.0, MCHC 31.8 L, RDW Std Deviation 45.1 H, RDW Coeff of Pedro 14.6, Plt Count 246, MPV 8.8, Immature Gran % (Auto) 0.800, Neut % (Auto) 58.7, Lymph % (Auto) 20.0, Graham % (Auto) 10.9 H, Eos % (Auto) 8.5 H, Baso % (Auto) 1.1 H, Absolute Neuts (auto) 3.7, Absolute Lymphs (auto) 1.25, Nucleated RBC % 0 Micro: Microbiology 04/29/24 01:04 Blood Culture (Wb) - Line Draw Blood Culture - Final No growth in 5 days. 04/29/24 01:00 Blood Culture (Wb) - Line Draw Blood Culture - Final No growth in 5 days. 04/29/24 11:40 Urine, Clean Catch Urine Culture - Final ESBL Escherichia coli 05/02/24 03:00 Stool Stool Occult Blood (JESSICA) - Final 04/29/24 11:40 Urine, Clean Catch Legionella Antigen - Final 04/29/24 11:40 Urine, Clean Catch Streptococcus pneumoniae Antigen (M - Final 04/29/24 04:20 Mucosa - Nasopharyngeal Respiratory Panel (PCR) - Final 04/29/24 04:20 Nasal Secretion MRSA (PCR) - Final 04/28/24 23:50 Mucosa - Nose SARS-CoV-2, Influenza & RSV (PCR) - Final Physical Exam Narrative General: Alert, Oriented x3, Cooperative, No apparent distress HEENT: Atraumatic, PERRLA, EOMI, Normocephalic Oral: Moist Mucosa Neck: Supple, No JVD Lungs: Diminished, Normal air movement, No rhonchi, No wheeze, No rales Cardiovascular: Regular rate, Regular Rhythm, Normal S1, Normal S2, No murmurs Abdomen: Soft, Non Tender, Non-Distended, No Hepato-splenomegaly Extremities: Trace edema, Capillary Refill Less than 3 Seconds Skin: No rashes, No breakdown Musculoskeletal: No Tenderness to Palpation of Joints or Extremities Neurological: No focal neurological deficits, moves all extremities Psych/Mental Status: Normal Affect, Appropriate Assessment & Plan Assessment/Plan (1) Acute hypoxemic respiratory failure: (2) Acute kidney injury: (3) Acute on chronic anemia: PLAN: Plan 1. Acute hypoxic respiratory failure suspected secondary to PE with small bilateral pleural effusions ? 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 Not on home oxygen. Presented with significant hypoxia requiring BiPAP on admit to maintain appropriate oxygen saturations. Chest x-ray showed bibasilar pulmonary infiltrates with trace bilateral pleural effusions. CT abdomen pelvis showed small bilateral pleural effusions at lung bases. D-dimer elevated. Initial ABG on BiPAP with pH 7.43, pO2 73, pCO2 24. Respiratory status improved with BiPAP, weaned to 4 L nasal cannula on 04/29. Echo on 04/29 showed EF 55 to 60%, mildly dilated RV, mild segmental dysfunction of RV. Lower extremity duplex ultrasound was negative for DVT. Respiratory failure could be secondary to volume overload from JUDD with atelectasis but cannot rule out PE. VQ scan ordered and will be done tomorrow. Discussed with cardiology and psychotherapist social worker and will empirically continue heparin drip for now. Treating with IV Lasix to aid with volume removal as noted below. Wean supplemental oxygen as able. 05/01/2024: Canceled VQ scan as her chest x-ray was abnormal therefore you could not trust the VQ scan. Continue with the heparin drip 05/02/2024: CTA of the chest was negative for PE, heparin drip was discontinued. Her respiratory failure is due to volume overload continue with dialysis 05/03/2024: Creatinine continues to improve with dialysis. Respiratory status is improving with fluid removal. Will continue to monitor. PT/OT and will have case management look into possible placement 05/04/2024: Currently awaiting morning labs she did receive dialysis last evening. Will likely need placement 2. 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 Nephrology following. Creatinine 4.50 on admit, most recent baseline creatinine appears to be around 1.7-2.0. Initial potassium 5.3, bicarb 16, BUN 66. No overt obstructive pathology noted on CT abdomen pelvis. Renal/bladder ultrasound unremarkable. Received 2.5 L of IV fluids total through 04/29 without improvement in creatinine. Creatinine remaining fairly stable to slightly worsening in the 4.5-4.9 range. Suspect prerenal JUDD with likely progression to some degree of ATN at this time. Per nephrology, given high doses of IV Lasix and chlorthalidone on 04/30 and will closely follow urine output. If good urine output and some improvement in creatinine tomorrow may be able to continue with IV diuresis. If not, will need to discuss temporary dialysis. Patient currently okay for temporary dialysis but likely would not want long-term dialysis; discussions ongoing with patient and family. 05/01/2024: Creatinine continues to rise, may need temporary dialysis if that is the case and can also pursue a CTA of the chest to definitively determine PE status 05/02/2024: Renal functions improving with dialysis 05/04/2024: She is able to make urine currently 3. Acute on chronic normocytic anemia ? Hemoglobin 7.8 on admit, dropped to 6.9 on hospital day 2 with IV fluid resuscitation. Given 1 unit of blood on 04/29 with repeat hemoglobin 8.0. Iron studies consistent with anemia of chronic disease. Suspect patient has some degree of anemia of renal disease as well. Hemoglobin very slowly downtrending, most recent hemoglobin 7.5 on 04/30 will continue heparin drip for now but if hemoglobin worsens significantly, will plan to hold and can transfuse for hemoglobin less than 7. 4. Significant bradycardia with junctional rhythm ? Cardiology following. Was noted on admission but per cardiology on 04/29, telemetry since arrival to the ICU shows normal sinus rhythm with no ectopy noted. Continue cardiac monitoring for now. 5. Hyperkalemia, improving ? Potassium peaked at 6.0 on 04/29. Presume secondary to JUDD. Improved with medical treatment, most recent potassium 4.8. Continue to monitor BMP daily. 6. Concern for acute pyelonephritis ? CT abdomen pelvis on admit showed lobulated contour of kidneys with nonspecific perinephric fat stranding right greater than left. UA showed 500 leukocyte esterase, negative nitrites, 0 bacteria. Treating empirically with IV Zosyn for now, follow-up urine culture. 05/03/2024: Urine culture with less than 100,000 CFU's of ESBL, continue with meropenem daily per renal function 7. Acute on chronic debility ? PT/OT/case management following. Patient hospitalized here in early March for weakness secondary to COVID infection. Has been following with home health care since then. Suspect patient will need either SNF or home with resumption of home health care on discharge. Appreciate therapy recommendations. 8. Hypertension ? Holding home losartan and amlodipine. 9. Depression ? Continue home fluoxetine. 10. Recent COVID infection ? Had COVID infection in early March with significant weakness secondary to that. 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 DVT: SCDs Charges/Coding Visit Charges Inpatient E&M: 76262 Subs Hosp L2
[2024-05-04 10:31] LABS: Calcium,Total 9.3 mg/dL (7.6-11.0); Chloride 99 mmol/L (98-107); Potassium 4.1 mmol/L (3.5-5.1); Sodium Level 133 mmol/L (136-145)
[2024-05-04 10:36] LABS: Anion Gap 11 (5-15); BUN 20 mg/dL (4-19); BUN/Creat Ratio 8.8 RATIO (10-20); Calcium 9.5 mg/dL (7.6-11.0); Carbon Dioxide 23.5 mmol/L (22.0-29.0); Chloride 102 mmol/L (96-108); Creatinine, Serum 2.3 mg/dL (0.6-1.0); EST Glomerular Filtration Rate 21 (>60); Glucose 85 mg/dL (70-99); Sodium Level 136 mmol/L (133-145)
[2024-05-04 10:57] LABS: BUN 24 mg/dL (4-19); BUN/Creat Ratio 8.9 RATIO (10-20); Creatinine, Serum 2.7 mg/dL (0.6-1.0); Estimated Creatinine Clearance 13.63 ml/min; Glucose 73 mg/dL (70-99)
[2024-05-04] MEDS: FLUoxetine 20 MG Capsule PO (11:10)
[2024-05-04] MEDS: Pantoprazole Sodium 40 MG Tablet PO (11:10)
[2024-05-04] MEDS: Meropenem 1 GM in 0.9% Normal Saline (100mL MB+) 100 ML IV (11:11)
[2024-05-04] MEDS: 0.9% Saline Lock 10 ML Syringe IV ×2 (11:11→14:41)
--- NOTE | 2024-05-04 12:47 | PN.RENAL_ITS ---
Subjective Subjective Subjectively breathing is better. Objective Data Objective Data Vital Signs: Vital Signs Temp Pulse Resp BP Pulse Ox O2 Del Method O2 Flow Rate 98.3 F 77 16 155/51 H 97 Room Air 2 05/04/24 11:18 05/04/24 11:18 05/04/24 11:18 05/04/24 11:18 05/04/24 11:25 05/04/24 11:18 05/04/24 07:51 FiO2 30 04/30/24 22:37 Oxygen Flow Rate (L/min) 2 Oxygen Delivery Method Room Air Weight: 65 kg Body Mass Index (BMI) 27.0 Intake & Output: Intake and Output for Last 24 Hours 05/02/24 05/03/24 05/04/24 23:59 23:59 23:59 Intake Total 320 / 320 120 / 520 800 / 800 Output Total 3080 / 3080 5600 / 8250 5300 / 5300 Balance -2760 / -2760 -5480 / -7730 -4500 / -4500 Lab / Micro Data 05/04/24 07:25 05/04/24 07:25 Labs: Laboratory Results - last 24 hr 04/29/24 04:55: Crossmatch See Detail 05/03/24 06:44: Sodium 133 L, Potassium 4.1, Chloride 99, BUN 24 H, Creatinine 2.7 H, Estim Creat Clear Calc 13.63, BUN/Creatinine Ratio 8.9 L, Glucose 73, Calcium 9.3 05/04/24 07:25: WBC 6.3, RBC 3.22 L, Hgb 8.7 L, Hct 27.4 L, MCV 85.1, MCH 27.0, MCHC 31.8 L, RDW Std Deviation 45.1 H, RDW Coeff of Pedro 14.6, Plt Count 246, MPV 8.8, Immature Gran % (Auto) 0.800, Neut % (Auto) 58.7, Lymph % (Auto) 20.0, Simpson % (Auto) 10.9 H, Eos % (Auto) 8.5 H, Baso % (Auto) 1.1 H, Absolute Neuts (auto) 3.7, Absolute Lymphs (auto) 1.25, Nucleated RBC % 0, Sodium 136, Potassium 4.0, Chloride Direct 102, Carbon Dioxide 23.5, Anion Gap 11, BUN 20 H, Creatinine 2.3 H, Estim Creat Clear Calc 16.00, Est GFR (MDRD) Non-Af 21 L, BUN/Creatinine Ratio 8.8 L, Glucose 85, Calcium 9.5 Micro: Microbiology 04/29/24 01:04 Blood Culture (Wb) - Line Draw Blood Culture - Final No growth in 5 days. 04/29/24 01:00 Blood Culture (Wb) - Line Draw Blood Culture - Final No growth in 5 days. 04/29/24 11:40 Urine, Clean Catch Urine Culture - Final ESBL Escherichia coli 05/02/24 03:00 Stool Stool Occult Blood (JESSICA) - Final 04/29/24 11:40 Urine, Clean Catch Legionella Antigen - Final 04/29/24 11:40 Urine, Clean Catch Streptococcus pneumoniae Antigen (M - Final 04/29/24 04:20 Mucosa - Nasopharyngeal Respiratory Panel (PCR) - Final 04/29/24 04:20 Nasal Secretion MRSA (PCR) - Final 04/28/24 23:50 Mucosa - Nose SARS-CoV-2, Influenza & RSV (PCR) - Final Physical Exam Narrative Alert awake oriented x 3 no obvious distress no pallor no icterus no JVD s1s2 no murmurs lungs rales abdomen soft no organomegaly no edema no cyanosis Assessment & Plan Assessment/Plan (1) Acute kidney injury: PLAN: Prior to last admission in March, baseline creatinine seems to be around 1.2. Sustained acute renal failure, recovered renal function with a discharge creatinine of 1.7 in March. This admission she came with a creatinine of 3.8, worsening since admission. CT abdomen with bilateral perinephric stranding. Urine analysis with leukocytes. Urine culture showing ESBL ecoli. on meropenem Chest x-ray bilateral edema, effusions. Not much response to diuretics. Of note, BNP is about 400/700. Echocardiogram with good ejection fraction. Blood cultures negative. WBC count normal. Since urine culture is positive for ESBL E. coli with perinephric stranding, there is possible some pyelonephritis. No plans for kidney biopsy. Received dialysis 05/01 05/02 and 05/03. Clinically better. Breathing has improved. Oxygen requirements have improved, down to 1 L. Garcia catheter out, urine output has been decent. Serologies pending. No plans for kidney biopsy for now unless one of the serologies comes back positive. So far C3, C4 normal. Hold dialysis today. Repeat labs tomorrow. Reassess clinical status tomorrow. Will decide on dialysis depending on the labs, clinical status. If she needs dialysis after discharge, will need a tunneled dialysis catheter placed. Discussed with hospitalist.
[2024-05-04] MEDS: amLODIPine 10 MG Tablet PO (14:54)
--- NOTE | 2024-05-04 14:57 | CHAPLAIN ---
Type of Pastoral Visit ___ Initial Visit _x__ Follow-up Visit ___ On-call Visit ___ General Patient Visit ___ Spiritual Assessment ___ Family Conference ___ Bereavement ___ Rapid Response ___ Code Blue ___ Other (describe below) Pastoral Care Referral From ___ Patient ___ Family _x__ Nurse ___ Physician ___ Stamp Machine Servicer ___ Assembler Body ___ Other (describe below) Sacrament/Intervention _x__ Active listening ___ Anointing ___ Congregational ___ Bereavement ___ Communion ___ Zandra exploration ___ _x__ Life review _x__ Prayer ___ Reconciliation ___ Sacrament of Sick _x__ Supportive presence ___ Wedding ___ Other (describe below) Pastoral Comments RN requested this follow up visit as patient has been informed that her who is in an ECF is at the point of hospice referral; pt is needing to make decisions from the hospital on this recommendation; pt explains her feelings, what their discussions on this topic has been in the past, and her sense of separation from him at this time; pt has zandra in God and uses this for her support; pt welcomes time to talk about the situation and the prayers in support
[2024-05-04 16:01] LABS: Anion Gap 14 (5-15); Carbon Dioxide 20.1 mmol/L (21.0-32.0)
--- NOTE | 2024-05-04 17:00 | CASEMGMT ---
OPAL BARLOW NOTE: Per therapy, pt ambulated 176 ft today w/use of WW and SBA, additional therapy recommended. N CM to room. Pt resting in bed, family @ bedside, pt agreeable to OPAL BARLOW discussing discharge plan w/her w/family present. Pt states she did well w/therapy today and feels safe to discharge home alone when medically ready. She would like [facility] and declines wanting list of other [facility] options at this time. She is aware of [facility]'s homebound critieria and verifies she is homebound. Call placed to [facility] and left re: referral. Pt confirms she has a walker @ home. OPAL BARLOW will continue to follow for a safe discharge plan and will continued to monitor for possible need of OP HD @ dc. Basia ALMEIDA RN, CM
[2024-05-04 20:08] LABS: Anti-Glomerular Basement Memb < 0.2 units (0.0-0.9); Cytoplasmic Ab (C-ANCA) <1:20 titer (Neg:<1:20); Perinuclear Ab (P-ANCA) <1:20 titer (Neg:<1:20)
[2024-05-05] VITALS (19 sets, daily range): BP systolic 111–208; BP diastolic 50–76; PULSE 73–97; RESP 15–19; TEMP 36.5–36.8; O2SAT 91–99; BMI 28.8; BMI 28.2
[2024-05-05] MEDS: Acetaminophen 325 MG Tablet 650 MG PO ×2 (00:54→20:50)
[2024-05-05] MEDS: MELATONIN 3 MG TABLET PO ×2 (00:54→20:50)
[2024-05-05] MEDS: Ipratropium/Albuterol Sulfate 3 ML AMPUL.NEB INHALATION ×4 (07:35→19:24)
[2024-05-05 07:40] LABS: Absolute Lymphocyte Count 1.38 X10^3/uL (0.83-4.51); Absolute Neutrophil Count 3.7 X10^3/uL (2.0-7.7); Basophil# 0.08 X10^3/uL; Basophil% 1.2 % (0-1); Eosinophil# 0.48 X10^3/uL; Eosinophils% 7.5 % (0-5); Hematocrit 27.4 % (37-47); Hemoglobin 8.7 g/dL (12.0-15.0); Lymphocyte # 1.38 X10^3/ul (0.83-4.51); Lymphocyte % 21.5 % (19-41); Mean Corp Hgb Conc 31.8 g/dL (32-36); Mean Corpuscular Hgb 26.7 pg (27.0-32.0); Mean Platelet Vol. 8.7 fl (6.2-12.0); Monocyte% 10.9 % (0-10); NRBC Flagged by Analyzer 0 % (0-5); Neutrophil # 3.74 X10^3/uL (2.7-7.7); Neutrophil % 58.3 % (47-70); Platelet Count 235 K/mm3 (150-450); RBC Distribution Width CV 14.5 % (11.6-14.6); RBC Distribution Width SD 44.6 fl (35.1-43.9); Red Blood Count 3.26 M/mm3 (4.2-5.4); White Blood Count 6.4 K/mm3 (4.4-11.0)
[2024-05-05 09:08] LABS: Anion Gap 12 (5-15); BUN 25 mg/dL (4-19); BUN/Creat Ratio 8.7 RATIO (10-20); Calcium 9.1 mg/dL (7.6-11.0); Chloride 99 mmol/L (96-108); Creatinine, Serum 2.91 mg/dL (0.70-1.20); EST Glomerular Filtration Rate 16 (>60); Estimated Creatinine Clearance 12.64 ml/min; Glucose 85 mg/dL (70-99); Potassium 3.8 mmol/L (3.3-5.1); Sodium Level 132 mmol/L (133-145)
--- NOTE | 2024-05-05 09:45 | CASEMGMT ---
OPAL BARLOW NOTE: Per Alisson @ [facility], pt is still active w/them for SN & they can resume care when pt ready for discharge. [facility] order placed and PT/OT added. Pt made aware she is still active w/[facility] and can resume with them when she discharges home, she voices appreciation. Basia ALMEIDA RN CM
[2024-05-05] MEDS: Meropenem 1 GM in 0.9% Normal Saline (100mL MB+) 100 ML IV (10:09)
[2024-05-05] MEDS: FLUoxetine 20 MG Capsule PO (10:09)
[2024-05-05] MEDS: Pantoprazole Sodium 40 MG Tablet PO (10:09)
--- NOTE | 2024-05-05 10:12 | PN.HOSP_ITS ---
Subjective Subjective Doing well, sitting on the edge of the bed eating breakfast this morning not requiring any oxygen Objective Data Objective Data Vital Signs: Vital Signs Temp Pulse Resp BP Pulse Ox O2 Del Method O2 Flow Rate 97.8 F 81 18 131/58 H 93 Room Air 2 05/05/24 04:55 05/05/24 07:36 05/05/24 07:36 05/05/24 04:55 05/05/24 07:36 05/05/24 07:36 05/04/24 07:51 FiO2 30 04/30/24 22:37 Oxygen Flow Rate (L/min) 2 Oxygen Delivery Method Room Air Weight: 143 lb 4.807 oz Body Mass Index (BMI) 27.0 Intake & Output: Intake and Output for Last 24 Hours 05/04/24 05/05/24 05/06/24 03:59 03:59 03:59 Intake Total 920 / 920 920 / 920 Output Total 14692 / 48600 6050 / 6050 Balance -9980 / -9980 -5130 / -5130 Lab / Micro Data 05/05/24 07:25 05/05/24 07:25 Labs: Laboratory Results - last 24 hr 05/01/24 : c-ANCA Antibody <1:20, Atypical p-ANCA <1:20, p-ANCA Antibody <1:20, Glomerular Base Memb Ab < 0.2 05/03/24 06:44: Sodium 133 L, Potassium 4.1, Chloride 99, Carbon Dioxide 20.1 L, Anion Gap 14, BUN 24 H, Creatinine 2.7 H, Estim Creat Clear Calc 13.63, B UN/Creatinine Ratio 8.9 L, Glucose 73, Calcium 9.3 05/04/24 07:25: Sodium 136, Potassium 4.0, Chloride Direct 102, Carbon Dioxide 23.5, Anion Gap 11, BUN 20 H, Creatinine 2.3 H, Estim Creat Clear Calc 16.00, E st GFR (MDRD) Non-Af 21 L, BUN/Creatinine Ratio 8.8 L, Glucose 85, Calcium 9.5 05/05/24 07:25: WBC 6.4, RBC 3.26 L, Hgb 8.7 L, Hct 27.4 L, MCV 84.0, MCH 26.7 L , MCHC 31.8 L, RDW Std Deviation 44.6 H, RDW Coeff of Pedro 14.5, Plt Count 235, MPV 8.7, Immature Gran % (Auto) 0.600, Neut % (Auto) 58.3, Lymph % (Auto) 21.5, Deuel % (Auto) 10.9 H, Eos % (Auto) 7.5 H, Baso % (Auto) 1.2 H, Absolute Neuts (auto) 3.7, Absolute Lymphs (auto) 1.38, Nucleated RBC % 0, Sodium 132 L, Potassium 3.8, Chloride Direct 99, Carbon Dioxide 21.0 L, Anion Gap 12, BUN 25 H , Creatinine 2.91 H, Estim Creat Clear Calc 12.64, Est GFR (MDRD) Non-Af 16 L, B UN/Creatinine Ratio 8.7 L, Glucose 85, Calcium 9.1 Micro: Microbiology 04/29/24 01:04 Blood Culture (Wb) - Line Draw Blood Culture - Final No growth in 5 days. 04/29/24 01:00 Blood Culture (Wb) - Line Draw Blood Culture - Final No growth in 5 days. 04/29/24 11:40 Urine, Clean Catch Urine Culture - Final ESBL Escherichia coli 05/02/24 03:00 Stool Stool Occult Blood (JESSICA) - Final 04/29/24 11:40 Urine, Clean Catch Legionella Antigen - Final 04/29/24 11:40 Urine, Clean Catch Streptococcus pneumoniae Antigen (M - Final 04/29/24 04:20 Mucosa - Nasopharyngeal Respiratory Panel (PCR) - Final 04/29/24 04:20 Nasal Secretion MRSA (PCR) - Final 04/28/24 23:50 Mucosa - Nose SARS-CoV-2, Influenza & RSV (PCR) - Final Physical Exam Narrative General: Alert, Oriented x3, Cooperative, No apparent distress HEENT: Atraumatic, PERRLA, EOMI, Normocephalic Oral: Moist Mucosa Neck: Supple, No JVD Lungs: Diminished, Normal air movement, No rhonchi, No wheeze, No rales Cardiovascular: Regular rate, Regular Rhythm, Normal S1, Normal S2, No murmurs Abdomen: Soft, Non Tender, Non-Distended, No Hepato-splenomegaly Extremities: No edema, Capillary Refill Less than 3 Seconds Skin: No rashes, No breakdown Musculoskeletal: No Tenderness to Palpation of Joints or Extremities Neurological: No focal neurological deficits, moves all extremities Psych/Mental Status: Normal Affect, Appropriate Assessment & Plan Assessment/Plan (1) Acute hypoxemic respiratory failure: (2) Acute kidney injury: (3) Acute on chronic anemia: PLAN: Plan 1. Acute hypoxic respiratory failure suspected secondary to PE with small bilateral pleural effusions ? Police Specialist following. Not on home oxygen. Presented with significant hypoxia requiring BiPAP on admit to maintain appropriate oxygen saturations. Chest x-ray showed bibasilar pulmonary infiltrates with trace bilateral pleural effusions. CT abdomen pelvis showed small bilateral pleural effusions at lung bases. D-dimer elevated. Initial ABG on BiPAP with pH 7.43, pO2 73, pCO2 24. Respiratory status improved with BiPAP, weaned to 4 L nasal cannula on 04/29. Echo on 04/29 showed EF 55 to 60%, mildly dilated RV, mild segmental dysfunction of RV. Lower extremity duplex ultrasound was negative for DVT. Respiratory failure could be secondary to volume overload from JUDD with atelectasis but cannot rule out PE. VQ scan ordered and will be done tomorrow. Discussed with cardiology and horse farm manager and will empirically continue heparin drip for now. Treating with IV Lasix to aid with volume removal as noted below. Wean supplemental oxygen as able. 05/01/2024: Canceled VQ scan as her chest x-ray was abnormal therefore you could not trust the VQ scan. Continue with the heparin drip 05/02/2024: CTA of the chest was negative for PE, heparin drip was discontinued. Her respiratory failure is due to volume overload continue with dialysis 05/03/2024: Creatinine continues to improve with dialysis. Respiratory status is improving with fluid removal. Will continue to monitor. PT/OT and will have case management look into possible placement 05/04/2024: Currently awaiting morning labs she did receive dialysis last evening. Will likely need placement 05/05/2024: Hypoxia has resolved with significant volume removal with dialysis. Currently awaiting placement 2. 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 Nephrology following. Creatinine 4.50 on admit, most recent baseline creatinine appears to be around 1.7-2.0. Initial potassium 5.3, bicarb 16, BUN 66. No overt obstructive pathology noted on CT abdomen pelvis. Renal/bladder ultrasound unremarkable. Received 2.5 L of IV fluids total through 04/29 without improvement in creatinine. Creatinine remaining fairly stable to slightly worsening in the 4.5-4.9 range. Suspect prerenal JUDD with likely progression to some degree of ATN at this time. Per nephrology, given high doses of IV Lasix and chlorthalidone on 04/30 and will closely follow urine output. If good urine output and some improvement in creatinine tomorrow may be able to continue with IV diuresis. If not, will need to discuss temporary dialysis. Patient currently okay for temporary dialysis but likely would not want long-term dialysis; discussions ongoing with patient and family. 05/01/2024: Creatinine continues to rise, may need temporary dialysis if that is the case and can also pursue a CTA of the chest to definitively determine PE status 05/02/2024: Renal functions improving with dialysis 05/04/2024: She is able to make urine currently 04/27/2024: She did not have dialysis yesterday and today creatinine is 2.9 up from 2.3 3. Acute on chronic normocytic anemia ? Hemoglobin 7.8 on admit, dropped to 6.9 on hospital day 2 with IV fluid resuscitation. Given 1 unit of blood on 04/29 with repeat hemoglobin 8.0. Iron studies consistent with anemia of chronic disease. Suspect patient has some degree of anemia of renal disease as well. Hemoglobin very slowly downtrending, most recent hemoglobin 7.5 on 04/30 will continue heparin drip for now but if hemoglobin worsens significantly, will plan to hold and can transfuse for hemoglobin less than 7. 05/05/2024: Hemoglobin is 8.7 after dialysis 4. Significant bradycardia with junctional rhythm ? Cardiology following. Was noted on admission but per cardiology on 04/29, telemetry since arrival to the ICU shows normal sinus rhythm with no ectopy noted. Continue cardiac monitoring for now. 5. Hyperkalemia, improving ? Potassium peaked at 6.0 on 04/29. Presume secondary to JUDD. Improved with medical treatment, most recent potassium 4.8. Continue to monitor BMP daily. 6. Concern for acute pyelonephritis ? CT abdomen pelvis on admit showed lobulated contour of kidneys with nonspecific perinephric fat stranding right greater than left. UA showed 500 leukocyte esterase, negative nitrites, 0 bacteria. Treating empirically with IV Zosyn for now, follow-up urine culture. 05/03/2024: Urine culture with less than 100,000 CFU's of ESBL, continue with meropenem daily per renal function 7. Acute on chronic debility ? PT/OT/case management following. Patient hospitalized here in early March for weakness secondary to COVID infection. Has been following with home health care since then. Suspect patient will need either SNF or home with resumption of home health care on discharge. Appreciate therapy recommendations. 8. Hypertension ? Holding home losartan and amlodipine. 9. Depression ? Continue home fluoxetine. 10. Recent COVID infection ? Had COVID infection in early March with significant weakness secondary to that. 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 DVT: SCDs Charges/Coding Visit Charges Inpatient E&M: 71159 Subs Hosp L2
--- NOTE | 2024-05-05 11:00 | CASEMGMT ---
Addendum entered by Felix Lim 05/05/24 15:52: Hep B antigen result sent to [facility] via portal. Addendum entered by Felix Lim 05/05/24 15:49: OPAL BARLOW spoke w/Eladia, [facility] admissions. She has received the referral and it is pending medical clearance. Hep B results to be sent to [facility] when available, as well as tunnelled HD cath report, when available. Eladia is aware pt would like reliability specialist schedule if possible. She states the only chair time available @ [facility] in [place] is TTS @ 1 PM. Tentative schedule received via fax for TTS, chair time, 1 PM and 1st treatment for Tues, 05/09. Pt was made aware and understands this is a tentative schedule & is subject to change. She states that time is okay. She was made aware to arrive 30 min early for first visit. She voices no further questions/concerns at this time. Original Note: OPAL BARLOW NOTE: Per NEGAR Mckeon, Dr Mata states pt will need OP HD @ discharge, and will need tunnelled HD catheter placed. OPAL BARLOW to room. Pt sitting up in chair. Pt made aware and voices understanding. Questions answered. She states she wants to go to [facility] in [place], stating she took her mother there in 2007 for a few months when her mother needed OP HD, so she is familiar there and with the process. She denies preference of TTS vs MWF schedule, but states would prefer very reliability specialist, b/w 5:30 and 6 AM, if possible, as that is when her sister can take her. She states if that time is not available, other times will work as well, stating she has other family members that can transport her. She states her daughter who has been staying w/her will be traveling to [place] 05/18, but they have already arranged for caregivers to stay w/her to help, as needed while her daughter is away. Referral made to [facility] via admission portal. Per NEGAR Mckeon, Hep B to be drawn today w/HD. Results to be sent to [facility] when available, along w/tunnelled cath report and CXR confirming placement, when available. Pt denies other discharge needs/concerns at this. Made aware to ask for CM if any needs/questions/concerns arise. Basia BSN RN CM
[2024-05-05] MEDS: PureFlow B 2K Dialysis Soln 1 BAG 6 BAG PF (12:05)
[2024-05-05] MEDS: 0.9% Normal Saline 1,000 ML IV.SOLN. 1000 ML OPERA.SITE (12:05)
[2024-05-05] MEDS: 0.9% Saline Lock 10 ML Syringe IV (12:06)
[2024-05-05 14:42] LABS: Hepatitis B Surface Antigen Nonreactive (Nonreactive)
[2024-05-05] MEDS: Heparin 10,000 UNITS/10 ML Vial IV (15:07)
--- NOTE | 2024-05-05 15:15 | PN.RENAL_ITS ---
Subjective Subjective No new complaints today Objective Data Objective Data Vital Signs: Vital Signs Temp Pulse Resp BP Pulse Ox O2 Del Method O2 Flow Rate 97.7 F L 88 18 155/56 H 97 Room Air 2 05/05/24 11:45 05/05/24 15:00 05/05/24 12:04 05/05/24 15:00 05/05/24 12:04 05/05/24 12:04 05/04/24 07:51 FiO2 30 04/30/24 22:37 Oxygen Flow Rate (L/min) 2 Oxygen Delivery Method Room Air Weight: 69.4 kg Body Mass Index (BMI) 28.8 Intake & Output: Intake and Output for Last 24 Hours 05/03/24 05/04/24 05/05/24 23:59 23:59 23:59 Intake Total 120 / 520 1320 / 1320 428.05 / 428.05 Output Total 5600 / 8250 8700 / 8700 2650 / 2650 Balance -5480 / -7730 -7380 / -7380 -2221.95 / -2221.95 Lab / Micro Data 05/05/24 07:25 05/05/24 07:25 Labs: Laboratory Results - last 24 hr 05/01/24 : c-ANCA Antibody <1:20, Atypical p-ANCA <1:20, p-ANCA Antibody <1:20, Glomerular Base Memb Ab < 0.2 05/03/24 06:44: Carbon Dioxide 20.1 L, Anion Gap 14 05/05/24 07:25: WBC 6.4, RBC 3.26 L, Hgb 8.7 L, Hct 27.4 L, MCV 84.0, MCH 26.7 L , MCHC 31.8 L, RDW Std Deviation 44.6 H, RDW Coeff of Pedro 14.5, Plt Count 235, MPV 8.7, Immature Gran % (Auto) 0.600, Neut % (Auto) 58.3, Lymph % (Auto) 21.5, George % (Auto) 10.9 H, Eos % (Auto) 7.5 H, Baso % (Auto) 1.2 H, Absolute Neuts (auto) 3.7, Absolute Lymphs (auto) 1.38, Nucleated RBC % 0, Sodium 132 L, Potassium 3.8, Chloride Direct 99, Carbon Dioxide 21.0 L, Anion Gap 12, BUN 25 H , Creatinine 2.91 H, Estim Creat Clear Calc 12.64, Est GFR (MDRD) Non-Af 16 L, B UN/Creatinine Ratio 8.7 L, Glucose 85, Calcium 9.1 05/05/24 12:27: Hep Bs Antigen Nonreactive Micro: Microbiology 04/29/24 01:04 Blood Culture (Wb) - Line Draw Blood Culture - Final No growth in 5 days. 04/29/24 01:00 Blood Culture (Wb) - Line Draw Blood Culture - Final No growth in 5 days. 04/29/24 11:40 Urine, Clean Catch Urine Culture - Final ESBL Escherichia coli 05/02/24 03:00 Stool Stool Occult Blood (JESSICA) - Final 04/29/24 11:40 Urine, Clean Catch Legionella Antigen - Final 04/29/24 11:40 Urine, Clean Catch Streptococcus pneumoniae Antigen (M - Final 04/29/24 04:20 Mucosa - Nasopharyngeal Respiratory Panel (PCR) - Final 04/29/24 04:20 Nasal Secretion MRSA (PCR) - Final 04/28/24 23:50 Mucosa - Nose SARS-CoV-2, Influenza & RSV (PCR) - Final Physical Exam Narrative Alert awake oriented x 3 no obvious distress no pallor no icterus no JVD s1s2 no murmurs lungs rales abdomen soft no organomegaly no edema no cyanosis Assessment & Plan Assessment/Plan (1) Acute kidney injury: PLAN: Prior to last admission in March, baseline creatinine seems to be around 1.2. Sustained acute renal failure, recovered renal function with a discharge creatinine of 1.7 in March. This admission she came with a creatinine of 3.8, worsening since admission. CT abdomen with bilateral perinephric stranding. Urine analysis with leukocytes. Urine culture showing ESBL ecoli. on meropenem Chest x-ray bilateral edema, effusions. Not much response to diuretics. Of note, BNP is about 400/700. Echocardiogram with good ejection fraction. Blood cultures negative. WBC count normal. Since urine culture is positive for ESBL E. coli with perinephric stranding, there is possible some pyelonephritis. No plans for kidney biopsy. Received dialysis 05/01 05/02 and 05/03. Clinically better. Breathing has improved. off O2. HD today. Garcia catheter out, urine output has been decent. Serologies negative. Cr worsened. continue HD needs tunneled HD catheter needs placement in HD unit dc plans dw hospitalist
[2024-05-05] MEDS: amLODIPine 10 MG Tablet PO (16:08)
[2024-05-06] VITALS (10 sets, daily range): BP systolic 143–163; BP diastolic 52–67; PULSE 81–86; RESP 12–22; TEMP 36.7–36.8; O2SAT 93–97; BMI 28.4
[2024-05-06 06:03] LABS: Anion Gap 11 (5-15); BUN 19 mg/dL (4-19); BUN/Creat Ratio 9.1 RATIO (10-20); Calcium 9.1 mg/dL (7.6-11.0); Chloride 102 mmol/L (96-108); Creatinine, Serum 2.11 mg/dL (0.70-1.20); EST Glomerular Filtration Rate 23 (>60); Estimated Creatinine Clearance 17.87 ml/min; Glucose 87 mg/dL (70-99); Potassium 3.5 mmol/L (3.3-5.1); Sodium Level 136 mmol/L (133-145)
[2024-05-06] MEDS: Ipratropium/Albuterol Sulfate 3 ML AMPUL.NEB INHALATION ×4 (07:08→18:17)
--- NOTE | 2024-05-06 09:22 | NURSING ---
05/06/24 0845am, pt took LEON non-medical, ok per DR. Madison. pt released with shahla Bryant to see not doing well in Hospice setting.
[2024-05-06] MEDS: FLUoxetine 20 MG Capsule PO (10:07)
[2024-05-06] MEDS: amLODIPine 10 MG Tablet PO (10:07)
[2024-05-06] MEDS: Pantoprazole Sodium 40 MG Tablet PO (10:08)
[2024-05-06] MEDS: Meropenem 1 GM in 0.9% Normal Saline (100mL MB+) 100 ML IV (10:15)
--- NOTE | 2024-05-06 10:39 | CASEMGMT ---
Social Work Pt returning from [facility] to see who is currently at [facility] and in end of life situation. SW met with pt after return and provided emotional support. Pt dgt and son in law present and supporting pt. SW remains available for additional needs. KRISTI Peters
--- NOTE | 2024-05-06 10:43 | PCM.PN.HOSP ---
Subjective Subjective Doing well, no new issues overnight. She is maintaining her oxygen saturations on room air. She did have Dialysis yesterday because her creatinine went up to 2.91. Objective Data Objective Data Vital Signs: Vital Signs Temp Pulse Resp BP Pulse Ox O2 Del Method O2 Flow Rate 98.3 F 82 18 158/67 H 93 Nasal Cannula 1 05/06/24 04:11 05/06/24 10:24 05/06/24 10:24 05/06/24 04:11 05/06/24 07:09 05/06/24 07:09 05/06/24 07:09 FiO2 30 04/30/24 22:37 Oxygen Flow Rate (L/min) 1 Oxygen Delivery Method Nasal Cannula Weight: 150 lb 12.739 oz Body Mass Index (BMI) 28.4 Intake & Output: Intake and Output for Last 24 Hours 05/05/24 05/06/24 05/07/24 03:59 03:59 03:59 Intake Total 920 / 920 1920.00 / 1920.00 1000 / 1000 Output Total 6050 / 6050 5310 / 5310 1770 / 1770 Balance -5130 / -5130 -3390.00 / -3390.00 -770 / -770 Lab / Micro Data 05/05/24 07:25 05/06/24 04:40 Labs: Laboratory Results - last 24 hr 05/05/24 12:27: Hep Bs Antigen Nonreactive 05/06/24 04:40: Sodium 136, Potassium 3.5, Chloride Direct 102, Carbon Dioxide 23.0, Anion Gap 11, BUN 19, Creatinine 2.11 H, Estim Creat Clear Calc 17.87, Est GFR (MDRD) Non-Af 23 L, BUN/Creatinine Ratio 9.1 L, Glucose 87, Calcium 9.1 Micro: Microbiology 04/29/24 01:04 Blood Culture (Wb) - Line Draw Blood Culture - Final No growth in 5 days. 04/29/24 01:00 Blood Culture (Wb) - Line Draw Blood Culture - Final No growth in 5 days. 04/29/24 11:40 Urine, Clean Catch Urine Culture - Final ESBL Escherichia coli 05/02/24 03:00 Stool Stool Occult Blood (JESSICA) - Final 04/29/24 11:40 Urine, Clean Catch Legionella Antigen - Final 04/29/24 11:40 Urine, Clean Catch Streptococcus pneumoniae Antigen (M - Final 04/29/24 04:20 Mucosa - Nasopharyngeal Respiratory Panel (PCR) - Final 04/29/24 04:20 Nasal Secretion MRSA (PCR) - Final 04/28/24 23:50 Mucosa - Nose SARS-CoV-2, Influenza & RSV (PCR) - Final Physical Exam Narrative General: Alert, Oriented x3, Cooperative, No apparent distress HEENT: Atraumatic, PERRLA, EOMI, Normocephalic Oral: Moist Mucosa Neck: Supple, No JVD Lungs: Diminished, Normal air movement, No rhonchi, No wheeze, No rales Cardiovascular: Regular rate, Regular Rhythm, Normal S1, Normal S2, No murmurs Abdomen: Soft, Non Tender, Non-Distended, No Hepato-splenomegaly Extremities: No edema, Capillary Refill Less than 3 Seconds Skin: No rashes, No breakdown Musculoskeletal: No Tenderness to Palpation of Joints or Extremities Neurological: No focal neurological deficits, moves all extremities Psych/Mental Status: Normal Affect, Appropriate Assessment & Plan Assessment/Plan (1) Acute hypoxemic respiratory failure: (2) Acute kidney injury: (3) Acute on chronic anemia: PLAN: Plan 1. Acute hypoxic respiratory failure suspected secondary to PE with small bilateral pleural effusions ? Long Term Care Social Worker following. Not on home oxygen. Presented with significant hypoxia requiring BiPAP on admit to maintain appropriate oxygen saturations. Chest x-ray showed bibasilar pulmonary infiltrates with trace bilateral pleural effusions. CT abdomen pelvis showed small bilateral pleural effusions at lung bases. D-dimer elevated. Initial ABG on BiPAP with pH 7.43, pO2 73, pCO2 24. Respiratory status improved with BiPAP, weaned to 4 L nasal cannula on 04/29. Echo on 04/29 showed EF 55 to 60%, mildly dilated RV, mild segmental dysfunction of RV. Lower extremity duplex ultrasound was negative for DVT. Respiratory failure could be secondary to volume overload from JUDD with atelectasis but cannot rule out PE. VQ scan ordered and will be done tomorrow. Discussed with cardiology and guide dog instructor and will empirically continue heparin drip for now. Treating with IV Lasix to aid with volume removal as noted below. Wean supplemental oxygen as able. 05/01/2024: Canceled VQ scan as her chest x-ray was abnormal therefore you could not trust the VQ scan. Continue with the heparin drip 05/02/2024: CTA of the chest was negative for PE, heparin drip was discontinued. Her respiratory failure is due to volume overload continue with dialysis 05/03/2024: Creatinine continues to improve with dialysis. Respiratory status is improving with fluid removal. Will continue to monitor. PT/OT and will have case management look into possible placement 05/04/2024: Currently awaiting morning labs she did receive dialysis last evening. Will likely need placement 05/05/2024: Hypoxia has resolved with significant volume removal with dialysis. Currently awaiting placement 05/06/2024: Will plan for tunneled dialysis catheter given her recurrent need. Did allow LEON today to go visit her who is dying on hospice at a local assisted 2. 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 Nephrology following. Creatinine 4.50 on admit, most recent baseline creatinine appears to be around 1.7-2.0. Initial potassium 5.3, bicarb 16, BUN 66. No overt obstructive pathology noted on CT abdomen pelvis. Renal/bladder ultrasound unremarkable. Received 2.5 L of IV fluids total through 04/29 without improvement in creatinine. Creatinine remaining fairly stable to slightly worsening in the 4.5-4.9 range. Suspect prerenal JUDD with likely progression to some degree of ATN at this time. Per nephrology, given high doses of IV Lasix and chlorthalidone on 04/30 and will closely follow urine output. If good urine output and some improvement in creatinine tomorrow may be able to continue with IV diuresis. If not, will need to discuss temporary dialysis. Patient currently okay for temporary dialysis but likely would not want long-term dialysis; discussions ongoing with patient and family. 05/01/2024: Creatinine continues to rise, may need temporary dialysis if that is the case and can also pursue a CTA of the chest to definitively determine PE status 05/02/2024: Renal functions improving with dialysis 05/04/2024: She is able to make urine currently 04/27/2024: She did not have dialysis yesterday and today creatinine is 2.9 up from 2.3 3. Acute on chronic normocytic anemia ? Hemoglobin 7.8 on admit, dropped to 6.9 on hospital day 2 with IV fluid resuscitation. Given 1 unit of blood on 04/29 with repeat hemoglobin 8.0. Iron studies consistent with anemia of chronic disease. Suspect patient has some degree of anemia of renal disease as well. Hemoglobin very slowly downtrending, most recent hemoglobin 7.5 on 04/30 will continue heparin drip for now but if hemoglobin worsens significantly, will plan to hold and can transfuse for hemoglobin less than 7. 05/05/2024: Hemoglobin is 8.7 after dialysis 4. Significant bradycardia with junctional rhythm ? Cardiology following. Was noted on admission but per cardiology on 04/29, telemetry since arrival to the ICU shows normal sinus rhythm with no ectopy noted. Continue cardiac monitoring for now. 05/06/2024: Appears to have resolved 5. Hyperkalemia, improving ? Potassium peaked at 6.0 on 04/29. Presume secondary to JUDD. Improved with medical treatment, most recent potassium 4.8. Continue to monitor BMP daily. 6. Concern for acute pyelonephritis ? CT abdomen pelvis on admit showed lobulated contour of kidneys with nonspecific perinephric fat stranding right greater than left. UA showed 500 leukocyte esterase, negative nitrites, 0 bacteria. Treating empirically with IV Zosyn for now, follow-up urine culture. 05/03/2024: Urine culture with less than 100,000 CFU's of ESBL, continue with meropenem daily per renal function 05/06/2024: Complete meropenem tomorrow 7. Acute on chronic debility ? PT/OT/case management following. Patient hospitalized here in early March for weakness secondary to COVID infection. Has been following with home health care since then. Suspect patient will need either SNF or home with resumption of home health care on discharge. Appreciate therapy recommendations. 8. Hypertension ? Holding home losartan and amlodipine. 9. Depression ? Continue home fluoxetine. 10. Recent COVID infection ? Had COVID infection in early March with significant weakness secondary to that. 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 DVT: SCDs Charges/Coding Visit Charges Inpatient E&M: 80183 Subs Hosp L2
[2024-05-06 11:11] LABS: Absolute Lymphocyte Count 1.25 X10^3/uL (0.83-4.51); Absolute Neutrophil Count 2.7 X10^3/uL (2.0-7.7); Basophil# 0.07 X10^3/uL; Basophil% 1.3 % (0-1); Eosinophil# 0.54 X10^3/uL; Eosinophils% 10.1 % (0-5); Hematocrit 27.1 % (37-47); Hemoglobin 8.8 g/dL (12.0-15.0); Lymphocyte # 1.25 X10^3/ul (0.83-4.51); Lymphocyte % 23.5 % (19-41); Mean Corp Hgb Conc 32.5 g/dL (32-36); Mean Corpuscular Hgb 27.2 pg (27.0-32.0); Mean Corpuscular Volume 83.6 fL (81-99); Mean Platelet Vol. 8.8 fl (6.2-12.0); Monocyte# 0.72 X10^3/uL; Monocyte% 13.5 % (0-10); NRBC Flagged by Analyzer 0 % (0-5); Neutrophil # 2.71 X10^3/uL (2.7-7.7); Neutrophil % 50.8 % (47-70); Platelet Count 221 K/mm3 (150-450); RBC Distribution Width CV 14.3 % (11.6-14.6); RBC Distribution Width SD 43.5 fl (35.1-43.9); Red Blood Count 3.24 M/mm3 (4.2-5.4); White Blood Count 5.3 K/mm3 (4.4-11.0)
[2024-05-06] MEDS: MELATONIN 3 MG TABLET PO (20:50)
[2024-05-06] MEDS: Acetaminophen 325 MG Tablet 650 MG PO (20:50)
[2024-05-06] MEDS: guaiFENesin 10 ML UDC (200MG/10ML) PO (20:51)
[2024-05-06] MEDS: Mag Hydrox/Al Hydrox/Simeth 30 ML UDC PO (23:20)
--- NOTE | 2024-05-06 23:21 | CT_ITS ---
PROCEDURE: ABDOMEN/PELVIS WITHOUT CONT REASON FOR EXAM: Flank pain. TECHNIQUE: Abdomen and pelvis CT without intravenous contrast. One or more dose reduction techniques were used (e.g., Automated exposure control, adjustment of the mA and/or kV according to patient size, use of iterative reconstruction technique). COMPARISON: 04/29/2024 FINDINGS: Lung bases: Unchanged small pleural effusions bibasilar atelectasis. Trace pericardial effusion unchanged Liver: Normal for noncontrast technique Gallbladder: Normal Spleen: Normal Pancreas: Normal Adrenals: Normal Kidneys: Mild right hydronephrosis. No obstructing lesion identified. Left kidney and ureter are normal. Bladder: Normal Reproductive Organs: Normal Bowel: Sigmoid diverticulosis without findings for acute diverticulitis. Moderate amount of stool in the colon. Appendix: Normal. Lymph nodes: No suspicious lymph node enlargement. Vasculature: Aortoiliac atherosclerosis Peritoneum / Retroperitoneum: No ascites. No free air. Bones: Multilevel degenerative changes in the lumbar spine CT/Abdomen/Pelvis without Cont IMPRESSION: MILD RIGHT HYDRONEPHROSIS WITHOUT AN OBSTRUCTING LESION IDENTIFIED. UNCHANGED PLEURAL EFFUSIONS. Reading Location: [id number]
[2024-05-06] MEDS: LORazepam 0.5 MG Tablet PO (23:27)
[2024-05-07] VITALS (12 sets, daily range): BP systolic 134–156; BP diastolic 45–57; PULSE 75–83; RESP 18–20; TEMP 36.6–36.9; O2SAT 82–96; BMI 29.0
--- NOTE | 2024-05-07 00:07 | NURSING ---
Accompanied to CT, via WC. Pt tolerated with minimal complaint. Up with assist x1, FWW. Tolerated well. Ambulated in room 30 feet. Positioned in bed for comfort. call light in reach, encouraged to call staff with needs and concerns. Pt verbalized understanding at this time. Will update with any significant findings. Support and educaiton provided. No additional needs or concerns verbalized or identified.
[2024-05-07] MEDS: Ondansetron 4 MG/2 ML Vial IV (01:02)
[2024-05-07 06:00] LABS: Anion Gap 12 (5-15); BUN 33 mg/dL (4-19); BUN/Creat Ratio 12.5 RATIO (10-20); Calcium 8.8 mg/dL (7.6-11.0); Carbon Dioxide 22.1 mmol/L (22.0-29.0); Chloride 98 mmol/L (96-108); Creatinine, Serum 2.61 mg/dL (0.70-1.20); EST Glomerular Filtration Rate 18 (>60); Estimated Creatinine Clearance 14.59 ml/min (50-250); Glucose 120 mg/dL (70-99); Potassium 3.9 mmol/L (3.3-5.1); Sodium Level 131 mmol/L (133-145)
[2024-05-07] MEDS: Ipratropium/Albuterol Sulfate 3 ML AMPUL.NEB INHALATION ×4 (06:36→19:50)
[2024-05-07] MEDS: Meropenem 1 GM in 0.9% Normal Saline (100mL MB+) 100 ML IV (09:59)
[2024-05-07] MEDS: Pantoprazole Sodium 40 MG Tablet PO (09:59)
[2024-05-07] MEDS: amLODIPine 10 MG Tablet PO (09:59)
[2024-05-07] MEDS: FLUoxetine 20 MG Capsule PO (09:59)
[2024-05-07] MEDS: 0.9% Saline Lock 10 ML Syringe IV (10:00)
--- NOTE | 2024-05-07 11:00 | PN.HOSP_ITS ---
Subjective Subjective Doing well, no issues overnight. Unfortunately her this morning at the shelter Objective Data Objective Data Vital Signs: Vital Signs Temp Pulse Resp BP Pulse Ox O2 Del Method O2 Flow Rate 97.8 F 75 20 H 134/52 H 94 Room Air 1 05/07/24 10:00 05/07/24 10:00 05/07/24 10:00 05/07/24 10:00 05/07/24 10:00 05/07/24 10:09 05/07/24 06:37 FiO2 30 04/30/24 22:37 Oxygen Flow Rate (L/min) 1 Oxygen Delivery Method Room Air Weight: 153 lb 14.122 oz Body Mass Index (BMI) 29.0 Intake & Output: Intake and Output for Last 24 Hours 05/06/24 05/07/24 05/08/24 03:59 03:59 03:59 Intake Total 1920.00 / 1920.00 1440 / 1440 Output Total 5310 / 5310 1820 / 1820 Balance -3390.00 / -3390.00 -380 / -380 Lab / Micro Data 05/06/24 04:40 05/07/24 04:50 Labs: Laboratory Results - last 24 hr 05/06/24 04:40: WBC 5.3, RBC 3.24 L, Hgb 8.8 L, Hct 27.1 L, MCV 83.6, MCH 27.2, MCHC 32.5, RDW Std Deviation 43.5, RDW Coeff of Pedro 14.3, Plt Count 221, MPV 8.8, Immature Gran % (Auto) 0.800, Neut % (Auto) 50.8, Lymph % (Auto) 23.5, [place] % (Auto) 13.5 H, Eos % (Auto) 10.1 H, Baso % (Auto) 1.3 H, Absolute Neuts (auto) 2.7, Absolute Lymphs (auto) 1.25, Nucleated RBC % 0 05/07/24 04:50: Sodium 131 L, Potassium 3.9, Chloride Direct 98, Carbon Dioxide 22.1, Anion Gap 12, BUN 33 H, Creatinine 2.61 H, Estim Creat Clear Calc 14.59 L, Est GFR (MDRD) Non-Af 18 L, BUN/Creatinine Ratio 12.5, Glucose 120 H, Calcium 8.8 Micro: Microbiology 04/29/24 01:04 Blood Culture (Wb) - Line Draw Blood Culture - Final No growth in 5 days. 04/29/24 01:00 Blood Culture (Wb) - Line Draw Blood Culture - Final No growth in 5 days. 04/29/24 11:40 Urine, Clean Catch Urine Culture - Final ESBL Escherichia coli 05/02/24 03:00 Stool Stool Occult Blood (JESSICA) - Final 04/29/24 11:40 Urine, Clean Catch Legionella Antigen - Final 04/29/24 11:40 Urine, Clean Catch Streptococcus pneumoniae Antigen (M - Final 04/29/24 04:20 Mucosa - Nasopharyngeal Respiratory Panel (PCR) - Final 04/29/24 04:20 Nasal Secretion MRSA (PCR) - Final 04/28/24 23:50 Mucosa - Nose SARS-CoV-2, Influenza & RSV (PCR) - Final Radiography Diagnostic Testing: Radiology Impression Abdomen/Pelvis CT 05/06/24 23:21 IMPRESSION: MILD RIGHT HYDRONEPHROSIS WITHOUT AN OBSTRUCTING LESION IDENTIFIED. UNCHANGED PLEURAL EFFUSIONS. Reading Location: [facility] Physical Exam Narrative General: Alert, Oriented x3, Cooperative, No apparent distress HEENT: Atraumatic, PERRLA, EOMI, Normocephalic Oral: Moist Mucosa Neck: Supple, No JVD Lungs: Diminished, Normal air movement, No rhonchi, No wheeze, No rales Cardiovascular: Regular rate, Regular Rhythm, Normal S1, Normal S2, No murmurs Abdomen: Soft, Non Tender, Non-Distended, No Hepato-splenomegaly Extremities: No edema, Capillary Refill Less than 3 Seconds Skin: No rashes, No breakdown Musculoskeletal: No Tenderness to Palpation of Joints or Extremities Neurological: No focal neurological deficits, moves all extremities Psych/Mental Status: Normal Affect, Appropriate Assessment & Plan Assessment/Plan (1) Acute hypoxemic respiratory failure: (2) Acute kidney injury: (3) Acute on chronic anemia: PLAN: Plan 1. Acute hypoxic respiratory failure suspected secondary to PE with small bilateral pleural effusions ? Conservation Science Teacher following. Not on home oxygen. Presented with significant hypoxia requiring BiPAP on admit to maintain appropriate oxygen saturations. Chest x-ray showed bibasilar pulmonary infiltrates with trace bilateral pleural effusions. CT abdomen pelvis showed small bilateral pleural effusions at lung bases. D-dimer elevated. Initial ABG on BiPAP with pH 7.43, pO2 73, pCO2 24. Respiratory status improved with BiPAP, weaned to 4 L nasal cannula on 04/29. Echo on 04/29 showed EF 55 to 60%, mildly dilated RV, mild segmental dysfunction of RV. Lower extremity duplex ultrasound was negative for DVT. Respiratory failure could be secondary to volume overload from JUDD with atelectasis but cannot rule out PE. VQ scan ordered and will be done tomorrow. Discussed with cardiology and hvac sales engineer and will empirically continue heparin drip for now. Treating with IV Lasix to aid with volume removal as noted below. Wean supplemental oxygen as able. 05/01/2024: Canceled VQ scan as her chest x-ray was abnormal therefore you could not trust the VQ scan. Continue with the heparin drip 05/02/2024: CTA of the chest was negative for PE, heparin drip was discontinued. Her respiratory failure is due to volume overload continue with dialysis 05/03/2024: Creatinine continues to improve with dialysis. Respiratory status is improving with fluid removal. Will continue to monitor. PT/OT and will have case management look into possible placement 05/04/2024: Currently awaiting morning labs she did receive dialysis last evening. Will likely need placement 05/05/2024: Hypoxia has resolved with significant volume removal with dialysis. Currently awaiting placement 05/06/2024: Will plan for tunneled dialysis catheter given her recurrent need. Did allow LEON today to go visit her who is dying on hospice at a local shelter 05/07/2024: Tunneled dialysis catheter planned for tomorrow 2. 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 Nephrology following. Creatinine 4.50 on admit, most recent baseline creatinine appears to be around 1.7-2.0. Initial potassium 5.3, bicarb 16, BUN 66. No overt obstructive pathology noted on CT abdomen pelvis. Renal/bladder ultrasound unremarkable. Received 2.5 L of IV fluids total through 04/29 without improvement in creatinine. Creatinine remaining fairly stable to slightly worsening in the 4.5-4.9 range. Suspect prerenal JUDD with likely progression to some degree of ATN at this time. Per nephrology, given high doses of IV Lasix and chlorthalidone on 04/30 and will closely follow urine output. If good urine output and some improvement in creatinine tomorrow may be able to continue with IV diuresis. If not, will need to discuss temporary dialysis. Patient currently okay for temporary dialysis but likely would not want long-term dialysis; discussions ongoing with patient and family. 05/01/2024: Creatinine continues to rise, may need temporary dialysis if that is the case and can also pursue a CTA of the chest to definitively determine PE status 05/02/2024: Renal functions improving with dialysis 05/04/2024: She is able to make urine currently 04/27/2024: She did not have dialysis yesterday and today creatinine is 2.9 up from 2.3 3. Acute on chronic normocytic anemia ? Hemoglobin 7.8 on admit, dropped to 6.9 on hospital day 2 with IV fluid resuscitation. Given 1 unit of blood on 04/29 with repeat hemoglobin 8.0. Iron studies consistent with anemia of chronic disease. Suspect patient has some degree of anemia of renal disease as well. Hemoglobin very slowly downtrending, most recent hemoglobin 7.5 on 04/30 will continue heparin drip for now but if hemoglobin worsens significantly, will plan to hold and can transfuse for hemoglobin less than 7. 05/05/2024: Hemoglobin is 8.7 after dialysis 4. Significant bradycardia with junctional rhythm ? Cardiology following. Was noted on admission but per cardiology on 04/29, telemetry since arrival to the ICU shows normal sinus rhythm with no ectopy noted. Continue cardiac monitoring for now. 05/06/2024: Appears to have resolved 5. Hyperkalemia, improving ? Potassium peaked at 6.0 on 04/29. Presume secondary to JUDD. Improved with medical treatment, most recent potassium 4.8. Continue to monitor BMP daily. 6. Concern for acute pyelonephritis ? CT abdomen pelvis on admit showed lobulated contour of kidneys with nonspecific perinephric fat stranding right greater than left. UA showed 500 leukocyte esterase, negative nitrites, 0 bacteria. Treating empirically with IV Zosyn for now, follow-up urine culture. 05/03/2024: Urine culture with less than 100,000 CFU's of ESBL, continue with meropenem daily per renal function 05/06/2024: Complete meropenem tomorrow 05/07/2024: Completed meropenem 7. Acute on chronic debility ? PT/OT/case management following. Patient hospitalized here in early March for weakness secondary to COVID infection. Has been following with home health care since then. Suspect patient will need either SNF or home with resumption of home health care on discharge. Appreciate therapy recommendations. 8. Hypertension ? Holding home losartan and amlodipine. 9. Depression ? Continue home fluoxetine. 10. Recent COVID infection ? Had COVID infection in early March with significant weakness secondary to that. 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 DVT: SCDs Charges/Coding Visit Charges Inpatient E&M: 48443 Subs Hosp L2
[2024-05-07] MEDS: Acetaminophen 325 MG Tablet 650 MG PO (20:47)
[2024-05-07] MEDS: MELATONIN 3 MG TABLET PO (20:48)
[2024-05-08] VITALS (22 sets, daily range): BP systolic 117–232; BP diastolic 46–93; PULSE 70–87; RESP 16–20; TEMP 36.4–37.4; O2SAT 16–97; BMI 29.5; BMI 29.6; BMI 28.7
[2024-05-08 06:28] LABS: Absolute Lymphocyte Count 1.24 X10^3/uL (0.83-4.51); Absolute Neutrophil Count 2.9 X10^3/uL (2.0-7.7); Basophil# 0.05 X10^3/uL; Basophil% 0.9 % (0-1); Eosinophil# 0.53 X10^3/uL; Eosinophils% 9.9 % (0-5); Hematocrit 23.7 % (37-47); Hemoglobin 7.7 g/dL (12.0-15.0); Lymphocyte # 1.24 X10^3/ul (0.83-4.51); Lymphocyte % 23.2 % (19-41); Mean Corp Hgb Conc 32.5 g/dL (32-36); Mean Corpuscular Hgb 26.8 pg (27.0-32.0); Mean Corpuscular Volume 82.6 fL (81-99); Monocyte# 0.61 X10^3/uL; Monocyte% 11.4 % (0-10); NRBC Flagged by Analyzer 0 % (0-5); Neutrophil % 54.2 % (47-70); Platelet Count 193 K/mm3 (150-450); RBC Distribution Width SD 42.5 fl (35.1-43.9); Red Blood Count 2.87 M/mm3 (4.2-5.4); White Blood Count 5.4 K/mm3 (4.4-11.0)
--- NOTE | 2024-05-08 06:37 | EX.PCM.CON.S ---
Assessment & Plan Assessment/Plan (1) Acute kidney injury: PLAN: I was consulted for placement of a tunneled dialysis catheter before discharge. The patient has been receiving dialysis through a temporary catheter which was removed yesterday. She will have her new catheter placed on the right side under ultrasound guidance today in the operating room. I discussed the procedure with her and her family. I discussed the risks including but not limited to bleeding, infection, pneumothorax. Patient understands the risks and is willing to proceed. Micheal Kaye MD Pager: [facility] [address] [place] [address], [address] [place] [address] Office: HPI Consult Data Date of Consult: 05/08/24 HPI Narrative HPI Narrative: RYAN FLEMING, is a 84 F who presents with acute kidney injury. The patient was recommended to have a tunneled dialysis catheter. She has been receiving dialysis through her temporary dialysis catheter. [facility] Medical History Cataract (lens) fragments in eye following cataract surgery, bilateral Macular degeneration Glaucoma Wears glasses Gout Arthritis Renal agenesis Pulmonary embolism High cholesterol CPAP (continuous positive airway pressure) dependence Former smoker Sleep apnea Hypertension History of pulmonary embolism Home Medications ?Medication ?Instructions ?Recorded ?Last Taken ?Type vitamin E 268 mg (400 unit) capsule 268 mg PO DAILY Supplement 07/02/22 03/14/24 History vitamins A,C,F-otye-bxbuav 4,296 1 cap PO BID Healthy eyes 03/14/24 03/14/24 History mcg-226 mg-90 mg capsule (Healthy Eyes SuperVision) acetaminophen 325 mg tablet 650 mg (2 x 325 mg) PO Q6H PRN PRN 03/19/24 Unknown Rx Pain 1-10 Or Fever>100.7 #0 tabs amlodipine 10 mg tablet 10 mg PO DAILY HEART #60 tabs 03/19/24 Unknown Rx fluoxetine 20 mg tablet 20 mg PO DAILY DEPRESSION 04/28/24 Unknown History losartan 100 mg tablet 100 mg PO DAILY CHOLESTEROL 04/28/24 Unknown History Allergy/AdvReac Type Severity Reaction Status Date / Time Sulfa (Sulfonamide Allergy Intermediate Itching Verified 03/15/24 00:11 Antibiotics) Family History Mother Diabetes Kidney disease Father Heart disease Surgical History History of carpal tunnel release History of lumpectomy of right breast Social History household members: spouse Smoking Status: Former smoker alcohol intake: never substance use type: does not use Physical Exam Const alert and oriented x3 HEENT normocephalic Eyes PERRL Resp normal respiratory effort Cardio Rate: regular rate Rhythm: regular rhythm Extremity normal to inspection Lab / Micro Data 05/08/24 06:12 05/07/24 04:50 Labs: Laboratory Results - last 24 hr 05/08/24 06:12: WBC 5.4, RBC 2.87 L, Hgb 7.7 L, Hct 23.7 L, MCV 82.6, MCH 26.8 L, MCHC 32.5, RDW Std Deviation 42.5, RDW Coeff of Pedro 14.0, Plt Count 193, MPV 9.0, Immature Gran % (Auto) 0.400, Neut % (Auto) 54.2, Lymph % (Auto) 23.2, [place] % (Auto) 11.4 H, Eos % (Auto) 9.9 H, Baso % (Auto) 0.9, Absolute Neuts (auto) 2.9, Absolute Lymphs (auto) 1.24, Nucleated RBC % 0
[2024-05-08] MEDS: Ipratropium/Albuterol Sulfate 3 ML AMPUL.NEB INHALATION ×3 (07:28→19:07)
[2024-05-08 07:49] LABS: Anion Gap 13 (5-15); BUN 41 mg/dL (4-19); BUN/Creat Ratio 13.6 RATIO (10-20); Calcium 8.6 mg/dL (7.6-11.0); Chloride 97 mmol/L (96-108); Creatinine, Serum 3.01 mg/dL (0.70-1.20); EST Glomerular Filtration Rate 15 (>60); Estimated Creatinine Clearance 12.77 ml/min (50-250); Glucose 85 mg/dL (70-99); Magnesium 2.4 mg/dL (1.5-2.2); Phosphorus 3.9 mg/dL (2.7-4.5); Potassium 4.2 mmol/L (3.3-5.1); Sodium Level 131 mmol/L (133-145)
--- NOTE | 2024-05-08 10:25 | PN.HOSP_ITS ---
Subjective Subjective Doing okay, no issues overnight. Respiratory status is improved with dialysis Objective Data Objective Data Vital Signs: Vital Signs Temp Pulse Resp BP Pulse Ox O2 Del Method O2 Flow Rate 98.0 F 80 16 150/60 H 16 Room Air 2 05/08/24 09:47 05/08/24 09:47 05/08/24 09:47 05/08/24 09:47 05/08/24 09:47 05/08/24 09:47 05/08/24 03:35 FiO2 30 04/30/24 22:37 Oxygen Flow Rate (L/min) 2 Oxygen Delivery Method Room Air Weight: 156 lb 11.979 oz Body Mass Index (BMI) 29.6 Intake & Output: Intake and Output for Last 24 Hours 05/07/24 05/08/24 05/09/24 03:59 03:59 03:59 Intake Total 1440 / 1440 120 / 120 Output Total 1820 / 1820 400 / 400 250 / 250 Balance -380 / -380 -280 / -280 -250 / -250 Lab / Micro Data 05/08/24 06:12 05/08/24 06:12 Labs: Laboratory Results - last 24 hr 05/08/24 06:12: WBC 5.4, RBC 2.87 L, Hgb 7.7 L, Hct 23.7 L, MCV 82.6, MCH 26.8 L , MCHC 32.5, RDW Std Deviation 42.5, RDW Coeff of Pedro 14.0, Plt Count 193, MPV 9.0, Immature Gran % (Auto) 0.400, Neut % (Auto) 54.2, Lymph % (Auto) 23.2, [place] % (Auto) 11.4 H, Eos % (Auto) 9.9 H, Baso % (Auto) 0.9, Absolute Neuts (auto) 2.9, Absolute Lymphs (auto) 1.24, Nucleated RBC % 0, Sodium 131 L, Potassium 4.2, Chloride Direct 97, Carbon Dioxide 21.0 L, Anion Gap 13, BUN 41 H, C reatinine 3.01 H, Estim Creat Clear Calc 12.77 L, Est GFR (MDRD) Non-Af 15 L, BUN/Creatinine Ratio 13.6, Glucose 85, Calcium 8.6, Phosphorus 3.9, Magnesium 2.4 H Micro: Microbiology 04/29/24 01:04 Blood Culture (Wb) - Line Draw Blood Culture - Final No growth in 5 days. 04/29/24 01:00 Blood Culture (Wb) - Line Draw Blood Culture - Final No growth in 5 days. 04/29/24 11:40 Urine, Clean Catch Urine Culture - Final ESBL Escherichia coli 05/02/24 03:00 Stool Stool Occult Blood (JESSICA) - Final 04/29/24 11:40 Urine, Clean Catch Legionella Antigen - Final 04/29/24 11:40 Urine, Clean Catch Streptococcus pneumoniae Antigen (M - Final 04/29/24 04:20 Mucosa - Nasopharyngeal Respiratory Panel (PCR) - Final 04/29/24 04:20 Nasal Secretion MRSA (PCR) - Final 04/28/24 23:50 Mucosa - Nose SARS-CoV-2, Influenza & RSV (PCR) - Final Physical Exam Narrative General: Alert, Oriented x3, Cooperative, No apparent distress HEENT: Atraumatic, PERRLA, EOMI, Normocephalic Oral: Moist Mucosa Neck: Supple, No JVD Lungs: Diminished, Normal air movement, No rhonchi, No wheeze, No rales Cardiovascular: Regular rate, Regular Rhythm, Normal S1, Normal S2, No murmurs Abdomen: Soft, Non Tender, Non-Distended, No Hepato-splenomegaly Extremities: No edema, Capillary Refill Less than 3 Seconds Skin: No rashes, No breakdown Musculoskeletal: No Tenderness to Palpation of Joints or Extremities Neurological: No focal neurological deficits, moves all extremities Psych/Mental Status: Normal Affect, Appropriate Assessment & Plan Assessment/Plan (1) Acute hypoxemic respiratory failure: (2) Acute kidney injury: (3) Acute on chronic anemia: PLAN: Plan 1. Acute hypoxic respiratory failure suspected secondary to PE with small bilateral pleural effusions ? 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 Not on home oxygen. Presented with significant hypoxia requiring BiPAP on admit to maintain appropriate oxygen saturations. Chest x-ray showed bibasilar pulmonary infiltrates with trace bilateral pleural effusions. CT abdomen pelvis showed small bilateral pleural effusions at lung bases. D-dimer elevated. Initial ABG on BiPAP with pH 7.43, pO2 73, pCO2 24. Respiratory status improved with BiPAP, weaned to 4 L nasal cannula on 04/29. Echo on 04/29 showed EF 55 to 60%, mildly dilated RV, mild segmental dysfunction of RV. Lower extremity duplex ultrasound was negative for DVT. Respiratory failure could be secondary to volume overload from JUDD with atelectasis but cannot rule out PE. VQ scan ordered and will be done tomorrow. Discussed with cardiology and data control assistant and will empirically continue heparin drip for now. Treating with IV Lasix to aid with volume removal as noted below. Wean supplemental oxygen as able. 05/01/2024: Canceled VQ scan as her chest x-ray was abnormal therefore you could not trust the VQ scan. Continue with the heparin drip 05/02/2024: CTA of the chest was negative for PE, heparin drip was discontinued. Her respiratory failure is due to volume overload continue with dialysis 05/03/2024: Creatinine continues to improve with dialysis. Respiratory status is improving with fluid removal. Will continue to monitor. PT/OT and will have case management look into possible placement 05/04/2024: Currently awaiting morning labs she did receive dialysis last evening. Will likely need placement 05/05/2024: Hypoxia has resolved with significant volume removal with dialysis. Currently awaiting placement 05/06/2024: Will plan for tunneled dialysis catheter given her recurrent need. Did allow LEON today to go visit her who is dying on hospice at a local skilled nursing 05/07/2024: Tunneled dialysis catheter planned for tomorrow 05/08/2024: Plan for tunneled dialysis catheter today. Will recheck hemoglobin this afternoon as this is dropped will likely need dialysis again today. Creatinine is now 3 2. 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 Nephrology following. Creatinine 4.50 on admit, most recent baseline creatinine appears to be around 1.7-2.0. Initial potassium 5.3, bicarb 16, BUN 66. No overt obstructive pathology noted on CT abdomen pelvis. Renal/bladder ultrasound unremarkable. Received 2.5 L of IV fluids total through 04/29 without improvement in creatinine. Creatinine remaining fairly stable to slightly worsening in the 4.5-4.9 range. Suspect prerenal JUDD with likely progression to some degree of ATN at this time. Per nephrology, given high doses of IV Lasix and chlorthalidone on 04/30 and will closely follow urine output. If good urine output and some improvement in creatinine tomorrow may be able to continue with IV diuresis. If not, will need to discuss temporary dialysis. Patient currently okay for temporary dialysis but likely would not want long-term dialysis; discussions ongoing with patient and family. 05/01/2024: Creatinine continues to rise, may need temporary dialysis if that is the case and can also pursue a CTA of the chest to definitively determine PE status 05/02/2024: Renal functions improving with dialysis 05/04/2024: She is able to make urine currently 05/05/2024: She did not have dialysis yesterday and today creatinine is 2.9 up from 2.3 3. Acute on chronic normocytic anemia ? Hemoglobin 7.8 on admit, dropped to 6.9 on hospital day 2 with IV fluid resuscitation. Given 1 unit of blood on 04/29 with repeat hemoglobin 8.0. Iron studies consistent with anemia of chronic disease. Suspect patient has some degree of anemia of renal disease as well. Hemoglobin very slowly downtrending, most recent hemoglobin 7.5 on 04/30 will continue heparin drip for now but if hemoglobin worsens significantly, will plan to hold and can transfuse for hemoglobin less than 7. 05/05/2024: Hemoglobin is 8.7 after dialysis 05/08/2024: Recheck H&H this afternoon 4. Significant bradycardia with junctional rhythm ? Cardiology following. Was noted on admission but per cardiology on 04/29, telemetry since arrival to the ICU shows normal sinus rhythm with no ectopy noted. Continue cardiac monitoring for now. 05/06/2024: Appears to have resolved 5. Hyperkalemia, improving ? Potassium peaked at 6.0 on 04/29. Presume secondary to JUDD. Improved with medical treatment, most recent potassium 4.8. Continue to monitor BMP daily. 6. Concern for acute pyelonephritis ? CT abdomen pelvis on admit showed lobulated contour of kidneys with nonspecific perinephric fat stranding right greater than left. UA showed 500 leukocyte esterase, negative nitrites, 0 bacteria. Treating empirically with IV Zosyn for now, follow-up urine culture. 05/03/2024: Urine culture with less than 100,000 CFU's of ESBL, continue with meropenem daily per renal function 05/06/2024: Complete meropenem tomorrow 05/07/2024: Completed meropenem 7. Acute on chronic debility ? PT/OT/case management following. Patient hospitalized here in early March for weakness secondary to COVID infection. Has been following with home health care since then. Suspect patient will need either SNF or home with resumption of home health care on discharge. Appreciate therapy recommendations. 8. Hypertension ? Holding home losartan and amlodipine. 9. Depression ? Continue home fluoxetine. 10. Recent COVID infection ? Had COVID infection in early March with significant weakness secondary to that. 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 DVT: SCDs Charges/Coding Visit Charges Inpatient E&M: 64733 Subs Hosp L2
--- NOTE | 2024-05-08 10:31 | PRE.ANES_ITS ---
ASA Classification* ASA Classification ASA Classification: 3 Assessment & Plan Anesthesia* Anesthesia Assessment Anesthesia Assessment: Discussed sedation and/or anesthesia options, risks, benefits, and alternatives with patient/parents/legal guardian/POA. Questions invited. The patient/parents/legal guardian/POA seems to understand and agrees to proceed with anesthesia plan. Reviewed the physical assessment, medical history, allergy history and patient home medications list prior to surgery/procedure/anesthetic and documented any changes. Performed airway and anesthesia risk assessments. Anesthesia Type Anesthesia Type: MAC Anesthesia Focused Assessment* Temperature: 98.0 F Pulse Rate: 80 Blood Pressure: 150/60 Respiratory Rate: 16 Pulse Ox: 16 Oxygen Flow Rate (L/min): 2 Fraction of Inspired Oxygen (FIO2): 30 Airway Assessment Mouth opens: >3 cm Mallampati Score: II Focused Labs Anesthesia Preop lab: CBC WBC 5.4 K/mm3 (4.4-11.0) 05/08/24 06:12 05/08/24 RBC 2.87 M/mm3 (4.2-5.4) L 05/08/24 06:12 05/08/24 Hgb 7.7 g/dL (12.0-15.0) L 05/08/24 06:12 05/08/24 Hct 23.7 % (37-47) L 05/08/24 06:12 05/08/24 Plt Count 193 K/mm3 (150-450) 05/08/24 06:12 05/08/24 CHEMISTRY Potassium 4.2 mmol/L (3.3-5.1) 05/08/24 06:12 05/08/24 Sodium 131 mmol/L (133-145) L 05/08/24 06:12 05/08/24 Magnesium 2.4 mg/dL (1.5-2.2) H 05/08/24 06:12 05/08/24 Phosphorus 3.9 mg/dL (2.7-4.5) 05/08/24 06:12 05/08/24 BUN 41 mg/dL (4-19) H 05/08/24 06:12 05/08/24 Creatinine 3.01 mg/dL (0.70-1.20) H 05/08/24 06:12 Glucose 85 mg/dL (70-99) 05/08/24 06:12 05/08/24 TSH 1.960 uIU/mL (0.358-3.740) 04/19/24 14:09 04/08 05/02 COAG PT 15.8 SECONDS (11.7-14.9) H 04/30/24 08:00 04/09 05/30 Pre-Assessment Diagnosis/Proposed Procedure Planned Operative Procedure(s): Dialysis catheter Anesthesia History Anesthesia History - instrumentation technologist: Anesthesia History - instrumentation technologist Hx Hospitalization No 07/02/22 09:05 Any Problems With Anesthesia No 05/07/24 21:52 Cholinesterase deficiency No 05/07/24 21:52 You/Your Family Experience No 05/07/24 21:52 fever (hyperthermia) with Relationship Recent Exposure to Contagious No 05/07/24 21:52 Disease Does patient have nerve No 05/07/24 21:52 stimulator Patient instructed to have No 05/07/24 21:52 device shut off --Does patient have Pacemaker No 05/08/24 09:47 or ICD? When Was Last Pacemaker Check QUESTION #4 FULL TEXT: You/Your Family Experience fever (hyperthermia) with Anesthesia Last Oral Intake Last Oral intake: Last Oral Intake NPO since 00:00 05/08/24 09:47 Meds taken in AM with sips of No 05/08/24 09:47 water? Meds patient instructed to take am of surgery PONV PONV - instrumentation technologist: PONV - instrumentation technologist Female HX of Motion Sickness HX of N/V After Surgery Non-Smoker Duration of Surgery greater than 60 minutes Number of Risk Factors PONV Score Height & Weight Height & Weight: Anesthesia: Height & Weight Height 5 ft 1 in 05/08/24 09:47 Weight: 71.1 kg 05/08/24 09:47 Body Mass Index (BMI) 29.6 05/08/24 09:47 Respiratory Assessment Respiratory Assessment - instrumentation technologist: Respiratory Tract Infection Hx - instrumentation technologist Hx Respiratory Tract Infection No 05/07/24 21:52 STOP Sleep Apnea STOP Sleep Apnea - instrumentation technologist: STOP Sleep Apnea - instrumentation technologist Hx Hypertension Yes 04/30/24 11:29 Hx Sleep Apnea Yes 04/29/24 02:13 CPAP No 04/29/24 02:13 BIPAP No 04/29/24 02:13 Do you snore loudly (louder than talking or can be heard Do you often feel tired/ fatigued/ sleepy during daytime? Has anyone observed you stop breathing during sleep? STOP Results Positive 04/29/24 02:13 QUESTION #5 FULL TEXT : Do you snore loudly (louder than talking or can be heard through closed doors)? 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 Specify any problems Hx of Preganancy in last 3 No 04/29/24 02:13 Months Nurse Filling Out Transfusion LGUY 04/29/24 02:13 & Questions: Date: 04/29/24 04/29/24 02:13 Time: 02:17 04/29/24 02:13 Patient unable to answer at this time (ie. confused, unrespo /Reproduction History /Reproductive History - instrumentation technologist: /Reproductive Hx- instrumentation technologist Hx Now No 05/07/24 21:52 Gestational Age (in weeks): EDC: Hx Hx Para Hx Section SAB No 05/07/24 21:52 Active Medications Active Medications: Current Medications Generic Name Dose Route Start Last Admin Trade Name Freq PRN Reason Stop Dose Admin Acetaminophen 650 mg 04/29/24 02:11 05/07/24 20:47 Acetaminophen 325 Mg Tablet PO 650 mg Q4H PRN PRN Administration Fever, pain 1-10 Al Hydroxide/Mg Hydroxide 30 ml 04/29/24 02:11 05/06/24 23:20 Mag Hydrox/Al Hydrox/Simeth 30 Ml Udc PO 30 ml Q6H PRN PRN Administration Gastric Burning Albuterol Sulfate 2.5 mg 04/29/24 02:11 Albuterol 2.5 Mg/3 Ml Vial.Neb. INHALATION Q2H PRN PRN Dyspnea, wheezing Albuterol/Ipratropium 3 ml 04/29/24 02:11 05/08/24 07:28 Ipratropium/Albuterol Sulfate 3 Ml Ampul.Neb INHALATION 3 ml Q4HWA.RT MEGHAN Administration Amlodipine Besylate 10 mg 05/05/24 10:00 05/07/24 09:59 Amlodipine 10 Mg Tablet PO 10 mg DAILY MEGHAN Administration Protocol Fluoxetine HCl 20 mg 04/29/24 10:00 05/07/24 09:59 Fluoxetine 20 Mg Capsule PO 20 mg DAILY MEGHAN Administration Guaifenesin 10 ml 04/29/24 02:11 05/06/24 20:51 Guaifenesin 10 Ml Udc (200mg/10ml) PO 10 ml Q4H PRN PRN Administration COUGH Hydralazine HCl 10 mg 04/29/24 02:11 05/03/24 17:08 Hydralazine 20 Mg/Ml Vial IV 10 mg Q4H PRN PRN Administration SBP > 160 Protocol Melatonin 3 mg 04/29/24 02:11 05/07/24 20:48 Melatonin 3 Mg Tablet PO 3 mg QHS PRN PRN Administration INSOMNIA Ondansetron HCl 4 mg 04/29/24 02:11 05/07/24 01:02 Ondansetron 4 Mg/2 Ml Vial IV 4 mg Q8H PRN PRN Administration NAUSEA/VOMITING Oxycodone HCl 5 mg 04/29/24 18:10 05/01/24 13:25 Oxycodone 5 Mg Tablet PO 5 mg Q4H PRN PRN Administration Pain Score 6-10 or Pre PT/OT Pantoprazole Sodium 40 mg 05/01/24 10:00 05/07/24 09:59 Pantoprazole Sodium 40 Mg Tablet PO 40 mg DAILY MEGHAN Administration Prochlorperazine Edisylate 5 mg 04/29/24 02:11 Prochlorperazine 10 Mg/2 Ml Vial IV Q4H PRN PRN Breakthrough Nausea/Vomiting Senna/Docusate Sodium 2 tablet 04/29/24 02:11 Senna/Docusate Sodium 1 Tablet PO BID PRN PRN Constipation Sodium Chloride 10 - 40 ml 04/29/24 02:54 05/07/24 10:00 0.9% Saline Lock 10 Ml Syringe IV 10 ml UD PRN Administration SALINE FLUSH PFSH Medical History Cataract (lens) fragments in eye following cataract surgery, bilateral Macular degeneration Glaucoma Wears glasses Gout Arthritis Renal agenesis Pulmonary embolism High cholesterol CPAP (continuous positive airway pressure) dependence Former smoker Sleep apnea Hypertension History of pulmonary embolism Home Medications ?Medication ?Instructions ?Recorded ?Last Taken ?Type vitamin E 268 mg (400 unit) capsule 268 mg PO DAILY Palma pplement 07/02/22 03/14/24 History vitamins A,C,F-nwqu-ohjuxc 4,296 1 cap PO BID Healthy eyes 03/14/24 03/14/24 History mcg-226 mg-90 mg capsule (Healthy Eyes SuperVision) acetaminophen 325 mg tablet 650 mg (2 x 325 mg) PO Q6H PRN PRN 03/19/24 Unknown Rx Pain 1-10 Or Fever>100.7 #0 tabs amlodipine 10 mg tablet 10 mg PO DAILY HEART #60 ta bs 03/19/24 Unknown Rx fluoxetine 20 mg tablet 20 mg PO DAILY DEPRESSION Unknown History losartan 100 mg tablet 100 mg PO DAILY CHOLESTEROL 04/28/24 Unknown History Allergy/AdvReac Type Severity Reaction Status Date / Time Sulfa (Sulfonamide Allergy Intermediate Itching Verified 05/08/24 10:29 Antibiotics) Family History Mother Diabetes Kidney disease Father Heart disease Surgical History History of carpal tunnel release History of lumpectomy of right breast Social History household members: spouse Smoking Status: Former smoker alcohol intake: never substance use type: does not use Review of Systems (Anesthesia) ROS Narrative System reviewed and no additional complaints, except as documented.
[2024-05-08] MEDS: Cefazolin 2 GM in Syringe IV (11:34)
[2024-05-08] MEDS: Heparin 10,000 UNITS/10 ML Vial 10000 UNITS (11:42)
[2024-05-08] MEDS: Lidocaine 1%/Epi 1:200 (30ml) 30 ML AMPUL (11:42)
--- NOTE | 2024-05-08 11:59 | PCM.OPRPT ---
Operative Report (Standard) Operative Information Date of Procedure: 05/08/24 Pre-Operative Diagnosis: Acute kidney injury need for vascular dialysis catheter Post-Operative Diagnosis: Same Surgery/Procedure Performed: Ultrasound and fluoroscopy guided right tunneled dialysis catheter utilizing right IJ correction officer head: No Type of Anesthesia: Local MAC RN Documented Start/Stop Times: Operation Date: 05/08/24 11:30 Case Time Into Pre-Op 05/08/24 10:16 Out of Pre-Op 05/08/24 11:26 Anesthesia Start 05/08/24 11:27 Into Room 05/08/24 11:27 Procedure Start 05/08/24 11:42 Procedure End 05/08/24 11:56 Procedure Start Time: 11:42 Procedure Stop Time: 11:56 Select all DRAINS/GRAFTS/IMPLANTS that apply: Prosthetic device Prosthetic device details: 23 cm palindrome curved dialysis catheters Estimated Blood Loss: 10 Specimen collected: No Description of surgery: Patient was brought back to the operating room and MAC anesthesia was induced. The right chest and neck were prepped and draped in the usual sterile fashion. Ultrasound was used to localize the right IJ. The area overlying the right IJ was injected with local anesthetic as well as an area on the chest wall. Next an incision was made and then using ultrasound guidance a needle was placed into the right IJ and dark red blood was drawn back. A guidewire was placed down the needle without resistance. This was done under fluoroscopy guidance. Next serial dilators were placed over the guidewire and then removed. The peel-away sheath was placed over the guidewire and under fluoroscopy placed into the chest and the guidewire was removed and the catheter was capped. Next the catheter and the tunneler were placed into the lower chest incision and tunneled to the upper neck incision. The catheter was placed into the peel-away sheath and the peel-away sheath was removed. Fluoroscopy showed good placement of the catheter. Both catheters were aspirated and flushed and they both aspirated and flushed easily. They were then flushed with 1.7 cc of heparinized saline each and then clamped and capped. The catheter was sutured to the skin using 3-0 nylon. The upper neck incision was closed using 3-0 Vicryl. Steri-Strips and bandages were applied and the patient was taken to PACU in stable condition where chest x-ray will be obtained. Surgical Findings: None Complications Complications: No Admit VTE Documentation VTE Mechan Device Prophylaxis: SCD's
--- NOTE | 2024-05-08 12:04 | RAD_ITS ---
EXAM: XR Chest, 1 View CLINICAL INDICATION: TECHNIQUE: Frontal view of the chest. COMPARISON: No relevant prior studies available. FINDINGS: LUNGS AND PLEURAL SPACES: See below. HEART: Cardiomegaly with pulmonary congestion and edema. Superimposed pneumonia cannot be excluded. MEDIASTINUM: Unremarkable. Normal mediastinal contour. BONES/JOINTS: Unremarkable. No acute fracture. TUBES, LINES AND DEVICES: Right internal jugular central venous catheter tip in the superior vena cava. RAD/CXR for Line Placement IMPRESSION: Cardiomegaly with pulmonary congestion and edema. Superimposed pneumonia cannot be excluded. [facility]
--- NOTE | 2024-05-08 13:00 | PCM.POST.ANE ---
Anesthesia: Postop Eval I Current Vital Signs Temperature: 98 F Pulse Rate: 80 Blood Pressure: 155/68 Respiratory Rate: 16 Pulse Ox: 94 Oxygen Flow Rate (L/min): 3 Assessment Airway patent: Yes Spontaneous unlabored respirations: Yes Mental status: Awake nausea: No Vomiting: No Anesthesia Complication: No Fluid Hydration Crystalloid volume administer (ml): 10 Total IV fluid infused: 10 Progress Note Anesthesia document: Postop Eval 1 completed: Yes
[2024-05-08 13:29] LABS: Hematocrit 25.1 % (37-47); Hemoglobin 8.1 g/dL (12.0-15.0)
--- NOTE | 2024-05-08 13:41 | PCM.POSTANE2 ---
Anesthesia Postop Eval I Sum Postop Eval Completion status Anesthesia document: Postop Eval 1 completed: Yes Anesthesia Postop Eval I Summary Anesthesia Postop Eval I Summary: Anesthesia Postop Eval I: Assessment Summary Airway patent Yes 05/08/24 13:41 Spontaneous unlabored Yes 05/08/24 13:41 respirations Mental status Awake 05/08/24 13:41 nausea No 05/08/24 13:41 Vomiting No 05/08/24 13:41 Anesthesia Postop Eval I: Fluid Summary Crystalloid volume administer 10 05/08/24 13:41 (ml) Colloids volume administered ( ml) Blood Product volume administered (ml) Total IV fluid infused 10 05/08/24 13:41 Anesthesia Postop Eval I: Summary Notes Anesthesia Complication No 05/08/24 13:41 Anesthesia Complication Comment: Post-operative progress note Anesthesia: Postop Eval II Evaluation Mental status: Awake Pain Level: 0 nausea: No Vomiting: No
[2024-05-08] MEDS: Heparin 10,000 UNITS/10 ML Vial IV (14:22)
[2024-05-08] MEDS: PureFlow B 3K Dialysis Soln 1 BAG 6 BAG PF (14:22)
[2024-05-08] MEDS: 0.9% Normal Saline 1,000 ML IV.SOLN. 1000 ML OPERA.SITE (14:23)
--- NOTE | 2024-05-08 15:44 | CHAPLAIN ---
Type of Pastoral Visit _x__ Initial Visit ___ Follow-up Visit ___ On-call Visit ___ General Patient Visit ___ Spiritual Assessment ___ Family Conference ___ Bereavement ___ Rapid Response ___ Code Blue ___ Other (describe below) Pastoral Care Referral From ___ Patient ___ Family _x__ Nurse ___ Physician ___ Record Filing Clerk ___ Olap Developer ___ Other (describe below) Sacrament/Intervention _x__ Active listening ___ Anointing ___ Mosque _x__ Bereavement ___ Communion ___ Zandra exploration ___ ___ Life review _x__ Prayer ___ Reconciliation ___ Sacrament of Sick _x__ Supportive presence ___ Wedding ___ Other (describe below) Pastoral Comments 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
[2024-05-08] MEDS: 0.9% Saline Lock 10 ML Syringe IV (15:48)
--- NOTE | 2024-05-08 16:28 | PN.RENAL_ITS ---
Subjective Subjective no new complaints Objective Data Objective Data Vital Signs: Vital Signs Temp Pulse Resp BP Pulse Ox O2 Del Method O2 Flow Rate 98.1 F 70 16 153/68 H 95 Room Air 3 05/08/24 15:00 05/08/24 15:00 05/08/24 15:00 05/08/24 15:30 05/08/24 15:00 05/08/24 15:00 05/08/24 13:41 FiO2 30 05/08/24 10:33 Oxygen Flow Rate (L/min) 3 Oxygen Delivery Method Room Air Weight: 69 kg Body Mass Index (BMI) 28.7 Intake & Output: Intake and Output for Last 24 Hours 05/06/24 05/07/24 05/08/24 23:59 23:59 23:59 Intake Total 1240 / 1440 320 / 320 20 / 20 Output Total 1770 / 1820 450 / 450 1950 / 1950 Balance -530 / -380 -130 / -130 -1930 / -1930 Lab / Micro Data 05/08/24 12:47 05/08/24 06:12 Labs: Laboratory Results - last 24 hr 05/08/24 06:12: WBC 5.4, RBC 2.87 L, Hgb 7.7 L, Hct 23.7 L, MCV 82.6, MCH 26.8 L , MCHC 32.5, RDW Std Deviation 42.5, RDW Coeff of Pedro 14.0, Plt Count 193, MPV 9.0, Immature Gran % (Auto) 0.400, Neut % (Auto) 54.2, Lymph % (Auto) 23.2, [place] % (Auto) 11.4 H, Eos % (Auto) 9.9 H, Baso % (Auto) 0.9, Absolute Neuts (auto) 2.9, Absolute Lymphs (auto) 1.24, Nucleated RBC % 0, Sodium 131 L, Potassium 4.2, Chloride Direct 97, Carbon Dioxide 21.0 L, Anion Gap 13, BUN 41 H, C reatinine 3.01 H, Estim Creat Clear Calc 12.77 L, Est GFR (MDRD) Non-Af 15 L, BUN/Creatinine Ratio 13.6, Glucose 85, Calcium 8.6, Phosphorus 3.9, Magnesium 2.4 H 05/08/24 12:47: Hgb 8.1 L, Hct 25.1 L Micro: Microbiology 04/29/24 01:04 Blood Culture (Wb) - Line Draw Blood Culture - Final No growth in 5 days. 04/29/24 01:00 Blood Culture (Wb) - Line Draw Blood Culture - Final No growth in 5 days. 04/29/24 11:40 Urine, Clean Catch Urine Culture - Final ESBL Escherichia coli 05/02/24 03:00 Stool Stool Occult Blood (JESSICA) - Final 04/29/24 11:40 Urine, Clean Catch Legionella Antigen - Final 04/29/24 11:40 Urine, Clean Catch Streptococcus pneumoniae Antigen (M - Final 04/29/24 04:20 Mucosa - Nasopharyngeal Respiratory Panel (PCR) - Final 04/29/24 04:20 Nasal Secretion MRSA (PCR) - Final 04/28/24 23:50 Mucosa - Nose SARS-CoV-2, Influenza & RSV (PCR) - Final Radiography Diagnostic Testing: Radiology Impression Chest X-Ray 05/08/24 12:04 IMPRESSION: Cardiomegaly with pulmonary congestion and edema. Superimposed pneumonia cannot be excluded. Reading Location: [facility] Physical Exam Narrative Alert awake oriented x 3 no obvious distress no pallor no icterus no JVD s1s2 no murmurs lungs rales abdomen soft no organomegaly no edema no cyanosis Assessment & Plan Assessment/Plan (1) Acute kidney injury: PLAN: Prior to last admission in March, baseline creatinine seems to be around 1.2. Sustained acute renal failure, recovered renal function with a discharge creatinine of 1.7 in March. This admission she came with a creatinine of 3.8, worsening since admission. CT abdomen with bilateral perinephric stranding. Urine analysis with leukocytes. Urine culture showing ESBL ecoli. on meropenem Chest x-ray bilateral edema, effusions. Not much response to diuretics. Of note, BNP is about 400/700. Echocardiogram with good ejection fraction. Blood cultures negative. WBC count normal. Since urine culture is positive for ESBL E. coli with perinephric stranding, there is possible some pyelonephritis. No plans for kidney biopsy. Received dialysis 05/01 2 and 05/03. Garcia catheter out, urine output has been decent. Serologies negative. HD today TDC in place possible dc
[2024-05-08] MEDS: oxyCODONE 5 MG Tablet PO (20:16)
[2024-05-08] MEDS: MELATONIN 3 MG TABLET PO (20:17)
--- NOTE | 2024-05-08 23:20 | NURSING ---
This RN taking over care at this time
[2024-05-09] VITALS (11 sets, daily range): BP systolic 65–214; BP diastolic 49–60; PULSE 73–84; RESP 14–18; TEMP 36.1–36.7; O2SAT 88–97; BMI 28.8; BMI 27.8
[2024-05-09 06:26] LABS: Absolute Lymphocyte Count 1.27 X10^3/uL (0.83-4.51); Absolute Neutrophil Count 2.7 X10^3/uL (2.0-7.7); Basophil# 0.07 X10^3/uL; Basophil% 1.3 % (0-1); Eosinophil# 0.38 X10^3/uL; Eosinophils% 7.3 % (0-5); Hematocrit 25.1 % (37-47); Hemoglobin 8.1 g/dL (12.0-15.0); Lymphocyte # 1.27 X10^3/ul (0.83-4.51); Lymphocyte % 24.4 % (19-41); Mean Corp Hgb Conc 32.3 g/dL (32-36); Mean Corpuscular Hgb 26.7 pg (27.0-32.0); Mean Corpuscular Volume 82.8 fL (81-99); Monocyte# 0.73 X10^3/uL; NRBC Flagged by Analyzer 0 % (0-5); Neutrophil # 2.73 X10^3/uL (2.7-7.7); Neutrophil % 52.6 % (47-70); Platelet Count 220 K/mm3 (150-450); RBC Distribution Width SD 42.4 fl (35.1-43.9); Red Blood Count 3.03 M/mm3 (4.2-5.4); White Blood Count 5.2 K/mm3 (4.4-11.0)
[2024-05-09 06:38] LABS: Anion Gap 11 (5-15); BUN 25 mg/dL (4-19); BUN/Creat Ratio 12.6 RATIO (10-20); Calcium 9.1 mg/dL (7.6-11.0); Carbon Dioxide 22.8 mmol/L (22.0-29.0); Chloride 100 mmol/L (96-108); Creatinine, Serum 1.96 mg/dL (0.70-1.20); EST Glomerular Filtration Rate 25 (>60); Estimated Creatinine Clearance 19.35 ml/min (50-250); Glucose 82 mg/dL (70-99); Potassium 4.2 mmol/L (3.3-5.1); Sodium Level 133 mmol/L (133-145)
--- NOTE | 2024-05-09 06:58 | PCM.PN.SRG ---
Subjective Subjective Patient had dialysis yesterday afternoon using her new catheter with no issues Objective Data Objective Data Vital Signs: Vital Signs Temp Pulse Resp BP Pulse Ox O2 Del Method O2 Flow Rate 97.2 F L 74 16 157/55 H 94 Nasal Cannula 2.5 05/09/24 05:10 05/09/24 05:10 05/09/24 05:10 05/09/24 05:10 05/09/24 05:10 05/09/24 05:10 05/09/24 05:10 FiO2 30 05/08/24 10:33 Oxygen Flow Rate (L/min) 2.5 Oxygen Delivery Method Nasal Cannula Weight: 152 lb 8.958 oz Body Mass Index (BMI) 28.8 Intake & Output: Intake and Output for Last 24 Hours 05/07/24 05/08/24 05/09/24 23:59 23:59 23:59 Intake Total 320 / 320 140 / 140 Output Total 450 / 450 2350 / 2350 Balance -130 / -130 -2210 / -2210 Lab / Micro Data 05/09/24 05:49 05/09/24 05:49 Labs: Laboratory Results - last 24 hr 05/08/24 06:12: Sodium 131 L, Potassium 4.2, Chloride Direct 97, Carbon Dioxide 21.0 L, Anion Gap 13, BUN 41 H, Creatinine 3.01 H, Estim Creat Clear Calc 12.77 L, Est GFR (MDRD) Non-Af 15 L, BUN/Creatinine Ratio 13.6, Glucose 85, Calcium 8.6, Phosphorus 3.9, Magnesium 2.4 H 05/08/24 12:47: Hgb 8.1 L, Hct 25.1 L 05/09/24 05:49: WBC 5.2, RBC 3.03 L, Hgb 8.1 L, Hct 25.1 L, MCV 82.8, MCH 26.7 L, MCHC 32.3, RDW Std Deviation 42.4, RDW Coeff of Pedro 14.0, Plt Count 220, MPV 9.0, Immature Gran % (Auto) 0.400, Neut % (Auto) 52.6, Lymph % (Auto) 24.4, Harris % (Auto) 14.0 H, Eos % (Auto) 7.3 H, Baso % (Auto) 1.3 H, Absolute Neuts (auto) 2.7, Absolute Lymphs (auto) 1.27, Nucleated RBC % 0, Sodium 133, Potassium 4.2, Chloride Direct 100, Carbon Dioxide 22.8, Anion Gap 11, BUN 25 H, Creatinine 1.96 H, Estim Creat Clear Calc 19.35 L, Est GFR (MDRD) Non-Af 25 L, BUN/Creatinine Ratio 12.6, Glucose 82, Calcium 9.1 Micro: Microbiology 04/29/24 01:04 Blood Culture (Wb) - Line Draw Blood Culture - Final No growth in 5 days. 04/29/24 01:00 Blood Culture (Wb) - Line Draw Blood Culture - Final No growth in 5 days. 04/29/24 11:40 Urine, Clean Catch Urine Culture - Final ESBL Escherichia coli 05/02/24 03:00 Stool Stool Occult Blood (JESSICA) - Final 04/29/24 11:40 Urine, Clean Catch Legionella Antigen - Final 04/29/24 11:40 Urine, Clean Catch Streptococcus pneumoniae Antigen (M - Final 04/29/24 04:20 Mucosa - Nasopharyngeal Respiratory Panel (PCR) - Final 04/29/24 04:20 Nasal Secretion MRSA (PCR) - Final 04/28/24 23:50 Mucosa - Nose SARS-CoV-2, Influenza & RSV (PCR) - Final Radiography Diagnostic Testing: Radiology Impression Chest X-Ray 05/08/24 12:04 IMPRESSION: Cardiomegaly with pulmonary congestion and edema. Superimposed pneumonia cannot be excluded. Reading Location: [facility] Assessment & Plan Assessment/Plan (1) Acute kidney injury: PLAN: Patient has acute kidney injury and had a new dialysis catheter placed yesterday afternoon. She uses yesterday afternoon for dialysis. She tolerated the procedure well and she tolerated dialysis well. She is okay for discharge from my standpoint. Follow-up when she is ready for removal of catheter. Will sign off. Micheal Kaye MD Pager: [facility] [address] [place] [address], [address] [place] [address] Office:
[2024-05-09] MEDS: Ipratropium/Albuterol Sulfate 3 ML AMPUL.NEB INHALATION ×2 (07:07→11:34)
[2024-05-09] MEDS: FLUoxetine 20 MG Capsule PO (10:24)
[2024-05-09] MEDS: amLODIPine 10 MG Tablet PO (10:24)
[2024-05-09] MEDS: Pantoprazole Sodium 40 MG Tablet PO (10:24)
--- NOTE | 2024-05-09 10:48 | PCM.DC ---
Discharge Instructions Diet Discharge Diet: Renal Diet DC O2, CPAP, BIPAP needs Home O2 Discharge instructions: No Dressing / Incision Discharge Activity: Return to Normal Activity Dressing / Incision Call your doctor if you observe: Fever of 101 or Higher, Shortness of breath, Dizziness, Fainting spells, Swelling in the ankles, Chest pain and Increased palpitations (irregular heartbeat) Follow Up Care Test Results: Test results from this visit will be discussed in further detail at your follow-up appointment, if applicable. Discharge Plan Admission Admit Date/Time: 04/28/24 23:35 Attending Provider: Felix Madison Primary Care Provider: iMles Mercedes Consulting Providers: Candelario Roldan; Roland Mata; Radha Elkins; Cortes Ibarra; Shay King; Alexis Cifuentes; Luis Avila; Donald Galaviz; Tim Polanco; Tre Barraza; Maru Silva; Josafat Hills; Quang Clark; Jaydon Wakefield; Debby Fletcher; Pepe Easley; Agnes Gonzales; Jhon Gutierrez; Samuel Modi; Lavell Rutherford; Antelmo Graff; Bryce Henderson; Erica Ca; Yang Doll; Jason Nation; Agus Norris; Ida Valdivia; Jos Reardon; Micheal Kaye Instructions Patient Instructions: ED Hemodialysis Discharge Orders/Prescriptions Prescriptions: Continued vitamin E 268 mg (400 unit) Capsule 268 mg PO DAILY fluoxetine 20 mg tablet 20 mg PO DAILY Healthy Eyes SuperVision 4,296 mcg-226 mg-90 mg capsule 1 cap PO BID acetaminophen 325 mg Tablet 650 mg PO Q6H PRN PRN (Reason: Pain 1-10 Or Fever>100.7) Qty: 0 0RF amlodipine 10 mg tablet 10 mg PO DAILY Qty: 60 0RF Discontinued losartan 100 mg tablet 100 mg PO DAILY Referrals / Follow Up: [facility] [Outside] - 05/11/24 (Please arrive at 12noon. Please bring ID, insurance cards, and pillow and blanket if you would like. ) Miles Mercedes MD [Primary Care Provider] - Within 1 Week Disposition Disposition (needs filled in before D/C Order can be placed): Home Health Service
--- NOTE | 2024-05-09 11:09 | PHA.DC.MR.R ---
Pharmacy [place] Med Reconciliation Pharmacy Service has performed discharge medication reconciliation for this patient. The patient's discharge medication list was reviewed for discrepancies and discrepancies were resolved. Medications at Discharge Home Medications vitamin E 268 mg (400 unit) capsule 268 mg PO DAILY Supplement 07/02/22 vitamins A,C,X-bypi-dxulri 4,296 mcg-226 mg-90 mg capsule (Healthy Eyes SuperVision) 1 cap PO BID Healthy eyes 03/14/24 acetaminophen 325 mg tablet 650 mg (2 x 325 mg) PO Q6H PRN PRN Pain 1-10 Or Fever>100.7 #0 tabs 03/19/24 amlodipine 10 mg tablet 10 mg PO DAILY HEART #60 tabs 03/19/24 fluoxetine 20 mg tablet 20 mg PO DAILY DEPRESSION 04/28/24
--- NOTE | 2024-05-09 12:40 | PCM.PN.REN ---
Subjective Subjective no new complaints Objective Data Objective Data Vital Signs: Vital Signs Temp Pulse Resp BP Pulse Ox O2 Del Method O2 Flow Rate 98.0 F 73 18 137/55 H 92 Room Air 2 05/09/24 11:09 05/09/24 11:38 05/09/24 11:38 05/09/24 11:09 05/09/24 11:38 05/09/24 11:38 05/09/24 07:06 FiO2 30 05/08/24 10:33 Oxygen Flow Rate (L/min) 2 Oxygen Delivery Method Room Air Weight: 69.2 kg Body Mass Index (BMI) 28.8 Intake & Output: Intake and Output for Last 24 Hours 05/07/24 05/08/24 05/09/24 23:59 23:59 23:59 Intake Total 320 / 320 140 / 140 360 / 360 Output Total 450 / 450 2350 / 2350 Balance -130 / -130 -2210 / -2210 360 / 360 Lab / Micro Data 05/09/24 05:49 05/09/24 05:49 Labs: Laboratory Results - last 24 hr 05/08/24 12:47: Hgb 8.1 L, Hct 25.1 L 05/09/24 05:49: WBC 5.2, RBC 3.03 L, Hgb 8.1 L, Hct 25.1 L, MCV 82.8, MCH 26.7 L, MCHC 32.3, RDW Std Deviation 42.4, RDW Coeff of Pedro 14.0, Plt Count 220, MPV 9.0, Immature Gran % (Auto) 0.400, Neut % (Auto) 52.6, Lymph % (Auto) 24.4, [place] % (Auto) 14.0 H, Eos % (Auto) 7.3 H, Baso % (Auto) 1.3 H, Absolute Neuts (auto) 2.7, Absolute Lymphs (auto) 1.27, Nucleated RBC % 0, Sodium 133, Potassium 4.2, Chloride Direct 100, Carbon Dioxide 22.8, Anion Gap 11, BUN 25 H, Creatinine 1.96 H, Estim Creat Clear Calc 19.35 L, Est GFR (MDRD) Non-Af 25 L, BUN/Creatinine Ratio 12.6, Glucose 82, Calcium 9.1 Micro: Microbiology 04/29/24 01:04 Blood Culture (Wb) - Line Draw Blood Culture - Final No growth in 5 days. 04/29/24 01:00 Blood Culture (Wb) - Line Draw Blood Culture - Final No growth in 5 days. 04/29/24 11:40 Urine, Clean Catch Urine Culture - Final ESBL Escherichia coli 05/02/24 03:00 Stool Stool Occult Blood (JESSICA) - Final 04/29/24 11:40 Urine, Clean Catch Legionella Antigen - Final 04/29/24 11:40 Urine, Clean Catch Streptococcus pneumoniae Antigen (M - Final 04/29/24 04:20 Mucosa - Nasopharyngeal Respiratory Panel (PCR) - Final 04/29/24 04:20 Nasal Secretion MRSA (PCR) - Final 04/28/24 23:50 Mucosa - Nose SARS-CoV-2, Influenza & RSV (PCR) - Final Radiography Diagnostic Testing: Radiology Impression Chest X-Ray 05/08/24 12:04 IMPRESSION: Cardiomegaly with pulmonary congestion and edema. Superimposed pneumonia cannot be excluded. Reading Location: [facility] Physical Exam Narrative Alert awake oriented x 3 no obvious distress no pallor no icterus no JVD s1s2 no murmurs lungs rales abdomen soft no organomegaly no edema no cyanosis Assessment & Plan Assessment/Plan (1) Acute kidney injury: PLAN: Prior to last admission in March, baseline creatinine seems to be around 1.2. Sustained acute renal failure, recovered renal function with a discharge creatinine of 1.7 in March. This admission she came with a creatinine of 3.8, worsening since admission. CT abdomen with bilateral perinephric stranding. Urine analysis with leukocytes. Urine culture showing ESBL ecoli. on meropenem Chest x-ray bilateral edema, effusions. Not much response to diuretics. Of note, BNP is about 400/700. Echocardiogram with good ejection fraction. Blood cultures negative. WBC count normal. Since urine culture is positive for ESBL E. coli with perinephric stranding, there is possible some pyelonephritis. No plans for kidney biopsy. Received dialysis 05/01 05/02 and 05/03. Garcia catheter out, urine output has been decent. Serologies negative. dw primary dc today will plan for UF today next HD as outpatient likely recover soon
--- NOTE | 2024-05-09 15:01 | PCM.DC.SUM ---
Providers Date of Admission: 04/28/24 Primary Care Physician: Dr. Miles Mercedes MD Consultations 04/29/24 02:11 Consult: Laundry Sorter / Pulmonary Medicine Routine Consulting Provider: Intensivists/Pulmonary Med Reason for Consult: Acute Hypoxic Resp Failure, PNA, Eff, JUDD on CKD, Pericard Effus EMERGENT Consult: No Notified: Yes Date Notified: 04/29/24 Time Notified: 01:40 Method of Notification: Text Consult: Nephrology Routine Consulting Provider: Roland Mata Reason for Consult: JUDD on CKD EMERGENT Consult: No Notified: Yes Date Notified: 04/29/24 Time Notified: 06:52 Method of Notification: Answering Service 04/29/24 03:56 Consult: Cardiology Routine Consulting Provider: Candelario Roldan Reason for Consult: Bradycardia, junctional EMERGENT Consult: No Notified: Yes Date Notified: 04/29/24 Time Notified: 03:56 Method of Notification: Text 05/06/24 10:55 Consult: General Surgery Routine Consulting Provider: Micheal Kaye Reason for Consult: tunneled catheter EMERGENT Consult: No Notified: Yes Date Notified: 05/06/24 Time Notified: 10:56 Method of Notification: Verbal Reason For Visit: HYPOXIA, POST COVID, ?PE, JUDD ON CKD Diagnosis Discharge Diagnosis (1) Acute kidney injury: Status: Acute Code(s): N17.9 - Acute kidney failure, unspecified Medications at Discharge Home Medications vitamin E 268 mg (400 unit) capsule 268 mg PO DAILY Supplement 07/02/22 vitamins A,C,K-nxbb-ifweek 4,296 mcg-226 mg-90 mg capsule (Healthy Eyes SuperVision) 1 cap PO BID Healthy eyes 03/14/24 acetaminophen 325 mg tablet 650 mg (2 x 325 mg) PO Q6H PRN PRN Pain 1-10 Or Fever>100.7 #0 tabs 03/19/24 amlodipine 10 mg tablet 10 mg PO DAILY HEART #60 tabs 03/19/24 fluoxetine 20 mg tablet 20 mg PO DAILY DEPRESSION 04/28/24 Hospital Course Operations - (Tunneled dialysis catheter on 05/08/2024) Procedures 2-D Echocardiogram Summary of Care Provided Minutes Spent on Discharge: 39 Hospital Course: Per HPI: The patient is an 84-year-old female with past medical history hypertension, chronic normocytic anemia, CKD stage III unclear subtype noted on previous charting, GINO on CPAP, former tobacco use, history of VTE (DVT, PE), macular degeneration, recent discharge 03/19/2024 following evaluation and treatment of COVID-pneumonia with acute kidney injury on CKD stage III with intractable nausea and emesis who now re-presents to the [facility] ED on 04/28/2024 with dyspnea which worsened 2 to 3 days previous but more severe on the evening of ED day of presentation noting to have a continuous component but waxing and waning in severity however she notes worse with exertion with persistent cough but no recent history of congestion/rhinorrhea/fever/sore throat however she does report associated pleuritic chest discomfort worse with coughing with recent COVID related pneumonia diagnosis 03/14/24 eventually discharged 03/19/2024 prompting eventual ED evaluation be cautious. Workup in the ED included T97.9, heart rate 56, BP 03/31/1941, respiratory rate 18, 91% on 6 L noted to have been 88% on room air per EMS eventually requiring placement on BiPAP in the ED, CBC with WC 8.8, hemoglobin 7.8, MCV 83.6, platelets 326 without marked shift, D-dimer 1.81, CMP with sodium 132, potassium 5.3, lactate 16, anion gap 13, BUN/creatinine 66/4.50, GFR 10, glucose 168, hepatic profile not marked appearing aside from alk phos 126, lactic acid pending upon requested evaluation of patient, chest x-ray with BL interstitial infiltrates but formal read pending, EKG with junctional rhythm with bradycardia. Heparin drip/bolus, NS 1L x 1 in addition to following CT abdomen and pelvis administration of IV vancomycin and Zosyn. In the ED upon evaluation patient with reported poor appetite in the evenings x 3 days with bouts of emesis and upon Hospitalist evaluation notable epigastric and RUQ abdominal pain with ED physician re-evaluation with CT A/P without contrast obtained to be cautious. CT abdomen and pelvis with bilateral pleural effusions as well as a mild pericardial effusion, hepatomegaly, colonic diverticulosis with no evidence of diverticulitis. Hospital Course: 1. Acute hypoxic respiratory failure suspected secondary to PE with small bilateral pleural effusions ? Laundry Sorter following. Not on home oxygen. Presented with significant hypoxia requiring BiPAP on admit to maintain appropriate oxygen saturations. Chest x-ray showed bibasilar pulmonary infiltrates with trace bilateral pleural effusions. CT abdomen pelvis showed small bilateral pleural effusions at lung bases. D-dimer elevated. Initial ABG on BiPAP with pH 7.43, pO2 73, pCO2 24. Respiratory status improved with BiPAP, weaned to 4 L nasal cannula on 04/29. Echo on 04/29 showed EF 55 to 60%, mildly dilated RV, mild segmental dysfunction of RV. Lower extremity duplex ultrasound was negative for DVT. Respiratory failure could be secondary to volume overload from JUDD with atelectasis but cannot rule out PE. VQ scan ordered and will be done tomorrow. Discussed with cardiology and first press operator and will empirically continue heparin drip for now. Treating with IV Lasix to aid with volume removal as noted below. Wean supplemental oxygen as able. 05/01/2024: Canceled VQ scan as her chest x-ray was abnormal therefore you could not trust the VQ scan. Continue with the heparin drip 05/02/2024: CTA of the chest was negative for PE, heparin drip was discontinued. Her respiratory failure is due to volume overload continue with dialysis 05/03/2024: Creatinine continues to improve with dialysis. Respiratory status is improving with fluid removal. Will continue to monitor. PT/OT and will have case management look into possible placement 05/04/2024: Currently awaiting morning labs she did receive dialysis last evening. Will likely need placement 05/05/2024: Hypoxia has resolved with significant volume removal with dialysis. Currently awaiting placement 05/06/2024: Will plan for tunneled dialysis catheter given her recurrent need. Did allow LEON today to go visit her who is dying on hospice at a local prison 05/07/2024: Tunneled dialysis catheter planned for tomorrow 05/08/2024: Plan for tunneled dialysis catheter today. Will recheck hemoglobin this afternoon as this is dropped will likely need dialysis again today. Creatinine is now 3 05/09/2024: She underwent tunneled dialysis catheter yesterday and had a run of dialysis yesterday as well as another run today prior to discharge. Plan will be to do dialysis on Wednesday, , Saturdays which she will be set up for on discharge. Both general surgery and nephrology agreed with the plan for discharge today. She has had a low hemoglobin with no obvious signs of GI bleeding so she will need to be monitored as an outpatient and given erythropoietin at dialysis. I discussed with her the plan for possible discharge today and she expressed understanding of the risks and benefits of going home and would like to go today. 2. 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 Nephrology following. Creatinine 4.50 on admit, most recent baseline creatinine appears to be around 1.7-2.0. Initial potassium 5.3, bicarb 16, BUN 66. No overt obstructive pathology noted on CT abdomen pelvis. Renal/bladder ultrasound unremarkable. Received 2.5 L of IV fluids total through 04/29 without improvement in creatinine. Creatinine remaining fairly stable to slightly worsening in the 4.5-4.9 range. Suspect prerenal JUDD with likely progression to some degree of ATN at this time. Per nephrology, given high doses of IV Lasix and chlorthalidone on 04/30 and will closely follow urine output. If good urine output and some improvement in creatinine tomorrow may be able to continue with IV diuresis. If not, will need to discuss temporary dialysis. Patient currently okay for temporary dialysis but likely would not want long-term dialysis; discussions ongoing with patient and family. 05/01/2024: Creatinine continues to rise, may need temporary dialysis if that is the case and can also pursue a CTA of the chest to definitively determine PE status 05/02/2024: Renal functions improving with dialysis 05/04/2024: She is able to make urine currently 05/05/2024: She did not have dialysis yesterday and today creatinine is 2.9 up from 2.3 3. Acute on chronic normocytic anemia ? Hemoglobin 7.8 on admit, dropped to 6.9 on hospital day 2 with IV fluid resuscitation. Given 1 unit of blood on 04/29 with repeat hemoglobin 8.0. Iron studies consistent with anemia of chronic disease. Suspect patient has some degree of anemia of renal disease as well. Hemoglobin very slowly downtrending, most recent hemoglobin 7.5 on 04/30 will continue heparin drip for now but if hemoglobin worsens significantly, will plan to hold and can transfuse for hemoglobin less than 7. 05/05/2024: Hemoglobin is 8.7 after dialysis 05/08/2024: Recheck H&H this afternoon 4. Significant bradycardia with junctional rhythm ? Cardiology following. Was noted on admission but per cardiology on 04/29, telemetry since arrival to the ICU shows normal sinus rhythm with no ectopy noted. Continue cardiac monitoring for now. 05/06/2024: Appears to have resolved 5. Hyperkalemia, improving ? Potassium peaked at 6.0 on 04/29. Presume secondary to JUDD. Improved with medical treatment, most recent potassium 4.8. Continue to monitor BMP daily. 6. Concern for acute pyelonephritis ? CT abdomen pelvis on admit showed lobulated contour of kidneys with nonspecific perinephric fat stranding right greater than left. UA showed 500 leukocyte esterase, negative nitrites, 0 bacteria. Treating empirically with IV Zosyn for now, follow-up urine culture. 05/03/2024: Urine culture with less than 100,000 CFU's of ESBL, continue with meropenem daily per renal function 05/06/2024: Complete meropenem tomorrow 05/07/2024: Completed meropenem 7. Acute on chronic debility ? PT/OT/case management following. Patient hospitalized here in early March for weakness secondary to COVID infection. Has been following with home health care since then. Suspect patient will need either SNF or home with resumption of home health care on discharge. Appreciate therapy recommendations. 8. Hypertension ? Holding home losartan and amlodipine. 9. Depression ? Continue home fluoxetine. 10. Recent COVID infection ? Had COVID infection in early March with significant weakness secondary to that. 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 Physical Exam Narrative General: Alert, Oriented x3, Cooperative, No apparent distress HEENT: Atraumatic, PERRLA, EOMI, Normocephalic Oral: Moist Mucosa Neck: Supple, No JVD Lungs: Diminished, Normal air movement, No rhonchi, No wheeze, No rales Cardiovascular: Regular rate, Regular Rhythm, Normal S1, Normal S2, No murmurs Abdomen: Soft, Non Tender, Non-Distended, No Hepato-splenomegaly Extremities: No edema, Capillary Refill Less than 3 Seconds Skin: No rashes, No breakdown Musculoskeletal: No Tenderness to Palpation of Joints or Extremities Neurological: No focal neurological deficits, moves all extremities Psych/Mental Status: Normal Affect, Appropriate Weight / BMI Weight Weight: 152 lb 8.958 oz Body Mass Index (BMI) 28.8 ABG / Lab / Microbiology Data 05/09/24 05:49 05/09/24 05:49 Laboratory: Laboratory Results - last 24 hr 05/09/24 05:49: WBC 5.2, RBC 3.03 L, Hgb 8.1 L, Hct 25.1 L, MCV 82.8, MCH 26.7 L, MCHC 32.3, RDW Std Deviation 42.4, RDW Coeff of Pedro 14.0, Plt Count 220, MPV 9.0, Immature Gran % (Auto) 0.400, Neut % (Auto) 52.6, Lymph % (Auto) 24.4, [place] % (Auto) 14.0 H, Eos % (Auto) 7.3 H, Baso % (Auto) 1.3 H, Absolute Neuts (auto) 2.7, Absolute Lymphs (auto) 1.27, Nucleated RBC % 0, Sodium 133, Potassium 4.2, Chloride Direct 100, Carbon Dioxide 22.8, Anion Gap 11, BUN 25 H, Creatinine 1.96 H, Estim Creat Clear Calc 19.35 L, Est GFR (MDRD) Non-Af 25 L, BUN/Creatinine Ratio 12.6, Glucose 82, Calcium 9.1 Microbiology: Microbiology 04/29/24 01:04 Blood Culture (Wb) - Line Draw Blood Culture - Final No growth in 5 days. 04/29/24 01:00 Blood Culture (Wb) - Line Draw Blood Culture - Final No growth in 5 days. 04/29/24 11:40 Urine, Clean Catch Urine Culture - Final ESBL Escherichia coli 05/02/24 03:00 Stool Stool Occult Blood (JESSICA) - Final 04/29/24 11:40 Urine, Clean Catch Legionella Antigen - Final 04/29/24 11:40 Urine, Clean Catch Streptococcus pneumoniae Antigen (M - Final 04/29/24 04:20 Mucosa - Nasopharyngeal Respiratory Panel (PCR) - Final 04/29/24 04:20 Nasal Secretion MRSA (PCR) - Final 04/28/24 23:50 Mucosa - Nose SARS-CoV-2, Influenza & RSV (PCR) - Final D/C Instructions Discharge Diet: Renal Diet Call your doctor if you observe: Fever of 101 or Higher, Shortness of breath, Dizziness, Fainting spells, Swelling in the ankles, Chest pain and Increased palpitations (irregular heartbeat) DC O2, CPAP, BIPAP Needs PSN CPAP & BiPAP: BiPAP & CPAP Settings per PSN Mode BiPAP 04/30/24 22:37 Bipap Delivery Device Face Mask 04/30/24 22:37 BiPAP Inspiratory Pressure 12 04/30/24 22:37 BiPAP Expiratory Pressure 8 04/30/24 22:37 BiPAP Rate 12 04/30/24 22:37 Fraction of Inspired Oxygen ( 30 05/08/24 10:33 FIO2) Home O2 Discharge instructions: No Meaningful Use Info Meaningful Use Meaningful Use Diagnoses (Choose all that apply): None applicable Ischemic Stroke Statin Dosing Therapy Reference: STATIN DOSE THERAPY REFERENCE: * Patients > 75 years receive moderate or high dose statin therapy. * Patients 75 years or YOUNGER should receive HIGH intensity statin dose unless contraindicated. You will be required to document reason for non-treatment if statin daily dose does not meet guidelines. HIGH DOSE STATIN THERAPY DAILY Atorvastatin > than or = to 40 mg Rosuvastatin > than or = to 20 mg Amlodipine + Atorvastatin > than or = to 2.5/40 mg Ezetimibe + Simvastatin 10/80 mg Simvastatin 80mg Discharge Plan Admission Admit Date/Time: 04/28/24 23:35 Attending Provider: Felix Madison Primary Care Provider: Miles Mercedes Consulting Providers: Candelario Roldan; Roland Mata; Radha Elkins; Cortes Ibarra; Shay King; Alexis Cifuentes; Luis Avila; Donald Galaviz; Tim Polanco; Tre Barraza; Maru Silva; Josafat Hills; Quang Clark; Jaydon Wakefield; Debby Fletcher; Pepe Easley; Agnes Gonzales; Jhon Gutierrez; Samuel Modi; Lavell Rutherford; Antelmo Graff; Bryce Henderson; Erica Ca; Yang Doll; Jason Nation; Agus Norris; Ida Valdivia; Jos Reardon; Micheal Kaye Instructions Patient Instructions: ED Hemodialysis Discharge Orders/Prescriptions Prescriptions: Continued vitamin E 268 mg (400 unit) Capsule 268 mg PO DAILY fluoxetine 20 mg tablet 20 mg PO DAILY Healthy Eyes SuperVision 4,296 mcg-226 mg-90 mg capsule 1 cap PO BID acetaminophen 325 mg Tablet 650 mg PO Q6H PRN PRN (Reason: Pain 1-10 Or Fever>100.7) Qty: 0 0RF amlodipine 10 mg tablet 10 mg PO DAILY Qty: 60 0RF Discontinued losartan 100 mg tablet 100 mg PO DAILY Referrals / Follow Up: [facility] [Outside] - 05/11/24 (Please arrive at 12noon. Please bring ID, insurance cards, and pillow and blanket if you would like. ) Miles Mercedes MD [Primary Care Provider] - 05/17/24 11:10 am Disposition Disposition (needs filled in before D/C Order can be placed): Home Health Service Charges/Coding Visit Charges Inpatient E&M: 84518 Disch Hosp >30min
[2024-05-09] MEDS: Heparin 10,000 UNITS/10 ML Vial IV (16:07)
[2024-05-09] MEDS: 0.9% Normal Saline 1,000 ML IV.SOLN. 1000 ML OPERA.SITE (16:08)
[2024-05-09] MEDS: 0.9% Saline Lock 10 ML Syringe IV (16:08)
--- NOTE | 2024-05-09 16:48 | CASEMGMT ---
Patient has order for discharge. Patient qualifies for home oxygen. OPAL BARLOW updated [facility], start of care planned for tomorrow. OPAL BARLOW in to discuss needs at discharge with patient, daughter at bedside. Patient updated regarding HHC start of care, HD setup, and home oxygen. Patient prefers [facility] for home oxygen. Patient had no further questions or concerns. OPAL BARLOW received script for home oxygen and sent to [facility] via [facility]. OPAL BARLOW updated discharge plan.
== END 2024-05-09 17:59 | disposition home health service (06) | DRG 682 ==
LOC: ED 23:29 → ICU 04-29 01:24 → PCU 05-07 17:35
PROVIDERS: Hospitalist; Internal Medicine Critical Care Medicine; Internal Medicine Nephrology; Student in an Organized Health Care Education/Training Program; Surgery; Admitting Provider Family Medicine; Emergency Provider Emergency Medicine; PCP Family Medicine; Visit Provider Family Medicine
PROC: 05H Upper Veins, Insertion (ICD-10-PCS; principal; 2024-05-08 11:15)
DX: N17.9 Acute kidney failure, unspecified (principal); J96.01 Acute respiratory failure with hypoxia; E87.29 Other acidosis; J90 Pleural effusion, not elsewhere classified; J98.11 Atelectasis; Z16.12 Extended spectrum beta lactamase (ESBL) resistance; D63.1 Anemia in chronic kidney disease; I12.9 Hypertensive chronic kidney disease with stage 1 through stage 4 chronic kidney disease, or unspecified chronic kidney disease; F32.A Depression, unspecified; Z99.2 Dependence on renal dialysis; N18.32 Chronic kidney disease, stage 3b; E86.1 Hypovolemia; G47.33 Obstructive sleep apnea (adult) (pediatric); E78.00 Pure hypercholesterolemia, unspecified; E87.5 Hyperkalemia; K57.30 Diverticulosis of large intestine without perforation or abscess without bleeding; Z87.891 Personal history of nicotine dependence; Z86.718 Personal history of other venous thrombosis and embolism; Z86.16 Personal history of COVID-19; B96.20 Unspecified Escherichia coli [E. coli] as the cause of diseases classified elsewhere; Z86.711 Personal history of pulmonary embolism
CPT/HCPCS: 36415; 36600; 71045; 71046; 71275; 74176; 76000; 76770; 80048; 80053; 80069; 80076; 80202; 81001; 82274; 82570; 82728; 82803; 83520; 83540; 83550; 83605; 83735; 83880; 84100; 84145; 84300; 84484; 85014; 85018; 85025; 85027; 85379; 85610; 85730; 86037; 86160; 86850; 86900; 86901; 87040; 87086; 87088; 87186; 87340; 87449; 87631; 87633; 87641; 90937; 93005; 93306; 93970; 94002; 94003; 94640; 94762; 97163; 97167; 97530; 97535; 97802; 97803; 99285; J2185; P9016; Q9957; Q9967; A4216; C1750; G0257; J0612; J1940; J2405

== ENCOUNTER 2024-06-05 03:37 | Inpatient (IN) | payer MEDICARE, BC, SELFPAY ==
[2024-06-05] VITALS (28 sets, daily range): BP systolic 117–204; BP diastolic 45–64; PULSE 65–81; RESP 16–32; TEMP 36.2–36.9; O2SAT 86–100; BMI 30.1; BMI 29.0; BMI 27.4
--- NOTE | 2024-06-05 04:02 | RAD_ITS ---
PROCEDURE: CHEST PA AND LATERAL 06/05/2024 REASON FOR EXAM: DYSPNEA TECHNIQUE: Frontal and lateral views of the chest. COMPARISON: 05/08/2024 FINDINGS: Currently there is moderate appearing lower zone predominant perihilar ill- defined opacities most concerning for possible pulmonary edema, clinically correlate. Small pleural effusion seen on the lateral view. Right-sided dialysis catheter again noted. Cardiac silhouette not significantly changed in size. The visualized osseous structures appear within limits. RAD/Chest PA and Lateral IMPRESSION: Currently there is moderate appearing lower zone predominant perihilar ill-defi andrew opacities most concerning for possible pulmonary edema, clinically correlate. Small pleural effusion seen on the lateral view. Right-sided dialysis catheter again noted. Reading Location: [id number]
--- NOTE | 2024-06-05 04:02 | EKG12_ITS ---
Test Reason : DYSP Blood Pressure : */* mmHG Vent. Rate : 79 BPM Atrial Rate : 79 BPM P-R Int : 172 ms QRS Dur : 84 ms QT Int : 414 ms P-R-T Axes : 40 86 61 degrees QTcB Int : 474 ms Normal sinus rhythm Normal ECG Confirmed by RAJESH SANCHEZ, GUERDA ([id number]), desk editor ELIZABETH JAIN ([id number]) on 06/06/2024 8:34:59 AM Referred By: Confirmed By: GUERDA MENA MD
[2024-06-05 04:12] LABS: Absolute Neutrophil Count 4.8 X10^3/uL (2.0-7.7); Basophil# 0.06 X10^3/uL; Basophil% 0.8 % (0-1); Eosinophil# 0.37 X10^3/uL; Eosinophils% 5.2 % (0-5); Hematocrit 26.1 % (37-47); Hemoglobin 8.8 g/dL (12.0-15.0); Lymphocyte % 16.9 % (19-41); Mean Corp Hgb Conc 33.7 g/dL (32-36); Mean Corpuscular Hgb 27.5 pg (27.0-32.0); Mean Corpuscular Volume 81.6 fL (81-99); Mean Platelet Vol. 8.6 fl (6.2-12.0); Monocyte# 0.63 X10^3/uL; Monocyte% 8.9 % (0-10); NRBC Flagged by Analyzer 0 % (0-5); Neutrophil # 4.82 X10^3/uL (2.7-7.7); Neutrophil % 67.8 % (47-70); Platelet Count 352 K/mm3 (150-450); RBC Distribution Width CV 15.3 % (11.6-14.6); RBC Distribution Width SD 44.8 fl (35.1-43.9); White Blood Count 7.1 K/mm3 (4.4-11.0)
[2024-06-05] MEDS: Nitroglycerin SL (ED/IMG/CATH) 0.4 MG TABLET SL (04:13)
[2024-06-05 04:36] LABS: Anion Gap 16 (5-15); BUN 33 mg/dL (4-19); BUN/Creat Ratio 13.9 RATIO (10-20); Calcium,Total 9.9 mg/dL (7.6-11.0); Chloride 95 mmol/L (98-108); Creatinine, Serum 2.38 mg/dL (0.70-1.20); EST Glomerular Filtration Rate 20 (>60); Glucose 124 mg/dL (70-99); Magnesium 2.4 mg/dL (1.5-2.2); Phosphorus 4.1 mg/dL (2.7-4.5); Potassium 3.7 mmol/L (3.3-5.1); Pro- Brain NATRIURETIC PEPTIDE 5027 pg/mL (<=1800); Sodium Level 132 mmol/L (133-145)
--- NOTE | 2024-06-05 05:17 | HP.PCM.HOS_ITS ---
[facility] - General General Date of Admission: 06/05/24 Date of Service: 06/05/24 Chief Complaint: SOB. 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 coli treated with meropenem in addition to JUDD; on CKD stage IIIb with elevated serum creatinine in the ~4.5 mg/dL range with patient treated with high doses of IV Lasix and chlorthalidone but eventually required temporary dialysis with patient still able to make urine with echocardiogram done April 29, 2024 that revealed LVEF ~55% with mildly dilated right ventricle and mild segmental dysfunction of the RV with 1+ mitral valve insufficiency, no pericardial effusion and no mention of diastolic dysfunction who presents to [facility] ER complaining of shortness of breath. Ms. Fleming reports her symptoms began approximately 1 week prior to admission with a gradual-onset of dyspnea on exertion that progressed to shortness of breath at rest. She is still able to make urine and she is reluctant to resume hemodialysis even though she admits she was receiving hemodialysis that she did not require supplemental oxygen and could not go up and down steps without difficulty - and now she can only take a few steps without becoming severely short of breath. She admits to associated headache and nonproductive cough. There was no report of fever, chills, abdominal pain, nausea, vomiting, diarrhea, constipation, chest pain, palpitations, heart racing or rash but she does admit to her oxygen saturation being 72% at home. In the ER she was noted to have an elevated NT pro-BNP II of 5,027 pg/mL present on admission with a corresponding chest x-ray that revealed moderate appearing lower zone predominant perihilar ill-defined opacities most concerning for possible pulmonary edema with small pleural effusion seen on lateral view and right sided dialysis catheter again noted consistent with AE CHF; with preserved LVEF of ~55% complicated by Uncontrolled Hypertension; evidenced by blood pressure 174/63 mmHg present on admission along with clinical evidence of Acute Hypoxic Respiratory Failure; evidenced by tachypnea of 32 breaths/min with the patient initiated on Airvo 45L/min compounded by laboratory evidence of worsening renal function with serum creatinine of 2.38 mg/dL and BUN of 33 mg/dL (up from serum creatinine of 1.96 mg/dL and BUN of 25 mg/dL on May 09, 2024) indicating patient will likely need to restart hemodialysis or plan for hospice consultation. She was then admitted to the PCU for ongoing care for a stay that is expected to extend beyond 2 midnights. [facility] Medical History (Updated 06/05/24 @ 06:[address] Donald Quinonez, DO) Kidney disease History of renal dialysis Cataract (lens) fragments in eye following cataract surgery, bilateral Macular degeneration Glaucoma Wears glasses Gout Arthritis Renal agenesis Pulmonary embolism High cholesterol CPAP (continuous positive airway pressure) dependence Former smoker Sleep apnea Hypertension History of pulmonary embolism Home Medications ?Medication ?Instructions ?Recorded ?Last Taken ?Type vitamin E 268 mg (400 unit) capsule 268 mg PO DAILY Palma pplement 07/02/22 03/14/24 History vitamins A,C,B-kkys-vqvopd 4,296 1 cap PO BID Healthy eyes 03/14/24 03/14/24 History mcg-226 mg-90 mg capsule (Healthy Eyes SuperVision) acetaminophen 325 mg tablet 650 mg (2 x 325 mg) PO Q6H PRN PRN 03/19/24 Unknown Rx Pain 1-10 Or Fever>100.7 #0 tabs amlodipine 10 mg tablet 10 mg PO DAILY HEART #60 ta bs 03/19/24 Unknown Rx fluoxetine 20 mg tablet 20 mg PO DAILY DEPRESSION Unknown History amoxicillin 875 mg-potassium 1 tab PO BID 06/05/24 Unk nown History clavulanate 125 mg tablet benzonatate 100 mg capsule 100 mg PO TID 06/05/24 Unkn own History Allergy/AdvReac Type Severity Reaction Status Date / Time Sulfa (Sulfonamide Allergy Intermediate Itching Verified 06/05/24 03:44 Antibiotics) Family History Mother Diabetes Kidney disease Father Heart disease Surgical History History of carpal tunnel release History of lumpectomy of right breast Social History household members: spouse Smoking Status: Former smoker alcohol intake: never substance use type: does not use ROS ROS Narrative Review of Systems: Constitutional: Patient denies fever or chills. Eyes: Patient denies changes in vision or discharge from eyes. ENT: Patient denies runny nose, sore throat or ear pain. Resp: Patient admits to dyspnea on exertion the progressive shortness of breath of breath with occasional nonproductive cough as per HPI. CV: Patient admits to orthopnea but she denies chest pain, palpitations or heart racing. GI: Patient denies abdominal pain, nausea, vomiting or diarrhea. : Patient denies dysuria or hematuria. MSK: Patient denies arthralgias or myalgias. Skin: Patient denies rash, abscess, wounds or jaundice. Psych: Patient denies symptoms of uncontrolled depression or anxiety. Neuro: Patient admits to headache but she denies paresthesias or focal neurologic deficits. Allergy: Patient denies lip swelling, tongue swelling or urticaria. Hematology: Patient denies easy bleeding or easy bruisability. Endocrinology: Patient denies polyuria, polydipsia, polyphagia or heat/cold intolerance. 14 point ROS otherwise negative except for positives noted above in HPI. Vital Signs Vital Signs Vital Signs: 06/05/24 03:38 06/05/24 03:43 06/05/24 04:13 Temperature 97.7 F L 97.7 F L Temperature Source Oral Oral Pulse Rate 81 80 79 Respiratory Rate 26 H 23 H Blood Pressure 189/60 H 189/60 H 177/62 H Blood Pressure Mean 103 103 Pulse Ox 89 91 Oxygen Delivery Method Nasal Cannula Nasal Cannula Oxygen Flow Rate (L/min) 2 3 06/05/24 04:14 06/05/24 04:14 06/05/24 04:47 Temperature 98.2 F Temperature Source Oral Pulse Rate 80 79 Respiratory Rate 26 H 22 H Blood Pressure 177/62 H 176/64 H Blood Pressure Mean 100 101 Pulse Ox 97 95 97 Oxygen Delivery Method High Flow High Flow Nasal Cannula Oxygen Flow Rate (L/min) 8 8 3 06/05/24 05:00 Temperature Temperature Source Pulse Rate 78 Respiratory Rate 26 H Blood Pressure 176/64 H Blood Pressure Mean 101 Pulse Ox 94 Oxygen Delivery Method Simple Mask Oxygen Flow Rate (L/min) Weight Weight: 159 lb 9.835 oz Body Mass Index (BMI) 30.1 Physical Exam Const alert and oriented x3 Constitutional Narrative: Moderate distress noted with labored respirations and frequent nonproductive cough on Airvo. Results Medical Records Data Attestation: I reviewed the patient's medical records Lab / Micro Data Attestation: I reviewed the patient's lab results. 06/05/24 04:02 06/05/24 04:02 Labs: Laboratory Results - last 24 hr 06/05/24 04:02: WBC 7.1, RBC 3.20 L, Hgb 8.8 L, Hct 26.1 L, MCV 81.6, MCH 27.5, MCHC 33.7, RDW Std Deviation 44.8 H, RDW Coeff of Pedro 15.3 H, Plt Count 352, MPV 8.6, Immature Gran % (Auto) 0.400, Neut % (Auto) 67.8, Lymph % (Auto) 16.9 L, [place] % (Auto) 8.9, Eos % (Auto) 5.2 H, Baso % (Auto) 0.8, Absolute Neuts (auto) 4.8, Absolute Lymphs (auto) 1.20, Nucleated RBC % 0, Sodium 132 L, Potassium 3.7, Chloride 95 L, Carbon Dioxide 21.0, Anion Gap 16 H, BUN 33 H, Creatinine 2.38 H, Estim Creat Clear Calc 16.30 L, Est GFR (MDRD) Non-Af 20 L, BUN/Creatinine Ratio 13.9, Glucose 124 H, Calcium 9.9, Phosphorus 4.1, Magnesium 2.4 H, NT pro BNP II 5027 H Imaging Radiology Impression Chest X-Ray 06/05/24 04:02 IMPRESSION: Currently there is moderate appearing lower zone predominant perihilar ill- defined opacities most concerning for possible pulmonary edema, clinically correlate. Small pleural effusion seen on the lateral view. Right-sided dialysis catheter again noted. Reading Location: [facility] Assessment & Plan Assessment/Plan (1) Acute exacerbation of CHF (congestive heart failure): QUALIFIERS: Heart failure type: unspecified Qualified Code(s): I 50.9 - Heart failure, unspecified (2) Uncontrolled hypertension: (3) Acute hypoxic respiratory failure: (4) Chronic kidney disease: QUALIFIERS: Chronic kidney disease stage: stage 4 (GFR 15-29) Q ualified Code(s): N18.4 - Chronic kidney disease, stage 4 (severe) (5) History of hemodialysis: (6) Obesity (BMI 30.0-34.9): (7) GINO (obstructive sleep apnea): (8) History of pulmonary embolism: PLAN: Plan 1. Elevated NT pro-BNP II of 5,027 pg/mL present on admission with a corresponding chest x-ray that revealed moderate appearing lower zone predominant perihilar ill-defined opacities most concerning for possible pulmonary edema with small pleural effusion seen on lateral view and right sided dialysis catheter again noted consistent with AE CHF; with preserved LVEF of ~55% - Admit to PCU. Continue IV furosemide BID. Recheck CXR and NT pro-BNP II daily to follow trend. 2. Uncontrolled Hypertension; evidenced by blood pressure 174/63 mmHg present on admission complicating #1 - Patient treated with IV furosemide in ER which will be continued. Resume amlodipine as before. Give hydralazine IV prn for systolic blood pressure > 160 mmHg. 3. Acute Hypoxic Respiratory Failure; evidenced by tachypnea of 32 breaths/min with the patient initiated on Airvo 45 L/min due to #1 & #2 - Wean supplemental oxygen as tolerated. 4. Worsening renal function with serum creatinine of 2.38 mg/dL and BUN of 33 mg/dL (up from serum creatinine of 1.96 mg/dL and BUN of 25 mg/dL on May 09, 2024) indicating patient will likely need to restart hemodialysis or plan for hospice consultation adding to the medical complexity of #1 - #3 - We will initiate conservative treatment with diuretics to see if her condition improves. We will avoid potentially nephrotoxic agents. Finally, we will consult nephrology to see this patient on-rounds in the AM for further recommendations with help appreciated in advance. 5. Obesity; with BMI of 30.2 this admission plus GINO; noncompliant with CPAP adding to the burden of disease outlined from #1 - #4 - Weight loss will be recommended. Check TSH. Patient will be encouraged to use CPAP as recommended. This complicates her case and may hamper recovery. 6. Recent admission here from April 28, 2024 to May 09, 2024 for treatment of acute hypoxic respiratory failure secondary to PE with bilateral pleural effusions complicated by suspected Acute Pyelonephritis; with urine cultures positive for ESBL E. coli treated with meropenem in addition to JUDD; on CKD stage IIIb with elevated serum creatinine in the ~4.5 mg/dL range with patient treated with high doses of IV Lasix and chlorthalidone but eventually required temporary dialysis with patient still able to make urine with echocardiogram done April 29, 2024 that revealed LVEF ~55% with mildly dilated right ventricle and mild segmental dysfunction of the RV with 1+ mitral valve insufficiency, no pericardial effusion and no mention of diastolic dysfunction - Noted. 7. Former tobacco abuse - Noted. 8. History of bradycardia due to AV junctional rhythm - Noted with pulse of 80 bpm noted on admission. 9. History of DVT/PE; not currently on anticoagulation - Noted with patient likely needs to be restated if she does not opt for hospice. 10. Chronic NCNC anemia - Stable with hemoglobin of 8.8 g/dL and MCV of 81.6 fL present on admission. 11. History of macular degeneration - Noted. 12. Glaucoma; with patient currently not on treatment - Noted. 13. History of COVID-19 (03/2024) - Noted. 14. History of Right breast cyst; s/p lumpectomy - Noted. 15. Depression; on fluoxetine - Continue fluoxetine as before. 16. History of gout - Chronic and stable with no evidence of acute flare. 17. OA; primarily of both knees - Give acetaminophen prn for pain or fever. 18. DVT prophylaxis - Will give one dose of full, but renally-dosed Lovenox until she makes up her mind on the aggressiveness of treatment she desires. Total time: Approximately (but not less than) 75 minutes. Charges/Coding Visit Charges Inpatient E&M: 53401 Init Hosp L3
--- NOTE | 2024-06-05 05:26 | EX.ED.DYSGE1 ---
HPI History of Present Illness Chief Complaint: Shortness of Breath Informant: patient and EMS Narrative Narrative: Patient is a 84-year-old female with past medical history of chronic kidney disease as well as hypertension and hyperlipidemia. She was admitted roughly 1 month ago secondary to acute exacerbation of chronic kidney disease leading to congestive heart failure and need for dialysis. Patient states that after that last admission when she was discharged home she was placed on 2 L nasal cannula oxygen. She states that she was also receiving dialysis but this was stopped on May 24. She states while she was receiving dialysis she did not wear oxygen throughout the day that often and could ambulate up and down the stairs without significant shortness of breath. She states for the first week after stopping dialysis as she still felt well but in the last week she has been having increasing shortness of breath. She states she will feel short of breath at rest and this will worsen with even minimal motion such as walking just a few feet. She states that she went to bed last night and awoke this morning with increased shortness of breath and she took her pulse ox at home and it was low at 72. She states that with her worsening symptoms she is concerned that she may need this or could have heart strain and therefore comes in for evaluation [facility] Medical History Kidney disease History of renal dialysis Cataract (lens) fragments in eye following cataract surgery, bilateral Macular degeneration Glaucoma Wears glasses Gout Arthritis Renal agenesis Pulmonary embolism High cholesterol CPAP (continuous positive airway pressure) dependence Former smoker Sleep apnea Hypertension History of pulmonary embolism Home Medications ?Medication ?Instructions ?Recorded ?Last Taken ?Type vitamin E 268 mg (400 unit) capsule 268 mg PO DAILY Supplement 07/02/22 03/14/24 History vitamins A,C,U-jtnh-iihddj 4,296 1 cap PO BID Healthy eyes 03/14/24 03/14/24 History mcg-226 mg-90 mg capsule (Healthy Eyes SuperVision) acetaminophen 325 mg tablet 650 mg (2 x 325 mg) PO Q6H PRN PRN 03/19/24 Unknown Rx Pain 1-10 Or Fever>100.7 #0 tabs amlodipine 10 mg tablet 10 mg PO DAILY HEART #60 tabs 03/19/24 Unknown Rx fluoxetine 20 mg tablet 20 mg PO DAILY DEPRESSION 04/28/24 Unknown History amoxicillin 875 mg-potassium 1 tab PO BID 06/05/24 Unknown History clavulanate 125 mg tablet benzonatate 100 mg capsule 100 mg PO TID 06/05/24 Unknown History Allergy/AdvReac Type Severity Reaction Status Date / Time Sulfa (Sulfonamide Allergy Intermediate Itching Verified 06/05/24 03:44 Antibiotics) Family History Mother Diabetes Kidney disease Father Heart disease Surgical History History of carpal tunnel release History of lumpectomy of right breast Social History household members: spouse Smoking Status: Former smoker alcohol intake: never substance use type: does not use ROS ROS ED Constitutional Constitutional ED: Denies chills or fever(s) Eyes Eyes: Denies blurry vision or change in vision ENT ENT ED: Denies sore throat Cardiovascular Cardiovascular: Reports orthopnea; Denies chest pain Respiratory/Chest Respiratory/Chest: Reports cough, dyspnea, dyspnea on exertion and orthopnea Gastrointestinal Gastrointestinal: Denies abdominal pain, diarrhea, nausea or vomiting Genitourinary Genitourinary ED: Denies dysuria Musculoskeletal Musculoskeletal: Denies myalgias Integumentary Denies rash Neurologic Neurologic: Reports headache(s) Hematologic/Lymphatic Hematologic/Lymphatic: Denies easy bleeding or easy bruising Allergic/Immunologic Allergic/Immunologic ED: Denies mouth swelling or tongue swelling EXAM Physical Exam Const Vital Signs: 06/05/24 03:38 06/05/24 03:43 06/05/24 04:13 Temperature 97.7 F L 97.7 F L Temperature Source Oral Oral Pulse Rate 81 80 79 Respiratory Rate 26 H 23 H Blood Pressure 189/60 H 189/60 H 177/62 H Blood Pressure Mean 103 103 Pulse Ox 89 91 Oxygen Delivery Method Nasal Cannula Nasal Cannula Oxygen Flow Rate (L/min) 2 3 06/05/24 04:14 06/05/24 04:14 06/05/24 04:47 Temperature 98.2 F Temperature Source Oral Pulse Rate 80 79 Respiratory Rate 26 H 22 H Blood Pressure 177/62 H 176/64 H Blood Pressure Mean 100 101 Pulse Ox 97 95 97 Oxygen Delivery Method High Flow High Flow Nasal Cannula Oxygen Flow Rate (L/min) 8 8 3 06/05/24 05:00 06/05/24 05:30 Temperature 98.2 F Temperature Source Pulse Rate 78 80 Respiratory Rate 26 H 32 H Blood Pressure 176/64 H 174/63 H Blood Pressure Mean 101 100 Pulse Ox 94 94 Oxygen Delivery Method Simple Mask Oxygen Flow Rate (L/min) Positive well nourished, well developed and obese General Appearance ED: well developed and pallor Nutritional Appearance: obese HEENT HEENT Narrative: No tongue or lip swelling no oral lesions no airway edema or compromise No signs of infection noted in the posterior pharynx Eyes PERRL and EOMs intact bilaterally General Eye ED: Negative for scleral icterus Neck supple Neck Narrative: There is JVD noted bilaterally Chest Wall palpation of chest normal Chest Narrative: Tunneled dialysis catheter is in place without secondary soft tissue skin changes to suggest infection Resp Resp Narrative: Patient is tachypneic with accessory muscle use. Breath sounds are diminished throughout with rhonchi and crackles noted in the bilateral bases. Positive orthopnea is noted. Patient can only speak in 4-5 word sentences without dyspnea. Cardio regular rate and regular rhythm Rate: other Other Details: Radial and carotid pulses are equal and symmetric GI normal to inspection, nondistended, normoactive bowel sounds, non-tender, non-distended and no masses GI Narrative: No voluntary guarding or rigidity or pulsatile mass No fluid wave noted Auscultation: normoactive bowel sounds Palpation: soft Extremity Extremity Narrative: +3 pitting edema to the bilateral lower extremities that is equal and symmetric Negative Homans' sign bilaterally Neuro oriented x3, CN's II-XII intact bilaterally and no sensory deficits noted Sensorium / Orientation: alert Psych Mood & Affect: anxious Skin no rashes or lesions noted General Skin Exam: pallor; Negative for jaundice MDM MDM MDM Narrative Medical decision making narrative: Patient arrived to the ER hypertensive but otherwise afebrile and satting in the low to mid 90s on just 3 L nasal cannula. Despite the improvement in her pulse ox she still had tachypnea and accessory muscle use. Her history and exam is most consistent with recurrent volume overload from CHF as she is no longer on dialysis. In order to check for CHF versus pneumonia or pneumothorax a chest x-ray was obtained. Blood work was ordered to look for acute blood loss anemia versus recurrent acute on chronic kidney disease or clinically significant electrolyte abnormality. Labs showed anemia which is chronic in nature per chart review. Creatinine is also starting to elevate once again at 2.4. proBNP is elevated at 5000 consistent with heart failure. Chest x-ray shows pulmonary edema similar nature to roughly 1 month ago at which time she required admission. At this time on high flow nasal cannula her pulse ox and work of breathing have improved but as her history exam and workup indicates she will most likely need recurrent dialysis and that is not set up for her at this time I do not feel that discharge home is safe for the most appropriate plan of care. Therefore the case with the hospitalist who agrees to admit the patient for continued diuresis and potential dialysis. Plan of care was discussed with the patient who is agreeable to it History & Record Review Discussion w/independent historian: Patient Lab Data Attestation: I reviewed the patient's lab results. Labs: Laboratory Results - last 24 hr 06/05/24 04:02 WBC 7.1 RBC 3.20 L Hgb 8.8 L Hct 26.1 L MCV 81.6 MCH 27.5 MCHC 33.7 RDW Std Deviation 44.8 H RDW Coeff of Pedro 15.3 H Plt Count 352 MPV 8.6 Immature Gran % (Auto) 0.400 Neut % (Auto) 67.8 Lymph % (Auto) 16.9 L [place] % (Auto) 8.9 Eos % (Auto) 5.2 H Baso % (Auto) 0.8 Absolute Neuts (auto) 4.8 Absolute Lymphs (auto) 1.20 Nucleated RBC % 0 Sodium 132 L Potassium 3.7 Chloride 95 L Carbon Dioxide 21.0 Anion Gap 16 H BUN 33 H Creatinine 2.38 H Estim Creat Clear Calc 16.30 L Est GFR (MDRD) Non-Af 20 L BUN/Creatinine Ratio 13.9 Glucose 124 H Calcium 9.9 Phosphorus 4.1 Magnesium 2.4 H NT pro BNP II 5027 H Radiography Diagnostic Testing: Clinical Impression(s) from Imaging Studies Chest X-Ray 06/05/24 04:02 IMPRESSION: Currently there is moderate appearing lower zone predominant perihilar ill-defined opacities most concerning for possible pulmonary edema, clinically correlate. Small pleural effusion seen on the lateral view. Right-sided dialysis catheter again noted. Reading Location: [facility] Chest x-ray as interpreted by the emergency medicine physician reveals hazy opacities in the bilateral lower lobes most consistent with pulmonary edema Management Discussion w/another healthcare provider: Hospitalist Discharge Plan Dx/Rx/DC Orders Clinical Impression: Acute exacerbation of CHF (congestive heart failure), Chronic kidney disease, Chronic anemia, Hypertension Disposition Disposition: Acute Care Hospital [facility]
[2024-06-05 05:48] LABS: Allen Test Positive; Base Excess 2 mmol/L (-2 to +2); Bicarbonate 25.8 mmol/L (22-26); Blood Gas Specimen Type ART; Mode Not entered; O2 Delivery Device Cannula; PO2 42 mmHG (75-100); SITE R Radial; SO2 79 % (95-99); Total Carbon Dioxide 27 mmol/L; pCO2 37.6 mmHg (35-45); pH 7.44 (7.35-7.45)
--- NOTE | 2024-06-05 05:49 | CPS ---
RT attempted ABG, however sample ended up being venous. Dr. Valencia aware.
[2024-06-05] MEDS: Furosemide 40 MG/4 ML Vial IV ×2 (05:54→08:09)
[2024-06-05] MEDS: Enoxaparin 80 MG/0.8 ML Syringe 70 MG SC (06:58)
[2024-06-05] MEDS: Acetaminophen 325 MG Tablet 650 MG PO (06:59)
[2024-06-05] MEDS: amLODIPine 10 MG Tablet PO (08:08)
[2024-06-05] MEDS: Vitamin E 400 UNITS Capsule PO (08:08)
[2024-06-05] MEDS: Benzonatate 100 MG Capsule PO ×3 (08:08→20:50)
[2024-06-05] MEDS: Amox/Clavulanate 500 MG Tablet PO ×2 (08:09→17:54)
[2024-06-05] MEDS: FLUoxetine 20 MG Capsule PO (08:09)
[2024-06-05] MEDS: Multivitamin (Healthy Eyes) Capsule 1 CAP PO ×2 (08:10→20:49)
--- NOTE | 2024-06-05 09:02 | PCM.PN.HOSP ---
Reason for Visit Reason for Visit: Diagnoses Obesity, class 1 (06/05/24) Obstructive sleep apnea (adult) (pediatric) (06/05/24) Essential (primary) hypertension (06/05/24) Heart failure, unspecified (06/05/24) Acute respiratory failure with hypoxia (06/05/24) Chronic kidney disease, stage 4 (severe) (06/05/24) Personal history of pulmonary embolism (06/05/24) Personal history of other medical treatment (06/05/24) Objective Data Objective Data Vital Signs: Vital Signs Temp Pulse Resp BP Pulse Ox O2 Del Method O2 Flow Rate 97.8 F 77 20 H 157/57 H 96 Airvo 45 06/05/24 07:45 06/05/24 08:57 06/05/24 08:57 06/05/24 07:45 06/05/24 08:57 06/05/24 08:57 06/05/24 06:00 FiO2 60 06/05/24 08:57 Oxygen Flow Rate (L/min) 45 Oxygen Delivery Method Airvo Weight: 153 lb 13.064 oz Body Mass Index (BMI) 29.0 Lab / Micro Data 06/05/24 04:02 06/05/24 04:02 Labs: Laboratory Results - last 24 hr 06/05/24 04:02: WBC 7.1, RBC 3.20 L, Hgb 8.8 L, Hct 26.1 L, MCV 81.6, MCH 27.5, MCHC 33.7, RDW Std Deviation 44.8 H, RDW Coeff of Pedro 15.3 H, Plt Count 352, MPV 8.6, Immature Gran % (Auto) 0.400, Neut % (Auto) 67.8, Lymph % (Auto) 16.9 L, Glynn % (Auto) 8.9, Eos % (Auto) 5.2 H, Baso % (Auto) 0.8, Absolute Neuts (auto) 4.8, Absolute Lymphs (auto) 1.20, Nucleated RBC % 0, Sodium 132 L, Potassium 3.7, Chloride 95 L, Carbon Dioxide 21.0, Anion Gap 16 H, BUN 33 H, Creatinine 2.38 H, Estim Creat Clear Calc 16.30 L, Est GFR (MDRD) Non-Af 20 L, BUN/Creatinine Ratio 13.9, Glucose 124 H, Calcium 9.9, Phosphorus 4.1, Magnesium 2.4 H, NT pro BNP II 5027 H, TSH 1.630 Micro: Microbiology 06/05/24 04:12 Mucosa - Nose SARS-CoV-2, Influenza & RSV (PCR) - Final ABG Data ABG results: ABG 06/05/24 05:44 Specimen Type ART Sample Site R Radial pH 7.44 Bicarbonate Actual 25.8 Total CO2 27 Base Excess 2 O2 Saturation 79 L O2 % 8.0 ABG pCO2 37.6 ABG pO2 42 L Mikey Test Positive O2 Delivery Device Cannula Vent Mode Not entered Radiography Diagnostic Testing: Radiology Impression Chest X-Ray 06/05/24 04:02 IMPRESSION: Currently there is moderate appearing lower zone predominant perihilar ill-defined opacities most concerning for possible pulmonary edema, clinically correlate. Small pleural effusion seen on the lateral view. Right-sided dialysis catheter again noted. Reading Location: [facility] Physical Exam Narrative Seen and examined. Patient admitted with shortness of breath, hypoxia, 86% on her baseline 2.5 L of oxygen. Patient was recently held on dialysis on 05/24. She has a right chest permacath. Follows security system sales consultant Dr. Mata. Complain of chest congestion and dry cough Physical exam General: Alert, Oriented x3, Cooperative, mild respiratory distress HEENT: Atraumatic, PERRLA, EOMI, Normocephalic Oral: Oral mucosa dry no Gingival or Mucosal Lesions/ Ulcerations Neck: Supple, No JVD, Negative Carotid Bruits Chest wall/Lungs: Right tunneled dialysis catheter air entry diminished in bilateral lung bases. Bilateral coarse crepitations Cardiovascular: Regular rate, Regular Rhythm, Normal S1, Normal S2, No M/G/R Abdomen: Bowel Sounds Present, Soft, Non Tender, Non-Distended : No dysuria. No renal angle tenderness. No suprapubic tenderness. Extremities: No edema, Capillary Refill Less than 3 Seconds Skin: No rashes, No breakdown Musculoskeletal: No Tenderness to Palpation of Joints or Extremities Neurological: Cranial nerves II-XII grossly intact, DTR 2+/4. No acute focal neurological deficit. Psych/Mental Status: Flat affect Assessment & Plan Assessment/Plan (1) Acute exacerbation of CHF (congestive heart failure): QUALIFIERS: Heart failure type: unspecified Qualified Code(s): I50.9 - Heart failure, unspecified (2) Uncontrolled hypertension: (3) Acute hypoxic respiratory failure: (4) Chronic kidney disease: QUALIFIERS: Chronic kidney disease stage: stage 4 (GFR 15-29) Qualified Code(s): N18.4 - Chronic kidney disease, stage 4 (severe) (5) History of hemodialysis: (6) Obesity (BMI 30.0-34.9): (7) GINO (obstructive sleep apnea): (8) History of pulmonary embolism: PLAN: Plan 1 Pulmonary edema elevated proBNP most likely due to acute on chronic heart failure: proBNP 5000. Chest x-ray shows lower Tammy ill-defined opacity suggestive of pulmonary edema and small pleural effusion. On dialysis was resumed. Discussed with the security system sales consultant. About 3.5 L being removed. 2. Uncontrolled Hypertension; evidenced by blood pressure 174/63 mmHg, contributing to pulmonary hypertension present on admission - Patient treated with IV furosemide in ER which will be continued. Resume amlodipine as before. Give hydralazine IV prn for systolic blood pressure > 160 mmHg. 3. Acute Hypoxic Respiratory Failure; evidenced by tachypnea of 32 breaths/min with the patient initiated on Airvo 45 L/min: Wean supplemental oxygen as tolerated. Patient was also former smoker 4. 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 Dialysis resumed through right IJ tunnel dialysis catheter 5. Obesity; with BMI of 30.2 this admission plus GINO; noncompliant with CPAP: CPAP 6. Recent admission here from April 28, 2024 to May 09, 2024 for treatment of acute hypoxic respiratory failure secondary to PE with bilateral pleural effusions, acute pyelonephritis with urine culture showing positive ESBL E. coli treated with meropenem. 7. Chronic normocytic normochromic anemia - Stable with hemoglobin of 8.8 g/dL and MCV of 81.6 fL present on admission. 8. Chronic glaucoma and macular degeneration: 9. Anxiety and depression; on fluoxetine - Continue fluoxetine as before. 10. Chronic gout: No evidence of acute flare. 11. OA; primarily of both knees - Give acetaminophen prn for pain or fever. 12. DVT prophylaxis - Will give one dose of full, but renally-dosed Lovenox until she makes up her mind on the aggressiveness of treatment she desires. Charges/Coding Visit Charges Inpatient E&M: 89783 Subs Hosp L2
[2024-06-05] MEDS: 0.9% Saline Lock 10 ML Syringe IV ×4 (09:11→19:59)
[2024-06-05] MEDS: 0.9% Normal Saline 1,000 ML IV.SOLN. 1000 ML OPERA.SITE (09:11)
[2024-06-05] MEDS: Heparin 10,000 UNITS/10 ML Vial IV (11:49)
--- NOTE | 2024-06-05 12:32 | PCM.CONS.R ---
Documented by User: JASON Potter 06/05/24 12:44 Assessment & Plan Assessment/Plan (1) Acute kidney injury: (2) Acute hypoxemic respiratory failure: (3) Chronic kidney disease: QUALIFIERS: Chronic kidney disease stage: stage 4 (GFR 15-29) Qualified Code(s): N18.4 - Chronic kidney disease, stage 4 (severe) PLAN: Plan 84-year-old female with past medical history significant for HTN, GINO on CPAP, history of VTE, mild CKD stage III with baseline SCr 1.2, and history of dialysis requiring acute kidney injury after sustaining acute kidney injury with oliguria and hypervolemia, began hemodialysis end of April 2024. Serologies which included p-ANCA, c-ANCA, complements and GB membrane were all negative in April 2024. Patient was dialyzing at [facility] 3 days weekly. Serum creatinine 2.4 on May 22, serum creatinine 2.5 on May 29. Patient was noted to have some improvement and recovery of kidney function, her last hemodialysis session was on May 24. Post HD weight 66.8 kg. Patient was not having much fluid gain around 1 kg between hemodialysis sessions. Because of difficulty breathing, volume overload patient underwent sequential treatment today and tolerated about 3.7 L fluid removal. Patient does have urine output. Prior to this hospitalization patient was not on any oral diuretics at home. Will increase Lasix to 80 mg IV twice daily, will obtain UA. Will evaluate for hemodialysis/sequential needs tomorrow. Blood pressures acceptable. Last echo 04/29/2024: Estimated EF 55 to 60%, normal LV systolic function, mild RV dilatation. Further orders forthcoming as hospitalization evolves. Assessment and plan reviewed with Dr. Mata. HPI Consult Data Date of Consult: 06/05/24 HPI Narrative HPI Narrative: RYAN FLEMING, is a 84 F with past medical history significant for dialysis requiring acute kidney injury who was started on hemodialysis end of April 2024 after creatinine worsened and patient became hypervolemic. Patient had tunneled hemodialysis catheter placed and arrangements were made for her to dialyze at [facility]. Patient was noted has some improvement kidney function and last hemodialysis session at [facility] [place] was on May 24. Patient presented to emergency room last evening with complaints of shortness of breath, BNP 5000, chest x-ray possible pulmonary edema with small pleural effusions admitted for further evaluation and treatment. Nephrology consulted in view of patient recently requiring hemodialysis. Patient denies any recent nausea, vomiting or diarrhea. Denies any recent fever or chills. Repeats shortness of breath had slowly been worsening. [facility] Medical History (Updated 06/05/24 @ 12:35 by JASON Potter) Acute kidney injury Kidney disease History of renal dialysis Cataract (lens) fragments in eye following cataract surgery, bilateral Macular degeneration Glaucoma Wears glasses Gout Arthritis Renal agenesis Pulmonary embolism High cholesterol CPAP (continuous positive airway pressure) dependence Former smoker Sleep apnea Hypertension History of pulmonary embolism Home Medications ?Medication ?Instructions ?Recorded ?Last Taken ?Type vitamin E 268 mg (400 unit) capsule 268 mg PO DAILY Supplement 07/02/22 03/14/24 History vitamins A,C,X-vjdq-qmfzgg 4,296 1 cap PO BID Healthy eyes 03/14/24 03/14/24 History mcg-226 mg-90 mg capsule (Healthy Eyes SuperVision) acetaminophen 325 mg tablet 650 mg (2 x 325 mg) PO Q6H PRN PRN 03/19/24 Unknown Rx Pain 1-10 Or Fever>100.7 #0 tabs amlodipine 10 mg tablet 10 mg PO DAILY HEART #60 tabs 03/19/24 Unknown Rx fluoxetine 20 mg tablet 20 mg PO DAILY DEPRESSION 04/28/24 Unknown History amoxicillin 875 mg-potassium 1 tab PO BID 06/05/24 Unknown History clavulanate 125 mg tablet benzonatate 100 mg capsule 100 mg PO TID 06/05/24 Unknown History Allergy/AdvReac Type Severity Reaction Status Date / Time Sulfa (Sulfonamide Allergy Intermediate Itching Verified 06/05/24 03:44 Antibiotics) Family History Mother Diabetes Kidney disease Father Heart disease Surgical History History of carpal tunnel release History of lumpectomy of right breast Social History household members: spouse Smoking Status: Former smoker alcohol intake: never substance use type: does not use ROS ROS Narrative As in HPI Physical Exam Narrative Alert and orient x 3, no apparent distress S1, S2, RRR Diminished breath sounds with rales, on Airvo Abdomen soft, nontender 1-2+ pitting edema bilateral lower legs Tunneled hemodialysis catheter dressing clean, dry and intact Lab / Micro Data 06/05/24 04:02 06/05/24 04:02 Labs: Laboratory Results - last 24 hr 06/05/24 04:02: WBC 7.1, RBC 3.20 L, Hgb 8.8 L, Hct 26.1 L, MCV 81.6, MCH 27.5, MCHC 33.7, RDW Std Deviation 44.8 H, RDW Coeff of Pedro 15.3 H, Plt Count 352, MPV 8.6, Immature Gran % (Auto) 0.400, Neut % (Auto) 67.8, Lymph % (Auto) 16.9 L, Pike % (Auto) 8.9, Eos % (Auto) 5.2 H, Baso % (Auto) 0.8, Absolute Neuts (auto) 4.8, Absolute Lymphs (auto) 1.20, Nucleated RBC % 0, Sodium 132 L, Potassium 3.7, Chloride 95 L, Carbon Dioxide 21.0, Anion Gap 16 H, BUN 33 H, Creatinine 2.38 H, Estim Creat Clear Calc 16.30 L, Est GFR (MDRD) Non-Af 20 L, BUN/Creatinine Ratio 13.9, Glucose 124 H, Calcium 9.9, Phosphorus 4.1, Magnesium 2.4 H, NT pro BNP II 5027 H, TSH 1.630 Micro: Microbiology 06/05/24 04:12 Mucosa - Nose SARS-CoV-2, Influenza & RSV (PCR) - Final ABG Data ABG results: ABG 06/05/24 05:44 Specimen Type ART Sample Site R Radial pH 7.44 Bicarbonate Actual 25.8 Total CO2 27 Base Excess 2 O2 Saturation 79 L O2 % 8.0 ABG pCO2 37.6 ABG pO2 42 L Mikey Test Positive O2 Delivery Device Cannula Vent Mode Not entered Imaging Radiology Impression Chest X-Ray 06/05/24 04:02 IMPRESSION: Currently there is moderate appearing lower zone predominant perihilar ill-defined opacities most concerning for possible pulmonary edema, clinically correlate. Small pleural effusion seen on the lateral view. Right-sided dialysis catheter again noted. Reading Location: [facility] Documented by User: Dr. Roland Mata MD 06/05/24 15:07 Assessment & Plan Assessment/Plan (1) Acute kidney injury: (2) Acute hypoxemic respiratory failure: (3) Chronic kidney disease: QUALIFIERS: Chronic kidney disease stage: stage 4 (GFR 15-29) Qualified Code(s): N18.4 - Chronic kidney disease, stage 4 (severe) PLAN: Plan 84-year-old female with past medical history significant for HTN, GINO on CPAP, history of VTE, mild CKD stage III with baseline SCr 1.2, and history of dialysis requiring acute kidney injury after sustaining acute kidney injury with oliguria and hypervolemia, began hemodialysis end of April 2024. Serologies which included p-ANCA, c-ANCA, complements and GB membrane were all negative in April 2024. Patient was dialyzing at [facility] [place] 3 days weekly. Serum creatinine 2.4 on May 22, serum creatinine 2.5 on May 29. Patient was noted to have some improvement and recovery of kidney function, her last hemodialysis session was on May 24. Post HD weight 66.8 kg. Patient was not having much fluid gain around 1 kg between hemodialysis sessions. Because of difficulty breathing, volume overload patient underwent sequential treatment today and tolerated about 3.7 L fluid removal. Patient does have urine output. Prior to this hospitalization patient was not on any oral diuretics at home. Will increase Lasix to 80 mg IV twice daily, will obtain UA. Will evaluate for hemodialysis/sequential needs tomorrow. Blood pressures acceptable. Last echo 04/29/2024: Estimated EF 55 to 60%, normal LV systolic function, mild RV dilatation. Further orders forthcoming as hospitalization evolves. Assessment and plan reviewed with Dr. Mata. 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 baseline cr 1.2. good urine output about 3 weeks ago. cr down to low 2. was taken off HD. came in with dyspnea. CXR is wet. UF today. IV diuretics. reassess tomorrow. might consider kidney biopsy if remains dyspneic. previous serologies negative. HPI Consult Data Date of Consult: 06/05/24 [facility] Medical History (Updated 06/05/24 @ 12:35 by Leidy Casanova, JAYESH-C) Acute kidney injury Kidney disease History of renal dialysis Cataract (lens) fragments in eye following cataract surgery, bilateral Macular degeneration Glaucoma Wears glasses Gout Arthritis Renal agenesis Pulmonary embolism High cholesterol CPAP (continuous positive airway pressure) dependence Former smoker Sleep apnea Hypertension History of pulmonary embolism Home Medications ?Medication ?Instructions ?Recorded ?Last Taken ?Type vitamin E 268 mg (400 unit) capsule 268 mg PO DAILY Supplement 07/02/22 03/14/24 History vitamins A,C,P-lvbv-qscvqv 4,296 1 cap PO BID Healthy eyes 03/14/24 03/14/24 History mcg-226 mg-90 mg capsule (Healthy Eyes SuperVision) acetaminophen 325 mg tablet 650 mg (2 x 325 mg) PO Q6H PRN PRN 03/19/24 Unknown Rx Pain 1-10 Or Fever>100.7 #0 tabs amlodipine 10 mg tablet 10 mg PO DAILY HEART #60 tabs 03/19/24 Unknown Rx fluoxetine 20 mg tablet 20 mg PO DAILY DEPRESSION 04/28/24 Unknown History amoxicillin 875 mg-potassium 1 tab PO BID 06/05/24 Unknown History clavulanate 125 mg tablet benzonatate 100 mg capsule 100 mg PO TID 06/05/24 Unknown History Allergy/AdvReac Type Severity Reaction Status Date / Time Sulfa (Sulfonamide Allergy Intermediate Itching Verified 06/05/24 03:44 Antibiotics) Family History Mother Diabetes Kidney disease Father Heart disease Surgical History History of carpal tunnel release History of lumpectomy of right breast Social History household members: spouse Smoking Status: Former smoker alcohol intake: never substance use type: does not use Lab / Micro Data 06/05/24 04:02 06/05/24 04:02
--- NOTE | 2024-06-05 14:26 | CHAPLAIN ---
Type of Pastoral Visit _x__ Initial Visit ___ Follow-up Visit ___ On-call Visit ___ General Patient Visit ___ Spiritual Assessment ___ Family Conference ___ Bereavement ___ Rapid Response ___ Code Blue ___ Other (describe below) Pastoral Care Referral From _x__ Patient ___ Family ___ Nurse ___ Physician ___ Financial Aid Officer ___ Geophysics Teacher ___ Other (describe below) Sacrament/Intervention _x__ Active listening ___ Anointing ___ Gnosticism ___ Bereavement ___ Communion _x__ Zandra exploration ___ _x__ Life review _x__ Prayer ___ Reconciliation ___ Sacrament of Sick _x__ Supportive presence ___ Wedding ___ Other (describe below) Pastoral Comments patient has been seen in recent months; pt's in March and a memorial service will be planned for June; pt is asked about how she is coping, her health issues [facility], and the future without her ; pt welcomes presence and prayer
--- NOTE | 2024-06-05 14:30 | CASEMGMT ---
OPAL BARLOW chart review: Patient was admitted 04/28-05/09/24 for Hypoxia, Post covid, JUDD on CKD. See OPAL BARLOW assessment from 04/29/24. Patient was discharged to home with [facility], [employer] home oxygen at 2lpm with ext, new outpatient HD, family support, and follow-up plans in place. Patient returned to [facility] ED on 06/05/24 for increased SOB and was admitted for AE CHF and hypoxia. Patient required Airvo and was started IV Lasix 40mg BID and received HD treatment. OPAL BARLOW in to discuss readmission and discharge needs. Patient states she was attending outpatient HD as scheduled and nephrology stopped her HD on 05/24/24 and he kidney function was better. Patient was taking medications as prescribed. Patient attended follow-up appt with PCP. Patient states she was not placed on diuretic when HD discontinued and suspects that led to her fluid retention. Patient states that [facility] had been seeing patient. Patient wishes to discharge home with resumption of [facility]. Will monitor for increase in home oxygen. Will monitor for need to restart outpatient HD pending nephrology's recommendations. Patient denied further questions. CM will continue to follow this patient and plan for a safe discharge.
[2024-06-05] MEDS: Furosemide 40 MG/4 ML Vial 80 MG IV (17:55)
[2024-06-05] MEDS: hydrALAZINE 20 MG/ML Vial 5 MG IV (19:58)
[2024-06-06] VITALS (19 sets, daily range): BP systolic 126–259; BP diastolic 45–58; PULSE 59–79; RESP 12–20; TEMP 36.3–36.9; O2SAT 91–100; BMI 29.1; BMI 28.0
[2024-06-06] MEDS: Benzonatate 100 MG Capsule PO ×3 (05:59→20:58)
[2024-06-06 06:21] LABS: Absolute Lymphocyte Count 1.16 X10^3/uL (0.83-4.51); Absolute Neutrophil Count 2.9 X10^3/uL (2.0-7.7); Basophil# 0.05 X10^3/uL; Eosinophil# 0.34 X10^3/uL; Eosinophils% 6.8 % (0-5); Hematocrit 22.6 % (37-47); Hemoglobin 7.4 g/dL (12.0-15.0); Lymphocyte # 1.16 X10^3/ul (0.83-4.51); Lymphocyte % 23.3 % (19-41); Mean Corp Hgb Conc 32.7 g/dL (32-36); Mean Corpuscular Hgb 27.1 pg (27.0-32.0); Mean Corpuscular Volume 82.8 fL (81-99); Mean Platelet Vol. 8.7 fl (6.2-12.0); Monocyte% 10.1 % (0-10); NRBC Flagged by Analyzer 0 % (0-5); Neutrophil % 58.4 % (47-70); Platelet Count 251 K/mm3 (150-450); RBC Distribution Width CV 15.4 % (11.6-14.6); RBC Distribution Width SD 46.2 fl (35.1-43.9); Red Blood Count 2.73 M/mm3 (4.2-5.4)
[2024-06-06 06:42] LABS: Pro- Brain NATRIURETIC PEPTIDE 4872 pg/mL (<=1800)
[2024-06-06 06:46] LABS: AST(SGOT) 18 U/L (<=31); Alanine Aminotransfer ALT/SGPT 18 U/L (<=34); Albumin, Serum 3.4 g/dL (3.4-4.8); Alkaline Phosphatase 112 U/L (35-104); Anion Gap 13 (5-15); BUN 33 mg/dL (4-19); BUN/Creat Ratio 13.9 RATIO (10-20); Calcium,Total 9.7 mg/dL (7.6-11.0); Carbon Dioxide 21.4 mmol/L (21.0-32.0); Chloride 97 mmol/L (98-108); EST Glomerular Filtration Rate 20 (>60); Estimated Creatinine Clearance 15.89 ml/min (50-250); Globulin 3.3 g/dL (2.2-4.2); Glucose 85 mg/dL (70-99); Protein, Total 6.7 g/dL (5.9-8.4); Sodium Level 132 mmol/L (133-145)
--- NOTE | 2024-06-06 07:57 | PCM.PN.HOSP ---
Reason for Visit Reason for Visit: Diagnoses Obesity, class 1 (06/05/24) Obstructive sleep apnea (adult) (pediatric) (06/05/24) Essential (primary) hypertension (06/05/24) Heart failure, unspecified (06/05/24) Acute respiratory failure with hypoxia (06/05/24) Acute kidney failure, unspecified (06/05/24) Chronic kidney disease, stage 4 (severe) (06/05/24) Personal history of pulmonary embolism (06/05/24) Personal history of other medical treatment (06/05/24) Objective Data Objective Data Vital Signs: Vital Signs Temp Pulse Resp BP Pulse Ox O2 Del Method O2 Flow Rate 97.5 F L 73 18 132/52 H 97 Nasal Cannula 5 06/06/24 07:35 06/06/24 07:35 06/06/24 07:35 06/06/24 07:35 06/06/24 07:41 06/06/24 07:41 06/06/24 07:41 FiO2 50 06/05/24 19:25 Oxygen Flow Rate (L/min) 5 Oxygen Delivery Method Nasal Cannula Weight: 154 lb 5.177 oz Body Mass Index (BMI) 29.1 Intake & Output: Intake and Output for Last 24 Hours 06/04/24 06/05/24 06/06/24 23:59 23:59 23:59 Intake Total 1280 / 1280 200 / 200 Output Total 4300 / 4300 200 / 200 Balance -3020 / -3020 0 / 0 Lab / Micro Data 06/06/24 05:27 06/06/24 05:27 Labs: Laboratory Results - last 24 hr 06/06/24 05:27: WBC 5.0, RBC 2.73 L, Hgb 7.4 L, Hct 22.6 L, MCV 82.8, MCH 27.1, MCHC 32.7, RDW Std Deviation 46.2 H, RDW Coeff of Pedro 15.4 H, Plt Count 251, MPV 8.7, Immature Gran % (Auto) 0.400, Neut % (Auto) 58.4, Lymph % (Auto) 23.3, [place] % (Auto) 10.1 H, Eos % (Auto) 6.8 H, Baso % (Auto) 1.0, Absolute Neuts (auto) 2.9, Absolute Lymphs (auto) 1.16, Nucleated RBC % 0, Sodium 132 L, Potassium 4.0, Chloride 97 L, Carbon Dioxide 21.4, Anion Gap 13, BUN 33 H, Creatinine 2.40 H, Estim Creat Clear Calc 15.89 L, Est GFR (MDRD) Non-Af 20 L, BUN/Creatinine Ratio 13.9, Glucose 85, Calcium 9.7, Total Bilirubin 0.30, AST 18, ALT 18, Alkaline Phosphatase 112 H, NT pro BNP II 4872 H, Total Protein 6.7, Albumin 3.4, Globulin 3.3, Albumin/Globulin Ratio 1.0 Micro: Microbiology 06/05/24 04:12 Mucosa - Nose SARS-CoV-2, Influenza & RSV (PCR) - Final Physical Exam Narrative Seen and examined. Patient is still short of breath on 5 L of oxygen. Still volume overloaded. BP 150/45. Patient admitted with shortness of breath, hypoxia, 86% on her baseline 2.5 L of oxygen. Patient was recently held on dialysis on 05/24. She has a right chest permacath. Follows chargemaster analyst Dr. Mata. Complain of chest congestion and dry cough Physical exam General: Alert, Oriented x3, Cooperative, mild respiratory distress HEENT: Atraumatic, PERRLA, EOMI, Normocephalic Oral: Oral mucosa dry no Gingival or Mucosal Lesions/ Ulcerations Neck: Supple, No JVD, Negative Carotid Bruits Chest wall/Lungs: Right tunneled dialysis catheter air entry diminished in bilateral lung bases. Bilateral coarse crepitations Cardiovascular: Regular rate, Regular Rhythm, Normal S1, Normal S2, No M/G/R Abdomen: Bowel Sounds Present, Soft, Non Tender, Non-Distended : No dysuria. No renal angle tenderness. No suprapubic tenderness. Extremities: No edema, Capillary Refill Less than 3 Seconds Skin: No rashes, No breakdown Musculoskeletal: No Tenderness to Palpation of Joints or Extremities Neurological: Cranial nerves II-XII grossly intact, DTR 2+/4. No acute focal neurological deficit. Psych/Mental Status: Flat affect Assessment & Plan Assessment/Plan (1) Acute exacerbation of CHF (congestive heart failure): QUALIFIERS: Heart failure type: unspecified Qualified Code(s): I50.9 - Heart failure, unspecified (2) Uncontrolled hypertension: (3) Acute hypoxic respiratory failure: (4) Chronic kidney disease: QUALIFIERS: Chronic kidney disease stage: stage 4 (GFR 15-29) Qualified Code(s): N18.4 - Chronic kidney disease, stage 4 (severe) (5) History of hemodialysis: (6) Obesity (BMI 30.0-34.9): (7) GINO (obstructive sleep apnea): (8) History of pulmonary embolism: PLAN: Plan 1 Pulmonary edema elevated proBNP most likely due to acute on chronic heart failure: proBNP 5000. Chest x-ray shows lower Tammy ill-defined opacity suggestive of pulmonary edema and small pleural effusion. On dialysis was resumed. Discussed with the chargemaster analyst. About 3.5 L being removed. 06/06: Pulmonary crepitations and volume overload. Discussed with the chargemaster analyst. She will get hemodialysis today and possible anticipated discharge on torsemide 2. Uncontrolled Hypertension; evidenced by blood pressure 174/63 mmHg, contributing to pulmonary hypertension present on admission - Patient treated with IV furosemide in ER which will be continued. Resume amlodipine as before. Give hydralazine IV prn for systolic blood pressure > 160 mmHg. 06/06: Blood pressure in systolic 150s. BP elevated probably due to volume overload. 3. Acute Hypoxic Respiratory Failure; evidenced by tachypnea of 32 breaths/min with the patient initiated on Airvo 45 L/min: Wean supplemental oxygen as tolerated. Patient was also former smoker 4. JUDD on CKD: BUN/creatinine 2.38/33, increased from 25/1.96 on May 09, 2024: Clinical Laboratory Science Professor consulted. Dialysis resumed through right IJ tunnel dialysis catheter 06/06: Sodium 132. BUN/creatinine 33/2.4. 5. Obesity; with BMI of 30.2 this admission plus GINO; noncompliant with CPAP: CPAP 6. Recent admission here from April 28, 2024 to May 09, 2024 for treatment of acute hypoxic respiratory failure secondary to PE with bilateral pleural effusions, acute pyelonephritis with urine culture showing positive ESBL E. coli treated with meropenem. 7. Chronic normocytic normochromic anemia - Stable with hemoglobin of 8.8 g/dL and MCV of 81.6 fL present on admission. 8. Chronic glaucoma and macular degeneration: 9. Anxiety and depression; on fluoxetine - Continue fluoxetine as before. 10. Chronic gout: No evidence of acute flare. 11. OA; primarily of both knees - Give acetaminophen prn for pain or fever. 12. DVT prophylaxis - Will give one dose of full, but renally-dosed Lovenox until she makes up her mind on the aggressiveness of treatment she desires. Microbiology Past 72 Hours 06/05/24 04:12 Mucosa - Nose SARS-CoV-2, Influenza & RSV (PCR) - Final Laboratory Results 06/06/24 05:27: WBC 5.0, RBC 2.73 L, Hgb 7.4 L, Hct 22.6 L, MCV 82.8, MCH 27.1, MCHC 32.7, RDW Std Deviation 46.2 H, RDW Coeff of Pedro 15.4 H, Plt Count 251, MPV 8.7, Immature Gran % (Auto) 0.400, Neut % (Auto) 58.4, Lymph % (Auto) 23.3, [place] % (Auto) 10.1 H, Eos % (Auto) 6.8 H, Baso % (Auto) 1.0, Absolute Neuts (auto) 2.9, Absolute Lymphs (auto) 1.16, Nucleated RBC % 0, Sodium 132 L, Potassium 4.0, Chloride 97 L, Carbon Dioxide 21.4, Anion Gap 13, BUN 33 H, Creatinine 2.40 H, Estim Creat Clear Calc 15.89 L, Est GFR (MDRD) Non-Af 20 L, BUN/Creatinine Ratio 13.9, Glucose 85, Calcium 9.7, Total Bilirubin 0.30, AST 18, ALT 18, Alkaline Phosphatase 112 H, NT pro BNP II 4872 H, Total Protein 6.7, Albumin 3.4, Globulin 3.3, Albumin/Globulin Ratio 1.0 Charges/Coding Visit Charges Inpatient E&M: 23540 Subs Hosp L2
[2024-06-06] MEDS: Multivitamin (Healthy Eyes) Capsule 1 CAP PO ×2 (09:44→20:58)
[2024-06-06] MEDS: Potassium Chloride Oral Tablet 20 MEQ 40 MEQ PO (09:44)
[2024-06-06] MEDS: Furosemide 40 MG/4 ML Vial 80 MG IV ×2 (09:45→17:34)
[2024-06-06] MEDS: amLODIPine 10 MG Tablet PO (09:45)
[2024-06-06] MEDS: FLUoxetine 20 MG Capsule PO (09:46)
[2024-06-06] MEDS: Vitamin E 400 UNITS Capsule PO (09:46)
[2024-06-06] MEDS: 0.9% Saline Lock 10 ML Syringe IV ×3 (09:57→17:33)
[2024-06-06] MEDS: 0.9% Normal Saline 1,000 ML IV.SOLN. 1000 ML OPERA.SITE (11:18)
[2024-06-06] MEDS: Heparin 10,000 UNITS/10 ML Vial IV (14:09)
--- NOTE | 2024-06-06 14:49 | CASEMGMT ---
OPAL BARLOW in to discuss needs at discharge, discharge anticipated for tomorrow. Patient wishes to discharge home with resumption of [facility]. Nephrology to determine if Outpatient HD to be resumed, was stopped on 05/24, awaiting confirmation. Patient denies further needs or concerns at this time. OPAL BARLOW updated [facility] regarding anticipated discharge tomorrow, resumption of care planned for Wednesday. OPAL BARLOW updated discharge plan.
--- NOTE | 2024-06-06 18:35 | PN.RENAL_ITS ---
Subjective Subjective no new complaints Objective Data Objective Data Vital Signs: Vital Signs Temp Pulse Resp BP Pulse Ox O2 Del Method O2 Flow Rate 97.9 F 66 18 150/49 H 99 Nasal Cannula 2 06/06/24 16:07 06/06/24 16:07 06/06/24 16:07 06/06/24 16:07 06/06/24 16:07 06/06/24 16:07 06/06/24 16:07 FiO2 50 06/05/24 19:25 Oxygen Flow Rate (L/min) 2 Oxygen Delivery Method Nasal Cannula Weight: 67.5 kg Body Mass Index (BMI) 28.0 Intake & Output: Intake and Output for Last 24 Hours 06/04/24 06/05/24 06/06/24 23:59 23:59 23:59 Intake Total 1280 / 1280 1255 / 1255 Output Total 4300 / 4300 3710 / 3710 Balance -3020 / -3020 -2455 / -2455 Lab / Micro Data 06/06/24 05:27 06/06/24 05:27 Labs: Laboratory Results - last 24 hr 06/06/24 05:27: WBC 5.0, RBC 2.73 L, Hgb 7.4 L, Hct 22.6 L, MCV 82.8, MCH 27.1, MCHC 32.7, RDW Std Deviation 46.2 H, RDW Coeff of Pedro 15.4 H, Plt Count 251, MPV 8.7, Immature Gran % (Auto) 0.400, Neut % (Auto) 58.4, Lymph % (Auto) 23.3, [place] % (Auto) 10.1 H, Eos % (Auto) 6.8 H, Baso % (Auto) 1.0, Absolute Neuts (auto) 2.9, Absolute Lymphs (auto) 1.16, Nucleated RBC % 0, Sodium 132 L, Potassium 4.0, Chloride 97 L, Carbon Dioxide 21.4, Anion Gap 13, BUN 33 H, Creatinine 2.40 H, Estim Creat Clear Calc 15.89 L, Est GFR (MDRD) Non-Af 20 L, BUN/Creatinine Ratio 13.9, Glucose 85, Calcium 9.7, Total Bilirubin 0.30, AST 18, ALT 18, A lkaline Phosphatase 112 H, NT pro BNP II 4872 H, Total Protein 6.7, Albumin 3.4, Globulin 3.3, Albumin/Globulin Ratio 1.0 Micro: Microbiology 06/05/24 04:12 Mucosa - Nose SARS-CoV-2, Influenza & RSV (PCR) - Final Physical Exam Narrative Alert and orient x 3, no apparent distress S1, S2, RRR Diminished breath sounds with rales, on Airvo Abdomen soft, nontender 1-2+ pitting edema bilateral lower legs Tunneled hemodialysis catheter dressing clean, dry and intact Assessment & Plan Assessment/Plan (1) Acute kidney injury: (2) Acute hypoxemic respiratory failure: (3) Chronic kidney disease: QUALIFIERS: Chronic kidney disease stage: stage 4 (GFR 15-29) Q ualified Code(s): N18.4 - Chronic kidney disease, stage 4 (severe) PLAN: Plan 84-year-old female with past medical history significant for HTN, GINO on CPAP, history of VTE, mild CKD stage III with baseline SCr 1.2, and history of dialysis requiring acute kidney injury after sustaining acute kidney injury with oliguria and hypervolemia, began hemodialysis end of April 2024. Serologies which included p-ANCA, c-ANCA, complements and GB membrane were all negative in April 2024. Patient was dialyzing at [facility] 3 days weekly. Serum creatinine 2.4 on May 22, serum creatinine 2.5 on May 29. Patient was noted to have some improvement and recovery of kidney function, her last hemodialysis session was on May 24. Post HD weight 66.8 kg. Patient was not having much fluid gain around 1 kg between hemodialysis sessions. Status post ultrafiltration yesterday with fluid removal. Feels better. She is still on 5 L of oxygen today. Agreeable for 1 more session of dialysis today. Will reassess oxygen requirements after. Continue Lasix, most likely discharge home with torsemide 80 mg once a day. We agreed to keep the dialysis catheter in for now at the time of discharge. Will see her in the office about 2 weeks after discharge to reevaluate.
[2024-06-07 03:54] VITALS: BMI 27.9
[2024-06-07 05:19] VITALS: BP 140/51; PULSE 72; RESP 20; TEMP 36.8; O2SAT 97
[2024-06-07] MEDS: Benzonatate 100 MG Capsule PO ×2 (05:22→15:39)
[2024-06-07 05:41] LABS: Red Blood Cells-Urine 0 SEEN /hpf (0-5)
[2024-06-07 05:43] LABS: Color, Urine Yellow (Yellow); Glucose, Dipstick Normal (Normal); Ketone-Dipstick Negative (Negative); Leukocyte Esterase-Dipstick 500 /ul (Negative); Nitrite-Dipstick Negative (Negative); Occult Blood-Urine Negative /ul (Negative); Protein-Dipstick 30 mg/dl (Negative); Urine Bilirubin Dipstick Negative (Negative); Urine Clarity Clear (Clear); Urine Urobilinogen Normal (Normal)
[2024-06-07 07:09] LABS: Bacteria 1+ /hpf (None Seen); Mucous, Urine RARE /hpf (<or=2+); Squamous Epithelial Cells - UA 10-25 SEEN /hpf (5-10); Transitional Epithelial - Ur 10-25 SEEN /hpf (0-5); White Blood Cells >100 SEEN /hpf (0-5)
[2024-06-07] MEDS: Furosemide 40 MG/4 ML Vial 80 MG IV (08:18)
[2024-06-07] MEDS: Potassium Chloride Oral Tablet 20 MEQ 40 MEQ PO (08:18)
[2024-06-07] MEDS: FLUoxetine 20 MG Capsule PO (08:18)
[2024-06-07] MEDS: Multivitamin (Healthy Eyes) Capsule 1 CAP PO (08:18)
[2024-06-07] MEDS: Vitamin E 400 UNITS Capsule PO (08:18)
[2024-06-07] MEDS: amLODIPine 10 MG Tablet PO (08:18)
[2024-06-07 09:03] LABS: Absolute Lymphocyte Count 1.82 X10^3/uL (0.83-4.51); Absolute Neutrophil Count 3.7 X10^3/uL (2.0-7.7); Basophil# 0.06 X10^3/uL; Basophil% 0.9 % (0-1); Eosinophil# 0.38 X10^3/uL; Eosinophils% 5.7 % (0-5); Hematocrit 23.8 % (37-47); Lymphocyte # 1.82 X10^3/ul (0.83-4.51); Lymphocyte % 27.2 % (19-41); Mean Corp Hgb Conc 33.6 g/dL (32-36); Mean Corpuscular Hgb 27.4 pg (27.0-32.0); Mean Corpuscular Volume 81.5 fL (81-99); Mean Platelet Vol. 8.9 fl (6.2-12.0); Monocyte# 0.67 X10^3/uL; NRBC Flagged by Analyzer 0 % (0-5); Neutrophil # 3.74 X10^3/uL (2.7-7.7); Neutrophil % 55.8 % (47-70); Platelet Count 210 K/mm3 (150-450); RBC Distribution Width CV 15.6 % (11.6-14.6); RBC Distribution Width SD 45.5 fl (35.1-43.9); Red Blood Count 2.92 M/mm3 (4.2-5.4); White Blood Count 6.7 K/mm3 (4.4-11.0)
--- NOTE | 2024-06-07 09:10 | DCINST_ITS ---
Discharge Instructions DC O2, CPAP, BIPAP needs Home O2 Discharge instructions: Yes Type of respiratory needs?: Oxygen Oxygen frequency: Continuous Continuous oxygen liters per minute: 2 Follow Up Care Test Results: Test results from this visit will be discussed in further detail at your follow- up appointment, if applicable. Discharge Plan Admission Admit Date/Time: 06/05/24 05:57 Primary Reason for Your Visit: Acute hypoxic respiratory failure due to pulmonary edema Attending Provider: Jonathan Mena Primary Care Provider: Miles Mercedes Consulting Providers: Roland Mata; Donald Quinonez Instructions Additional Instructions / Restrictions: Continue incentive spirometry and PEP for 1 week Discharge Orders/Prescriptions Prescriptions: New dextromethorphan-guaifenesin 60-1,200 mg tablet extended release 12 hr 1 tab PO BID 7 Days Qty: 14 0RF potassium chloride 20 mEq Tablet,Er Particles/Crystals 40 meq PO DAILYCM Qty: 0 0RF Rx Instructions: Hold for serum potassium more than 5.0 torsemide 40 mg tablet 80 mg PO DAILY 30 Days Qty: 60 1RF Continued vitamin E 268 mg (400 unit) Capsule 268 mg PO DAILY fluoxetine 20 mg tablet 20 mg PO DAILY Healthy Eyes SuperVision 4,296 mcg-226 mg-90 mg capsule 1 cap PO BID acetaminophen 325 mg Tablet 650 mg PO Q6H PRN PRN (Reason: Pain 1-10 Or Fever>100.7) Qty: 0 0RF amlodipine 10 mg tablet 10 mg PO DAILY Qty: 60 0RF Changed benzonatate 100 mg capsule 100 mg PO TID PRN (Reason: cough) 30 Days Qty: 0 0RF Discontinued amoxicillin-pot clavulanate 875-125 mg tablet 1 tab PO BID Patient Comments: last day 06/05 Referrals / Follow Up: Roland Mata MD [Med Staff - Consulting] - Within 2 Weeks Miles Mercedes MD [Primary Care Provider] - Disposition Disposition (needs filled in before D/C Order can be placed): Home, Self Care
[2024-06-07 09:14] LABS: Anion Gap 13 (5-15); BUN 41 mg/dL (4-19); BUN/Creat Ratio 15.5 RATIO (10-20); Calcium,Total 9.7 mg/dL (7.6-11.0); Carbon Dioxide 20.7 mmol/L (21.0-32.0); Chloride 95 mmol/L (98-108); Creatinine, Serum 2.64 mg/dL (0.70-1.20); EST Glomerular Filtration Rate 17 (>60); Estimated Creatinine Clearance 14.15 ml/min (50-250); Glucose 86 mg/dL (70-99); Potassium 4.4 mmol/L (3.3-5.1); Sodium Level 128 mmol/L (133-145)
[2024-06-07 09:39] VITALS: O2SAT 93; O2SAT 97
[2024-06-07 10:43] VITALS: BP 131/50; PULSE 73; RESP 18; TEMP 36.6; O2SAT 99
[2024-06-07] MEDS: guaiFENesin/D-Methorphan TAB.SR.12H 1 TABLET PO (10:48)
[2024-06-07 10:55] VITALS: O2SAT 97
[2024-06-07 11:15] VITALS: O2SAT 93
--- NOTE | 2024-06-07 14:49 | DS.PCM_ITS ---
Providers Date of Admission: 06/05/24 Date of Discharge: 06/07/24 Primary Care Physician: Dr. Miles Mercedes MD Consultations 06/05/24 06:25 Consult: Nephrology Routine Consulting Provider: Roland Mata Reason for Consult: Worsening ARF; after recent HD. EMERGENT Consult: No MD Notified: Yes Date Notified: 06/05/24 Time Notified: 06:42 Method of Notification: Answering Service Reason For Visit: AE CHF,Uncontrolled HTN, Resp insuff,worsening Diagnosis Discharge Diagnosis (1) Acute kidney injury: Status: Acute Code(s): N17.9 - Acute kidney failure, unspecified (2) Acute hypoxemic respiratory failure: Status: Acute Code(s): J96.01 - Acute respiratory failure with hypoxia (3) Chronic kidney disease: Status: Chronic Code(s): N18.9 - Chronic kidney disease, unspecified Qualifiers: Chronic kidney disease stage: stage 4 (GFR 15-29) Qualified Code(s): N 18.4 - Chronic kidney disease, stage 4 (severe) Plan 1 Pulmonary edema elevated proBNP most likely due to acute on chronic heart failure: proBNP 5000. Chest x-ray shows lower Tammy ill-defined opacity suggestive of pulmonary edema and small pleural effusion. On dialysis was resumed. Discussed with the branch rental manager. About 3.5 L being removed. 4/1: Pulmonary crepitations and volume overload. Discussed with the branch rental manager. She will get hemodialysis today and possible anticipated discharge on torsemide 4/2: Mild basilar crepitations but her oxygen requirement has improved. Currently, SpO2 97% on 2 L of oxygen. Patient discharged on torsemide 80 mg daily and advised follow-up in nephrology office with Dr. Mata in 2 weeks 2. Uncontrolled Hypertension; evidenced by blood pressure 174/63 mmHg, contributing to pulmonary hypertension present on admission - Patient treated with IV furosemide in ER which will be continued. Resume amlodipine as before. Give hydralazine IV prn for systolic blood pressure > 160 mmHg. 4/1: Blood pressure in systolic 150s. BP elevated probably due to volume overload. 4/2: Blood pressure is better controlled. BP 131/50. 3. Acute Hypoxic Respiratory Failure; evidenced by tachypnea of 32 breaths/min with the patient initiated on Airvo 45 L/min: Wean supplemental oxygen as tolerated. Patient was also former smoker 4/2: As mentioned above. Respiratory status is much improved 4. JUDD on CKD: BUN/creatinine 2.38/33, increased from 25/1.96 on May 09, 2024: Environmental Communications Specialist consulted. Dialysis resumed through right IJ tunnel dialysis catheter 06/06: Sodium 132. BUN/creatinine 33/2.4. 06/07: Potassium 4.4. Sodium 128. 5. Obesity; with BMI of 30.2 this admission plus GINO; noncompliant with CPAP: CPAP 6. Recent admission here from April 28, 2024 to May 09, 2024 for treatment of acute hypoxic respiratory failure secondary to PE with bilateral pleural effusions, acute pyelonephritis with urine culture showing positive ESBL E. coli treated with meropenem. 7. Chronic normocytic normochromic anemia - Stable with hemoglobin of 8.8 g/dL and MCV of 81.6 fL present on admission. 8. Chronic glaucoma and macular degeneration: 9. Anxiety and depression; on fluoxetine - Continue fluoxetine as before. 10. Chronic gout: No evidence of acute flare. 11. OA; primarily of both knees - Give acetaminophen prn for pain or fever. 12. DVT prophylaxis - Will give one dose of full, but renally-dosed Lovenox until she makes up her mind on the aggressiveness of treatment she desires. Discharge medication reconciliation done. Discharge follow-up instructions completed. Discharge process discussed with the patient and all questions were answered to patient's satisfaction. Follow with PCP in 1 to 2 weeks Total time spent, exact 35 minutes on discharge meds reconciliation, examination, coordination of care with nurses and ancillary staff, review of imaging and blood test and discussion with the patient on follow-up instructions. Medications at Discharge Home Medications vitamin E 268 mg (400 unit) capsule 268 mg PO DAILY Supplement 07/02/22 vitamins A,C,F-otjs-imdtma 4,296 mcg-226 mg-90 mg capsule (Healthy Eyes SuperVision) 1 cap PO BID Healthy eyes 03/14/24 acetaminophen 325 mg tablet 650 mg (2 x 325 mg) PO Q6H PRN PRN Pain 1-10 Or Fever>100.7 #0 tabs 03/19/24 amlodipine 10 mg tablet 10 mg PO DAILY HEART #60 tabs 03/19/24 fluoxetine 20 mg tablet 20 mg PO DAILY DEPRESSION 04/28/24 benzonatate 100 mg capsule 100 mg PO TID PRN cough 30 days #0 caps 06/07/24 dextromethorphan-guaifenesin ER 60 mg-1,200 mg tab,extend release,12hr 1 tab PO BID 7 days #14 tabs 06/07/24 potassium chloride 20 mEq tablet,extended release 20 meq PO DAILY 1 month #30 tabs 06/07/24 torsemide 40 mg tablet 80 mg (2 x 40 mg) PO DAILY 1 month #60 tabs 06/07/24 Physical Exam Narrative Seen and examined. Shortness of breath is much improved. On 2 L of oxygen. Blood pressure systolic 130. She was dialyzed yesterday Patient was admitted with shortness of breath, hypoxia, 86% on her baseline 2.5 L of oxygen. Patient was recently held on dialysis on 05/24. She has a right chest permacath. Follows branch rental manager Dr. Mata, advised to follow-up in 2 weeks after discharge. Physical exam General: Alert, Oriented x3, Cooperative, mild respiratory distress HEENT: Atraumatic, PERRLA, EOMI, Normocephalic Oral: Oral mucosa dry no Gingival or Mucosal Lesions/ Ulcerations Neck: Supple, No JVD, Negative Carotid Bruits Chest wall/Lungs: Right tunneled dialysis catheter air entry diminished in bilateral lung bases. Mild bilateral lung basilar crepitations Cardiovascular: Regular rate, Regular Rhythm, Normal S1, Normal S2, No M/G/R Abdomen: Bowel Sounds Present, Soft, Non Tender, Non-Distended : No dysuria. No renal angle tenderness. No suprapubic tenderness. Extremities: No edema, Capillary Refill Less than 3 Seconds Skin: No rashes, No breakdown Musculoskeletal: No Tenderness to Palpation of Joints or Extremities Neurological: Cranial nerves II-XII grossly intact, DTR 2+/4. No acute focal neurological deficit. Psych/Mental Status: Flat affect Weight / BMI Weight Weight: 147 lb 14.883 oz Body Mass Index (BMI) 27.9 ABG / Lab / Microbiology Data 06/07/24 08:33 06/07/24 08:33 Laboratory: Laboratory Results - last 24 hr 06/06/24 05:09: Urine Color Yellow, Urine Clarity Clear, Urine pH 6.0, Ur Specific [place] 1.010, Urine Protein 30 H, Urine Glucose (UA) Normal, Urine Ketones Negative, Urine Occult Blood Negative, Urine Nitrite Negative, Urine Bilirubin Negative, Urine Urobilinogen Normal, Ur Leukocyte Esterase 500 H, Urine RBC 0 SEEN, Urine WBC >100 SEEN, Ur Squamous Epith Cells 10-25 SEEN, Ur Transition Epith Cell 10-25 SEEN, Urine Bacteria 1+, Urine Mucus RARE 06/07/24 08:33: WBC 6.7, RBC 2.92 L, Hgb 8.0 L, Hct 23.8 L, MCV 81.5, MCH 27.4, MCHC 33.6, RDW Std Deviation 45.5 H, RDW Coeff of Pedro 15.6 H, Plt Count 210, MPV 8.9, Immature Gran % (Auto) 0.400, Neut % (Auto) 55.8, Lymph % (Auto) 27.2, [place] % (Auto) 10.0, Eos % (Auto) 5.7 H, Baso % (Auto) 0.9, Absolute Neuts (auto) 3.7, Absolute Lymphs (auto) 1.82, Nucleated RBC % 0, Sodium 128 L, Potassium 4.4, C hloride 95 L, Carbon Dioxide 20.7 L, Anion Gap 13, BUN 41 H, Creatinine 2.64 H, Estim Creat Clear Calc 14.15 L, Est GFR (MDRD) Non-Af 17 L, BUN/Creatinine Ratio 15.5, Glucose 86, Calcium 9.7 Microbiology: Microbiology 06/05/24 04:12 Mucosa - Nose SARS-CoV-2, Influenza & RSV (PCR) - Final D/C Instructions DC O2, CPAP, BIPAP Needs PSN CPAP & BiPAP: BiPAP & CPAP Settings per PSN Mode AIRVO 06/05/24 19:25 Bipap Delivery Device Nasal Pillows 06/05/24 19:25 Fraction of Inspired Oxygen ( 50 06/05/24 19:25 FIO2) Total Flow Rate 45 06/05/24 19:25 Home O2 Discharge instructions: Yes Type of respiratory needs?: Oxygen Oxygen frequency: Continuous Continuous oxygen liters per minute: 2 DC home with Oxygen: Yes Home O2 MD Review: I have reviewed the oxygen testing, and the patient qualifies for home oxygen equipment and portability. The patient is mobile in the home and the community. Meaningful Use Info Meaningful Use Meaningful Use Diagnoses (Choose all that apply): CHF CHF EDWARD/ARB ordered at discharge?: No Reason EDWARD/ARB not ordered?: Worsening renal disease Documented LVEF (%): 55 Ischemic Stroke Statin Dosing Therapy Reference: STATIN DOSE THERAPY REFERENCE: * Patients > 75 years receive moderate or high dose statin therapy. * Patients 75 years or YOUNGER should receive HIGH intensity statin dose unless contraindicated. You will be required to document reason for non-treatment if statin daily dose does not meet guidelines. HIGH DOSE STATIN THERAPY DAILY Atorvastatin > than or = to 40 mg Rosuvastatin > than or = to 20 mg Amlodipine + Atorvastatin > than or = to 2.5/40 mg Ezetimibe + Simvastatin 10/80 mg Simvastatin 80mg Discharge Plan Admission Admit Date/Time: 06/05/24 05:57 Primary Reason for Your Visit: Acute hypoxic respiratory failure due to pulmonary edema Attending Provider: Jonathan Mena Primary Care Provider: Miles Mercedes Consulting Providers: Roland Mata; Donald Quinonez Instructions Additional Instructions / Restrictions: Continue incentive spirometry and PEP for 1 week Discharge Orders/Prescriptions Prescriptions: New dextromethorphan-guaifenesin 60-1,200 mg tablet extended release 12 hr 1 tab PO BID 7 Days Qty: 14 0RF torsemide 40 mg tablet 80 mg PO DAILY 30 Days Qty: 60 1RF potassium chloride 20 mEq tablet extended release 20 meq PO DAILY 30 Days Qty: 30 0RF Continued vitamin E 268 mg (400 unit) Capsule 268 mg PO DAILY fluoxetine 20 mg tablet 20 mg PO DAILY Healthy Eyes SuperVision 4,296 mcg-226 mg-90 mg capsule 1 cap PO BID acetaminophen 325 mg Tablet 650 mg PO Q6H PRN PRN (Reason: Pain 1-10 Or Fever>100.7) Qty: 0 0RF amlodipine 10 mg tablet 10 mg PO DAILY Qty: 60 0RF Changed benzonatate 100 mg capsule 100 mg PO TID PRN (Reason: cough) 30 Days Qty: 0 0RF Discontinued amoxicillin-pot clavulanate 875-125 mg tablet 1 tab PO BID Patient Comments: last day 06/05 Referrals / Follow Up: Roland Mata MD [Med Staff - Consulting] - Within 2 Weeks Miles Mercedes MD [Primary Care Provider] - Disposition Disposition (needs filled in before D/C Order can be placed): Home, Self Care Charges/Coding Visit Charges Inpatient E&M: 29662 Disch Hosp >30min
--- NOTE | 2024-06-07 14:57 | PCM.PN.REN ---
Subjective Subjective Sitting in chair. Reports breathing is much better. Hoping to go home today. Denies any complaints. Objective Data Objective Data Vital Signs: Vital Signs Temp Pulse Resp BP Pulse Ox O2 Del Method O2 Flow Rate 97.9 F 73 18 131/50 H 93 Nasal Cannula 2 06/07/24 10:43 06/07/24 10:43 06/07/24 10:43 06/07/24 10:43 06/07/24 11:15 06/07/24 10:43 06/07/24 11:15 FiO2 50 06/05/24 19:25 Oxygen Flow Rate (L/min) 2 Oxygen Delivery Method Nasal Cannula Weight: 67.1 kg Body Mass Index (BMI) 27.9 Intake & Output: Intake and Output for Last 24 Hours 06/05/24 06/06/24 06/07/24 23:59 23:59 23:59 Intake Total 1280 / 1280 1255 / 1555 600 / 600 Output Total 4300 / 4300 3710 / 3710 250 / 250 Balance -3020 / -3020 -2455 / -2155 350 / 350 Lab / Micro Data 06/07/24 08:33 06/07/24 08:33 Labs: Laboratory Results - last 24 hr 06/06/24 05:09: Urine Color Yellow, Urine Clarity Clear, Urine pH 6.0, Ur Specific Radnor 1.010, Urine Protein 30 H, Urine Glucose (UA) Normal, Urine Ketones Negative, Urine Occult Blood Negative, Urine Nitrite Negative, Urine Bilirubin Negative, Urine Urobilinogen Normal, Ur Leukocyte Esterase 500 H, Urine RBC 0 SEEN, Urine WBC >100 SEEN, Ur Squamous Epith Cells 10-25 SEEN, Ur Transition Epith Cell 10-25 SEEN, Urine Bacteria 1+, Urine Mucus RARE 06/07/24 08:33: WBC 6.7, RBC 2.92 L, Hgb 8.0 L, Hct 23.8 L, MCV 81.5, MCH 27.4, MCHC 33.6, RDW Std Deviation 45.5 H, RDW Coeff of Pedro 15.6 H, Plt Count 210, MPV 8.9, Immature Gran % (Auto) 0.400, Neut % (Auto) 55.8, Lymph % (Auto) 27.2, Amador % (Auto) 10.0, Eos % (Auto) 5.7 H, Baso % (Auto) 0.9, Absolute Neuts (auto) 3.7, Absolute Lymphs (auto) 1.82, Nucleated RBC % 0, Sodium 128 L, Potassium 4.4, Chloride 95 L, Carbon Dioxide 20.7 L, Anion Gap 13, BUN 41 H, Creatinine 2.64 H, Estim Creat Clear Calc 14.15 L, Est GFR (MDRD) Non-Af 17 L, BUN/Creatinine Ratio 15.5, Glucose 86, Calcium 9.7 Micro: Microbiology 06/05/24 04:12 Mucosa - Nose SARS-CoV-2, Influenza & RSV (PCR) - Final Physical Exam Narrative Alert and orient x 3, no apparent distress S1, S2, RRR Lungs sound clear anteriorly, O2 on nasal cannula Abdomen soft, nontender Trace edema bilateral lower legs Tunneled hemodialysis catheter dressing clean, dry and intact Assessment & Plan Assessment/Plan (1) Acute kidney injury: (2) Acute hypoxemic respiratory failure: (3) Chronic kidney disease: QUALIFIERS: Chronic kidney disease stage: stage 4 (GFR 15-29) Qualified Code(s): N18.4 - Chronic kidney disease, stage 4 (severe) PLAN: Plan 84-year-old female with past medical history significant for HTN, GINO on CPAP, history of VTE, mild CKD stage III with baseline SCr 1.2, and history of dialysis requiring acute kidney injury after sustaining acute kidney injury with oliguria and hypervolemia, began hemodialysis end of April 2024. Serologies which included p-ANCA, c-ANCA, complements and GB membrane were all negative in April 2024. Patient was dialyzing at [facility] [place] 3 days weekly. Serum creatinine 2.4 on May 22, serum creatinine 2.5 on May 29. Patient was noted to have some improvement and recovery of kidney function, her last hemodialysis session was on May 24. Post HD weight 66.8 kg. Patient was not having much fluid gain around 1 kg between hemodialysis sessions. Status post ultrafiltration/fluid removal on Wednesday and Wednesday with total fluid removal around 6.8 L. Patient clinically looking better. Oxygen requirements improved, currently on O2 2L NC. Creatinine 2.64 today. Potassium and bicarb normal. No acute indication for [employer] or fluid removal today. Patient is on Lasix 40 mg IV twice daily. Okay for discharge per renal. Patient to discharge home with torsemide 80 mg once a day. Patient to have labs drawn Wednesday at [facility] [place]. Patient has a tunneled hemodialysis catheter, arrangements for dressing change at kidney center Wednesday. Will arrange for hospital follow-up. Assessment and plan reviewed with Dr. Mata.
[2024-06-07 15:18] VITALS: BP 137/45; PULSE 61; RESP 18; TEMP 36.3; O2SAT 98
--- NOTE | 2024-06-07 16:00 | CASEMGMT ---
OPAL [facility]LOW note: Discharge order is in. Rx's have been sent to [facility]. OPAL CM to room. Pt sitting up in chair, visitor present who will be taking pt home today. They are aware Rx's sent to [facility] and state they are able to pick those up today. Pt aware home o2 amb testing to be completed prior to dc. Pt states she has only been wearing O2 @ HS. Home O2 orders are for 2 L/M w/exertion but pt states she had not been needing to use it during the day. RN to complete Home O2 amb testing starting on . Will update [employer] if pt qualifies for more than 2 L/M w/exertion. Per sunil Lucio, OP HD is not being resumed at this time. Pt to f/u @ [facility]. Pt aware of this and states she will be going to [facility] on Wednesday. Alisson @ [facility] made aware pt is discharging home today. She states SONY will be tomorrow. This was added to pt's dc plan and pt made aware. Pt denies having any further discharge questions, concerns, or needs. Basia LANDISN OPAL CM
== END 2024-06-07 16:52 | disposition home or self-care (01) | DRG 291 ==
LOC: ED 05:27 → PCU 07:03
PROVIDERS: Nurse Practitioner Adult Health; Admitting Provider Internal Medicine; Emergency Provider Emergency Medicine; PCP Family Medicine; Visit Provider Internal Medicine
DX: I13.0 Hypertensive heart and chronic kidney disease with heart failure and stage 1 through stage 4 chronic kidney disease, or unspecified chronic kidney disease (principal); I50.33 Acute on chronic diastolic (congestive) heart failure; J96.01 Acute respiratory failure with hypoxia; N18.4 Chronic kidney disease, stage 4 (severe); J90 Pleural effusion, not elsewhere classified; N17.9 Acute kidney failure, unspecified; D64.9 Anemia, unspecified; I34.0 Nonrheumatic mitral (valve) insufficiency; F32.A Depression, unspecified; Z68.30 Body mass index [BMI] 30.0-30.9, adult; Z99.2 Dependence on renal dialysis; G47.33 Obstructive sleep apnea (adult) (pediatric); M17.0 Bilateral primary osteoarthritis of knee; E78.00 Pure hypercholesterolemia, unspecified; H35.30 Unspecified macular degeneration; E87.70 Fluid overload, unspecified; Z86.16 Personal history of COVID-19; H40.9 Unspecified glaucoma; E66.9 Obesity, unspecified; Z86.718 Personal history of other venous thrombosis and embolism; Z87.891 Personal history of nicotine dependence; Z99.89 Dependence on other enabling machines and devices; Z86.711 Personal history of pulmonary embolism
CPT/HCPCS: 36415; 36600; 71046; 80048; 80053; 81001; 82803; 83735; 83880; 84100; 84443; 85025; 87631; 90937; 93005; 94660; 97162; 97166; 97530; 97535; 99285; A4216; G0257; J1940

== ENCOUNTER 2024-06-14 14:01 | Outpatient (CLI) | payer MEDICARE, BC, SELFPAY ==
[2024-06-14 15:42] LABS: Absolute Lymphocyte Count 1.35 X10^3/uL (0.83-4.51); Absolute Neutrophil Count 3.9 X10^3/uL (2.0-7.7); Basophil# 0.09 X10^3/uL; Basophil% 1.4 % (0-1); Eosinophil# 0.44 X10^3/uL; Eosinophils% 6.8 % (0-5); Hematocrit 27.4 % (37-47); Hemoglobin 8.8 g/dL (12.0-15.0); Lymphocyte # 1.35 X10^3/ul (0.83-4.51); Mean Corp Hgb Conc 32.1 g/dL (32-36); Mean Corpuscular Hgb 27.7 pg (27.0-32.0); Mean Corpuscular Volume 86.2 fL (81-99); Mean Platelet Vol. 8.8 fl (6.2-12.0); Monocyte# 0.62 X10^3/uL; Monocyte% 9.6 % (0-10); NRBC Flagged by Analyzer 0 % (0-5); Neutrophil # 3.92 X10^3/uL (2.7-7.7); Neutrophil % 60.9 % (47-70); Platelet Count 341 K/mm3 (150-450); RBC Distribution Width CV 15.9 % (11.6-14.6); RBC Distribution Width SD 49.6 fl (35.1-43.9); Red Blood Count 3.18 M/mm3 (4.2-5.4); White Blood Count 6.4 K/mm3 (4.4-11.0)
[2024-06-14 18:14] LABS: Anion Gap 17 (5-15); BUN 71 mg/dL (4-19); BUN/Creat Ratio 21.1 RATIO (10-20); Calcium,Total 10.3 mg/dL (7.6-11.0); Carbon Dioxide 18.9 mmol/L (21.0-32.0); Chloride 103 mmol/L (98-108); Creatinine, Serum 3.37 mg/dL (0.70-1.20); EST Glomerular Filtration Rate 13 (>60); Glucose 133 mg/dL (70-99); Sodium Level 139 mmol/L (133-145)
== END 2024-06-14 23:59 | disposition home or self-care (01) ==
LOC: MFPLAB 14:01
PROVIDERS: PCP Family Medicine; Referring Provider Family Medicine; Visit Provider Family Medicine
DX: R53.83 Other fatigue (principal)
CPT/HCPCS: 36415; 80048; 85025

== ENCOUNTER → 2024-07-06 | Outpatient (CLI) | payer MEDICARE, BC, SELFPAY ==
[2024-07-06 14:40] LABS: Hematocrit 29.1 % (37-47); Hemoglobin 9.9 g/dL (12.0-15.0); Mean Corpuscular Hgb 28.3 pg (27.0-32.0); Mean Corpuscular Volume 83.1 fL (81-99); Mean Platelet Vol. 9.6 fl (6.2-12.0); Platelet Count 233 K/mm3 (150-450); RBC Distribution Width CV 14.9 % (11.6-14.6); RBC Distribution Width SD 44.9 fl (35.1-43.9); White Blood Count 10.3 K/mm3 (4.4-11.0)
[2024-07-06 15:21] LABS: AST(SGOT) 20 U/L (<=31); Alanine Aminotransfer ALT/SGPT 11 U/L (<=34); Alkaline Phosphatase 113 U/L (35-104); Anion Gap 17 (5-15); BUN 62 mg/dL (4-19); BUN/Creat Ratio 17.3 RATIO (10-20); Calcium,Total 9.9 mg/dL (7.6-11.0); Carbon Dioxide 21.6 mmol/L (21.0-32.0); Chloride 96 mmol/L (98-108); EST Glomerular Filtration Rate 12 (>60); Globulin 3.9 g/dL (2.2-4.2); Glucose 139 mg/dL (70-99); Potassium 3.8 mmol/L (3.3-5.1); Protein, Total 7.8 g/dL (5.9-8.4); Sodium Level 135 mmol/L (133-145); Total Bilirubin 0.57 mg/dL (0.00-1.30)
== END | disposition home or self-care (01) ==
LOC: HHLAB 14:05
PROVIDERS: PCP Family Medicine; Referring Provider Family Medicine; Visit Provider Family Medicine
DX: I13.0 Hypertensive heart and chronic kidney disease with heart failure and stage 1 through stage 4 chronic kidney disease, or unspecified chronic kidney disease (principal); N18.4 Chronic kidney disease, stage 4 (severe); I50.9 Heart failure, unspecified; N17.9 Acute kidney failure, unspecified
CPT/HCPCS: 80053; 85027

== ENCOUNTER → 2024-07-12 | Outpatient (CLI) | payer MEDICARE, BC, SELFPAY ==
[2024-07-12 13:56] LABS: Pro- Brain NATRIURETIC PEPTIDE 3756 pg/mL (<=1800)
== END | disposition home or self-care (01) ==
LOC: LAB 12:10
PROVIDERS: PCP Family Medicine; Referring Provider Internal Medicine Cardiovascular Disease; Visit Provider Internal Medicine Cardiovascular Disease
DX: R06.89 Other abnormalities of breathing (principal); R06.00 Dyspnea, unspecified
CPT/HCPCS: 36415; 83880

== ENCOUNTER → 2024-07-19 | Outpatient (CLI) | payer MEDICARE, BC, SELFPAY ==
[2024-07-19 17:29] LABS: Anion Gap 16 (5-15); BUN 70 mg/dL (4-19); BUN/Creat Ratio 15.8 RATIO (10-20); Calcium,Total 9.7 mg/dL (7.6-11.0); Carbon Dioxide 18.7 mmol/L (21.0-32.0); Chloride 99 mmol/L (98-108); Creatinine, Serum 4.44 mg/dL (0.70-1.20); EST Glomerular Filtration Rate 9 (>60); Glucose 192 mg/dL (70-99); Potassium 4.4 mmol/L (3.3-5.1); Sodium Level 134 mmol/L (133-145)
== END | disposition home or self-care (01) ==
LOC: MFPLAB 11:36
PROVIDERS: PCP Family Medicine; Referring Provider Family Medicine; Visit Provider Family Medicine
DX: N19 Unspecified kidney failure (principal)
CPT/HCPCS: 36415; 80048

== ENCOUNTER → 2024-08-25 | Outpatient (CLI) | payer MEDICARE, BC, SELFPAY ==
[2024-08-25 17:38] LABS: Anion Gap 19 (5-15); BUN 93 mg/dL (4-19); BUN/Creat Ratio 15.2 RATIO (10-20); Calcium,Total 9.3 mg/dL (7.6-11.0); Carbon Dioxide 18.3 mmol/L (21.0-32.0); Chloride 100 mmol/L (98-108); Creatinine, Serum 6.13 mg/dL (0.70-1.20); EST Glomerular Filtration Rate 6 (>60); Glucose 139 mg/dL (70-99); Potassium 3.4 mmol/L (3.3-5.1); Sodium Level 137 mmol/L (133-145)
[2024-08-25 17:41] LABS: Hematocrit 23.3 % (37-47); Hemoglobin 7.9 g/dL (12.0-15.0); Mean Corp Hgb Conc 33.9 g/dL (32-36); Mean Corpuscular Hgb 28.8 pg (27.0-32.0); Mean Platelet Vol. 9.6 fl (6.2-12.0); Platelet Count 274 K/mm3 (150-450); RBC Distribution Width CV 13.6 % (11.6-14.6); RBC Distribution Width SD 41.8 fl (35.1-43.9); Red Blood Count 2.74 M/mm3 (4.2-5.4); White Blood Count 6.9 K/mm3 (4.4-11.0)
== END | disposition home or self-care (01) ==
LOC: MTLAB 14:38
PROVIDERS: PCP Family Medicine; Referring Provider Internal Medicine Nephrology; Visit Provider Internal Medicine Nephrology
DX: N18.4 Chronic kidney disease, stage 4 (severe) (principal); N17.9 Acute kidney failure, unspecified
CPT/HCPCS: 36415; 80048; 82570; 84156; 85027

== ENCOUNTER → 2024-10-25 | Outpatient (CLI) | payer MEDICARE, BC, SELFPAY ==
[2024-10-25 11:04] LABS: AST(SGOT) 25 U/L (<=31); Alanine Aminotransfer ALT/SGPT 32 U/L (<=34); Albumin, Serum 3.8 g/dL (3.4-4.8); Alkaline Phosphatase 112 U/L (35-104); Anion Gap 15 (5-15); BUN 76 mg/dL (4-19); BUN/Creat Ratio 19.2 RATIO (10-20); Calcium,Total 9.4 mg/dL (7.6-11.0); Carbon Dioxide 20.6 mmol/L (21.0-32.0); Chloride 102 mmol/L (98-108); Cholesterol 169 mg/dL (<=200); Globulin 3.0 g/dL (2.2-4.2); Glucose 100 mg/dL (70-99); Low Density Lipoprotein Calc. 117 mg/dL; Potassium 4.8 mmol/L (3.3-5.1); Triglycerides 105 mg/dL; Very Low Density Lipoprotein 21 mg/dL (5-40); cholesterol:hdl ratio screen 5.38
[2024-10-25 16:01] LABS: Creatinine, Urine (random) 48.30 mg/dL (28.00-217.00); Protein, Urine (Random) 73.3 mg/dL (0.0-12.0); Protein:Creat Ratio 1518 mg/g CRE (0-200)
== END | disposition home or self-care (01) ==
LOC: MFPLAB 09:13
PROVIDERS: PCP Family Medicine; Referring Provider Family Medicine; Visit Provider Family Medicine
DX: I10 Essential (primary) hypertension (principal); N17.9 Acute kidney failure, unspecified
CPT/HCPCS: 36415; 80053; 80061; 82570; 84156

== ENCOUNTER → 2025-01-24 | Outpatient (CLI) | payer MEDICARE, BC, OTHER, SELFPAY ==
[2025-01-24 12:48] LABS: Anion Gap 15 (5-15); BUN 56 mg/dL (4-19); BUN/Creat Ratio 18.9 RATIO (10-20); Calcium,Total 9.7 mg/dL (7.6-11.0); Carbon Dioxide 21.5 mmol/L (21.0-32.0); Chloride 104 mmol/L (98-108); Glucose 175 mg/dL (70-99); Potassium 3.7 mmol/L (3.3-5.1)
[2025-01-25 17:08] LABS: Cytoplasmic Ab (C-ANCA) <1:20 titer (Neg:<1:20); Perinuclear Ab (P-ANCA) <1:20 titer (Neg:<1:20)
[2025-01-26 08:10] LABS: Anti-dsDNA Ab 1 IU/mL (0-9)
== END | disposition home or self-care (01) ==
LOC: MFPLAB 09:56
PROVIDERS: PCP Family Medicine; Visit Provider Internal Medicine Nephrology
DX: N17.9 Acute kidney failure, unspecified (principal)
CPT/HCPCS: 36415; 80048; 86037; 86038; 86160; 86225